=== PATIENT | male | born 1965 | race Caucasian/White ===

== ENCOUNTER 2019-10-20 05:33 | Outpatient (RCR) | payer MEDICAID ==
[~2019-10-20] VITALS: Ht 175.3 cm; Wt 100.0 kg
[2019-10-20] MEDS ORDERED: MELA1TAB27 PO (10:47)
[2019-10-20] MEDS ORDERED: DICL75TA2 PO (10:47)
[2019-10-20] MEDS ORDERED: POTA20TA8 PO (10:47)
[2019-10-20] MEDS ORDERED: ERGO50006 PO (10:47)
[2019-10-20] MEDS ORDERED: METH500T7 PO (10:47)
[2019-10-20] MEDS ORDERED: TRAZ-227 PO (10:47)
[2019-10-20] MEDS ORDERED: POLY119P5 PO (10:47)
[2019-10-20] MEDS ORDERED: VILA40TA PO (10:47)
[2019-10-20] MEDS ORDERED: SIMV10TA26 PO (10:47)
[2019-10-20] MEDS ORDERED: ALPR0.5T PO (10:47)
[2019-10-20] MEDS ORDERED: CHOL10007 PO (10:47)
[2019-10-20] MEDS ORDERED: FURO80TA3 PO (10:47)
[2019-10-20] MEDS ORDERED: LIDO700A45 TP (10:47)
[2019-10-20] MEDS ORDERED: GABA300C PO (10:47)
[2019-10-20] MEDS ORDERED: NALO12.5 PO (10:47)
[2019-10-20] MEDS ORDERED: HYDR-83 PO (10:47)
[2019-10-20] MEDS ORDERED: FURO40TA4 PO (10:47)
[2019-10-20] MEDS ORDERED: MAGN400O7 PO (10:47)
[2019-10-20] MEDS ORDERED: RISP2TAB3 PO (10:47)
[2019-10-20] MEDS ORDERED: METO5TAB6 PO (10:47)
[2019-10-20] MEDS ORDERED: DIVA500T PO (10:47)
[2019-10-20] MEDS ORDERED: FLUT9.9S NSEACH (10:47)
[2019-10-20] MEDS ORDERED: DOCU-143 PO (10:47)
== END 2019-10-20 14:03 | disposition home or self-care (01) ==
LOC: PREOP 05:33
PROVIDERS: ATTEND Surgery
DX: Z01.812 Encounter for preprocedural laboratory examination (principal); Z20.828 Contact with and (suspected) exposure to other viral communicable diseases; C85.90 Non-Hodgkin lymphoma, unspecified, unspecified site
CPT/HCPCS: 87635

== ENCOUNTER 2019-10-24 06:49 | Day surgery (SDC) | payer MEDICAID ==
[~2019-10-24] VITALS: Ht 175.3 cm; Wt 100.0 kg
[~2019-10-24 06:49] MED LIST: ALPR0.5T PO; CHOL10007 PO; DICL75TA2 PO; DIVA500T PO; DOCU-143 PO; ERGO50006 PO; FLUT9.9S NSEACH; FURO40TA4 PO; FURO80TA3 PO; GABA300C PO; HYDR-83 PO; LIDO700A45 TP; MAGN400O7 PO; MELA1TAB27 PO; METH500T7 PO; METO5TAB6 PO; NALO12.5 PO; POLY119P5 PO; POTA20TA8 PO; RISP2TAB3 PO; SIMV10TA26 PO; TRAZ-227 PO; VILA40TA PO
--- OUTSIDE RECORDS SUMMARY | 2019-10-24 06:54 | XMS REPORT ---
Author Author Jewel Cortez Organization [facility] Address [address] [place], [place] [id number] Care Team Providers Care Real Estate Marketing Coordinator Name Role Phone Ish Cortez PCP Valentín Florentino PreferredProvider Allergies and Adverse Reactions Name Reaction Notes No known drug allergy Plan of Treatment Planned Activity Comments Planned Date Planned Time Plan/Goal urinary retension 02/02/2018 10:30 AM Renal Ultrasound 04/19/2017 12:00 AM URINALYSIS ROUTINE C&S IF IND 04/19/2017 12:00 AM SPEP (serum protein electrophoresis) 04/19/2017 12:0 0 AM Urine protein electrophoresis panel 04/19/2017 12:00 AM PTH INTACT. 04/19/2017 12:00 AM PHOSPHORUS. 04/19/2017 12:00 AM VITAMIN D (25 HYDROXY) 04/19/2017 12:00 AM Hepatitis B screening test 04/19/2017 12:00 AM ABDOMEN 2 VIEW DECUB/UPRIGHT 01/04/2018 12:00 AM CBC W/ AUTO DIFF (RFLX MAN DIFF IF IND). 11/30/2018 12:00 AM BMP 11/30/2018 12:00 AM URINALYSIS W/MICRO C&S IF IND 11/30/2018 12:00 AM CBC W/ AUTO DIFF (RFLX MAN DIFF IF IND). 11/30/2018 12:00 AM BMP 11/30/2018 12:00 AM Medications Active Name Start Date Estimated Completion Date SIG Co mments Benadryl 25 mg oral capsule take 1-2 caps ules by oral route daily as needed Mapap (acetaminophen) 500 mg oral capsule take 1 - 2 capsules (500 - 1,000 mg) by oral route every 4-6 hours as needed not to exceed 8 capsules per 24hrs Vitamin D3 1,000 unit oral tablet take 2 tablets by oral route daily potassium chloride 20 mEq oral tablet extended release take 4 tablets by oral route daily Colace 100 mg oral capsule 08/31/2017 take 1 capsule (100 mg) by oral route 2 times per day for 30 days furosemide 40 mg oral tablet 12/06/2017 gregory e 1.5 tablets by oral route daily for 30 days DOK 100 mg oral capsule 03/09/2018 TAKE 1 CAPSULE BY MOUTH TWICE DAILY Miralax 17 gram/dose oral powder 04/06/2018 take 17 gram mixed with 8 oz. water, juice, soda, coffee or tea by oral route once daily metolazone 5 mg oral tablet 05/04/2018 TAKE 1 TABLET BY MOUTH ON MONDAYS, WEDNESDAYS AND FRIDAYS AT 12:30PM Viibryd 40 mg oral tablet 05/04/2018 TAKE 1 TABLET B Y MOUTH AT 8AM furosemide 80 mg oral tablet 05/04/2018 TAKE 1 TABLE T BY MOUTH AT 8AM potassium chloride 20 mEq oral tablet,ER particles/crystals 04/16 TAKE 4 TABLETS BY MOUTH AT 8AM methocarbamol 500 mg oral tablet 05/04/2018 TAKE 1 TABLET BY MOUTH THREE TIMES DAILY AT 8AM, 2PM AND 8PM duloxetine 60 mg oral capsule,delayed release(DR/EC) 05/04/2018 TAKE 1 CAPSULE BY MOUTH AT 8AM risperidone 2 mg oral tablet 05/04/2018 TAKE 1 TABLE T BY MOUTH AT 8PM diclofenac sodium 75 mg oral tablet,delayed release (DR/EC) 04/16 TAKE 1 TABLET BY MOUTH TWICE DAILY AT 8AM AND 8PM simvastatin 10 mg oral tablet 05/04/2018 TAKE 1 TABL ET BY MOUTH AT 8PM Name Start Date Expiration Date SIG Comments Vitamin D2 50,000 unit oral capsule 05/30/2017 08/22/2017 TAKE ONE CAPSULE BY MOUTH ONCE WEEKLY ON MONDAYS AT 7AM melatonin 3 mg oral tablet 10/20/2017 11/19/2017 take 2 tablets by oral route daily as needed for 30 days Lazo Diaper Rash Cream 01/04/2018 04/04/2018 Nystatin , Zinc Oxide, Aquaphor, Antacid, Cholestyramine; Apply to Area as Directed clonazepam 1 mg oral tablet 03/01/2018 03/31/2018 take 1 tablet (1 mg) by oral route 2 times per day for 30 days Drug screened morphine 15 mg oral tablet 03/17/2018 04/16/2018 take 1 tablet by oral route daily for 30 days tamsulosin 0.4 mg oral capsule 03/22/2018 07/12/2018 t ivan 1 capsule (0.4 mg) by oral route once daily 1/2 hour following the same meal each day for 28 days nystatin-triamcinolone 100,000-0.1 unit/g-% topical cream 018 04/01/2018 apply to the affected area(s) by topical route 2 times per day in the morning and evening for 10 days tramadol 50 mg oral tablet 04/26/2018 05/26/2018 take 1-2 tablets by oral route every 6 hours as needed for 30 days fentanyl 50 mcg/hr transdermal patch 72 hour 04/26/201805/17 apply 1 patch (50 mcg/hour) by transdermal route every 72 hours for 30 days Discontinued Name Start Date Discontinued Date SIG Comments Ativan 2 mg/mL injection solution 04/18/2018 inject 1 milliliter IM PRN agitation, may repeat in 1 hour if needed Did not pass drug screen Ativan 2 mg/mL injection solution 04/18/2018 inject 1 milliliter IM PRN agitation, may repeat in 1 hour if needed Did not pass drug screen Lasix 40 mg oral tablet 10/20/2017 take 1 t ablet (40 mg) by oral route once daily Lasix 80 mg oral tablet 10/20/2017 take 1 t ablet (80 mg) by oral route once daily duplicate fenofibrate 150 mg oral capsule 05/26/2017 07/19/2017 TAKE 1 CAPSULE BY MOUTH AT 8PM Xanax XR 1 mg oral tablet extended release 24 hr 12/06/2017 01/26/2018 take 1 tablet (1 mg) by oral route once daily for 30 days tamsulosin 0.4 mg oral capsule 01/31/2018 02/28/2018 t ivan 1 capsule (0.4 mg) by oral route once daily 1/2 hour following the same meal each day for 30 days clorazepate dipotassium 15 mg oral tablet 02/16/20182017 take 2 tablets by oral route 2 times a day for 30 days Xanax 0.5 mg oral tablet 02/16/2018 03/01/2018 take 1 tablet by oral route QD PRN agitation Problem List Not available. Vital Signs Date Time BP-Sys(mm[Hg] BP-Natividad(mm[Hg]) HR(bpm) RR(rpm) Temp WT HT HC BMI BSA BMI Percentile O2 Sat(%) 11/30/2018 2:07:00 PM 118 mmHg 76 mmHg 94 bpm 18 rpm 97.4 F 183 lbs 69 in 27.0241 kg/m 2.0102 m 95 % 04/18/2018 11:16:00 AM 120 mmHg 79 mmHg 76 bpm 20 rpm 98.6 F 183 lbs 69 in 27.02 kg/m2 2.01 m2 99 % 03/17/2018 11:18:00 AM 129 mmHg 80 mmHg 56 bpm 20 rpm 98.1 F 183 lbs 69 in 27.0241 kg/m 2.0102 m 100 % 02/28/2018 9:55:00 AM 128 mmHg 70 mmHg 52 bpm 14 rpm 97.9 F 183.562 lbs 96 % 02/04/2018 10:12:00 AM 102 mmHg 64 mmHg 80 bpm 20 rpm 98.1 F 183.375 lbs 69 in 27.08 kg/m2 2.01 m2 95 % 01/31/2018 10:34:00 AM 118 mmHg 78 mmHg 67 bpm 16 rpm 98.1 F 185 lbs 69 in 27.3194 kg/m 2.0212 m 95 % 01/04/2018 10:22:00 AM 122 mmHg 78 mmHg 68 bpm 19 rpm 98.2 F 184.5 lbs 69 i n 27.25 kg/m2 2.02 m2 95 % 11/23/2017 10:25:00 AM 116 mmHg 72 mmHg 77 bpm 20 rpm 98.1 F 187 lbs 69 in 27.6148 kg/m 2.0321 m 96 % 08/24/2017 10:38:00 AM 112 mmHg 64 mmHg 60 bpm 20 rpm 98.6 F 206.5 lbs 69 i n 30.49 kg/m2 2.14 m2 94 % 07/02/2017 9:59:00 AM 127 mmHg 82 mmHg 77 bpm 20 rpm 99.2 F 205 lbs 69 in 30.2729 kg/m 2.1277 m 94 % 06/02/2017 3:02:00 PM 124 mmHg 82 mmHg 95 bpm 20 rpm 98.8 F 205.375 lbs 69 in 30.33 kg/m2 2.13 m2 96 % 04/16/2017 9:09:00 AM 118 mmHg 68 mmHg 86 bpm 20 rpm 96.8 F 212.125 lbs 69 in 31.3251 kg/m 2.1643 m 98 % Social History Name Description Comments Smoker History of Procedures Date Ordered Description Order Status 04/16/2017 12:00 AM COMPREHEN METABOLIC PANEL Reviewed 11/23/2017 12:00 AM COMPREHEN METABOLIC PANEL Reviewed 11/23/2017 12:00 AM COMPLETE CBC W/AUTO DIFF WBC Reviewed 11/23/2017 12:00 AM C-REACTIVE PROTEIN Reviewed 11/23/2017 12:00 AM RBC SED RATE AUTOMATED Reviewed 11/23/2017 12:00 AM ASSAY THYROID STIM HORMONE Reviewed 11/23/2017 12:00 AM ASSAY OF PSA TOTAL Reviewed 11/23/2017 12:00 AM URNLS DIP STICK/TABLET RGNT AUTO W/O RUDDY ROSCOPY Reviewed 01/04/2018 12:00 AM US EXAM ABDO BACK WALL COMP Reviewed 01/19/2018 12:00 AM Consult/Referral Reviewed 01/31/2018 12:00 AM US EXAM PELVIC LIMITED Reviewed 02/28/2018 10:41 AM US URINE CAPACITY MEASURE Reviewed 03/08/2018 12:00 AM SIMPLE CYSTOMETROGRAM Reviewed 03/08/2018 12:00 AM CYSTOMETROGRAM W/NURSE SUBSTANCE ABUSE&UP Reviewed 03/08/2018 12:00 AM ELECTRO-UROFLOWMETRY FIRST Reviewed 03/08/2018 12:00 AM INTRAABDOMINAL PRESSURE TEST Reviewed 03/08/2018 12:00 AM URINALYSIS AUTO W/O SCOPE Reviewed 04/18/2018 12:00 AM REMOVE NAIL BED/TIP Reviewed 04/18/2018 12:00 AM REMOVAL OF NAIL PLATE Reviewed 04/18/2018 12:00 AM REMOVAL OF NAIL BED Reviewed 04/18/2018 12:00 AM REMOVE NAIL BED/TIP Reviewed 03/22/2018 12:00 AM CYSTOSCOPY Reviewed 03/22/2018 12:00 AM INSERT BLADDER CATHETER Reviewed 11/30/2018 12:00 AM URINALYSIS AUTO W/SCOPE Reviewed Results Summary Date and Description Results 04/16/2017 11:10 AM GLUCOSE 132.0 mg/dLSODIUM 13 6.0 mmol/LPOTASSIUM 4.20 mmol/LCHLORIDE 94.0 mmol/LCO2 31.0 mmol/LBUN 34.0 mg/dLCREATININE 1.90 mg/dLSGOT/AST 15.0 IU/LSGPT/ALT 13.0 IU/LALK PHOS 41.0 IU/LTOTAL PROTEIN 8.0 g/dLALBUMIN 4.50 g/dLTOTAL BILI 0.40 mg/dLCALCIUM 10.30 mg/dLAGE 51 GFR NonAA 38 GFR AA 46 eGFR 38 eGFR AA* 46 11/23/2017 12:28 PM TSH 0.80 WBC 7.6 RBC 6.17 HG B 18.5 HCT 53.0 MCV 86 MCH 30.0 MCHC 34.9 RDW SD 39 RDW CV 12.7 MPV 9.8 PLT 235 NRBC# 0.00 NRBC% 0.0 %NEUT 61.6 %LYMP 28.6 %MONO 6.6 %EOS 2.2 %BASO 0.9 #NEUT 4.67 #LYMP 2.17 #MONO 0.50 #EOS 0.17 #BASO 0.07 MANUAL DIFF SEE BELOW SEGS 58 LYMPHS 33 MONOS 7 EOS 2 GLUCOSE 96 SODIUM 138 POTASSIUM 2.9 CHLORIDE 92 CO2 33 BUN 17 CREATININE 1.6 SGOT/AST 20 SGPT/ALT 28 ALK PHOS 56 TOTAL PROTEIN 8.4 ALBUMIN 4.5 TOTAL BILI 0.6 CALCIUM 10.4 AGE 51 GFR NonAA 46 GFR AA 56 eGFR 46 eGFR AA* 56 PSA TOTAL 0.53 C REACTIVE PROTEIN 0.7 SEDRATE 9 11/23/2017 1:48 PM COLOR YELLOW APPEARANCE KETTY R SPEC GRAV <=1.005 pH 6.5 PROTEIN NEGATIVE GLUCOSE NEGATIVE KETONE NEGATIVE BILIRUBIN NEGATIVE BLOOD NEGATIVE NITRITE NEGATIVE LEUK SCREEN NEGATIVE MICRO INDICATED? NOT INDICATED 02/28/2018 10:41 AM Residual Urine 49.0 mL 11/30/2018 4:51 PM COLOR Colorless CLARITY Ketty r SPEC GRAV 1.009 pH 6.5 PROTEIN Negative GLUCOSE Normal KETONE Negative BILIRUBIN Negative BLOOD Negative NITRITE Negative LEUK SCREEN Negative RBC/HPF None Seen WBC/HPF 0-5 BACTERIA/HPF None Seen SQUAMOUS EPI/LPF None Seen MUCOUS/LPF Few HYALINE CAST/LPF 3+ CULT SET UP? NO History Of Immunizations Not available. 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 Major depressive disorder, recurrent episode, unspecified GERD (gastroesophageal reflux disease) Other seizures Constipation, unspecified Pain Edema Chronic pain disorder Stage 3 chronic kidney disease Apr 16 2017 9:13AM Anxiety Apr 16 2017 9:13AM CKD (chronic kidney disease) Apr 19 2017 1:46PM Drug induced constipation Jun 02 2017 3:07PM Adverse effect of other opioids, initial encounter Jun 02 3:07PM Anxiety Jun 02 2017 3:07PM 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 Jun 02 2017 3:07PM Chronic Low Back Pain Jul 02 2017 10:05AM Muscle weakness Jul 02 2017 10:05AM Low back pain Aug 24 2017 10:46AM Other chronic pain Aug 24 2017 10:46AM Weight loss Nov 23 2017 10:30AM Benign prostatic hyperplasia with lower urinary tract symptoms Nov 23 2017 10:30AM Other obstructive and reflux uropathy Nov 23 2017 10:30AM Drug induced constipation Nov 23 2017 10:30AM Slow transit constipation Jan 04 2018 10:29AM Urinary retention Jan 04 2018 10:29AM Diaper rash Jan 04 2018 10:29AM Urinary retention Jan 19 2018 11:23AM TBI (traumatic brain injury) Jan 31 2018 10:36AM Unspecified injury of bladder, sequela Jan 31 2018 10:36AM Unspecified injury of urethra, sequela Jan 31 2018 10:36AM Benign prostatic hyperplasia with lower urinary tract symptoms Jan 31 2018 10:36AM Other obstructive and reflux uropathy Jan 31 2018 10:36AM Urinary Incontinence Feb 28 2018 10:00AM Bladder injury Feb 28 2018 10:00AM Urinary Incontinence Mar 08 2018 2:05PM Bladder injury Mar 08 2018 2:05PM Retention, urine Mar 22 2018 9:29AM BPH (benign prostatic hyperplasia) Mar 22 2018 9:29AM Drug induced constipation Mar 22 2018 9:29AM Detrusor dysfunction Mar 08 2018 2:05PM Onychomycosis Apr 18 2018 11:18AM Low back pain Mar 17 2018 11:20AM Other chronic pain Mar 17 2018 11:20AM Overflow incontinence Feb 04 2018 10:19AM Mood disorder Feb 04 2018 10:19AM Nocturia Nov 30 2018 2:10PM Urinary hesitancy Nov 30 2018 2:10PM BPH (benign prostatic hyperplasia) Nov 30 2018 3:09PM BPH loc w/o ur obs/LUTS Nov 30 2018 2:10PM Neurogenic bladder Nov 30 2018 2:10PM Payers Insurance Name Company Name Plan Name Plan Number Policy Number John cy Group Number Start Date [facility] Plan of [id number] N/A [facility] Plan of [place] [facility]althCare [facility] Comm [id number] N/A History of Encounters Visit Date Visit Type Provider 11/30/2018 Office visit Ish Cortez MD 04/18/2018 Office visit Kayla AVILA RN 03/22/2018 Procedures Ish Cortez MD 03/17/[address] Valentín Florentino MD 03/08/2018 Procedures Ish Cortez MD 02/28/2018 Office visit Ish Cortez MD 02/04/[address] Valentín Florentino MD 01/31/2018 Office visit Ish Cortez MD 01/04/[address] Valentín Florentino MD 11/23/[address] Valentín Florentino MD 08/24/[address] Valentín Florentino MD 07/02/[address] Valentín Florentino MD 06/02/[address] Valentín Florentino MD 04/16/[address] Valentín Florentino MD
--- OUTSIDE RECORDS SUMMARY | 2019-10-24 06:54 | XMS REPORT ---
Author Author [facility] Medic al Staff, DIAZ Irizarry [facility] Address [address] [place], [place] [address] Phone [phone] Care Team Providers Care Fpga Design Engineer Name Role Phone MARIE BATISTA MD, WAI PP [phone] Summary purpose CCDA Sent to [facility] Chief Complaint and Reason for Visit No authorized Reason for Visit (Admitting Diagnosis) is available for this visit . Problem list No authorized problems tracked for continuity of care are available for this vis it. Encounters No authorized problems tracked for encounter diagnoses are available for this vi sit. Medications No medications recorded for this patient visit Allergies, adverse reactions, alerts No allergy information is available for this patient. Immunizations No immunizations recorded for this patient visit Relevant diagnostic tests and/or laboratory data No authorized results are available for this patient visit History of procedures Procedure Code Code Type Description Date Performed Performing Physician 65970 CPT-4 ROUTINE VENIPUNCTURE 06-11-2016 [place] [address] CPT-4 COMPREHEN METABOLIC PANEL 06-11-2016 [place] [address] CPT-4 COMPLETE CBC W/AUTO DIFF WBC 06-11-2016 WAI SALAZAR JR Functional status No functional or cognitive status observations are available for this visit. Vital signs No authorized vital signs are available for this visit. Social history No Social History or smoking status observations were recorded for this visit. ( Unknown if ever smoked.) Treatment Plan No treatment plan text is available for this visit. Hospital discharge instructions No discharge instruction text is available for this visit.
--- OUTSIDE RECORDS SUMMARY | 2019-10-24 06:54 | XMS REPORT ---
Author Author Jewel Cortez Organization [facility] Address [address] [place], [place] [address] Care Team Providers Care Head Charrer Name Role Phone Ish Cortez PCP Valentín [...] MAN DIFF IF IND). 11/30/2018 12:00 AM CBC W/ AUTO DIFF (RFLX MAN DIFF IF IND). 11/30/2018 12:00 AM BMP 11/30/2018 12:00 AM BMP 01/15/2019 12:00 AM CBC W/ AUTO DIFF (RFLX MAN DIFF IF IND). 01/15/2019 12:00 AM URINALYSIS W/MICRO C&S IF IND 01/15/2019 12:00 AM Medications Active Name Start Date [...] SIMPLE CYSTOMETROGRAM Reviewed 03/08/2018 12:00 AM CYSTOMETROGRAM W/POPCORN MACHINE OPERATOR&UP Reviewed 03/08/2018 12:00 AM ELECTRO-UROFLOWMETRY FIRST Reviewed [...] 11/30/2018 12:00 AM URINALYSIS AUTO W/SCOPE Reviewed 11/30/2018 12:00 AM METABOLIC PANEL TOTAL CA Reviewed 11/30/2018 12:00 AM URINALYSIS AUTO W/SCOPE [...] 0.80 WBC 7.6 RBC 6.17 HG B 18.50 g/dLHCT 53.0 %MCV 86.0 fLMCH 30.0 pgMCHC 34.90 g/dLRDW SD 39 fLRDW CV 12.70 %MPV 9.80 fLPLT 235 NRBC# 0.00 NRBC% 0.0 %NEUT 61.6 %LYMP 28.6 %MONO 6.6 %EOS 2.2 %BASO 0.9 #NEUT 4.67 #LYMP 2.17 #MONO 0.50 #EOS 0.17 #BASO 0.07 MANUAL DIFF SEE BELOW SEGS 58 LYMPHS 33 MONOS 7 EOS 2 GLUCOSE 96 SODIUM 138 POTASSIUM 2.9 CHLORIDE 92.0 mmol/LCO2 33 BUN 17.0 mg/dLCREATININE 1.60 mg/dLSGOT/AST 20 SGPT/ALT 28 ALK PHOS 56 TOTAL PROTEIN 8.4 ALBUMIN 4.5 TOTAL BILI 0.6 CALCIUM 10.40 mg/dLAGE 51 GFR NonAA 46 GFR AA 56 eGFR 46 eGFR AA* 56 PSA TOTAL 0.53 C REACTIVE PROTEIN 7.0 mg/LSEDRATE 9 11/23/2017 1:48 PM COLOR YELLOW APPEARANCE [...] 2:10PM Neurogenic bladder Nov 30 2018 2:10PM Preoperative examination Dec 15 2018 7:37AM Payers Insurance Name Company Name Plan Name Plan Number Policy Number John cy Group [facility] [id number] N/A [facility] ealthCare [facility] Comm [id number] N/A History of Encounters Visit Date Visit [...]
--- OUTSIDE RECORDS SUMMARY | 2019-10-24 06:54 | XMS REPORT ---
Discharge Summary 2.1 Created on: DIAZ BOO : 1965 Sex: Male Author Author DIAZ HA Organization Unknown Address [address] [place], [place] [address] Care Team Providers Care Hospital Mortician Name Role Phone [facility] [employer] Attending KOLE TORRES MD [facility] Functional Status No Data Found Immunization Immunization Date Status Additional Notes Code Code System influenza, split (incl. purified surface antigen) 03/24/2004 Completed 15 CVX influenza, split (incl. purified surface antigen) 02/24/2008 Completed 15 CVX influenza, split (incl. purified surface antigen) 05/04/2011 Completed 15 CVX pneumococcal polysaccharide PPV23 Completed 33 CVX Tdap 08/05/2009 Completed 115 CVX Tdap 05/04/2011 Completed 115 CVX Influenza, seasonal, injectable 08/01/2012 Completed 141 CVX influenza, injectable, quadrivalent 03/08/2015 Completed 158 CVX influenza, injectable, quadrivalent 02/20/2016 Completed 158 CVX Mental Status No Data Found Results No Data Found Social History Type Status Start Date End Date Code Code System Smoking History Unknown if ever smoked [id number] SNOMED-CT Smoking History Current every day smoker [id number] SNOMED-CT Vital Signs No Data Found Assessment No Data Found Hospital Discharge Instructions Should you have any questions prior to discharge, please contact a member of your healthcare team. If you have left the hospital and have any questions, please contact your primary care physician. Reason For Referral No Data Found Hospital Course You were admitted to [facility] on 04/20/2017 11:58 with a principal diagnosis of Pain in left leg You were discharged from [facility] on 04/20/2017 14:03 Medications No Data Found Procedures No Data Found Implants No Data Found Problems No Data Found Allergies Allergy Substance Reaction Severity Start Date Concern Status Code Code System No Known Drug Allergies Active RxNorm Plan of Treatment No Data Found Encounters No Data Found Goals No Data Found Discharge Medications No Data Found Discharge Diagnosis Discharge Diagnosis Diagnosis Code Start Date Pain in left leg [id number] 04/20/2017 Health Concerns Section No Data Found
--- OUTSIDE RECORDS SUMMARY | 2019-10-24 06:54 | XMS REPORT ---
Author Author Jewel Cortez Organization [facility] Address [address] [place], [place] [address] Care Team Providers Care Web Machine Tender Name Role Phone Ish Cortez PCP Valentín [...] SIMPLE CYSTOMETROGRAM Reviewed 03/08/2018 12:00 AM CYSTOMETROGRAM W/PRODUCT CONTROLLER&UP Reviewed 03/08/2018 12:00 AM ELECTRO-UROFLOWMETRY FIRST Reviewed [...] Number John cy Group Number [facility] Plan [facility] [id number] N/A [facility] Comm [id number] N/A History of Encounters Visit Date Visit [...]
[2019-10-24] MEDS ORDERED: proPOfol 200 MG/20 ML (DIPRIVAN) VIAL IV ONE ×2 (06:55→06:57)
[2019-10-24] MEDS ORDERED: fentaNYL INJECTION 100 MCG/2 ML AMP ONE (06:55)
--- OUTSIDE RECORDS SUMMARY | 2019-10-24 06:55 | XMS REPORT ---
Author Author Jewel Cortez Organization [facility] Address [address] [place], [place] [address] Care Team Providers Care Set Off Press Operator Name Role Phone Ish Cortez PCP Valentín [...] ABDOMEN 2 VIEW DECUB/UPRIGHT 01/04/2018 12:00 AM URINALYSIS W/MICRO C&S IF IND [...] SIMPLE CYSTOMETROGRAM Reviewed 03/08/2018 12:00 AM CYSTOMETROGRAM W/PILE DRIVER OPERATOR BARGE MOUNTED&UP Reviewed 03/08/2018 12:00 AM ELECTRO-UROFLOWMETRY FIRST Reviewed [...] 03/22/2018 12:00 AM INSERT BLADDER CATHETER Reviewed Results Summary Date and Description Results [...] 02/28/2018 10:41 AM Residual Urine 49.0 mL History Of Immunizations Not available. History of [...] Number John cy Group Number Start Date [facility] Plan of [id number] N/A [facility]altare [facility] Comm [id number] N/A History of Encounters Visit Date Visit [...]
--- OUTSIDE RECORDS SUMMARY | 2019-10-24 06:55 | XMS REPORT ---
Author Author Jewel Cortez Organization [facility] Address [address] [place], [place] [address] Care Team Providers Care Skin Former Name Role Phone Ish Cortez PCP Valentín [...] SIMPLE CYSTOMETROGRAM Reviewed 03/08/2018 12:00 AM CYSTOMETROGRAM W/CLERICAL ORDER FILLER&UP Reviewed 03/08/2018 12:00 AM ELECTRO-UROFLOWMETRY FIRST Reviewed [...] (benign prostatic hyperplasia) Nov 30 2018 3:09PM Payers Insurance Name Company Name Plan Name Plan Number Policy Number John cy Group [facility] [id number] N/A [facility] Comm [id number] N/A History of Encounters Visit Date Visit [...]
--- OUTSIDE RECORDS SUMMARY | 2019-10-24 06:55 | XMS REPORT ---
Author Author Jewel Pena Organization [facility] Address [address] [place], [place] [id number] Care Team Providers Care Utilization Review Rn Name Role Phone aKyla Pena PCP Valentín Florentino PreferredProvider Allergies and Adverse [...] ABDOMEN 2 VIEW DECUB/UPRIGHT 01/04/2018 12:00 AM Medications Active Name Start Date [...] TAKE 1 CAPSULE BY MOUTH TWICE DAILY tamsulosin 0.4 mg oral capsule 03/22/2018 07/12/2018 t ivan 1 capsule (0.4 mg) by oral route once daily 1/2 hour following the same meal each day for 28 days Miralax 17 gram/dose oral powder 04/06/2018 take 17 gram mixed with 8 oz. water, juice, soda, coffee or tea by oral route once daily tramadol 50 mg oral tablet 04/26/2018 05/26/2018 take 1-2 tablets by oral route every 6 hours as needed for 30 days fentanyl 50 mcg/hr transdermal patch 72 hour 04/26/201805/17 apply 1 patch (50 mcg/hour) by transdermal route every 72 hours for 30 days metolazone 5 mg oral tablet 05/04/2018 TAKE [...] Name Start Date Expiration Date SIG Comments simvastatin 10 mg oral tablet 05/26/2017 11/22/2017 TAKE 1 TABL ET BY MOUTH AT 8PM diclofenac sodium 75 mg oral tablet,delayed release (DR/EC) 05/2611/22/2017 TAKE 1 TABLET BY MOUTH TWICE DAILY AT 8AM AND 8PM risperidone 2 mg oral tablet 05/26/2017 11/22/2017 TAKE 1 TABLE T BY MOUTH AT 8PM metolazone 5 mg oral tablet 05/26/2017 11/10/2017 TAKE 1 TABLET BY MOUTH ON MONDAYS, WEDNESDAYS AND FRIDAYS AT 12:30PM duloxetine 60 mg oral capsule,delayed release(DR/EC) 05/26/2017 11/22/2017 TAKE 1 CAPSULE BY MOUTH AT 8AM methocarbamol 500 mg oral tablet 05/26/2017 11/22/2017 TAKE 1 TABLET BY MOUTH THREE TIMES DAILY AT 8AM, 2PM AND 8PM Viibryd 40 mg oral tablet 05/26/2017 11/22/2017 TAKE 1 TABLET B Y MOUTH AT 8AM Vitamin D2 50,000 unit oral capsule 05/30/2017 [...] by oral route daily for 30 days nystatin-triamcinolone 100,000-0.1 unit/g-% topical cream 018 04/01/2018 apply to the affected area(s) by topical route 2 times per day in the morning and evening for 10 days Discontinued Name Start Date Discontinued Date [...] HC BMI BSA BMI Percentile O2 Sat(%) 04/18/2018 11:16:00 AM 120 mmHg 79 mmHg 76 bpm 20 rpm 98.6 F 183 lbs 69 in 27.0241 kg/m 2.0102 m 99 % 03/17/2018 11:18:00 AM 129 mmHg 80 mmHg 56 bpm 20 rpm 98.1 F 183 lbs 69 in 27.02 kg/m2 2.01 m2 100 % 02/28/2018 9:55:00 AM 128 mmHg [...] SIMPLE CYSTOMETROGRAM Reviewed 03/08/2018 12:00 AM CYSTOMETROGRAM W/AIRCRAFT ENGINE SPECIALIST&UP Reviewed 03/08/2018 12:00 AM ELECTRO-UROFLOWMETRY FIRST Reviewed [...] 10:19AM Mood disorder Feb 04 2018 10:19AM Payers Insurance Name Company Name Plan Name Plan Number Policy Number John cy Group [id number] N/A [facility]Care [facility] Comm [id number] N/A History of Encounters Visit Date Visit Type Provider 04/18/2018 Office visit Kayla Pena APRN 03/22/2018 Procedures Ish Cortez MD 03/17/2018 Office [...]
--- OUTSIDE RECORDS SUMMARY | 2019-10-24 06:55 | XMS REPORT ---
Author Author Jewel Barroso Organization [facility] Address [address] [place], [place] [address] Care Team Providers Care Manufacturing Sr Engineer Name Role Phone Kayla Barroso PCP Valentín Florentino PreferredProvider Allergies and Adverse [...] SIMPLE CYSTOMETROGRAM Reviewed 03/08/2018 12:00 AM CYSTOMETROGRAM W/TORCH SHEARER&UP Reviewed 03/08/2018 12:00 AM ELECTRO-UROFLOWMETRY FIRST Reviewed [...] Number John cy Group Number [facility] Plan [facility] [id number] N/A [facility] ealthCare [facility] Comm [id number] N/A History of Encounters Visit Date Visit Type Provider 04/18/2018 Office visit Kayla AVILA RN 03/22/2018 [...]
--- OUTSIDE RECORDS SUMMARY | 2019-10-24 06:55 | XMS REPORT ---
Author Author Jewel Barroso Organization [facility] Address [address] [place], [place] [phone] Care Team Providers Care Crime Specialist Name Role Phone Kayla Barroso PCP Valentín [...] SIMPLE CYSTOMETROGRAM Reviewed 03/08/2018 12:00 AM CYSTOMETROGRAM W/RUBY ON RAILS DEVELOPER&UP Reviewed 03/08/2018 12:00 AM ELECTRO-UROFLOWMETRY FIRST Reviewed [...] Number John cy Group Number [facility] [id number] N[facility]althCare [facility] Comm [id number] N/A History of Encounters Visit Date Visit Type Provider 04/18/2018 Office visit Kayla AVILA RN 03/22/2018 Procedures Ish Cortez MD 03/17/[address] Vaelntín Florentino MD 03/08/2018 Procedures Ish Cortez MD [...]
--- OUTSIDE RECORDS SUMMARY | 2019-10-24 06:55 | XMS REPORT ---
Author Author Jewel Barroso Organization [facility] Address [address] [place], [place] [phone] Care Team Providers Care Customer Support Executive Name Role Phone Kayla Barroso PCP Valentín [...] SIMPLE CYSTOMETROGRAM Reviewed 03/08/2018 12:00 AM CYSTOMETROGRAM W/STATE INSPECTOR&UP Reviewed 03/08/2018 12:00 AM ELECTRO-UROFLOWMETRY FIRST Reviewed [...] Number John cy Group Number [facility] [id number] N/A [facility]Care [facility] Comm [id number] N/A History of Encounters Visit Date Visit [...]
[2019-10-24] MEDS ORDERED: MIDAZOLAM 2 MG/2 ML (VERSED) VIAL ONE (06:56)
--- OUTSIDE RECORDS SUMMARY | 2019-10-24 06:56 | XMS REPORT ---
Author Author Jewel Pena Organization [facility] Address [address] [place], [place] [phone] Care Team Providers Care Fuel Cell Binder Name Role Phone Kayla Pena PCP Valentín Florentino PreferredProvider Allergies and [...] 10:41 AM US URINE CAPACITY MEASURE Reviewed 03/22/2018 12:00 AM CYSTOSCOPY Reviewed 03/22/2018 12:00 AM INSERT BLADDER CATHETER Reviewed 03/08/2018 12:00 AM SIMPLE CYSTOMETROGRAM Reviewed 03/08/2018 12:00 AM CYSTOMETROGRAM W/SPRINKLING SYSTEM IRRIGATOR&UP Reviewed 03/08/2018 12:00 AM ELECTRO-UROFLOWMETRY FIRST Reviewed 03/08/2018 12:00 AM INTRAABDOMINAL PRESSURE TEST Reviewed 03/08/2018 12:00 AM URINALYSIS AUTO W/O SCOPE Reviewed 04/18/2018 12:00 AM REMOVE NAIL BED/TIP Reviewed 04/18/2018 12:00 AM REMOVAL OF NAIL PLATE Reviewed 04/18/2018 12:00 AM REMOVAL OF NAIL BED Reviewed 04/18/2018 12:00 AM REMOVE NAIL BED/TIP Reviewed Results Summary Date and Description Results [...] Number John cy Group Number [facility] [id number] N/A [facility] ealthCare [facility] Comm [id number] N/A History of Encounters Visit Date Visit [...]
--- OUTSIDE RECORDS SUMMARY | 2019-10-24 06:56 | XMS REPORT ---
Author Author Jewel Pena Organization [facility] Address [address] [place], [place] [phone] Care Team Providers Care Loan Expeditor Name Role Phone Kayla Pena PCP Valentín [...] Date Estimated Completion Date SIG Co mments Ativan 2 mg/mL injection solution inject 1 milliliter IM PRN agitation, may repeat in 1 hour if needed Ativan 2 mg/mL injection solution inject 1 milliliter IM PRN agitation, may repeat in 1 hour if needed Benadryl 25 mg oral capsule take 1-2 caps ules by oral route daily as needed fentanyl 50 mcg/hr transdermal patch 72 hour apply 1 patch (50 mcg/hour) by transdermal route every 72 hours Mapap (acetaminophen) 500 mg oral capsule take 1 - 2 capsules (500 - 1,000 mg) by oral route every 4-6 hours as needed not to exceed 8 capsules per 24hrs tramadol 50 mg oral tablet take 1-2 tablets by oral route every 6 hours as needed Vitamin D3 1,000 unit oral tablet take 2 tablets by oral route daily potassium chloride 20 mEq oral tablet extended release take 4 tablets by oral route daily Colace 100 mg oral capsule 08/31/2017 take 1 capsule (100 mg) by oral route 2 times per day for 30 days diclofenac sodium 75 mg oral tablet,delayed release (DR/EC) 11/05 TAKE 1 TABLET BY MOUTH TWICE DAILY AT 8AM AND 8PM simvastatin 10 mg oral tablet 11/05/2017 TAKE 1 TABL ET BY MOUTH AT 8PM metolazone 5 mg oral tablet 11/05/2017 TAKE 1 TABLET BY MOUTH ON MONDAYS, WEDNESDAYS AND FRIDAYS AT 12:30PM duloxetine 60 mg oral capsule,delayed release(DR/EC) 11/05/2017 TAKE 1 CAPSULE BY MOUTH AT 8AM Viibryd 40 mg oral tablet 11/05/2017 TAKE 1 TABLET B Y MOUTH AT 8AM furosemide 80 mg oral tablet 11/05/2017 TAKE 1 TABLE T BY MOUTH AT 8AM methocarbamol 500 mg oral tablet 11/05/2017 TAKE 1 TABLET BY MOUTH THREE TIMES DAILY AT 8AM, 2PM AND 8PM potassium chloride 20 mEq oral tablet,ER particles/crystals 11/05 TAKE 4 TABLETS BY MOUTH AT 8AM risperidone 2 mg oral tablet 11/05/2017 TAKE 1 TABLE T BY MOUTH AT 8PM furosemide 40 mg oral tablet 12/06/2017 gregory [...] or tea by oral route once daily Name Start Date Expiration Date SIG Comments [...] 2 times per day for 30 days morphine 15 mg oral tablet 03/17/2018 04/16/2018 take 1 tablet by oral route daily for 30 days nystatin-triamcinolone 100,000-0.1 unit/g-% topical cream 018 04/01/2018 apply to the affected area(s) by topical route 2 times per day in the morning and evening for 10 days Discontinued Name Start Date Discontinued Date SIG Comments Lasix 40 mg oral tablet 10/20/2017 take [...] SIMPLE CYSTOMETROGRAM Reviewed 03/08/2018 12:00 AM CYSTOMETROGRAM W/COOLING SYSTEM OPERATOR&UP Reviewed 03/08/2018 12:00 AM ELECTRO-UROFLOWMETRY FIRST Reviewed 03/08/2018 12:00 AM INTRAABDOMINAL PRESSURE TEST Reviewed 03/08/2018 12:00 AM URINALYSIS AUTO W/O SCOPE Reviewed 04/18/2018 12:00 AM REMOVAL OF NAIL PLATE Reviewed Results Summary Date and Description Results [...] Other chronic pain Mar 17 2018 11:20AM Payers Insurance Name Company Name Plan Name Plan Number Policy Number John cy Group Number [facility] [id number] N/A [facility] ealthCare [facility] Comm [id number] N/A History of Encounters Visit Date Visit Type Provider 04/18/2018 Office visit Kayla Pena CONSULTING NETWORKING ENGINEER 03/22/2018 Procedures Ish Cortez MD 03/17/2018 Office [...]
--- OUTSIDE RECORDS SUMMARY | 2019-10-24 06:56 | XMS REPORT ---
Author Author Jewel Pena Organization [facility] Address [address] [place], [place] [address] Care Team Providers Care Horticulture Instructor Name Role Phone Kayla Pena PCP Valentín [...] SIMPLE CYSTOMETROGRAM Reviewed 03/08/2018 12:00 AM CYSTOMETROGRAM W/CHINCHILLA FARMER&UP Reviewed 03/08/2018 12:00 AM ELECTRO-UROFLOWMETRY FIRST Reviewed [...] Number John cy Group Number Start Date [facility] e Comm Plan of [id number] N/A [facility]altare [facility] Comm [id number] N/A History of Encounters Visit Date Visit Type Provider 04/18/2018 Office visit Kayla Pena MEAT COOLER 03/22/2018 Procedures Ish Cortez MD 03/17/2018 Office [...]
--- OUTSIDE RECORDS SUMMARY | 2019-10-24 06:56 | XMS REPORT ---
Author Author Jewel Cortez Organization [facility] Address [address] [place], [place] [phone] Care Team Providers Care Senior Painter Name Role Phone Ish Cortez PCP Valentín [...] TAKE 1 CAPSULE BY MOUTH TWICE DAILY morphine 15 mg oral tablet 03/17/2018 04/16/2018 [...] route daily as needed for 30 days Lzao Diaper Rash Cream 01/04/2018 04/04/2018 Nystatin , Zinc Oxide, Aquaphor, Antacid, Cholestyramine; Apply to Area as Directed clonazepam 1 mg oral tablet 03/01/2018 03/31/2018 take 1 tablet (1 mg) by oral route 2 times per day for 30 days nystatin-triamcinolone 100,000-0.1 unit/g-% topical [...] HC BMI BSA BMI Percentile O2 Sat(%) 03/17/2018 11:18:00 AM 129 mmHg 80 mmHg [...] SIMPLE CYSTOMETROGRAM Reviewed 03/08/2018 12:00 AM CYSTOMETROGRAM W/BARKER OPERATOR&UP Reviewed 03/08/2018 12:00 AM ELECTRO-UROFLOWMETRY FIRST Reviewed 03/08/2018 12:00 AM INTRAABDOMINAL PRESSURE TEST Reviewed 03/08/2018 12:00 AM URINALYSIS AUTO W/O SCOPE Reviewed Results Summary Date and Description Results [...] 9:29AM Detrusor dysfunction Mar 08 2018 2:05PM Payers Insurance Name Company Name Plan Name Plan Number Policy Number John cy Group [facility] [id number] N/A [facility]Care [facility] Comm [id number] N/A History of Encounters Visit Date Visit Type Provider 03/22/2018 Procedures Ish Cortez MD 03/17/2018 Office [...]
--- OUTSIDE RECORDS SUMMARY | 2019-10-24 06:56 | XMS REPORT ---
Author Author Jewel Cortez Organization [facility] Address [address] [place], [place] [phone] Care Team Providers Care Deputy Sheriff Lieutenant Name Role Phone Ish Cortez PCP Valentín [...] take 4 tablets by oral route daily Miralax 17 gram/dose oral powder 04/23/2017 take 17 gram mixed with 8 oz. water, juice, soda, coffee or tea by oral route once daily Colace 100 mg oral capsule 08/31/2017 [...] by oral route daily for 30 days Lazo Diaper Rash Cream 01/04/2018 04/04/2018 Nystatin , Zinc Oxide, Aquaphor, Antacid, Cholestyramine; Apply to Area as Directed clonazepam 1 mg oral tablet 03/01/2018 03/31/2018 take 1 tablet (1 mg) by oral route 2 times per day for 30 days DOK 100 mg oral capsule 03/09/2018 TAKE 1 CAPSULE BY MOUTH TWICE DAILY morphine 15 mg oral tablet 03/17/2018 04/16/2018 take 1 tablet by oral route daily for 30 days Name Start Date Expiration Date SIG Comments [...] route daily as needed for 30 days Discontinued Name Start Date [...] SIMPLE CYSTOMETROGRAM Reviewed 03/08/2018 12:00 AM CYSTOMETROGRAM W/CUTTER BARREL DRUM&UP Reviewed 03/08/2018 12:00 AM ELECTRO-UROFLOWMETRY FIRST Reviewed 03/08/2018 12:00 AM INTRAABDOMINAL PRESSURE TEST Reviewed 03/08/2018 12:00 AM URINALYSIS AUTO W/O SCOPE Reviewed 03/22/2018 12:00 AM CYSTOSCOPY Reviewed Results Summary Date and Description Results [...] Drug induced constipation Mar 22 2018 9:29AM Payers Insurance Name Company Name Plan Name Plan Number Policy Number John cy Group [facility] [id number] N/A [facility] Comm [id number] N/A History of Encounters Visit Date Visit [...]
--- OUTSIDE RECORDS SUMMARY | 2019-10-24 06:57 | XMS REPORT ---
Author Jewel Leija [facility] Address [address] [place], [place] [phone] Care Team Providers Care Reaming Machine Operator Name Role Phone Valentín Florentino PCP Allergies and Adverse Reactions Name Reaction Notes No known drug allergy Plan of Treatment Planned Activity Comments Planned Date Planned Time Plan/Goal Renal Ultrasound 04/19/2017 12:00 AM URINALYSIS ROUTINE C&S IF IND 04/19/2017 12:00 AM SPEP (serum protein electrophoresis) 04/19/2017 12:0 0 AM Urine protein electrophoresis panel 04/19/2017 12:00 AM PTH INTACT. 04/19/2017 12:00 AM PHOSPHORUS. 04/19/2017 12:00 AM VITAMIN D (25 HYDROXY) 04/19/2017 12:00 AM Hepatitis B screening test 04/19/2017 12:00 AM Medications Active Name Start Date [...] ules by oral route daily as needed Colace 100 mg oral capsule take 1 capsule (100 mg) by oral route 2 times per day diclofenac sodium 75 mg oral tablet,delayed release (DR/EC) take 1 tablet (75 mg) by oral route 2 times per day duloxetine 60 mg oral capsule,delayed release(DR/EC) take 1 capsule (60 mg) by oral route once daily fenofibrate 150 mg oral capsule take 1 capsule (150 mg) by oral route once daily with food fentanyl 50 mcg/hr transdermal patch 72 hour apply 1 patch (50 mcg/hour) by transdermal route every 72 hours Lasix 40 mg oral tablet take 1 tablet (40 mg) by oral route once daily Lasix 80 mg oral tablet take 1 tablet (80 mg) by oral route once daily Mapap (acetaminophen) 500 mg oral capsule take 1 - 2 capsules (500 - 1,000 mg) by oral route every 4-6 hours as needed not to exceed 8 capsules per 24hrs melatonin 3 mg oral tablet take 1 tablet by oral route As needed methocarbamol 500 mg oral tablet take 1 t ablet by oral route 3 times a day metolazone 5 mg oral tablet take 1 tablet (5 mg) by oral route once daily Miralax 17 gram/dose oral powder take 17 gram mixed with 8 oz. water, juice, soda, coffee or tea by oral route once daily risperidone 2 mg oral tablet take 1 table t (2 mg) by oral route once daily simvastatin 10 mg oral tablet ta ke 1 tablet (10 mg) by oral route once daily in the evening tramadol 50 mg oral tablet take 1-2 tablets by oral route every 6 hours as needed Viibryd 40 mg oral tablet take 1 tablet (40 mg) by oral route once daily with food Vitamin D2 50,000 unit oral capsule take 1 capsule (50,000 unit) by oral route once weekly Vitamin D3 1,000 unit oral tablet take 2 tablets by oral route daily potassium chloride 20 mEq oral tablet extended release take 4 tablets by oral route daily morphine 20 mg oral capsule,extend.release pellets 04/16/2017 05/16/2017 take 1 capsule (20 mg) by oral route 2 times per day for 30 days Xanax 0.5 mg oral tablet 04/16/2017 06/15/2017 take 1 tablet by oral route 2 times a day for 30 days Xanax XR 2 mg oral tablet extended release 24 hr 04/16/2017 06/15/2017 take 1 tablet (2 mg) by oral route once daily for 30 days Problem List Not available. Vital Signs Date Time BP-Sys(mm[Hg] BP-Natividad(mm[Hg]) HR(bpm) RR(rpm) Temp WT HT HC BMI BSA BMI Percentile O2 Sat(%) 04/16/2017 9:09:00 AM 118 mmHg 68 mmHg 86 bpm 20 rpm 96.8 F 212.125 lbs 69 in 31.33 kg/m2 2.16 m2 98 % Social History Not available. History of Procedures Date Ordered Description Order Status 04/16/2017 12:00 AM COMPREHEN METABOLIC PANEL Returned Results Summary Not available. History Of Immunizations Not available. History of Past Illness Name Date of Onset Comments Traumatic Brain Injury Anxiety Stage 3 chronic kidney disease Apr 16 2017 9:13AM Anxiety Apr 16 2017 9:13AM CKD (chronic kidney disease) Apr 19 2017 1:46PM Payers Insurance Name Company Name Plan Name Plan Number Policy Number John cy Group Number Start Date [facility] [id number] N/A History of Encounters Visit Date Visit Type Provider 04/16/[address] Valentín Florentino MD
--- OUTSIDE RECORDS SUMMARY | 2019-10-24 06:57 | XMS REPORT ---
Author Jewel Leiaj [facility] Address [address] [place], [place] [address] Care Team Providers Care Manager Monitoring Name Role Phone Valentín Florentino PCP Allergies [...] by oral route 2 times per day fentanyl 50 mcg/hr transdermal patch 72 hour [...] 1 tablet by oral route As needed tramadol 50 mg oral tablet take 1-2 [...] oral route once daily for 30 days metolazone 5 mg oral tablet 04/21/2017 05/19/2017 TAKE 1 TABLET BY MOUTH ON MONDAYS, WEDNESDAYS AND FRIDAYS AT 12:30PM methocarbamol 500 mg oral tablet 04/21/2017 05/21/2017 TAKE 1 TABLET BY MOUTH THREE TIMES DAILY AT 8AM, 2PM AND 8PM furosemide 80 mg oral tablet 04/21/2017 05/21/2017 TAKE 1 TABLE T BY MOUTH AT 8AM risperidone 2 mg oral tablet 04/21/2017 05/21/2017 TAKE 1 TABLE T BY MOUTH AT 8PM simvastatin 10 mg oral tablet 04/21/2017 05/21/2017 TAKE 1 TABL ET BY MOUTH AT 8PM duloxetine 60 mg oral capsule,delayed release(DR/EC) 04/21/2017 05/21/2017 TAKE 1 CAPSULE BY MOUTH AT 8AM Viibryd 40 mg oral tablet 04/21/2017 05/21/2017 TAKE 1 TABLET B Y MOUTH AT 8AM diclofenac sodium 75 mg oral tablet,delayed release (DR/EC) 04/2105/21/2017 TAKE 1 TABLET BY MOUTH TWICE DAILY AT 8AM AND 8PM furosemide 40 mg oral tablet 04/21/2017 05/21/2017 TAKE 1 TABLE T BY MOUTH AT 8AM potassium chloride 20 mEq oral tablet,ER particles/crystals 04/2105/21/2017 TAKE 4 TABLETS BY MOUTH AT 8AM fenofibrate 150 mg oral capsule 04/21/2017 05/21/2017 TAKE 1 CAPSULE BY MOUTH AT 8PM Vitamin D2 50,000 unit oral capsule 04/21/2017 05/18/2017 TAKE ONE CAPSULE BY MOUTH ONCE WEEKLY ON MONDAYS AT 7AM Miralax 17 gram/dose oral powder 04/23/2017 take 17 gram mixed with 8 oz. water, juice, soda, coffee or tea by oral route once daily Problem List Not available. Vital Signs Date Time BP-Sys(mm[Hg] BP-Natividad(mm[Hg]) HR(bpm) RR(rpm) Temp WT HT HC BMI BSA BMI Percentile O2 Sat(%) 04/16/2017 9:09:00 AM 118 mmHg 68 mmHg 86 bpm 20 rpm 96.8 F 212.125 lbs 69 in 31.33 kg/m2 2.16 m2 98 % Social History Name Description Comments [...] disease) Other seizures Constipation, unspecified Pain Edema Stage 3 chronic kidney disease Apr 16 2017 9:13AM Anxiety Apr 16 2017 9:13AM CKD (chronic kidney disease) Apr 19 2017 1:46PM Payers Insurance Name Company Name Plan Name Plan Number Policy Number John cy Group Number Start Date [facility] Comm [id number] N/A History of Encounters Visit Date Visit Type Provider 04/16/[address] Valentín Florentino MD
--- OUTSIDE RECORDS SUMMARY | 2019-10-24 06:57 | XMS REPORT ---
Author Author Jewel Florentino Organization [facility] Address [address] [place], [place] [address] Care Team Providers Care Dancing Master Name Role Phone Valentín Florentino PCP Valentín Florentino PreferredProvider Allergies and Adverse [...] 1 TABLE T BY MOUTH AT 8PM morphine 15 mg oral tablet 11/23/2017 12/23/2017 take 1 tablet by oral route BID for 30 days. Please do not fill until 11/28/17. Xanax 0.5 mg oral tablet 12/06/2017 04/05/2018 take 1 tablet by oral route 2 times a day for 30 days Xanax XR 1 mg oral tablet extended release 24 hr 12/06/2017 04/05/2018 take 1 tablet (1 mg) by oral route once daily for 30 days furosemide 40 mg oral [...] TAKE 1 CAPSULE BY MOUTH AT 8PM Problem List Not available. Vital Signs Date Time BP-Sys(mm[Hg] BP-Natividad(mm[Hg]) HR(bpm) RR(rpm) Temp WT HT HC BMI BSA BMI Percentile O2 Sat(%) 11/23/2017 10:25:00 AM 116 mmHg 72 mmHg [...] Reviewed 11/23/2017 12:00 AM COMPREHEN METABOLIC PANEL Returned 11/23/2017 12:00 AM COMPLETE CBC W/AUTO DIFF WBC Returned 11/23/2017 12:00 AM C-REACTIVE PROTEIN Returned 11/23/2017 12:00 AM RBC SED RATE AUTOMATED Returned 11/23/2017 12:00 AM ASSAY THYROID STIM HORMONE Returned 11/23/2017 12:00 AM ASSAY OF PSA TOTAL Returned 11/23/2017 12:00 AM URNLS DIP STICK/TABLET RGNT AUTO W/O RUDDY ROSCOPY Returned Results Summary Date and Description Results 04/16/2017 11:10 AM GLUCOSE 132.0 mg/dLSODIUM 13 6.0 mmol/LPOTASSIUM 4.20 mmol/LCHLORIDE 94.0 mmol/LCO2 31.0 mmol/LBUN 34.0 mg/dLCREATININE 1.90 mg/dLSGOT/AST 15.0 IU/LSGPT/ALT 13.0 IU/LALK PHOS 41.0 IU/LTOTAL PROTEIN 8.0 g/dLALBUMIN 4.50 g/dLTOTAL BILI 0.40 mg/dLCALCIUM 10.30 mg/dLAGE 51 GFR NonAA 38 GFR AA 46 eGFR 38 eGFR AA* 46 History Of Immunizations Not available. History of [...] Drug induced constipation Nov 23 2017 10:30AM Payers Insurance Name Company Name Plan Name Plan Number Policy Number John cy Group Number Start Date [facility] [id number] N/A History of Encounters Visit Date Visit Type Provider 11/23/[address] Valentín Florentino MD 08/24/[address] Valentín Florentino MD 07/02/[address] Valentín Florentino MD 06/02/[address] Valentín Florentino MD 04/16/[address] Valentín Florentino MD
--- OUTSIDE RECORDS SUMMARY | 2019-10-24 06:57 | XMS REPORT ---
Author Author Jewel Cortez Organization [facility] Address [address] [place], [place] [address] Care Team Providers Care Mainspring Former Arbor End Name Role Phone Ish Cortez PCP Valentín [...] ABDOMEN 2 VIEW DECUB/UPRIGHT 01/04/2018 12:00 AM Limited non-obstetrical ultrasound of pelvis 01/31/2018 12:00 AM Medications Active Name Start Date [...] Antacid, Cholestyramine; Apply to Area as Directed clorazepate dipotassium 7.5 mg oral tablet 01/26/201803/27 take 1.5 tablets by oral route 2 times a day for 30 days morphine 15 mg oral tablet 01/31/2018 03/02/2018 take 1 tablet by oral route BID for 30 days. tamsulosin 0.4 mg oral capsule 01/31/2018 12/27/2018 t ivan 1 capsule (0.4 mg) by oral route once daily 1/2 hour following the same meal each day for 30 days Name Start Date Expiration [...] HC BMI BSA BMI Percentile O2 Sat(%) 01/31/2018 10:34:00 AM 118 mmHg 78 mmHg [...] AM US EXAM ABDO BACK WALL COMP Returned 01/19/2018 12:00 AM Consult/Referral Reviewed Results Summary Date and Description Results [...] LEUK SCREEN NEGATIVE MICRO INDICATED? NOT INDICATED History Of Immunizations Not available. History of [...] and reflux uropathy Jan 31 2018 10:36AM Payers Insurance Name Company Name Plan Name Plan Number Policy Number John cy Group [facility] [id number] N/A [facility] Comm [id number] N/A History of Encounters Visit Date Visit Type Provider 01/31/2018 Office visit Ish Cortez MD 01/04/[address] Valentín Florentino MD 11/23/[address] Valentín Florentino MD 08/24/[address] Valentín Florentino MD 07/02/[address] Valentín Florentino MD 06/02/[address] Valentín Florentino MD 04/16/[address] Valentín Florentino MD
--- OUTSIDE RECORDS SUMMARY | 2019-10-24 06:57 | XMS REPORT ---
Author Author Jewel Florentino Organization [facility] Address [address] [place], [place] [address] Care Team Providers Care Assisted Living Director Name Role Phone Valentín Florentino PCP Allergies [...] or tea by oral route once daily simvastatin 10 mg oral tablet 05/26/2017 11/22/2017 TAKE 1 TABL ET BY MOUTH AT 8PM diclofenac sodium 75 mg oral tablet,delayed release (DR/EC) 05/2611/22/2017 TAKE 1 TABLET BY MOUTH TWICE DAILY AT 8AM AND 8PM potassium chloride 20 mEq oral tablet,ER particles/crystals 05/2611/22/2017 TAKE 4 TABLETS BY MOUTH AT 8AM risperidone 2 mg oral tablet 05/26/2017 11/22/2017 [...] TIMES DAILY AT 8AM, 2PM AND 8PM fenofibrate 150 mg oral capsule 05/26/2017 11/22/2017 TAKE 1 CAPSULE BY MOUTH AT 8PM Viibryd 40 mg oral tablet 05/26/2017 11/22/2017 TAKE 1 TABLET B Y MOUTH AT 8AM furosemide 80 mg oral tablet 05/26/2017 11/22/2017 TAKE 1 TABLE T BY MOUTH AT 8AM Vitamin D2 50,000 unit oral capsule 05/30/2017 08/22/2017 TAKE ONE CAPSULE BY MOUTH ONCE WEEKLY ON MONDAYS AT 7AM furosemide 40 mg oral tablet 06/02/2017 gregory e 1.5 tablets by oral route daily for 30 days Xanax XR 1 mg oral tablet extended release 24 hr 06/02/2017 08/01/2017 take 1 tablet (1 mg) by oral route once daily for 30 days Colace 100 mg oral capsule 06/02/2017 take 1 capsule (100 mg) by oral route 2 times per day for 30 days Xanax 0.5 mg oral tablet 06/17/2017 10/15/2017 take 1 tablet by oral route 2 times a day for 30 days morphine 15 mg oral tablet 07/12/2017 08/11/2017 take 1 tablet by oral route QD for 30 days. Please do not fill until 07/18/17. Problem List Not available. Vital Signs Date Time BP-Sys(mm[Hg] BP-Natividad(mm[Hg]) HR(bpm) RR(rpm) Temp WT HT HC BMI BSA BMI Percentile O2 Sat(%) 07/02/2017 9:59:00 AM 127 mmHg 82 mmHg 77 bpm 20 rpm 99.2 F 205 lbs 69 in 30.27 kg/m2 2.13 m2 94 % 06/02/2017 3:02:00 PM 124 mmHg 82 mmHg 95 bpm 20 rpm 98.8 F 205.375 lbs 69 in 30.3283 kg/m 2.1296 m 96 % 04/16/2017 9:09:00 AM 118 mmHg [...] 10:05AM Muscle weakness Jul 02 2017 10:05AM Payers Insurance Name Company Name Plan Name Plan Number Policy Number John cy Group Number Start Date [facility] [id number] N/A History of Encounters Visit Date Visit Type Provider 07/02/[address] Valentín Florentino MD 06/02/[address] Valentín Florentino MD 04/16/[address] Valentín Florentino MD
--- OUTSIDE RECORDS SUMMARY | 2019-10-24 06:57 | XMS REPORT ---
Author Author Jewel Florentino Organization [facility] Address [address] [place], [place] [address] Care Team Providers Care Paratransit Driver Name Role Phone Valentín Florentino PCP Valentín [...] 1 TABLE T BY MOUTH AT 8PM Xanax 0.5 mg oral tablet 12/06/2017 04/05/2018 take 1 tablet by oral route 2 times a day for 30 days Xanax XR 1 mg oral tablet extended release 24 hr 12/06/2017 04/05/2018 take 1 tablet (1 mg) by oral route once daily for 30 days furosemide 40 mg oral tablet 12/06/2017 gregory e 1.5 tablets by oral route daily for 30 days morphine 15 mg oral tablet 12/28/2017 01/27/2018 take 1 tablet by oral route BID for 30 days. Lazo Diaper Rash Cream 01/04/2018 04/04/2018 Nystatin , Zinc Oxide, Aquaphor, Antacid, Cholestyramine; Apply to Area as Directed Name Start Date Expiration Date SIG Comments [...] HC BMI BSA BMI Percentile O2 Sat(%) 01/04/2018 10:22:00 AM 122 mmHg 78 mmHg 68 bpm 19 rpm 98.2 F 184.5 lbs 69 i n 27.2456 kg/m 2.0185 m 95 % 11/23/2017 10:25:00 AM 116 mmHg 72 mmHg 77 bpm 20 rpm 98.1 F 187 lbs 69 in 27.61 kg/m2 2.03 m2 96 % 08/24/2017 10:38:00 AM 112 mmHg [...] US EXAM ABDO BACK WALL COMP Returned Results Summary Date and Description Results [...] 10:29AM Diaper rash Jan 04 2018 10:29AM Payers Insurance Name Company Name Plan Name Plan Number Policy Number John cy Group Number Start Date [facility]althCare [facility] Comm [id number] N/A History of Encounters Visit Date Visit Type Provider 01/04/[address] Valentín Florentino MD 11/23/[address] Valentín Florentino MD 08/24/[address] Valentín Florentino MD 07/02/[address] Valentín Florentino MD 06/02/[address] Valentín Florentino MD 04/16/[address] Valentín Florentino MD
--- OUTSIDE RECORDS SUMMARY | 2019-10-24 06:57 | XMS REPORT ---
Author Author Jewel Florentino Organization [facility] Address [address] [place], [place] [address] Care Team Providers Care Geography Teacher Name Role Phone Valentín Florentino PCP Valentín [...] 10:29AM Urinary retention Jan 19 2018 11:23AM Payers Insurance Name Company Name Plan Name Plan Number Policy Number John cy Group Number Start Date [facility] [id number] N/A History of Encounters Visit Date Visit Type Provider 01/04/[address] Valentín Florentino MD 11/23/[address] Valentín Florentino MD 08/24/[address] Valentín Florentino MD 07/02/[address] Valentín Florentino MD 06/02/[address] Valentín Florentino MD 04/16/[address] Valentín Florentino MD
--- OUTSIDE RECORDS SUMMARY | 2019-10-24 06:57 | XMS REPORT ---
Author Author Jewel Florentino Organization [facility] Address [address] [place], [place] [address] Care Team Providers Care Bioinformatics Computer Scientist Name Role Phone Valentín Florentino PCP Allergies [...] take 4 tablets by oral route daily Xanax 0.5 mg oral tablet 04/16/2017 06/15/2017 take 1 tablet by oral route 2 times a day for 30 days Miralax 17 gram/dose oral powder 04/23/2017 take [...] oral route daily for 30 days morphine 20 mg oral capsule,extend.release pellets 06/02/2017 07/02/2017 take 1 capsule by oral route daily for 30 days Xanax XR 1 mg oral tablet extended release 24 hr 06/02/2017 08/01/2017 take 1 tablet (1 mg) by oral route once daily for 30 days Colace 100 mg oral capsule 06/02/2017 take 1 capsule (100 mg) by oral route 2 times per day for 30 days Problem List Not available. Vital Signs Date Time BP-Sys(mm[Hg] BP-Natividad(mm[Hg]) HR(bpm) RR(rpm) Temp WT HT HC BMI BSA BMI Percentile O2 Sat(%) 06/02/2017 3:02:00 PM 124 mmHg 82 mmHg [...] congestive) heart failure Jun 02 2017 3:07PM Payers Insurance Name Company Name Plan Name Plan Number Policy Number John cy Group Number Start Date [facility] ealthCare [facility] Comm [id number] N/A History of Encounters Visit Date Visit Type Provider 06/02/[address] Valentín Florentino MD 04/16/[address] Valentín Florentino MD
--- OUTSIDE RECORDS SUMMARY | 2019-10-24 06:58 | XMS REPORT | Continuity of Care Document ---
Author Author [facility] Organization [facility] Address [facility] [address] [place] [address] Phone Unavailable Support Name Relationship Address Phone CLAUDINE ALFRED DO Caregiver [address] [place] [address] JEWEL BOO Next Of Kin [address] [place] [address] UNK Insurance Providers Payer Name Policy Number Subscriber Name Relationship [facility] [id number] Jewel Boo 18 S elf / Same As Patient Advance Directives Directive Response Recorded Date/Time Advance Directives No 12/04/14 12:16pm Living Will No 12/04/14 12:16pm Health Care Proxy No 08/10/15 2:39pm Power of Sociology Professor for Health Care No 12:16pm Organ, Tissue, or Eye Donor No 12/04/14 12: 16pm Do you have a signed organ donor card? No 0 12/04/14 12:16pm Chief Complaint and Reason for Visit Chief Complaint FALL Reason for Visit Spasm of lumbar paraspinous muscle [id number] Problems Active Problems Medical Problem Onset Date Status Chronic pain Unknown Acute Closed head injury with brief loss of consciousness Unknown Acute Leg pain Unknown Acute Spasm of lumbar paraspinous muscle Unknown Acute Medications Current Home Medications Medication Dose Units Route Directions Days/Qty Instructions Star t Date Metolazone 5 Mg 5 Mg Oral As Directed *1 TAB ON MO N, WED, & Wed03/26/15 Simvastatin 10 Mg 10 Mg Oral Bedtime Fentanyl 1 Ea 1 Ea Transderm Every Three Days 03/26/15 Fenofibrate Nanocrystallized 145MG* 145 Mg 145 Mg Oral Daily 03/26/15 Potassium Chloride 20 Meq 20 Meq Oral Daily 03/26/15 Venlafaxine Hcl 150 Mg 150 Mg Oral Daily 1 05/26/14 Clonazepam 1 Mg 1 Mg Oral Twice A Day 03/17 [Clanzapine] 10 Mg Oral Twice A Day 5 Divalproex Sodium 500 Mg 500 Mg Oral Twice A Day 03/26/15 Diclofenac Sodium 75 Mg 75 Mg Oral Twice A Day 03/26/15 Furosemide 40 Mg 40 Mg Oral Twice A Day 02/28 Docusate Sodium 100 Mg 100 Mg Oral Twice A Day 03/26/15 Buspirone Hcl 10 Mg 15 Mg Oral Three Times A Day 03/26/15 Past Home Medications Medication Directions Ordered Status Fentanyl 1 Ea Tdsy, 1 Ea Transderm Every Three Days 12/04/14 Discontinued [Lasix] , Oral 12/04/14 Discontinued [Lyrica] , Oral 12/04/14 Discontinued [Flexeril] , 12/04/14 Discontinued Mupirocin 22 Gm Oint, 22 Gm External Three Times A Day 12/04/14 Discontinued Social History Social History Problem Response Recorded Date/Edy e Tobacco Use Denies Use 08/10/2015 5:36pm Alcohol Use none 08/10/2015 5:36pm Drug Use none 08/10/2015 5:36pm Employment Disabled 08/10/2015 5:36pm Hospital Discharge Instructions No hospital discharge instructions. Plan of Care Discharge Date 08/10/15 5:45pm Disposition 01 HOME, [facility] JOSELO Salamanca Condition at Discharge Stable Instructions/Education Provided Minor Head Injury (ED) Prescriptions See Medication Section Referrals GIULIA NEELY MD - 2-3 Day s Additional Instructions/Education Follow up with PCP i n 1-2 days. Return for any mental status changes, N/V, or new symptoms Patient may resume his normal activities. Functional Status Query Response Date Recorded Alexey Coma Scale Total 14 August 10, 2015 2:37pm Patient Behavior Anxious August 10, 2015 2:37pm Allergies, Adverse Reactions, Alerts No known allergies. Immunizations Name Given Type Hx Diphtheria, Pertussis, Tetanus Vaccination Up To Date Historical Hx Influenza Vaccination Yes Historical Hx Pneumococcal Vaccination No Historical Vital Signs Acute Vital Signs Vital Response Date/Time Temperature (Fahrenheit) 98.3 degrees F (97.6 - 99.5) 2015 2:40pm Temperature Source Temporal Artery 08/10/2015 2:40pm Pulse Rate (adult) 74 bpm (60 - 90) 08/10/2015 5:45pm Respiratory Rate 16 bpm (12 - 24) 08/10/2015 5:45pm Blood Pressure 115/70 mm Hg 08/10/2015 5:45pm O2 Sat by Pulse Oximetry 98 % (90 - 100) 08/10/2015 5:45 pm Oxygen Delivery Method 08/10/2015 5:45pm Height 5 ft 9 in Weight 220 lb Body Mass Index 32.0 kg/m^2 Results No known relevant diagnostic tests, laboratory data and/or discharge summary. Procedures Procedure Status Date Provider(s) Computed tomography of cervical spine without contrast Completed 08/10/15 CLAUDINE ALFRED DO Computed tomography of head without contrast Completed CLAUDINE ALFRED DO Portable x-ray of chest Completed 08/10/15 Terri ALFRED DO Encounters Encounter Location Arrival/Admit Date Discharge/Depart Date Attending Provider Registered Emergency Room [place] 08/10/15 2:43pm CLAUDINE ALFRED DO Recent Diagnosis
--- OUTSIDE RECORDS SUMMARY | 2019-10-24 06:58 | XMS REPORT | Continuity of Care Document ---
Author Author [facility] Organization [facility] Address [facility] [address] [address] Phone Unavailable Support Name Relationship Address Phone NII CAREY MD Caregiver [address] [place] [address] Unavailable DIAZ BOO Next Of Kin [address] [place] [address] K Insurance Providers Payer Name Policy Number Subscriber Name Relationship [facility] [id number] Diaz Boo 18 S elf / Same As Patient Advance Directives Directive Response Recorded Date/Time Advance Directives No 12/04/14 12:16pm Living Will No 12/04/14 12:16pm Health Care Proxy No 03/26/15 2:52pm Power of Glass Or Mirror Inspector for Health Care No 12:16pm Organ, Tissue, or Eye Donor No 12/04/14 12: 16pm Do you have a signed organ donor card? No 0 12/04/14 12:16pm Chief Complaint and Reason for Visit Chief Complaint BACK PAIN OR INJURY Reason for Visit Chronic pain probable opiate seeking behavior Problems Active Problems Medical Problem Onset Date Status Chronic pain Unknown Acute Leg pain Unknown Acute Medications Current Home Medications Medication Dose Units Route Directions Days/Qty Instructions Star t Date Fentanyl 1 Ea 1 Ea Transderm Every Three Days 12/04/14 [Lasix] Oral 12/04/14 [Lyrica] Oral 12/04/14 [Flexeril] 12/04/14 Mupirocin 22 Gm 22 Gm External Three Times A Day 7 Days 12/04/14 Social History No social history. Hospital Discharge Instructions No hospital discharge instructions. Plan of Care Discharge Date 03/26/15 4:25pm Condition at Discharge Stable Instructions/Education Provided Chronic Back Pain (ED) Prescriptions See Medication Section Additional Instructions/Education NOTE TO LONGTERM PERSONNEL: PLEASE CONTACT THE PATIENT'S PRIMARY CARE PROVIDER IN THE NEXT 24 HOURS TO ENSURE THAT THE PATIENT HAS THE OPTIMAL PAIN CONTROL REGIMEN. (YOU ARE PROBABLY DONE THIS BEFORE). I ADVISED THE PATIENT THAT THE EMERGENCY DEPARTMENT IS PROBABLY NOT THE OPTIMAL PLACE TO TREAT A FLAREUP OF CHRONIC PAIN, AND HIS PRIMARY CARE DOCTOR CAN PROBABLY MANAGE FLAREUPS OF HIS PAIN. Functional Status Query Response Date Recorded Alexey Coma Scale Total 15 March 26, 2015 4:22pm Patient Behavior Cooperative Appropriate March 26, 2015 4:22pm Allergies, Adverse Reactions, Alerts No known allergies. Immunizations Name Given Type Hx Diphtheria, Pertussis, Tetanus Vaccination Up To Date Historical Hx Influenza Vaccination Y 02/2015 Historical Hx Pneumococcal Vaccination No Historical Vital Signs Acute Vital Signs Vital Response Date/Time Temperature (Fahrenheit) 98.7 degrees F (97.6 - 99.5) 2014 4:22pm Temperature Source Temporal Artery 03/26/2015 4:22pm Pulse Rate (adult) 75 bpm (60 - 90) 03/26/2015 4:22pm Respiratory Rate 22 bpm (12 - 24) 03/26/2015 4:22pm Blood Pressure 113/79 mm Hg 03/26/2015 4:22pm O2 Sat by Pulse Oximetry 96 % (90 - 100) 03/26/2015 4:22 pm Oxygen Delivery Method 03/26/2015 4:22pm Pain Intensity 4 03/26/2015 4:25pm Pain Location Body Site Modifier 015 3:06pm Pain Description 03/26/2015 3:06pm Height 5 ft 9 in Weight 235 lb Body Mass Index 34.0 kg/m^2 Results No known relevant diagnostic tests, laboratory data and/or discharge summary. Procedures No known history of procedures. Encounters Encounter Location Arrival/Admit Date Discharge/Depart Date Attending Provider Departed Emergency Room [place] 03/26/15 2:53pm 03/26/15 4:25p NII Wagner MD Recent Diagnosis
--- OUTSIDE RECORDS SUMMARY | 2019-10-24 06:58 | XMS REPORT ---
Author Author Jewel Patel Organization [employer] Address Unknown Phone Unavailable Care Team Providers Care Manager Budget Name Role Phone Joshua Patel CP Unavailable Allergies No Known Allergies Problems Problem Type Condition Code Onset Dates Condition Statu s Problem Anxiety disorder, unspecified F41.9 Active Problem Major depressive disorder, single episode, unspecified F32.9 Active Problem Pure hypercholesterolemia E78.0 Ac tive Problem Generalized anxiety disorder F41.1 Active Problem Edema, unspecified R60.9 Active Problem Incontinence without sensory awareness N39.42 Active Problem Localized edema R60.0 Active Problem Cellulitis, unspecified L03.90 Acti ve Problem Esophagitis, unspecified K20.9 Act anmol Problem Generalized edema R60.1 Active Problem Unspecified intracranial inj ury with loss of consciousness of unspecified duration, sequela S06.9X9S Active Problem Chronic pain syndrome G89.4 Active Problem Slow transit constipation K59.01 Ac tive Medications Medication Code System Code Instructions Start Date End Date Status Dosage Augmentin [facility] [address]-66 875-125 MG Orally every 12 hrs September 15, 2 016 1 tablet Results No Known Results Summary Purpose [employer] Submission
--- OUTSIDE RECORDS SUMMARY | 2019-10-24 06:58 | XMS REPORT ---
Author Author Jewel Patel Organization [employer] Address Unknown Phone Unavailable Care Team Providers Care Work Ticket Distributor Name Role Phone Joshua Patel CP Unavailable Allergies, Adverse Reactions, Alerts Substance Reaction Event Type N.K.D.A. Info Not Available Non Drug Allergy Problems Problem Type Condition Code Onset Dates [...] Act anmol Problem Generalized edema R60.1 Active Assessment Incontinence without sensory awareness N39.42 Active Assessment Generalized anxiety disorder F41.1 Active Assessment Anxiety disorder, unspecified F41.9 Active Assessment Edema, unspecified R60.9 Active Problem Unspecified intracranial inj ury with loss of consciousness of unspecified duration, sequela S06.9X9S Active Assessment Chronic pain syndrome G89.4 Active Problem Chronic pain syndrome G89.4 Active Assessment Unspecified intracranial inj ury with loss of consciousness of unspecified duration, sequela S06.9X9S Active Problem Slow transit constipation K59.01 Ac tive Medications Medication Code System Code Instructions Start Date End Date Status Dosage Bisacodyl EC [facility] [address]-43 5 MG Orally Once a day 1 tablet as needed Methocarbamol [facility] [address]-02 500 MG Orally every 4 hrs 1.5 tablets Divalproex Sodium [facility] [address]-70 500 MG Orally Twice a day 1 tablet Diclofenac Sodium [facility] [address]-89 75 MG Orally Twice a day 1 tablet BusPIRone HCl [facility] [address]-59 15 MG Orally Twice a day 2 tablet Olanzapine [facility] [address]-92 20 MG Orally Twice a day 0.5 tablet Furosemide [facility] [address]-26 40 MG Orally Twice a day 1 tablet Cymbalta [facility] [address]-58 30 MG Orally Once a day 1 capsule Duloxetine HCl [facility] [address]-50 60 MG Orally Once a day 1 capsule Potassium Chloride ER [facility] [address]-94 20 MEQ Orally Once a day 1 tablet with food Viibryd [facility] [address]-01 20 MG Orally Once a day 2 tablets with food Simvastatin [facility] [address]-84 10 MG Orally Once a day 1 tablet in the evening Venlafaxine HCl ER [facility] [address]-58 150 MG Orally Once a day 1 capsule with food Tramadol HCl [facility] [address]-98 50 MG Orally every 6 hrs max of 8 per day 1-2 tablet as needed Fenofibrate [facility] [address]-96 145 MG Orally Once a day 1 tablet VESIcare [facility] [address]-10 5 MG Orally Once a day 1 tablet Clonazepam [facility] [address]-87 1 MG Orally Twice a day then 1 PRN (60) 1 tablet Robaxin [facility] [address]-48 500 MG Orally At night September 06, 2015 1 tablet as needed Metolazone [facility] [address]-40 5 MG Orally -- 1 tablet Colace [facility] [address]-33 100 MG Orally Once a day 1 capsule as needed Tylenol Extra Strength [facility] [address]-07 500 MG Orally every 4 hrs 1 tablet as needed Procedures Procedure Coding System Code Date MOST RECENT DIASTOLIC BP <90 MM HG CPT-4 G8590 September 06, 2015 BMI>=30OR<22 NICHELLE NO FOLLOWUP CPT-4 G8419 Aug DOC MEDS VERIFIED W/PT OR RE CPT-4 G8427 Aug Office Visit, Est Pt., Level 3 CPT-4 32455 A pril 2015 PAIN SEV QUANTIFIED PAIN PRES CPT-4 G8512 2015 BP SYS <130 AND ARVIZU <80 CPT-4 G8476 August 162015 MOST RECENT SYSTOLIC BP <140 MM HG CPT-4 G8588 September 06, 2015 TX PLAN DEVELOP & DOCUMENT CPT-4 G8437 September 06, 2015 CLIN DEPRESSION SCREEN NOT D CPT-4 G8432 Aug TOBACCO NON-USER CPT-4 G8457 September 06, 2015 PRESCRIPTION BY E-PRESCRIB S CPT-4 G8443 Aug Vital Signs Date/Time: September 06, 2015 BMI 35.73 Index Pain Scale 9/10 1-10 Weight 242 lbs Height 69 in Respiratory Rate 24 /min Temperature 97.3 F Cardiac Monitoring Heart Rate 87 /min Oximetry 94 % Blood Pressure Diastolic 65 mm Hg Blood Pressure Systolic 126 mm Hg Results No Known Results Summary Purpose [employer] Submission
--- OUTSIDE RECORDS SUMMARY | 2019-10-24 06:58 | XMS REPORT | Continuity of Care Document ---
Author Organization Unknown Address Unknown Phone Unavailable Allergies Active Description Code Type Severity Reaction Onset Reported/Identified Relationship to Patient Clinical Status Yes No Known Drug Allergies [id number] N/A N/A Yes No Known Drug Allergies [id number] Drug Allergy Unknown N/A 09/22/2019 Medications Medication Packaging Start Date St op Date Route Dosage Sig FENTANYL Transdermal 01/21/2015 02/15/2015 Transdermal 1010 every 3 dyas TRAMADOL HCL ORAL 02/15/2015 02/25/2015 ORAL 9090 three times daily FENTANYL Transdermal 02/15/2015 04/18/2015 Transdermal 1010 every 3 dyas CLONAZEPAM ORAL 02/1504/28/2015 ORAL 9090 three t imes daily TRAMADOL HCL ORAL 03/12/2015 05/25/2015 ORAL 247978 4 times a day FENTANYL Transdermal 04/18/2015 08/05/2015 Transdermal 1010 every 3 dyas CLONAZEPAM ORAL 04/1805/17/2015 ORAL 6060 twice d aily TRAMADOL HCL ORAL 04/25/2015 05/25/2015 ORAL 9090 three times daily CLONAZEPAM ORAL 05/07 ORAL 6060 twice da sonali FENTANYL Transdermal 08/05/2015 Transdermal 1010 every 3 dyas Problems Date Dx Coded Attending Type Code Diagnosis Diagnosed By 04/15/1402 GONSALO RANDLE DO Ot C85.9 0 NON-HODGKIN LYMPHOMA, UNSPECIFIED, UNSPE 04/15/1402 GONSALO RANDLE DO Ot Z01.8 12 ENCOUNTER FOR PREPROCEDURAL LABORATORY E 04/15/1402 GONSALO RANDLE DO Ot Z20.8 28 CONTACT W AND EXPOSURE TO OTH VIRAL COMM 06/11/2016 MARIE BATISTA MD, WAI Orourke E78.5 Hyperlipidemia, unspecified 06/11/2016 MARIE BATISTA MD, WAI [place] E87.6 Hypokalemia 06/11/2016 AMRIE BATISTA MD, WAI [place] F41.8 Other specified anxiety disorders 06/11/2016 MARIEWAI ALDANA JR, MD G89.29 Other chronic pain 06/11/2016 WAI SALZAAR JR, MD K21.9 Gastro-esophageal reflux disease without esophagitis 06/11/2016 WAI SALAZAR JR, MD R60.0 Localized edema 06/11/2016 WAI SALAZAR JR, MD S06.9X0A Unsp intracranial injury w/o loss of consciousness, in it 01/12/2017 P E876 Hypok alemia 01/19/2017 P E785 Hyper lipidemia, unspecified 01/28/2017 P E785 Hyper lipidemia, unspecified 02/02/2017 P E785 Hyper lipidemia, unspecified 03/05/2018 P R531 Weakness 03/05/2018 S Z5329 Proc edure and treatment not carried out because of patient's decision for other reasons 09/28/2019 GISSEL WHITT Ot 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, 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 10/18/2019 GISSEL WHITT Ot 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, 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 10/20/2019 GISSEL WHITT Ot 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, 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 10/20/2019 RAZIA RAMIREZ, GONSALO B Ot C85.9 0 NON-HODGKIN LYMPHOMA, UNSPECIFIED, UNSPE 10/20/2019 RAZIA RAMIREZ GONSALO B Ot Z01.8 12 ENCOUNTER FOR PREPROCEDURAL LABORATORY E 10/20/2019 CHONG RANDLE DOIC B Ot Z20.8 28 CONTACT W AND EXPOSURE TO OTH VIRAL COMM 10/24/2019 GISSEL WHITT Ot 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 Visit Date/Time Discharge Status Pt. Type Provider Facility Loc./Unit Complaint [id number] 06/11/2016 10:14:00 06/11/2016 10:14 :00 DIS Outpatient MARIE BATISTA MD, WAI [facility] [id number] 06/27/2019 10:09:56 06/27/2019 23:59: 59 CLS Outpatient HODA POLLO Payne [id number] 01/25/2019 10:29:09 01/25/2019 23:59: 59 CLS Outpatient Ish Cortez [id number] 11/30/2018 15:03:00 11/30/2018 23:59: 59 CLS Outpatient Dana Ish [id number] 04/18/2018 12:07:58 04/18/2018 23:59: 59 CLS Outpatient Liana Pena [id number] 03/22/2018 09:17:47 03/22/2018 23:59: 59 CLS Outpatient Ish Cortez [id number] 03/17/2018 11:45:48 03/17/2018 23:59: 59 CLS Outpatient Valentín Florentino [id number] 03/08/2018 11:12:05 03/08/2018 23:59: 59 CLS Outpatient Dana Ish [id number] 02/28/2018 10:18:24 02/28/2018 23:59: 59 CLS Outpatient Dana Ish [id number] 02/04/2018 11:12:01 02/04/2018 23:59: 59 CLS Outpatient Valentín Florentino [id number] 01/31/2018 11:27:59 01/31/2018 23:59: 59 CLS Outpatient Dana Ish [id number] 11/23/2017 11:14:18 11/23/2017 23:59: 59 CLS Outpatient Valentín Florentino [id number] 08/24/2017 11:16:38 08/24/2017 23:59: 59 CLS Outpatient Valentín Florentino [id number] 07/02/2017 10:30:08 07/02/2017 23:59: 59 CLS Outpatient Valentín Florentino [id number] 06/02/2017 15:32:35 06/02/2017 23:59: 59 CLS Outpatient Valentín Florentino [id number] 04/16/2017 09:36:29 04/16/2017 23:59: 59 CLS Outpatient Valentín Florentino [id number] 12/01/2018 23:54:45 Document Registration [id number] 11/30/2018 16:51:00 Document Registration [id number] 04/01/2018 10:48:56 Document Registration [id number] 03/09/2018 08:04:07 Document Registration [id number] 03/05/2018 19:22:31 Document Registration [id number] 03/01/2018 13:30:41 Document Registration [id number] 02/22/2018 23:54:37 Document Registration [id number] 02/22/2018 13:22:47 Document Registration [id number] 02/02/2017 05:25:00 Document Registration [id number] 01/26/2017 06:00:00 Document Registration [id number] 01/19/2017 05:40:00 Document Registration [id number] 01/12/2017 05:40:00 Document Registration [id number] 10/20/2019 05:33:00 020 14:03:00 DIS Outpatient GONSALO RANDLE DO [facility] PREOP LYMPHOMA [id number] 10/24/2019 06:49:[address] Outpatient GONSALO RANDLE DO [facility] SDC LYMPHOMA [id number] 10/23/2019 13:13:[address] Outpatient GISSEL WHITT [facility] wily ONC [id number] 04/28/2019 10:20:00 04/28/2019 23:59: 59 CLS Outpatient [facility] [id number] 12/26/2015 19:17:21 12/26/2015 19:1 7:21 DIS Outpatient [facility] U
--- OUTSIDE RECORDS SUMMARY | 2019-10-24 06:58 | XMS REPORT ---
Author Author Jewel Patel Organization [employer] Address Unknown Phone Unavailable Care Team Providers Care Retail Pricing Coordinator Name Role Phone Joshua Patel CP Unavailable Allergies No Known Allergies Problems No Known Problems Medications Medication Code System Code Instructions Start Date End Date Status Dosage Fentanyl [facility] [id number] 50 MCG/HR Transd ermal apply new patch q 72 hours. Discard old patch 1 patch to ski n Results No Known Results Summary Purpose [employer] Submission
[2019-10-24 07:00] VITALS: BP 107/96
[2019-10-24] MEDS ORDERED: LIDOCAINE PF 0.5% 50 ML (XYLOCAINE) VIAL ONE (07:00)
[2019-10-24] MEDS ORDERED: ONDANSETRON 4 MG/2 ML (SDV) Z0FRAN ONE ×2 (07:02→07:28)
[2019-10-24] MEDS ORDERED: LACTATED RINGERS 1,000 ML IV PRN (07:06)
[2019-10-24] MEDS ORDERED: ceFAZolin INJECTION 1,000 MG in WATER (STERILE) FOR INJECTION 10 ML IV ONE (07:15)
[2019-10-24] MEDS ORDERED: ceFAZolin 2 GM/50 ML (PRE-MIXED) IV ONE (07:30)
[2019-10-24] MEDS ORDERED: CATHETER FLUSH 10 ML SYR IV PRN (07:30)
[2019-10-24] MEDS ORDERED: HEParin (CENTRAL IV FLUSH) 500 UNIT/5 ML SYR ONE (08:07)
[2019-10-24] MEDS ORDERED: BUP/EPI 0.5% 1:200,000 (SENSORCAINE) 30 ML VIAL ONE (08:08)
[2019-10-24] MEDS ORDERED: 0.9% SODIUM CHLORIDE PF INJ 20 ML VIAL ONE (08:08)
[2019-10-24] MEDS ORDERED: KETAMINE/NaCl 50 MG/5 ML SYRINGE (ED ONLY) ONE (08:24)
--- NOTE | 2019-10-24 08:31 | Progress Note-Pre Operative ---
Pre-Operative Progress Note H&P Reviewed The H&P was reviewed, patient examined and no changes noted. Time Seen by Provider: 08:26 Date H&P Reviewed: Oct 24, 2019 Time H&P Reviewed: 08:27 Pre-Operative Diagnosis: Lymphoma, Venous insufficiency GONSALO RANDLE DO Oct 24, 2019 08:31
[2019-10-24] MEDS ORDERED: LIDOCAINE PF 2% 5 ML (XYLOCAINE) VIAL ONE (09:03)
[2019-10-24 09:07] VITALS: BP 106/67
--- NOTE | 2019-10-24 09:08 | Progress Note-Post Operative ---
Post-Operative Progess Note Surgeon (s)/Nurse Orthopedic (s) Surgeon GONSALO RANDLE DO Nurse Orthopedic: none Pre-Operative Diagnosis Lymphoma, Venous insufficiency Post-Operative Diagnosis same Procedure & Operative Findings Date of Procedure 10/24/19 Procedure Performed/Findings PROCEDURE: [Right] subclavian port placement. COMPLICATIONS: None. INDICATIONS: The patient is a 53 year old male [with lymphoma and Venous insufficiency]. Patient understands the risks and benefits of port placement and wished to proceed with the procedure. Consent was signed on the chart. PROCEDURE: The patient was taken to the operating suite, was prepped and draped in the sterile fashion. A surgical pause was performed. Lidocaine anesthetic was infiltrated at the clavicle and over the chest wall where port was to be placed. Using 18 gauge finder needle with negative inspiration the subclavian vein was accessed. Dark nonpulsatile blood was withdrawn. The wire was inserted. Fluoroscopy assured proper placement. The needle was removed and the wire was inserted and fluoroscopy assured proper placement. A [#11] blade scalpel was used to make an incision over the [right anterior] chest. Cautery was used to dissect down to the pectoral fascia. A pocket was created with blunt dissection. The dilator sheath was then advanced over the wire under fluoroscopy and the dilator and wire were removed. The Groshong catheter was inserted through the sheath and the sheath was then removed. The Groshong wire was removed. The catheter was then tunneled to the right chest pocket. Fluoroscopy was used to cut to length and this was then attached to the port which was then placed within the pocket. The port was then accessed without difficulty. It was then flushed with saline and then heparin. The port was sutured to chest wall with 3-0 Prolene. The subcutaneous tissues were then reapproximated using 3-0 Vicryl. Finally the skin was closed with 4-0 undyed Monocryl 3 subcuticalar stitches. The areas were then washed and dried. Skin Affix was placed over the incisions. The patient tolerated the procedure well without complication and was taken to recovery room in stable condition. Anesthesia Type IV sedation by Anesthesia Estimated Blood Loss Estimated blood loss (mL): scant Specimens/Packing Specimens Removed none GONSALO RANDLE DO Oct 24, 2019 09:08
[2019-10-24 09:10] VITALS: BP 109/63
--- NOTE | 2019-10-24 09:10 | Discharge Inst-Surgical ---
Discharge Inst-Surgical Depart Medication/Instructions New, Converted or Re-Newed RX: Other (Use home meds or Ibuprofen) Patient Instructions Follow up Appt: Make appointment for 1 week. [phone] Instructions: No lifting greater than 20 pounds. No strenuous activity. May shower in 24 hours, no tub bath or soaking. Use incentive spirometer at home as directed. No Smoking Skin/Wound Care: May remove bandages in am. You need to leave the Dermabond on incision it will fall off on it's own. Symptoms to Report: Appetite Changes, Extremity Discoloration, Numbness/Tingling, Swelling Increased, Bleeding Excessive, Eyesight Changes, Pain Increased, Urine Color Change, Constipation(Persistent), Fever over 101 degree F, Pain/Pressure in chest, Urinating Difficulty, Cough Up/Vomit Blood, Heart Beat Irreg/Pounding, Pain/Pressure in jaw, Cramps in feet or legs, Lightheadedness, Pain/Pressure in shoulder, Diarrhea(Persistent), Memory Changes Suddenly, Questions/Concerns, Weight gain consecutive days, Dizziness/Fainting, Nausea/Vomiting, Shortness of Breath, Weight gain over 2 pounds If questions or concerns contact your physician Or seek help at emergency department. Activity Activity as Tolerated: Yes Activity Instructions: Avoid Stress to Incision Diet Discharge Diet: No Restrictions Diet After 24 Hours: Clear Liquid if Nauseous If Any Problems/Questions/Issu: Contact Your Physician, Go to Emergency Room Skin/Wound Care Infection Signs and Symptoms: Increased Redness, Foul Odor of Wound, Increased Drainage, Skin Itchy or Has a Rash, Increased Swelling, Temperature Above 101 F Bathing Instructions: Shower Stitches/[place]/Dermabond Dis: Dermabond Ice Pack: Ice On and Off Site (as needed for pain) GONSALO RANDLE DO Oct 24, 2019 09:10
[2019-10-24 09:25] VITALS: BP_SYST 117; BP_SYST 124; BP_DIAS 68; BP_DIAS 70
--- NOTE | 2019-10-24 09:25 | NUR ---
TO AMB SURG FROM PAR PER CART. ALERT, DENIES PAIN. WATER WITH THICKENER PROVIDED PER PT'S REQUEST/NEED. ICE PACK IN PLACE RIGHT UPPER CHEST POWER PORT INSERTION SITE. SKIN AFFIX INTACT TO X2 SURGICAL INCISION SITES.
[2019-10-24] MEDS ORDERED: ONDANSETRON 4 MG/2 ML (SDV) Z0FRAN IVP PRN (09:30)
[2019-10-24] MEDS ORDERED: morphine INJ 10 MG/ML 1ML (SYR OR VIAL) IVP ONE (09:30)
[2019-10-24 10:05] VITALS: BP 116/76
--- NOTE | 2019-10-24 10:20 | NUR ---
REPORT CALL[facility] TO BIANCA CORCORAN, AT [facility]
--- NOTE | 2019-10-24 10:26 | Diagnostic Imaging Report ---
HISTORY: Internal Groshong placement TECHNIQUE: Intraoperative fluoroscopy was used for the patient's procedure COMPARISON: None Fluoroscopy time: 6 seconds FINDINGS/ IMPRESSION: Intraoperative fluoroscopy was used for the patient's catheter placement. Dictated by: Dictated on workstation # [id number]
[2019-10-24 10:33] VITALS: BP 116/76
--- NOTE | 2019-10-24 10:33 | NUR ---
HAS HAD THICKENED PO FLUIDS WITHOUT PROBLEM. NO CHANGE IN SITE OR PAIN ASSESSMENTS.
--- NOTE | 2019-10-24 14:49 | Anesthesia-General Post-Op ---
MAC Patient Condition Mental Status/LOC: Same as Preop Cardiovascular: Satisfactory Nausea/Vomiting: Absent Respiratory: Satisfactory Pain: Controlled Complications: Absent Post Op Complications Complications None Follow Up Care/Instructions Patient Instructions None needed. Anesthesiology Discharge Order Discharge Order Patient was seen this morning after the procedure and he was doing well, no complaints, stable vital signs, no apparent adverse anesthesia problems. ORIN HERNANDEZ DO Oct 24, 2019 14:49
== END 2019-10-24 10:33 | disposition home or self-care (01) ==
LOC: SDC 06:49
PROVIDERS: ATTEND Surgery
DX: I87.2 Venous insufficiency (chronic) (peripheral) (principal); C84.45 Peripheral T-cell lymphoma, not elsewhere classified, lymph nodes of inguinal region and lower limb; Z79.899 Other long term (current) drug therapy; Z85.6 Personal history of leukemia
CPT/HCPCS: 76000; 87081

== ENCOUNTER 2019-12-06 09:47 | Outpatient (RCR) | payer MEDICAID ==
[2019-09-22 08:39] LABS: ABSOLUTE RETIC # 99 10e9/L (24-90); BASOPHILS % (AUTO) 1 % (0-10); EOSINOPHILS # (AUTO) 0.2 10^3/uL (0.0-0.3); EOSINOPHILS % (AUTO) 2 % (0-10); HEMATOCRIT 47 % (40-54); HEMOGLOBIN 16.1 G/DL (13.3-17.7); LYMPHOCYTES # (AUTO) 2.4 X 10^3 (1.0-4.0); LYMPHOCYTES % (AUTO) 32 % (12-44); MEAN CORPUSCULAR HEMOGLOBIN 29 PG (25-34); MEAN CORPUSCULAR HGB CONC 34 G/DL (32-36); MEAN CORPUSCULAR VOLUME 86 FL (80-99); MEAN PLATELET VOLUME 10.6 FL (7.4-10.4); MONOCYTES # (AUTO) 0.7 X 10^3 (0.0-1.0); MONOCYTES % (AUTO) 10 % (0-12); NEUTROPHILS % (AUTO) 55 % (42-75); PLATELET COUNT 219 10^3/uL (130-400); RETICULOCYTE % 1.81 % (0.50-2.40); WHITE BLOOD COUNT 7.3 10^3/uL (4.3-11.0)
[2019-09-22 09:18] LABS: BAND NEUTROPHILS 3 %; BASOPHILS % (MANUAL) 0 %; EOSINOPHILS % (MANUAL) 4 %; LYMPHOCYTES % (MANUAL) 27 %; MONOCYTES % (MANUAL) 9 %; NEUTROPHILS % (MANUAL) 57 %; RBC MORPH NORMAL
[2019-10-18 09:30] LABS: BASOPHILS % (AUTO) 1 % (0-10); EOSINOPHILS # (AUTO) 0.1 10^3/uL (0.0-0.3); EOSINOPHILS % (AUTO) 2 % (0-10); HEMATOCRIT 43 % (40-54); HEMOGLOBIN 14.9 G/DL (13.3-17.7); LYMPHOCYTES # (AUTO) 2.2 X 10^3 (1.0-4.0); LYMPHOCYTES % (AUTO) 34 % (12-44); MEAN CORPUSCULAR HEMOGLOBIN 30 PG (25-34); MEAN CORPUSCULAR HGB CONC 34 G/DL (32-36); MEAN CORPUSCULAR VOLUME 88 FL (80-99); MEAN PLATELET VOLUME 10.5 FL (7.4-10.4); MONOCYTES # (AUTO) 0.7 X 10^3 (0.0-1.0); MONOCYTES % (AUTO) 10 % (0-12); NEUTROPHILS # (AUTO) 3.5 X 10^3 (1.8-7.8); NEUTROPHILS % (AUTO) 53 % (42-75); PLATELET COUNT 150 10^3/uL (130-400); RED CELL DISTRIBUTION WIDTH 13.6 % (10.0-14.5); WHITE BLOOD COUNT 6.5 10^3/uL (4.3-11.0)
[2019-10-18 09:52] LABS: CREATININE SERUM 1.57 MG/DL (0.60-1.30); POTASSIUM 3.5 MMOL/L (3.6-5.0)
[2019-10-18 09:53] LABS: ALBUMIN 3.9 GM/DL (3.2-4.5); BILIRUBIN,TOTAL 0.3 MG/DL (0.1-1.0); CALCIUM 9.3 MG/DL (8.5-10.1); TOTAL PROTEIN 7.6 GM/DL (6.4-8.2)
[2019-11-15 11:05] LABS: BASOPHILS # (AUTO) 0.1 10^3/uL (0.0-0.1); BASOPHILS % (AUTO) 1 % (0-10); EOSINOPHILS # (AUTO) 0.2 10^3/uL (0.0-0.3); EOSINOPHILS % (AUTO) 3 % (0-10); HEMATOCRIT 42 % (40-54); HEMOGLOBIN 14.2 G/DL (13.3-17.7); LYMPHOCYTES # (AUTO) 2.2 X 10^3 (1.0-4.0); LYMPHOCYTES % (AUTO) 38 % (12-44); MEAN CORPUSCULAR HEMOGLOBIN 30 PG (25-34); MEAN CORPUSCULAR HGB CONC 34 G/DL (32-36); MEAN CORPUSCULAR VOLUME 87 FL (80-99); MEAN PLATELET VOLUME 10.2 FL (7.4-10.4); MONOCYTES # (AUTO) 0.8 X 10^3 (0.0-1.0); MONOCYTES % (AUTO) 14 % (0-12); NEUTROPHILS # (AUTO) 2.6 X 10^3 (1.8-7.8); NEUTROPHILS % (AUTO) 44 % (42-75); PLATELET COUNT 179 10^3/uL (130-400); RED CELL DISTRIBUTION WIDTH 13.9 % (10.0-14.5); WHITE BLOOD COUNT 5.9 10^3/uL (4.3-11.0)
[2019-11-15 11:24] LABS: ALANINE AMINOTRANSFERASE 21 U/L (0-55); ALBUMIN 3.6 GM/DL (3.2-4.5); ALKALINE PHOSPHATASE 43 U/L (40-136); BILIRUBIN,TOTAL 0.3 MG/DL (0.1-1.0); BUN/CREATININE RATIO 19; CALCIUM 8.6 MG/DL (8.5-10.1); CARBON DIOXIDE 28 MMOL/L (21-32); CHLORIDE 101 MMOL/L (98-107); CREATININE SERUM 1.01 MG/DL (0.60-1.30); GFR ESTIMATED > 60; GLUCOSE 90 MG/DL (70-105); POTASSIUM 3.1 MMOL/L (3.6-5.0); SODIUM 141 MMOL/L (135-145)
[~2019-12-06] VITALS: Ht 175.3 cm; Wt 98.9 kg
[~2019-12-06 09:47] MED LIST changes: +HYDR-3812 PO; -HYDR-83 PO; +HYDROcodone/APAP 5 MG/325 MG (LORTAB) CANCER CTR PO ONE; +LIDOCAINE 1% 20 ML (XYLOCAINE) VIAL CANCER CTR ONE; +NS IV 500 ML (CANCER CENTER) 500 ML ONE; +NS IV SCH; +[UNRECOGNIZED DRUG - OTHER] IV SCH; +diphenhydrAMINE 25 MG TAB (BENADRYL) CANCER CENTER PO SCH; +diphenhydrAMINE 50 MG/ML INJ (CANCER CENTER) IV PRN; +morphine INJ 4 MG/ML 1 ML (CANCER CTR) IV ONE
[2019-12-06 10:11] LABS: BASOPHILS % (AUTO) 0 % (0-10); EOSINOPHILS # (AUTO) 0.2 10^3/uL (0.0-0.3); EOSINOPHILS % (AUTO) 3 % (0-10); HEMATOCRIT 40 % (40-54); HEMOGLOBIN 13.8 G/DL (13.3-17.7); LYMPHOCYTES # (AUTO) 2.2 X 10^3 (1.0-4.0); LYMPHOCYTES % (AUTO) 37 % (12-44); MEAN CORPUSCULAR HEMOGLOBIN 31 PG (25-34); MEAN CORPUSCULAR HGB CONC 35 G/DL (32-36); MEAN CORPUSCULAR VOLUME 88 FL (80-99); MEAN PLATELET VOLUME 10.3 FL (7.4-10.4); MONOCYTES # (AUTO) 0.8 X 10^3 (0.0-1.0); MONOCYTES % (AUTO) 13 % (0-12); NEUTROPHILS # (AUTO) 2.9 X 10^3 (1.8-7.8); NEUTROPHILS % (AUTO) 48 % (42-75); PLATELET COUNT 197 10^3/uL (130-400); RED CELL DISTRIBUTION WIDTH 14.5 % (10.0-14.5)
[2019-12-06] MEDS ORDERED: NS IV 500 ML (CANCER CENTER) 500 ML ONE (10:17)
[2019-12-06 10:31] LABS: ALANINE AMINOTRANSFERASE 41 U/L (0-55); ALBUMIN 3.8 GM/DL (3.2-4.5); ALKALINE PHOSPHATASE 56 U/L (40-136); BILIRUBIN,TOTAL 0.3 MG/DL (0.1-1.0); BUN/CREATININE RATIO 23; CALCIUM 9.2 MG/DL (8.5-10.1); CARBON DIOXIDE 27 MMOL/L (21-32); CHLORIDE 98 MMOL/L (98-107); GFR ESTIMATED > 60; GLUCOSE 96 MG/DL (70-105); POTASSIUM 3.4 MMOL/L (3.6-5.0); SODIUM 139 MMOL/L (135-145); TOTAL PROTEIN 7.6 GM/DL (6.4-8.2)
== END 2019-12-21 | disposition home or self-care (01) ==
LOC: ONC 09:47
PROVIDERS: ATTEND Internal Medicine Hematology & Oncology
DX: C92.30 Myeloid sarcoma, not having achieved remission (principal)
CPT/HCPCS: 36591; 38222; 80053; 83615; 85007; 85025; 85027; 85045; 88184; 88185; 88305; 88311; 88313; 96374; 96375; 96413; 99213

== ENCOUNTER → 2020-01-16 | Outpatient (CLI) | payer MEDICAID ==
[~2020-01-16] MED LIST changes: -HYDROcodone/APAP 5 MG/325 MG (LORTAB) CANCER CTR PO ONE; -LIDOCAINE 1% 20 ML (XYLOCAINE) VIAL CANCER CTR ONE; -NS IV 500 ML (CANCER CENTER) 500 ML ONE; -NS IV SCH; -[UNRECOGNIZED DRUG - OTHER] IV SCH; -diphenhydrAMINE 25 MG TAB (BENADRYL) CANCER CENTER PO SCH; -diphenhydrAMINE 50 MG/ML INJ (CANCER CENTER) IV PRN; -morphine INJ 4 MG/ML 1 ML (CANCER CTR) IV ONE
== END ==
LOC: RAD 08:06
PROVIDERS: ATTEND Nurse Practitioner Adult Health
DX: Z01.89 Encounter for other specified special examinations (principal); C84.45 Peripheral T-cell lymphoma, not elsewhere classified, lymph nodes of inguinal region and lower limb
CPT/HCPCS: 78816; A9552

== ENCOUNTER 2020-02-28 00:51 | Inpatient (IN) | payer MEDICAID ==
[~2020-02-28] VITALS: Ht 175 cm; Wt 95.8 kg
[~2020-02-28 00:51] MED LIST changes: +ACHD5005 PO; -HYDR-3812 PO
[2020-02-28] MEDS ORDERED: LACTATED RINGERS 1,000 ML IV ONE ×5 (01:28→04:04)
[2020-02-28] MEDS ORDERED: NS IV 1000 ML 0 ML ONE (01:29)
[2020-02-28 01:35] LABS: BILIRUBIN,URINE NEGATIVE (NEGATIVE); CLARITY,URINE CLEAR; COLOR,URINE YELLOW; GLUCOSE, URINE (UA) NEGATIVE (NEGATIVE); KETONES,URINE NEGATIVE (NEGATIVE); LEUKOCYTE ESTERASE ,URINE NEGATIVE (NEGATIVE); NITRITE,URINE NEGATIVE (NEGATIVE); PROTEIN,URINE NEGATIVE (NEGATIVE)
[2020-02-28 01:42] LABS: ALANINE AMINOTRANSFERASE 17 U/L (0-55); ALBUMIN 2.8 GM/DL (3.2-4.5); ALKALINE PHOSPHATASE 52 U/L (40-136); BILIRUBIN,TOTAL 0.3 MG/DL (0.1-1.0); BUN/CREATININE RATIO 23; CALCIUM 8.4 MG/DL (8.5-10.1); CARBON DIOXIDE 32 MMOL/L (21-32); CHLORIDE 92 MMOL/L (98-107); CREATININE SERUM 1.27 MG/DL (0.60-1.30); GFR ESTIMATED 59; GLUCOSE 122 MG/DL (70-105); SODIUM 138 MMOL/L (135-145); TOTAL PROTEIN 6.7 GM/DL (6.4-8.2)
--- NOTE | 2020-02-28 01:51 | ED General ---
General Chief Complaint: Cardiac/General Problems Stated Complaint: SOB Source of Information: Patient Exam Limitations: No Limitations History of Present Illness Date Seen by Provider: Feb 28, 2020 Time Seen by Provider: 00:56 Initial Comments Here by EMS from the shelter with report of low oxygen saturation and lower blood pressure. Patient states that he hasn't been feeling well for a couple of days but certainly worse since yesterday. He does smoke but actually asked for the nicotine patch because he did not fill well enough to smoke. He has had COVID 19 screening at the shelter multiple times and has been negative including a few days ago. Denies nausea or vomiting but does admit to shortness of breath or cough. No report of fever. Currently being treated for skin cancer to the right leg. Timing/Duration: 1-2 Days, Getting Worse Severity: Moderate Associated Systoms: Cough; No Fever/Chills; Malaise; No Nausea/Vomiting; Shortness of Air, Weakness Allergies and Home Medications Allergies Coded Allergies: No Known Drug Allergies (Unverified , 09/22/19) Home Medications Alprazolam 0.5 Mg Tablet, 0.5 MG PO BID, (Reported) Cholecalciferol (Vitamin D3) 25 Mcg Capsule, 25 MCG PO DAILY, (Reported) Diclofenac Sodium 75 Mg Tablet.dr, 75 MG PO BID, (Reported) Divalproex Sodium 500 Mg Tablet.dr, 500 MG PO BID, (Reported) Docusate Sodium 100 Mg Capsule, 100 MG PO BID, (Reported) Ergocalciferol (Vitamin D2) 1,250 Mcg Capsule, 1,250 MCG PO WEEK, (Reported) Fluticasone Propionate 9.9 Ml [place].susp, 2 SPRAY NSEACH DAILY, (Reported) Furosemide 40 Mg Tablet, 40 MG PO 1200,1700, (Reported) Furosemide 80 Mg Tablet, 80 MG PO DAILY, (Reported) Gabapentin 300 Mg Capsule, 300 MG PO TID, (Reported) Hydrocodone/Acetaminophen 1 Each Tablet, 1 EACH PO Q6H PRN for PAIN-MODERATE (5- 7), (Reported) Lidocaine 1 Each Adh..patch, 1 EACH TP Q12H PRN for Neuropathic pain, (Reported) 2 patches max for 12 hours, then 12 hours patch-free period. Magnesium Hydroxide 400 Mg/5 Ml Oral.susp, 30 MG PO DAILY PRN for CONSTIPATION- 2ND LINE, (Reported) Melatonin/Pyridoxine HCl (B6) 1 Each Tablet, 6 MG PO HS, (Reported) take 2 (3mg) tab Methocarbamol 500 Mg Tablet, 500 MG PO TID, (Reported) Metolazone 5 Mg Tablet, 5 MG PO MoWeFr, (Reported) Naloxegol Oxalate 12.5 Mg Tablet, 12.5 MG PO DAILY PRN for CONSTIPATION-1ST LINE, (Reported) Polyethylene Glycol 3350 119 Gm Powder, 17 GM PO DAILY, (Reported) Potassium Chloride 20 Meq Tab.er.prt, 40 MEQ PO DAILY, (Reported) take 2 (20MEQ) tabs Risperidone 2 Mg Tablet, 2 MG PO HS, (Reported) Simvastatin 10 Mg Tablet, 10 MG PO HS, (Reported) Trazodone HCl 100 Mg Tablet, 100 MG PO HS, (Reported) Vilazodone Hydrochloride 40 Mg Tablet, 40 MG PO daily with food, (Reported) Patient Home Medication List Home Medication List Reviewed: Yes Review of Systems Review of Systems Constitutional: see HPI; No chills, No fever; weakness Respiratory: cough, short of breath Cardiovascular: No chest pain; edema Gastrointestinal: No nausea, No vomiting Genitourinary: No dysuria, No frequency Musculoskeletal: No muscle pain; muscle weakness Skin: change in color, lesions (right leg) Psychiatric/Neurological: Pre-Existing Deficit, Weakness All Other Systems Reviewed Negative Unless Noted: Yes Past Rwckhwv-Gyzoep-Tqrtmj Hx Past Med/Social Hx: Reviewed Nursing Past Med/Soc Hx Patient Social History Alcohol Use: Denies Use Recreational Drug Use: No Smoking Status: Current Everyday Smoker Type Used: Cigarettes Recent Hopitalizations: No Seasonal Allergies Seasonal Allergies: No Past Medical History Surgeries: Yes (unsure) Thyroidectomy Respiratory: No Currently Using CPAP: No Currently Using BIPAP: No Cardiac: No Neurological: Yes Seizure Disorder, Traumatic Brain Injury Genitourinary: No Gastrointestinal: Yes Gastroesophageal Reflux, Chronic Constipation, Hepatitis Musculoskeletal: Yes Arthritis, Chronic Back Pain Endocrine: No HEENT: No Cancer: Yes Skin, Lymphoma Did You Recieve Any Treatments: Yes Psychosocial: Yes Sleep Difficulties, Bipolar, Depression Integumentary: Yes Blood Disorders: No Family Medical History Reviewed Nursing Family Hx No Pertinent Family Hx Physical Exam-Suspected Sepsis Physical Exam Vital Signs Vital Signs - First Documented Capillary Refill : Height, Weight, BMI Height: '" Weight: lbs. oz. kg; 32.54 BMI Method: General Appearance: Chronically ill, Mild Distress HEENT: PERRL/EOMI, Other (mucous membranes dry) Neck: Non Tender, Supple Respiratory: Crackles (bilateral bases left greater than right), Wheezing (few scattered) Cardiovascular: Regular Rate, Rhythm, No Murmur Gastrointestinal: Non Tender, Soft Back: Normal Inspection, No Vertebral Tenderness Extremity: Normal Range of Motion, Non Tender Neurologic/Psychiatric: Alert, Oriented x3 Skin: warm/dry, other (skin cancer lesion to right lower leg with discoloration noted as well as blistering.) Focused Exam Lactate Level 02/28/20 01:15: Lactic Acid Level 1.49 Lactic Acid Level Laboratory Tests Test 02/28/20 01:15 Lactic Acid Level 1.49 MMOL/L (0.50-2.00) Progress/Results/Core Measures Suspected Sepsis SIRS Temperature: Pulse: Respiratory Rate: Laboratory Tests 02/28/20 01:15: White Blood Count 12.9H Blood Pressure / Mean: 02/28/20 01:15: Lactic Acid Level 1.49 Laboratory Tests 02/28/20 01:15: Creatinine 1.27, INR Comment 1.1, Platelet Count 274, Total Bilirubin 0.3 Results/Orders Lab Results Laboratory Tests Test 02/28/20 01:08 02/28/20 01:15 02/28/20 01:20 Range/Units Coronavirus 2019 (ALEJANDRA) Negative Negative White Blood Count 12.9 H 4.3-11.0 10^3/uL Red Blood Count 3.73 L 4.30-5.52 10^6/uL Hemoglobin 11.1 L 13.3-17.7 g/dL Hematocrit 33 L 40-54 % Mean Corpuscular Volume 89 80-99 fL Mean Corpuscular Hemoglobin 30 25-34 pg Mean Corpuscular Hemoglobin Concent 33 32-36 g/dL Red Cell Distribution Width 15.4 H 10.0-14.5 % Platelet Count 274 130-400 10^3/uL Mean Platelet Volume 9.6 9.0-12.2 fL Immature Granulocyte % (Auto) 3 % Neutrophils (%) (Auto) 75 42-75 % Lymphocytes (%) (Auto) 11 L 12-44 % Monocytes (%) (Auto) 11 0-12 % Eosinophils (%) (Auto) 0 0-10 % Basophils (%) (Auto) 0 0-10 % Neutrophils # (Auto) 9.7 H 1.8-7.8 10^3/uL Lymphocytes # (Auto) 1.4 1.0-4.0 10^3/uL Monocytes # (Auto) 1.4 H 0.0-1.0 10^3/uL Eosinophils # (Auto) 0.0 0.0-0.3 10^3/uL Basophils # (Auto) 0.0 0.0-0.1 10^3/uL Immature Granulocyte # (Auto) 0.3 H 0.0-0.1 10^3/uL Prothrombin Time 14.4 12.2-14.7 SEC INR Comment 1.1 0.8-1.4 Activated Partial Thromboplast Time 37 H 24-35 SEC D-Dimer 3.58 H 0.00-0.49 UG/ML Sodium Level 138 135-145 MMOL/L Potassium Level 2.4 *L 3.6-5.0 MMOL/L Chloride Level 92 L 98-107 MMOL/L Carbon Dioxide Level 32 21-32 MMOL/L Anion Gap 14 5-14 MMOL/L Blood Urea Nitrogen 29 H 7-18 MG/DL Creatinine 1.27 0.60-1.30 MG/DL Estimat Glomerular Filtration Rate 59 BUN/Creatinine Ratio 23 Glucose Level 122 H 70-105 MG/DL Lactic Acid Level 1.49 0.50-2.00 MMOL/L Calcium Level 8.4 L 8.5-10.1 MG/DL Corrected Calcium 9.4 8.5-10.1 MG/DL Total Bilirubin 0.3 0.1-1.0 MG/DL Aspartate Amino Transf (AST/SGOT) 23 5-34 U/L Alanine Aminotransferase (ALT/SGPT) 17 0-55 U/L Alkaline Phosphatase 52 40-136 U/L Lactate Dehydrogenase 358 H 125-220 U/L C-Reactive Protein High Sensitivity > 16.00 H 0.00-0.50 MG/DL Total Protein 6.7 6.4-8.2 GM/DL Albumin 2.8 L 3.2-4.5 GM/DL Procalcitonin 0.75 H <0.10 NG/ML Urine Color YELLOW Urine Clarity CLEAR Urine pH 6.0 5-9 Urine Specific [place] <=1.005 1.016-1.022 Urine Protein NEGATIVE NEGATIVE Urine Glucose (UA) NEGATIVE NEGATIVE Urine Ketones NEGATIVE NEGATIVE Urine Nitrite NEGATIVE NEGATIVE Urine Bilirubin NEGATIVE NEGATIVE Urine Urobilinogen 0.2 < = 1.0 MG/DL Urine Leukocyte Esterase NEGATIVE NEGATIVE Urine RBC (Auto) NEGATIVE NEGATIVE Urine RBC NONE /HPF Urine WBC NONE /HPF Urine Crystals PRESENT H /LPF Urine Amorphous Sediment FEW GAEL URATES H /LPF Urine Bacteria NEGATIVE /HPF Urine Casts NONE /LPF Urine Mucus NEGATIVE /LPF Urine Culture Indicated CULTURE PENDING Micro Results Microbiology 02/28/20 Influenza Types A,B Antigen (RUDDY) - Final, Complete My Orders Orders - RYAN JOHNSON MD Cbc With Automated Diff (02/28/20 01:04) Comprehensive Metabolic Panel (02/28/20 01:04) Blood Culture (02/28/20 01:04) Sputum Culture (02/28/20 01:04) Urinalysis (02/28/20 01:04) Urine Culture (02/28/20 01:04) Protime With Inr (02/28/20 01:04) Partial Thromboplastin Time (02/28/20 01:04) Chest 1 View, Ap/Pa Only (02/28/20 01:04) Ed Iv/Invasive Line Start (02/28/20 01:04) Vital Signs Adult Sepsis Patie Q15M (02/28/20 01:04) O2 (02/28/20 01:04) Remove Rings In Anticipation O (02/28/20 01:04) Lactic Acid Analyzer (02/28/20 01:04) Influenza A And B Antigens (02/28/20 01:04) Fibrin Degradation Products (02/28/20 01:04) Procalcitonin (Pct) (02/28/20 01:04) Hs C Reactive Protein (02/28/20 01:04) LDH (02/28/20 01:04) Covid 19 Inhouse Test (02/28/20 01:04) Lactated Ringers (Lr 1000 Ml Iv Solution (02/28/20 01:28) Ns Iv 1000 Ml (Sodium Chloride 0.9%) (02/28/20 01:29) Lactated Ringers (Lr 1000 Ml Iv Solution (02/28/20 01:30) Lactated Ringers (Lr 1000 Ml Iv Solution (02/28/20 01:44) Potassium Cl 10meq/50ml Ivpb (Kcl 10 Meq (02/28/20 02:00) Lactated Ringers (Lr 1000 Ml Iv Solution (02/28/20 01:55) Coronavirus Sars-Cov-2 So 2018 (02/28/20 01:57) Piperacillin Sodium/Tazobactam (Zosyn Vi (02/28/20 03:00) Vancomycin Injection (Vancomycin Injecti (02/28/20 03:00) Medications Given in ED Current Medications Medications Dose Ordered Sig/Sandra Route Start Time Stop Time Status Last Admin Dose Admin Lactated Ringer's 1,000 ml @ 0 mls/hr Q0M ONCE IV 02/28/20 01:28 02/28/20 01:31 DC 02/28/20 01:35 999 MLS/HR Lactated Ringer's 1,000 ml @ 0 mls/hr Q0M ONCE IV 02/28/20 01:44 02/28/20 01:45 DC 02/28/20 02:11 999 MLS/HR Lactated Ringer's 1,000 ml @ 0 mls/hr Q0M ONCE IV 02/28/20 01:55 02/28/20 01:56 DC 02/28/20 02:11 999 MLS/HR Vital Signs/I&O 02/28/20 02/28/20 00:51 00:51 Temp 37.1 Pulse 90 Resp 20 B/P (MAP) 94/58 (70) Pulse Ox 95 O2 Delivery Nasal Cannula Nasal Cannula O2 Flow Rate 2.00 2.00 Capillary Refill : Progress Note : Progress Note Seen and evaluated. IV, labs, UA, chest x-ray, influenza and COVID-19 screening ordered. LR 1 L bolus for low normal blood pressure. Repeat LR ordered for BP 80s and we will continue fluids to the 30 mL/kg bolus given his low blood pressures and concern for infection. Monitor patient. 0156: Patient noted to have low potassium. KCl 20 mEq IV ordered. This will run with the LR. Blood pressure has improved with first liter fluid initiated. Monitor patient. 0300: Blood pressure remains greater than 90 systolic with fluids. I did discuss the case with Dr. Dyer and she accepts patient for admission, inpatient status covering for hospitalist noncoated patients. Patient is COVID person under investigation and has pending confirmatory negative test in progress. We will initiate sepsis protocol due to concerns for right lower lobe infiltrate and possible cellulitis of the right lower extremity below this may be more related to skin cancer. Given the skin breakdown, we will initiate Zosyn and vancomycin to cover lungs and scan. Admit, inpatient status. Patient agrees with plan. 0305: I attest to focused exam at this time. Diagnostic Imaging Diagonstic Imaging: Xray Comments Poor inspiratory volume but concerns for right lower lobe infiltrate. Reviewed: Reviewed by Me Departure Communication (Admissions) Time/Spoke to Admitting Phy: 02:55 Impression Primary Impression: Right lower lobe pneumonia Qualified Codes: J18.9 - Pneumonia, unspecified organism Additional Impressions: Hypokalemia Cellulitis of right lower extremity Cancer of skin of right lower extremity Severe sepsis Disposition: 09 ADMITTED INPATIENT Condition: Stable Admissions Decision to Admit Reason: Admit from ER (General) Decision to Admit/Date: Feb 28, 2020 Time/Decision to Admit Time: 02:55 Departure-Patient Inst. Referrals: AC KC DO (PCP/Family) Primary Care Physician RYAN JOHNSON MD Feb 28, 2020 01:51
[2020-02-28 01:54] LABS: POTASSIUM 2.4 MMOL/L (3.6-5.0)
--- NOTE | 2020-02-28 01:55 | NUR ---
Lab called with critical potassium of 2.4. Dr. Gamboa notified.
[2020-02-28 02:03] LABS: BASOPHILS % (AUTO) 0 % (0-10); EOSINOPHILS % (AUTO) 0 % (0-10); HEMATOCRIT 33 % (40-54); HEMOGLOBIN 11.1 g/dL (13.3-17.7); LYMPHOCYTES # (AUTO) 1.4 10^3/uL (1.0-4.0); LYMPHOCYTES % (AUTO) 11 % (12-44); MEAN CORPUSCULAR HEMOGLOBIN 30 pg (25-34); MEAN CORPUSCULAR HGB CONC 33 g/dL (32-36); MEAN CORPUSCULAR VOLUME 89 fL (80-99); MEAN PLATELET VOLUME 9.6 fL (9.0-12.2); MONOCYTES # (AUTO) 1.4 10^3/uL (0.0-1.0); MONOCYTES % (AUTO) 11 % (0-12); NEUTROPHILS # (AUTO) 9.7 10^3/uL (1.8-7.8); NEUTROPHILS % (AUTO) 75 % (42-75); PLATELET COUNT 274 10^3/uL (130-400); WHITE BLOOD COUNT 12.9 10^3/uL (4.3-11.0)
[2020-02-28] MEDS: POTASSIUM CL 10MEQ/50ML IVPB 50 ML IV SCH ×9 (02:11→23:35)
--- NOTE | 2020-02-28 02:30 | NUR ---
STAFF FROM [facility] CALLED AND UPDATED ON PT CONDITION AND PENDING ADMIT TO ICU.
[2020-02-28 02:37] LABS: AMORPHOUS SEDIMENT,UR FEW AMOR URATES /LPF; BACTERIA,URINE NEGATIVE /HPF
[2020-02-28 02:45] LABS: FIBRIN DEGRADATION PRODUCTS 3.58 UG/ML (0.00-0.49); INR 1.1 (0.8-1.4); PROTHROMBIN TIME PATIENT 14.4 SEC (12.2-14.7)
[2020-02-28] MEDS ORDERED: PIPERACILLIN SODIUM/TAZOBACTAM 4.5 GM in NS (IVPB) 100 ML IV ONE (03:00)
[2020-02-28] MEDS: VANCOMYCIN INJECTION 1,000 MG in NS (IVPB) 250 ML IV SCH ×2 (03:36→04:15)
[2020-02-28] MEDS ORDERED: ONDANSETRON 4 MG/2 ML (SDV) Z0FRAN IVP PRN (04:15)
[2020-02-28] MEDS: LACTATED RINGERS 1,000 ML IV SCH ×2 (04:15→18:24)
[2020-02-28] MEDS ORDERED: VANCOMYCIN 1000 MG/VIAL ONE (04:31)
[2020-02-28] MEDS ORDERED: NS (IVPB) 250 ML ONE (04:31)
[2020-02-28 04:54] LABS: BASOPHILS % (AUTO) 0 % (0-10); EOSINOPHILS % (AUTO) 0 % (0-10); HEMATOCRIT 32 % (40-54); HEMOGLOBIN 10.5 g/dL (13.3-17.7); LYMPHOCYTES # (AUTO) 1.2 10^3/uL (1.0-4.0); LYMPHOCYTES % (AUTO) 10 % (12-44); MEAN CORPUSCULAR HEMOGLOBIN 30 pg (25-34); MEAN CORPUSCULAR HGB CONC 33 g/dL (32-36); MEAN CORPUSCULAR VOLUME 90 fL (80-99); MEAN PLATELET VOLUME 9.4 fL (9.0-12.2); MONOCYTES # (AUTO) 1.2 10^3/uL (0.0-1.0); MONOCYTES % (AUTO) 10 % (0-12); NEUTROPHILS # (AUTO) 9.2 10^3/uL (1.8-7.8); NEUTROPHILS % (AUTO) 77 % (42-75); PLATELET COUNT 223 10^3/uL (130-400); WHITE BLOOD COUNT 11.9 10^3/uL (4.3-11.0)
[2020-02-28 05:17] LABS: BUN/CREATININE RATIO 26; CALCIUM 7.9 MG/DL (8.5-10.1); CARBON DIOXIDE 31 MMOL/L (21-32); CHLORIDE 96 MMOL/L (98-107); GFR ESTIMATED > 60; GLUCOSE 105 MG/DL (70-105); MAGNESIUM 1.4 MG/DL (1.6-2.4); PHOSPHORUS 3.5 MG/DL (2.3-4.7); SODIUM 140 MMOL/L (135-145)
--- NOTE | 2020-02-28 05:56 | Pulmonary Consultation ---
History of Present Illness History of Present Illness Date Seen by Provider: Feb 28, 2020 Time Seen by Provider: 05:51 Date of Admission Allergies and Home Medications Allergies Coded Allergies: No Known Drug Allergies (Unverified , 09/22/19) Home Medications Alprazolam 0.5 Mg Tablet, 0.5 MG PO BID, (Reported) Cholecalciferol (Vitamin D3) 25 Mcg Capsule, 25 MCG PO DAILY, (Reported) Diclofenac Sodium 75 Mg Tablet.dr, 75 MG PO BID, (Reported) Divalproex Sodium 500 Mg Tablet.dr, 500 MG PO BID, (Reported) Docusate Sodium 100 Mg Capsule, 100 MG PO BID, (Reported) Ergocalciferol (Vitamin D2) 1,250 Mcg Capsule, 1,250 MCG PO WEEK, (Reported) Fluticasone Propionate 9.9 Ml [place].susp, 2 SPRAY NSEACH DAILY, (Reported) Furosemide 40 Mg Tablet, 40 MG PO 1200,1700, (Reported) Furosemide 80 Mg Tablet, 80 MG PO DAILY, (Reported) Gabapentin 300 Mg Capsule, 300 MG PO TID, (Reported) Hydrocodone/Acetaminophen 1 Each Tablet, 1 EACH PO Q6H PRN for PAIN-MODERATE (5- 7), (Reported) Lidocaine 1 Each Adh..patch, 1 EACH TP Q12H PRN for Neuropathic pain, (Reported) 2 patches max for 12 hours, then 12 hours patch-free period. Magnesium Hydroxide 400 Mg/5 Ml Oral.susp, 30 MG PO DAILY PRN for CONSTIPATION- 2ND LINE, (Reported) Melatonin/Pyridoxine HCl (B6) 1 Each Tablet, 6 MG PO HS, (Reported) take 2 (3mg) tab Methocarbamol 500 Mg Tablet, 500 MG PO TID, (Reported) Metolazone 5 Mg Tablet, 5 MG PO MoWeFr, (Reported) Naloxegol Oxalate 12.5 Mg Tablet, 12.5 MG PO DAILY PRN for CONSTIPATION-1ST LINE, (Reported) Polyethylene Glycol 3350 119 Gm Powder, 17 GM PO DAILY, (Reported) Potassium Chloride 20 Meq Tab.er.prt, 40 MEQ PO DAILY, (Reported) take 2 (20MEQ) tabs Risperidone 2 Mg Tablet, 2 MG PO HS, (Reported) Simvastatin 10 Mg Tablet, 10 MG PO HS, (Reported) Trazodone HCl 100 Mg Tablet, 100 MG PO HS, (Reported) Vilazodone Hydrochloride 40 Mg Tablet, 40 MG PO daily with food, (Reported) Past Fsvmkeb-Fvdhji-Rmujxq Hx Past Med/Social Hx: Reviewed Nursing Past Med/Soc Hx Patient Social History Alcohol Use: Denies Use Recreational Drug Use: No Smoking Status: Current Everyday Smoker Type Used: Cigarettes Recent Foreign Travel: No Contact w/Someone Who Travel: No Recent Infectious Disease Expo: No Recent Hopitalizations: No Physical Abuse: No Sexual Abuse: No Mistreated: No Fear: No Seasonal Allergies Seasonal Allergies: No Past Medical History Surgeries: Yes Thyroidectomy Respiratory: No Currently Using CPAP: No Currently Using BIPAP: No Cardiac: No Neurological: Yes Seizure Disorder, Traumatic Brain Injury Genitourinary: No Gastrointestinal: Yes Gastroesophageal Reflux, Chronic Constipation, Hepatitis Musculoskeletal: Yes Arthritis, Chronic Back Pain Endocrine: No HEENT: No Cancer: Yes Skin, Lymphoma Did You Recieve Any Treatments: Yes Psychosocial: Yes Sleep Difficulties, Bipolar, Depression Integumentary: Yes Blood Disorders: No Family Medical History Reviewed Nursing Family Hx No Pertinent Family Hx Sepsis Event Evaluation Height, Weight, BMI Height: '" Weight: lbs. oz. kg; 31.96 BMI Method: Exam Exam Vital Signs Date Time Temp Pulse Resp B/P (MAP) Pulse Ox O2 Delivery O2 Flow Rate FiO2 02/28/20 04:30 72 02/28/20 03:59 37.1 79 18 120/54 (70) 95 Nasal Cannula 2.00 02/28/20 00:51 Nasal Cannula 2.00 02/28/20 00:51 37.1 90 20 94/58 (70) 95 Nasal Cannula 2.00 I & O 02/28/20 07:00 Intake Total 3200 ml Balance 3200 ml Height & Weight Height: '" Weight: lbs. oz. kg; 31.96 BMI Method: General Appearance: Chronically ill, Mild Distress HEENT: PERRL/EOMI, Other (mucous membranes dry) Neck: Non Tender, Supple Respiratory: Crackles (bilateral bases left greater than right), Wheezing (few scattered) Cardiovascular: Regular Rate, Rhythm, No Murmur Capillary Refill: Less Than 3 Seconds Extremity: Normal Range of Motion, Non Tender Neurologic/Psychiatric: Alert, Oriented x3 Results Lab Laboratory Tests 02/28/20 01:15 02/28/20 04:45 Assessment/Plan Assessment/Plan RLL pneumonia with sepsis -COVID is pending -IVF -Currently on Vanco and Zosyn Hypotension - resolved -Responded to IVF Hypokalemia, hypomagnesium -Replace Cellulitis RLE COLEMAN MARTINEZ DO Feb 28, 2020 05:56
[2020-02-28] MEDS ORDERED: KCL 20 MEQ TAB (K-DUR) PO ONE (06:15)
[2020-02-28] MEDS: MAGNESIUM 1 GM/100 ML IVPB 100 ML IV SCH ×5 (06:38→11:06)
[2020-02-28 06:50] LABS: POTASSIUM 2.6 MMOL/L (3.6-5.0)
[2020-02-28 06:54] VITALS: BP 94/58
[2020-02-28] MEDS ORDERED: RT-ALBUTEROL INHALER HFA (VENTOLIN HFA) 18 GM IH PRN (07:00)
--- NOTE | 2020-02-28 07:22 | Diagnostic Imaging Report ---
INDICATION: sepsis. Fever, cough, congestion TECHNIQUE: Single view chest 2:20 AM. CORRELATION STUDY: None FINDINGS: Right subclavian Renghm-x-Eizg catheter is present tip is malpositioned and directed superiorly into the neck, likely into the internal jugular vein. Opacification right lung base consistent with right basilar pneumonia. Left lung generally clear. Heart size and mediastinum are unremarkable. Likely prior impaction injury left humeral head. IMPRESSION: 1. Right basilar infiltrate compatible with pneumonia. 2. Malpositioned right subclavian Jmfrjn-o-Qbch catheter. Tip is directed superiorly into the neck likely into the internal jugular vein. This is changed from prior PET/CT of 01/16/2020. Telephone call has been made to the emergency room nursing at 6:01 AM. Report was faxed to [facility] ER by hilda at 7:21am. Dictated by: Dictated on workstation # [id number]
[2020-02-28] MEDS: ENOXAPARIN 40 MG/0.4 ML (LOVENOX) SYR SQ SCH (08:35)
[2020-02-28] MEDS ORDERED: PHEN-640 PO (08:53)
[2020-02-28] MEDS ORDERED: LACT10SO PO (08:53)
[2020-02-28] MEDS ORDERED: MELA3TAB39 PO (08:53)
[2020-02-28] MEDS ORDERED: NICO-588 TD (08:53)
[2020-02-28] MEDS ORDERED: CHOL10007 PO (08:53)
[2020-02-28] MEDS ORDERED: SORB1SOL2 PO ×2 (08:53)
[2020-02-28] MEDS ORDERED: POTA20TA15 PO (08:53)
[2020-02-28] MEDS ORDERED: ALPR1TAB7 PO (08:53)
[2020-02-28] MEDS ORDERED: ONDA8TAB15 PO (08:53)
[2020-02-28] MEDS ORDERED: ACET325C7 PO (08:53)
[2020-02-28] MEDS ORDERED: RISP1TAB3 PO (08:53)
[2020-02-28] MEDS: PIPERACILLIN/TAZO 4.5 GM/NS 100 ML IV SCH ×4 (09:52→18:24)
--- NOTE | 2020-02-28 09:54 | NUR ---
PATIENT TRANSFERRED TO 4TH FLOOR AT THIS TIME VIA BED WITHOUT INCIDENT. PERSONAL BELONGINGS SENT WITH PATIENT. REPORT GIVEN TO BIANCA MCDONOUGH, TO ASSUME CARE OF PATIENT.
--- NOTE | 2020-02-28 09:54 | NUR ---
THE MED REC WAS ENTERED USING THE ORDER SUMMARY REPORT [facility]
[2020-02-28 10:11] LABS: BUN/CREATININE RATIO 26; CALCIUM 8.4 MG/DL (8.5-10.1); CARBON DIOXIDE 33 MMOL/L (21-32); CHLORIDE 96 MMOL/L (98-107); CREATININE SERUM 0.88 MG/DL (0.60-1.30); GFR ESTIMATED > 60; GLUCOSE 128 MG/DL (70-105); POTASSIUM 2.7 MMOL/L (3.6-5.0); SODIUM 140 MMOL/L (135-145)
[2020-02-28 12:00] VITALS: BP 118/75
[2020-02-28] MEDS ORDERED: DIVALPROEX 500 MG DELAYED RELEASE (DEPAKOTE) TAB PO SCH (13:00)
[2020-02-28] MEDS: METOLAZONE 5 MG (ZAROXOLYN) TAB PO SCH (13:21)
[2020-02-28] MEDS: METHOCARBAMOL 500 MG (ROBAXIN) TABLET PO SCH ×2 (13:21→19:59)
[2020-02-28] MEDS: GABAPENTIN 300 MG (NEURONTIN) CAP PO SCH ×2 (13:21→19:59)
[2020-02-28] MEDS: HYDROcodone/APAP 5 MG/325 MG (LORTAB) TAB PO PRN (13:22)
[2020-02-28 14:40] LABS: MAGNESIUM 2.6 MG/DL (1.6-2.4); POTASSIUM 2.6 MMOL/L (3.6-5.0)
[2020-02-28] MEDS: ALBUTEROL/IPRATROP (COMBIVENT RESPIMAT) 4 GM INHALER IH SCH ×3 (14:41→20:00)
[2020-02-28] MEDS: VANCOMYCIN 1250 MG/NS 250 ML IVPB IV SCH ×2 (16:25)
[2020-02-28 16:41] VITALS: BP 103/56
[2020-02-28] MEDS ORDERED: FUROSEMIDE 40 MG (LASIX) TAB PO SCH (17:00)
[2020-02-28] MEDS: ACETAMINOPHEN 325 MG TABLET PO PRN (18:24)
[2020-02-28 19:17] VITALS: BP 119/63
--- NOTE | 2020-02-28 19:52 | History & Physical ---
HPI History of Present Illness: 54 yo male came to ER due to cough. He states he has had a cough for a week or so and has felt weak and short of breath. He lives in [facility] and they have been doing COVID surveillance testing and he was negative a few days ago. He feels slightly better this morning. He has a history of brain injury and states he is non-ambulatory. He denies fever. He is unable to provide a lot of meaningful history, including past medical history. Source: patient Date seen by provider: Feb 28, 2020 Time Seen by Provider: 09:15 Attending Physician Lanny Dyer MD PCP Bran Muniz DO Consult Date of Admission Feb 28, 2020 at 03:00 Home Medications Home Medications Reviewed patient Home Medication Reconciliation performed by pharmacy medication reconciliations emission technician and/or nursing. Patients Allergies have been reviewed. Allergies Coded Allergies: No Known Drug Allergies (Unverified , 09/22/19) INI-Tnfont-Mjjzha Hx Patient Social History Alcohol Use: Denies Use Recreational Drug Use: No Smoking Status: Current Everyday Smoker Type Used: Cigarettes Recent Foreign Travel: No Contact w/other who traveled: No Recent Hopitalizations: No Recent Infectious Disease Expo: No Past Medical History PMHx: Brain injury Constipation Seizure disorder Mood disorder Family Medical History Significant Family History: No Pertinent Family Hx Review of Systems ([facility]) Constitutional: No fever EENTM: No nose congestion Respiratory: cough, short of breath Cardiovascular: No chest pain Gastrointestinal: No abdominal pain, No constipation, No diarrhea, No nausea, No vomiting Genitourinary: No dysuria Musculoskeletal: no symptoms reported Reviewed Test Results Reviewed Test Results Lab Laboratory Tests Test 02/28/20 01:08 02/28/20 01:15 02/28/20 01:20 02/28/20 04:45 Range/Units Coronavirus 2019 (ALEJANDRA) Negative Negative White Blood Count 12.9 H 11.9 H 4.3-11.0 10^3/uL Red Blood Count 3.73 L 3.53 L 4.30-5.52 10^6/uL Hemoglobin 11.1 L 10.5 L 13.3-17.7 g/dL Hematocrit 33 L 32 L 40-54 % Mean Corpuscular Volume 89 90 80-99 fL Mean Corpuscular Hemoglobin 30 30 25-34 pg Mean Corpuscular Hemoglobin Concent 33 33 32-36 g/dL Red Cell Distribution Width 15.4 H 15.6 H 10.0-14.5 % Platelet Count 274 223 130-400 10^3/uL Mean Platelet Volume 9.6 9.4 9.0-12.2 fL Immature Granulocyte % (Auto) 3 2 % Neutrophils (%) (Auto) 75 77 H 42-75 % Lymphocytes (%) (Auto) 11 L 10 L 12-44 % Monocytes (%) (Auto) 11 10 0-12 % Eosinophils (%) (Auto) 0 0 0-10 % Basophils (%) (Auto) 0 0 0-10 % Neutrophils # (Auto) 9.7 H 9.2 H 1.8-7.8 10^3/uL Lymphocytes # (Auto) 1.4 1.2 1.0-4.0 10^3/uL Monocytes # (Auto) 1.4 H 1.2 H 0.0-1.0 10^3/uL Eosinophils # (Auto) 0.0 0.0 0.0-0.3 10^3/uL Basophils # (Auto) 0.0 0.0 0.0-0.1 10^3/uL Immature Granulocyte # (Auto) 0.3 H 0.3 H 0.0-0.1 10^3/uL Prothrombin Time 14.4 12.2-14.7 SEC INR Comment 1.1 0.8-1.4 Activated Partial Thromboplast Time 37 H 24-35 SEC D-Dimer 3.58 H 0.00-0.49 UG/ML Sodium Level 138 140 135-145 MMOL/L Potassium Level 2.4 *L 2.6 L 3.6-5.0 MMOL/L Chloride Level 92 L 96 L 98-107 MMOL/L Carbon Dioxide Level 32 31 21-32 MMOL/L Anion Gap 14 13 5-14 MMOL/L Blood Urea Nitrogen 29 H 26 H 7-18 MG/DL Creatinine 1.27 1.00 0.60-1.30 MG/DL Estimat Glomerular Filtration Rate 59 > 60 BUN/Creatinine Ratio 23 26 Glucose Level 122 H 105 70-105 MG/DL Lactic Acid Level 1.49 0.50-2.00 MMOL/L Calcium Level 8.4 L 7.9 L 8.5-10.1 MG/DL Corrected Calcium 9.4 8.5-10.1 MG/DL Total Bilirubin 0.3 0.1-1.0 MG/DL Aspartate Amino Transf (AST/SGOT) 23 5-34 U/L Alanine Aminotransferase (ALT/SGPT) 17 0-55 U/L Alkaline Phosphatase 52 40-136 U/L Lactate Dehydrogenase 358 H 125-220 U/L C-Reactive Protein High Sensitivity > 16.00 H 0.00-0.50 MG/DL Total Protein 6.7 6.4-8.2 GM/DL Albumin 2.8 L 3.2-4.5 GM/DL Procalcitonin 0.75 H <0.10 NG/ML Urine Color YELLOW Urine Clarity CLEAR Urine pH 6.0 5-9 Urine Specific [place] <=1.005 1.016-1.022 Urine Protein NEGATIVE NEGATIVE Urine Glucose (UA) NEGATIVE NEGATIVE Urine Ketones NEGATIVE NEGATIVE Urine Nitrite NEGATIVE NEGATIVE Urine Bilirubin NEGATIVE NEGATIVE Urine Urobilinogen 0.2 < = 1.0 MG/DL Urine Leukocyte Esterase NEGATIVE NEGATIVE Urine RBC (Auto) NEGATIVE NEGATIVE Urine RBC NONE /HPF Urine WBC NONE /HPF Urine Crystals PRESENT H /LPF Urine Amorphous Sediment FEW GAEL URATES H /LPF Urine Bacteria NEGATIVE /HPF Urine Casts NONE /LPF Urine Mucus NEGATIVE /LPF Urine Culture Indicated CULTURE PENDING Phosphorus Level 3.5 2.3-4.7 MG/DL Magnesium Level 1.4 L 1.6-2.4 MG/DL Test 02/28/20 09:45 02/28/20 13:40 Range/Units Sodium Level 140 135-145 MMOL/L Potassium Level 2.7 L 2.6 L 3.6-5.0 MMOL/L Chloride Level 96 L 98-107 MMOL/L Carbon Dioxide Level 33 H 21-32 MMOL/L Anion Gap 11 5-14 MMOL/L Blood Urea Nitrogen 23 H 7-18 MG/DL Creatinine 0.88 0.60-1.30 MG/DL Estimat Glomerular Filtration Rate > 60 BUN/Creatinine Ratio 26 Glucose Level 128 H 70-105 MG/DL Calcium Level 8.4 L 8.5-10.1 MG/DL Magnesium Level 2.6 H 1.6-2.4 MG/DL Radiology CXR 02/26- right lower lobe infiltrate, subclavian port a cath malpositioned Physical Exam-([facility]) Physical Exam Vital Signs VS - Last 72 Hours, by Label 02/28/20 02/28/20 02/28/20 02/28/20 00:51 00:51 03:59 04:30 Temp 37.1 37.1 Pulse 90 79 72 Resp 20 18 B/P (MAP) 94/58 (70) 120/54 (70) Pulse Ox 95 95 O2 Delivery Nasal Cannula Nasal Cannula Nasal Cannula O2 Flow Rate 2.00 2.00 2.00 02/28/20 02/28/20 02/28/20 02/28/20 04:30 04:45 05:00 05:00 Temp 36.7 Pulse 71 71 74 B/P (MAP) 109/69 97/62 94/84 Pulse Ox 95 96 95 97 O2 Delivery Room Air Room Air Nasal Cannula Room Air O2 Flow Rate 2.00 02/28/20 02/28/20 02/28/20 02/28/20 05:15 05:30 05:45 06:00 Pulse 74 73 76 75 B/P (MAP) 108/58 94/64 107/61 106/68 Pulse Ox 94 95 91 90 O2 Delivery Room Air Room Air Room Air Room Air 02/28/20 02/28/20 02/28/20 02/28/20 06:15 06:30 06:49 06:54 Temp 37.1 Pulse 80 77 70 90 B/P (MAP) 107/79 106/62 Pulse Ox 91 91 95 O2 Delivery Room Air Room Air 02/28/20 02/28/20 02/28/20 02/28/20 07:00 08:00 08:24 08:44 Temp 37.3 Pulse 73 74 B/P (MAP) 107/73 129/72 Pulse Ox 95 94 94 O2 Delivery Room Air Room Air Room Air O2 Flow Rate 2.00 02/28/20 02/28/20 02/28/20 02/28/20 11:00 11:13 12:00 14:46 Temp 37.3 Pulse 102 84 Resp 26 24 B/P (MAP) 118/75 (89) Pulse Ox 92 94 91 O2 Delivery Nasal Cannula Nasal Cannula Nasal Cannula Nasal Cannula O2 Flow Rate 4.00 3.50 4.00 4.00 02/28/20 02/28/20 16:41 19:17 Temp 37.0 37.1 Pulse 84 84 Resp 26 18 B/P (MAP) 103/56 (72) 119/63 (81) Pulse Ox 92 92 O2 Delivery Nasal Cannula Nasal Cannula O2 Flow Rate 4.00 4.00 Capillary Refill : Less Than 3 Seconds General Appearance: WD/WN, no apparent distress Respiratory: accessory muscle use, rhonchi Cardiovascular: regular rate, rhythm Gastrointestinal: normal bowel sounds, non tender, soft Extremities: no pedal edema Neurologic/Psychiatric: alert Skin: warm/dry Assessment/Plan Assessment/Plan Admission Status: Inpatient Order (span 2 midnights) Reason for Inpatient Admission: severe sepsis (1) Hypokalemia Status: Chronic Assessment & Plan: On KCl at home, will resume and replace additional as needed. (2) Severe sepsis Status: Acute Assessment & Plan: Secondary to pneumonia. Zosyn and vancomycin started in ER, blood culture pending. Had leukocytosis and infection, along with low blood pressure which did respond to fluid resuscitation. Has been afebrile and BP stable, will transfer to floor. (3) Right lower lobe pneumonia Status: Acute Assessment & Plan: Duonebs, vanc/zosyn Qualifiers: Qualified Codes: J18.9 - Pneumonia, unspecified organism (4) History of traumatic brain injury Status: Chronic Assessment & Plan: Answers questions appropriately but is somewhat difficult to understand and is not able to provide detailed history. Exam difficulty further compounded by use of full PPE due to being COVID PUI. (5) Seizure disorder Status: Chronic (6) Peripheral T-cell lymphoma Status: Chronic Assessment & Plan: Seeing the cancer center. (7) Chronic hepatitis Status: Chronic Assessment & Plan: Patient does not clarify, but outpatient chart states Hep C. Suspect with cirrhosis given massive doses of diuretic that he is on outpatient. (8) DVT prophylaxis Status: Acute Assessment & Plan: Enoxaparin Clinical Quality Measures DVT/VTE Risk/Contraindication: Risk Factor Score Per Nursin RFS Level Per Nursing on Admit: 4+=Very High LANNY DYER MD Feb 28, 2020 19:52
[2020-02-28] MEDS: risperiDONE 1 MG (RisperDAL) TAB PO SCH (19:57)
[2020-02-28] MEDS: ETODOLAC 300 MG (LODINE) CAP PO SCH (19:59)
[2020-02-28] MEDS: SIMvastatin 10 MG (ZOCOR) TAB PO SCH (19:59)
[2020-02-28] MEDS: MELATONIN 3 MG TABLET PO SCH (19:59)
[2020-02-28] MEDS: ALPRAZolam 1 MG (XANAX) TAB PO SCH (20:00)
[2020-02-28] MEDS: traZODone 100 MG (DESYREL) TAB PO SCH (20:05)
[2020-02-28] MEDS: DIVALPROEX 500 MG DELAYED RELEASE (DEPAKOTE) TAB PO SCH (20:08)
[2020-02-28] MEDS: DOCUSATE SODIUM 100 MG (COLACE) CAP PO SCH (21:30)
[2020-02-29] VITALS: BP 100/54
[2020-02-29] MEDS: POTASSIUM CL 10MEQ/50ML IVPB 50 ML IV SCH ×3 (00:36→11:19)
[2020-02-29] MEDS: HYDROcodone/APAP 5 MG/325 MG (LORTAB) TAB PO PRN ×2 (01:29→11:18)
[2020-02-29] MEDS: PIPERACILLIN/TAZO 4.5 GM/NS 100 ML IV SCH ×6 (01:34→18:19)
[2020-02-29] MEDS: ALBUTEROL/IPRATROP (COMBIVENT RESPIMAT) 4 GM INHALER IH SCH ×4 (02:32→19:46)
[2020-02-29] MEDS: VANCOMYCIN 1250 MG/NS 250 ML IVPB IV SCH ×2 (02:39)
[2020-02-29 03:16] VITALS: BP 113/56
--- NOTE | 2020-02-29 06:05 | NUR ---
DR. CURRY NOTIFIED OF NEGATIVE COVID TEST RESULTS. ISOLATION DISCONTINUED AT THIS TIME.
[2020-02-29 06:21] LABS: BASOPHILS % (AUTO) 0 % (0-10); EOSINOPHILS # (AUTO) 0.1 10^3/uL (0.0-0.3); EOSINOPHILS % (AUTO) 1 % (0-10); HEMATOCRIT 32 % (40-54); HEMOGLOBIN 10.7 g/dL (13.3-17.7); LYMPHOCYTES # (AUTO) 1.5 10^3/uL (1.0-4.0); LYMPHOCYTES % (AUTO) 12 % (12-44); MEAN CORPUSCULAR HEMOGLOBIN 31 pg (25-34); MEAN CORPUSCULAR HGB CONC 34 g/dL (32-36); MEAN CORPUSCULAR VOLUME 90 fL (80-99); MEAN PLATELET VOLUME 10.1 fL (9.0-12.2); MONOCYTES % (AUTO) 9 % (0-12); NEUTROPHILS # (AUTO) 9.3 10^3/uL (1.8-7.8); NEUTROPHILS % (AUTO) 76 % (42-75); PLATELET COUNT 350 10^3/uL (130-400); WHITE BLOOD COUNT 12.3 10^3/uL (4.3-11.0)
[2020-02-29 06:40] LABS: BUN/CREATININE RATIO 21; CALCIUM 8.3 MG/DL (8.5-10.1); CARBON DIOXIDE 29 MMOL/L (21-32); CHLORIDE 96 MMOL/L (98-107); CREATININE SERUM 0.72 MG/DL (0.60-1.30); GFR ESTIMATED > 60; GLUCOSE 97 MG/DL (70-105); MAGNESIUM 2.2 MG/DL (1.6-2.4); POTASSIUM 3.2 MMOL/L (3.6-5.0); SODIUM 138 MMOL/L (135-145)
[2020-02-29] MEDS ORDERED: FUROSEMIDE 40 MG (LASIX) TAB PO SCH (07:00)
[2020-02-29 08:00] VITALS: BP 132/62
[2020-02-29] MEDS: DOCUSATE SODIUM 100 MG (COLACE) CAP PO SCH ×2 (08:38→20:09)
[2020-02-29] MEDS: ENOXAPARIN 40 MG/0.4 ML (LOVENOX) SYR SQ SCH (08:38)
[2020-02-29] MEDS: DIVALPROEX 500 MG DELAYED RELEASE (DEPAKOTE) TAB PO SCH ×2 (08:39→20:08)
[2020-02-29] MEDS: KCL 20 MEQ TAB (K-DUR) PO SCH (08:39)
[2020-02-29] MEDS: GABAPENTIN 300 MG (NEURONTIN) CAP PO SCH ×3 (08:41→20:08)
[2020-02-29] MEDS: ETODOLAC 300 MG (LODINE) CAP PO SCH ×2 (08:41→20:09)
[2020-02-29] MEDS: VITAMIN D3 25 MCG (1,000 UNITS) TABLET PO SCH (08:41)
[2020-02-29] MEDS: NICOTINE 21 MG (NICODERM) PATCH TD SCH (08:41)
[2020-02-29] MEDS: METHOCARBAMOL 500 MG (ROBAXIN) TABLET PO SCH ×3 (08:41→20:09)
[2020-02-29] MEDS: LIDOCAINE 4% (SALONPAS) PATCH TP SCH (08:42)
[2020-02-29] MEDS: ALPRAZolam 1 MG (XANAX) TAB PO SCH ×2 (08:42→20:12)
--- NOTE | 2020-02-29 08:46 | Progress Note ---
NIRRICHA, 02/29/20 0846: Subjective Subjective/Events-last exam Patient seen on med/surg floor this am. Is off of COVID precautions. Patient states he is having increasing difficulty swallowing. He also states he is having diffuse pain, 9/10 on the pain scale. He is still having a cough but denies shortness of breath. Currently is on 4L NC and satting low 90s. Denies abdominal pain, nausea, vomiting. No other concerns discussed at this time. Focused Exam Lactate Level 02/28/20 01:15: Lactic Acid Level 1.49 Objective Exam Last Set of Vital Signs Vital Signs Date Time Temp Pulse Resp B/P (MAP) Pulse Ox O2 Delivery O2 Flow Rate FiO2 02/29/20 08:00 36.6 82 20 132/62 (85) 90 Nasal Cannula 4.00 Capillary Refill : Less Than 3 Seconds I&O Intake and Output 02/29/20 00:00 Intake Total 6252.5 ml Output Total 2050 ml Balance 4202.5 ml Intake Oral 920 ml IV Total 5332.5 ml Output Urine Total 2050 ml # Bowel Movements 3 Daily Weight Change Unsure/Unresponsive General: Alert, Cooperative HEENT: PERRLA, EOMI Neck: Supple, No JVD Lungs: Other (diffuse expiratory wheezes) Heart: Regular Rate, No Murmurs Abdomen: Normal Bowel Sounds, Soft, No Tenderness Extremities: No Cyanosis, No Edema Skin: No Rashes Neuro: Normal Speech, Normal Tone Results/Procedures Lab Laboratory Tests 02/28/20 09:45: Sodium Level 140, Potassium Level 2.7L, Chloride Level 96L, Carbon Dioxide Level 33H, Anion Gap 11, Blood Urea Nitrogen 23H, Creatinine 0.88, Estimat Glomerular Filtration Rate > 60, BUN/Creatinine Ratio 26, Glucose Level 128H, Calcium Level 8.4L 02/28/20 13:40: Potassium Level 2.6L, Magnesium Level 2.6H 02/29/20 05:44: Sodium Level 138, Potassium Level 3.2L, Chloride Level 96L, Carbon Dioxide Level 29, Anion Gap 13, Blood Urea Nitrogen 15, Creatinine 0.72, Estimat Glomerular Filtration Rate > 60, BUN/Creatinine Ratio 21, Glucose Level 97, Calcium Level 8.3L, Magnesium Level 2.2, White Blood Count 12.3H, Red Blood Count 3.49L, Hemoglobin 10.7L, Hematocrit 32L, Mean Corpuscular Volume 90, Mean Corpuscular Hemoglobin 31, Mean Corpuscular Hemoglobin Concent 34, Red Cell Distribution Width 15.7H, Platelet Count 350, Mean Platelet Volume 10.1, Immature Granulocyte % (Auto) 3, Neutrophils (%) (Auto) 76H, Lymphocytes (%) (Auto) 12, Monocytes (%) (Auto) 9, Eosinophils (%) (Auto) 1, Basophils (%) (Auto) 0, Neutrophils # (Auto) 9.3H, Lymphocytes # (Auto) 1.5, Monocytes # (Auto) 1.0, Eosinophils # (Auto) 0.1, Basophils # (Auto) 0.0, Immature Granulocyte # (Auto) 0.4H, Phosphorus Level 3.0 Microbiology 02/28/20 Blood Culture - Preliminary, Resulted No growth 02/28/20 Influenza Types A,B Antigen (RUDDY) - Final, Complete Radiology CXR 02/26- right lower lobe infiltrate, subclavian port a cath malpositioned Assessment/Plan Assessment/Plan Assessment & Plan 1. Severe sepsis * SIRS: leukocytosis and temperature * Pneumonia * Required fluid resuscitation for hypotension 2. Acute respiratory distress with hypoxia * Patient currently having increased oxygen requirements * Does not use oxygen at baseline * Pt is now on vapotherm * Elevated D-dimer noted on labs * CTA ordered, results reveal no PE and only the RLL pneumonia * Discussed possibility of needing BiPAP or even intubation if it continues * Pt states he has not thought about his wishes regarding intubation 3. Right lower lobe pneumonia * CXR revealed RLL pneumonia * Likely due to aspiration * Empirically started vanc and zosyn * Duonebs 4. Dysphagia * Patient is experiencing increasing dysphagia * Has had prior dysphagia but believes this is getting worse * Currently on dysphagia 3 diet, nectar liquids, and ground meat * Swallow study pending 5. Hypokalemia * K+ up to 3.2 on 02/28 * Continue to replace 6. Hx of TBI 7. Seizure disorder 8. Peripheral T-cell lymphoma 9. Chronic hepatitis Diet: dysphagia 3, nectar liquids, ground meat FULL CODE Prophylaxis: enoxaparin Dispo: likely >2 midnights, will monitor closely due to increased oxygen demands Clinical Quality Measures DVT/VTE Risk/Contraindication: Risk Factor Score Per Nursin RFS Level Per Nursing on Admit: 4+=Very High LANNY CURRY MD 02/29/20 1237: Supervisory-Addendum Brief Verification & Attestation Participated in pt care: history, MDM, physical Personally performed: exam, history, MDM Care discussed with: Medical Student Procedures: n/a I personally saw and evaluated this patient today and repeated history and exam and agree with medical student documentation. He has worsening hypoxia, will start vapotherm and also eval swallow, continue broad spectrum antibiotics. RICHA LOYOLA, Feb 29, 2020 08:46 LANNY CURRY MD Feb 29, 2020 12:37
[2020-02-29] MEDS ORDERED: VILAZODONE 40 MG (VIIBRYD) TABLET (NON-FORMULARY) PO SCH (09:00)
--- NOTE | 2020-02-29 09:20 | NUR ---
PT 90% ON 7L HF, DR. CURRY NOTIFIED AND GAVE THE RESPIRATORY THERAPIST ORDERS TO PLACE PT ON VAPOTHERM AT THIS TIME. NEW ORDER PLACED FOR CHEST X-RAY. ORDERS ALSO CLARIFIED TO GIVE BOTH 80MEQ PO POTASSIUM AND THE 20MEQ OF IV POTASSIUM.
--- NOTE | 2020-02-29 10:29 | Diagnostic Imaging Report ---
Portable erect AP chest at 947 INDICATION: Pneumonia The heart size is within normal limits and stable when compared to 02/28/2020. The atelectasis/infiltrate involving the right lung base noted on the prior exam is somewhat greater on this study. The right upper lung and left lung remain generally clear. The mediastinum is not widened. The osseous structures are intact. The malpositioned central venous catheter on the right seen previously is again evident and no different. IMPRESSION: 1. The appearance of the chest has worsened as there does appear to be slightly greater involvement of the right lung base by pneumonia/atelectasis. The overall appearance of the chest is otherwise stable. 2. The malpositioned central venous catheter on right seen previously continues to be directed cephalad and still overlie the internal jugular vein on the right. Dictated by: Dictated on workstation # [id number]
[2020-02-29] MEDS ORDERED: NS 100 ML (IVPB) BAG IV ONE (10:30)
[2020-02-29] MEDS ORDERED: HOLD METFORMIN - RECEIVED CONTRAST 20 ML VIAL IV SCH (10:30)
[2020-02-29] MEDS ORDERED: IOHEXOL 350 MG/ML 100 ML (OMNIPAQUE 350) VIAL IV ONE (10:30)
--- NOTE | 2020-02-29 11:44 | Diagnostic Imaging Report ---
PROCEDURE: CT angiography of the chest with contrast. TECHNIQUE: Multiple contiguous axial images were obtained through the chest after uneventful bolus administration of intravenous contrast. 3D reconstructed CTA MIP acquisitions were also performed. Auto Exposure Controls were utilized during the CT exam to meet ALARA standards for radiation dose reduction. INDICATION: Shortness of breath. Patient has elevated D-dimer. No prior studies are available for comparison. Evaluation of pulmonary arterial system is somewhat limited due to suboptimal opacification of the pulmonary arterial system. The central pulmonary arteries are well opacified and appear unremarkable. No definite lobar thrombus is seen. Segmental and subsegmental pulmonary arterial branches are limited. The aorta is normal caliber. No dissection. No pericardial fluid is identified. There is trace right-sided pleural fluid. There is a right chest wall port. No axillary lymphadenopathy is identified. No definite mediastinal or hilar lymphadenopathy is detected. Parenchymal evaluation does show extensive airspace infiltrate throughout the right upper lobe with marked consolidation of the right lower lobe. Left lung is fairly clear. Upper abdomen is unremarkable. IMPRESSION: 1. Limited study but no central pulmonary embolism is detected. 2. Trace right pleural effusion. 3. Significant airspace infiltrate throughout the right upper and right lower lobe. There is marked consolidation involving the right lower lobe suggestive of pneumonia. Dictated by: Dictated on workstation # [id number]
[2020-02-29 12:00] VITALS: BP 102/65
[2020-02-29] MEDS: LACTATED RINGERS 1,000 ML IV SCH ×3 (12:41→22:37)
[2020-02-29] MEDS: ALPRAZolam 0.5 MG (XANAX) TAB PO SCH (12:41)
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
[2020-02-29 16:00] VITALS: BP 108/62
[2020-02-29] MEDS: ACETAMINOPHEN 325 MG TABLET PO PRN (16:17)
[2020-02-29 19:55] VITALS: BP 110/72
[2020-02-29] MEDS: SIMvastatin 10 MG (ZOCOR) TAB PO SCH (20:08)
[2020-02-29] MEDS: traZODone 100 MG (DESYREL) TAB PO SCH (20:09)
[2020-02-29] MEDS: MELATONIN 3 MG TABLET PO SCH (20:09)
[2020-02-29] MEDS: risperiDONE 1 MG (RisperDAL) TAB PO SCH (20:10)
[2020-03-01] VITALS (7 sets, daily range): BP systolic 101–114; BP diastolic 61–75
[2020-03-01] MEDS: PIPERACILLIN/TAZO 4.5 GM/NS 100 ML IV SCH ×6 (01:33→17:51)
[2020-03-01] MEDS: ALBUTEROL/IPRATROP (COMBIVENT RESPIMAT) 4 GM INHALER IH SCH ×4 (02:42→19:23)
[2020-03-01] MEDS: HYDROcodone/APAP 5 MG/325 MG (LORTAB) TAB PO PRN ×3 (03:04→21:53)
[2020-03-01 05:42] LABS: BASOPHILS % (AUTO) 0 % (0-10); EOSINOPHILS # (AUTO) 0.1 10^3/uL (0.0-0.3); EOSINOPHILS % (AUTO) 1 % (0-10); HEMATOCRIT 32 % (40-54); HEMOGLOBIN 10.4 g/dL (13.3-17.7); LYMPHOCYTES # (AUTO) 1.2 10^3/uL (1.0-4.0); LYMPHOCYTES % (AUTO) 11 % (12-44); MEAN CORPUSCULAR HEMOGLOBIN 29 pg (25-34); MEAN CORPUSCULAR HGB CONC 32 g/dL (32-36); MEAN CORPUSCULAR VOLUME 91 fL (80-99); MEAN PLATELET VOLUME 9.7 fL (9.0-12.2); MONOCYTES # (AUTO) 0.9 10^3/uL (0.0-1.0); MONOCYTES % (AUTO) 8 % (0-12); NEUTROPHILS % (AUTO) 75 % (42-75); PLATELET COUNT 263 10^3/uL (130-400); WHITE BLOOD COUNT 10.7 10^3/uL (4.3-11.0)
[2020-03-01 06:00] LABS: CHLORIDE 99 MMOL/L (98-107); POTASSIUM 3.4 MMOL/L (3.6-5.0); SODIUM 141 MMOL/L (135-145)
[2020-03-01 06:01] LABS: CALCIUM 8.5 MG/DL (8.5-10.1)
[2020-03-01 06:02] LABS: GLUCOSE 95 MG/DL (70-105)
[2020-03-01 06:03] LABS: CARBON DIOXIDE 30 MMOL/L (21-32)
[2020-03-01 06:05] LABS: CREATININE SERUM 0.71 MG/DL (0.60-1.30); GFR ESTIMATED > 60; PHOSPHORUS 3.4 MG/DL (2.3-4.7)
[2020-03-01 06:06] LABS: BUN/CREATININE RATIO 21
[2020-03-01 06:08] LABS: MAGNESIUM 1.7 MG/DL (1.6-2.4)
[2020-03-01] MEDS: ENOXAPARIN 40 MG/0.4 ML (LOVENOX) SYR SQ SCH (08:21)
[2020-03-01] MEDS: LIDOCAINE 4% (SALONPAS) PATCH TP SCH (08:21)
[2020-03-01] MEDS: DIVALPROEX 500 MG DELAYED RELEASE (DEPAKOTE) TAB PO SCH ×2 (08:21→20:19)
[2020-03-01] MEDS: NICOTINE 21 MG (NICODERM) PATCH TD SCH (08:21)
[2020-03-01] MEDS: DOCUSATE SODIUM 100 MG (COLACE) CAP PO SCH ×2 (08:21→20:24)
[2020-03-01] MEDS: METHOCARBAMOL 500 MG (ROBAXIN) TABLET PO SCH ×3 (08:22→20:20)
[2020-03-01] MEDS: GABAPENTIN 300 MG (NEURONTIN) CAP PO SCH ×3 (08:22→20:19)
[2020-03-01] MEDS: ETODOLAC 300 MG (LODINE) CAP PO SCH ×2 (08:22→20:20)
[2020-03-01] MEDS: VITAMIN D3 25 MCG (1,000 UNITS) TABLET PO SCH (08:22)
[2020-03-01] MEDS: KCL 20 MEQ TAB (K-DUR) PO SCH (08:22)
[2020-03-01] MEDS: ALPRAZolam 1 MG (XANAX) TAB PO SCH ×2 (08:23→20:34)
[2020-03-01] MEDS: LACTATED RINGERS 1,000 ML IV SCH ×2 (08:25→16:15)
--- NOTE | 2020-03-01 08:34 | Consultation - Surgery ---
HOMERO TINEO,MED STUDENT 03/01/20 0834: History of Present Illness History of Present Illness Patient Consulted On(marlena/time) 03/01/20 08:26 Date Seen by Provider: Mar 01, 2020 Time Seen by Provider: 08:15 History of Present Illness Patient is a 54 year old male admitted 02/27 for pneumonia with severe sepsis. 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 Upon admission on 02/27, chest Xray showed that the catheter tip of the port has become dislodged and is now directed cephalad, possibly in the internal jugular vein. Past medical history is difficult to obtain from the patient due to his history of TBI. Allergies and Home Medications Allergies Coded Allergies: No Known Drug Allergies (Unverified , 09/22/19) Home Medications Acetaminophen 325 Mg Capsule, 650 MG PO Q6H PRN for PAIN-MILD (1-4), (Reported) Alprazolam 0.5 Mg Tablet, 0.5 MG PO 1200, (Reported) Alprazolam 1 Mg Tablet, 1 MG PO BID, (Reported) Cholecalciferol (Vitamin D3) 25 Mcg Capsule, 25 MCG PO DAILY, (Reported) Diclofenac Sodium 75 Mg Tablet.dr, 75 MG PO BID, (Reported) Divalproex Sodium 500 Mg Tablet.dr, 500 MG PO BID, (Reported) Docusate Sodium 100 Mg Capsule, 100 MG PO BID, (Reported) Ergocalciferol (Vitamin D2) 1,250 Mcg Capsule, 1,250 MCG PO MON, (Reported) Fluticasone Propionate 9.9 Ml [place].susp, 2 SPRAY NSEACH DAILY, (Reported) Furosemide 40 Mg Tablet, 40 MG PO 1200,1700, (Reported) Furosemide 80 Mg Tablet, 80 MG PO DAILY, (Reported) Gabapentin 300 Mg Capsule, 300 MG PO TID, (Reported) Hydrocodone/Acetaminophen 1 Each Tablet, 1 EACH PO Q12H PRN for PAIN-MODERATE (5-7), (Reported) Lactulose 10 Gm/15 Ml Solution, 15 ML PO Q12H PRN for CONSTIPATION-3RD LINE, (Reported) Lidocaine 1 Each Adh..patch, 1 EACH TP DAILY, (Reported) APPLY TO RIGHT LOWER EXTREMITY ABOVE WOUND Magnesium Hydroxide 400 Mg/5 Ml Oral.susp, 30 MG PO DAILY PRN for CONSTIPATION- 2ND LINE, (Reported) Melatonin 3 Mg Tablet, 6 MG PO HS, (Reported) Methocarbamol 500 Mg Tablet, 500 MG PO TID, (Reported) Metolazone 5 Mg Tablet, 5 MG PO MoWeFr, (Reported) Nicotine 1 Each Patch.td24, 21 MG TD DAILY, (Reported) Ondansetron HCl 8 Mg Tablet, 8 MG PO Q8H PRN for NAUSEA/VOMITING-1ST LINE, (Repo rted) Phenazopyridine HCl 200 Mg Tablet, 1 TAB PO Q8H PRN for BLADDER PAIN/DYSURIA, (Reported) Potassium Chloride 20 Meq Tab.er.prt, 80 MEQ PO DAILY, (Reported) TAKES 4 (20MEQ) TABS Risperidone 1 Mg Tablet, 1.5 MG PO HS, (Reported) TAKES 1 & (1MG) TABS Simvastatin 10 Mg Tablet, 10 MG PO HS, (Reported) Sorbitol Solution 1 Ml Solution, 15 ML PO DAILY, (Reported) Sorbitol Solution 1 Ml Solution, 15 ML PO HS PRN for CONSTIPATION, (Reported) CALL IF INEFFECTIVE Trazodone HCl 100 Mg Tablet, 100 MG PO HS, (Reported) Vilazodone Hydrochloride 40 Mg Tablet, 40 MG PO DAILY, (Reported) Past Pbvpebs-Izdfbn-Cyvzjk Hx Patient Social History Alcohol Use: Denies Use Recreational Drug Use: No Smoking Status: Current Everyday Smoker Type Used: Cigarettes Recent Foreign Travel: No Contact w/Someone Who Travel: No Recent Infectious Disease Expo: No Recent Hopitalizations: No Seasonal Allergies Seasonal Allergies: No Surgeries History of Surgeries: Yes Surgeries: Thyroidectomy Respiratory History of Respiratory Disorde: No Cardiovascular History of Cardiac Disorders: No Neurological History of Neurological Disord: Yes Neurological Disorders: Seizure Disorder, Traumatic Brain Injury Genitourinary History of Genitourinary Disor: No Gastrointestinal History of Gastrointestinal Di: Yes Gastrointestinal Disorders: Gastroesophageal Reflux, Chronic Constipation, Hepatitis Musculoskeletal History of Musculoskeletal Dis: Yes Musculoskeletal Disorders: Arthritis, Chronic Back Pain Endocrine History of Endocrine Disorders: No HEENT History of HEENT Disorders: No Cancer History of Cancer: Yes Cancer: Skin, Lymphoma Psychosocial History of Psychiatric Problem: Yes Behavioral Health Disorders: Sleep Difficulties, Bipolar, Depression Integumentary History of Skin or Integumenta: Yes (skin cancer- lymphoma) Blood Transfusions History of Blood Disorders: No Family Medical History Significant Family History: Cancer, Other Conditions/Hx Review of Systems-General Constitutional: No chills, No dizziness, No fever, No weakness EENTM: No blurred vision, No double vision, No vision loss, No throat pain Respiratory: cough, short of breath Cardiovascular: No chest pain, No palpitations Gastrointestinal: No abdominal pain; diarrhea, dysphagia; No nausea, No vomiting Genitourinary: No dysuria; other (petty) Musculoskeletal: muscle pain; No muscle weakness, No neck pain Skin: hx of skin cancer, lesions, rash Psychiatric/Neurological: Denies Headache, Denies Numbness, Denies Tingling, Denies Weakness Other Denies easy bleeding or easy bruising Physical Exam-General Problems Physical Exam Vital Signs Vital Signs - First Documented 02/29/20 09:00 FiO2 80 Capillary Refill : Less Than 3 Seconds General Appearance: no apparent distress, other (chronically ill) Eyes: Bilateral Eye EOMI HEENT: No pharyngeal erythema Neck: non-tender, supple; No lymphadenopathy (R), No lymphadenopathy (L) Respiratory: no respiratory distress, no accessory muscle use, decreased breath sounds (throughout) Cardiovascular: regular rate, rhythm, no edema, no murmur Peripheral Pulses: 2+ Dorsalis Pedis (R), 2+ Left Dors-Pedis (L), 2+ Radial Pulses (R), 2+ Radial Pulses (L) Gastrointestinal: normal bowel sounds, soft, tenderness (diffuse) Genital/Rectal: other (petty catheter in place) Extremities: pedal edema Neurologic/Psychiatric: alert Skin: warm/dry, rash (chronic venous stasis changes to bilateral LEs, RLE with areas of scabbing) Data Review Labs Laboratory Tests 03/01/20 05:10: White Blood Count 10.7, Red Blood Count 3.58L, Hemoglobin 10.4L, Hematocrit 32L, Mean Corpuscular Volume 91, Mean Corpuscular Hemoglobin 29, Mean Corpuscular Hemoglobin Concent 32, Red Cell Distribution Width 15.9H, Platelet Count 263, Mean Platelet Volume 9.7, Immature Granulocyte % (Auto) 5, Neutrophils (%) (Auto) 75, Lymphocytes (%) (Auto) 11L, Monocytes (%) (Auto) 8, Eosinophils (%) (Auto) 1, Basophils (%) (Auto) 0, Neutrophils # (Auto) 8.0H, Lymphocytes # (Auto) 1.2, Monocytes # (Auto) 0.9, Eosinophils # (Auto) 0.1, Basophils # (Auto) 0.0, Immature Granulocyte # (Auto) 0.6H, Sodium Level 141, Potassium Level 3.4L, Chloride Level 99, Carbon Dioxide Level 30, Anion Gap 12, Blood Urea Nitrogen 15, Creatinine 0.71, Estimat Glomerular Filtration Rate > 60, BUN/Creatinine Ratio 21, Glucose Level 95, Calcium Level 8.5, Phosphorus Level 3.4, Magnesium Level 1.7 Microbiology 02/28/20 Blood Culture - Preliminary, Resulted No growth 02/28/20 Urine Culture - Final, Complete NO GROWTH 02/28/20 Influenza Types A,B Antigen (RUDDY) - Final, Complete Radiology Date of Exam:02/28/20 CHEST 1 VIEW, AP/PA ONLY INDICATION: sepsis. Fever, cough, congestion TECHNIQUE: Single view chest 2:20 AM. CORRELATION STUDY: None FINDINGS: Right subclavian [id number] catheter is present tip is malpositioned and directed superiorly into the neck, likely into the internal jugular vein. Opacification right lung base consistent with right basilar pneumonia. Left lung generally clear. Heart size and mediastinum are unremarkable. Likely prior impaction injury left humeral head. IMPRESSION: 1. Right basilar infiltrate compatible with pneumonia. 2. Malpositioned right subclavian [id number] catheter. Tip is directed superiorly into the neck likely into the internal jugular vein. This is changed from prior PET/CT of 01/16/2020. Assessment/Plan Assessment/Plan Assessment/Plan Malpositioned subclavian [id number]- most likely dislodged secondary to increased intrathoracic pressure from coughing, will need to be repositioned or replaced PNA with severe sepsis- managed by medical team, still requiring supplemental oxygen Peripheral T cell lymphoma- currently undergoing chemotherapy Chronic Hepatitis Hx of TBI Clinical Quality Measures DVT/VTE Risk/Contraindication: Risk Factor Score Per Nursin RFS Level Per Nursing on Admit: 4+=Very High GONSALO CHILD DO 03/01/20 1116: History of Present Illness History of Present Illness Time Seen by Provider: 10:33 History of Present Illness Pt seen and examined, admitted for Pneumonia. He is not having any complaints about his port. He has TBI so not able to answer all questions. Allergies and Home Medications Allergies Coded Allergies: No Known Drug Allergies (Unverified , 09/22/19) Home Medications Acetaminophen 325 Mg Capsule, 650 MG PO Q6H PRN for PAIN-MILD (1-4), (Reported) Alprazolam 0.5 Mg Tablet, 0.5 MG PO 1200, (Reported) Alprazolam 1 Mg Tablet, 1 MG PO BID, (Reported) Cholecalciferol (Vitamin D3) 25 Mcg Capsule, 25 MCG PO DAILY, (Reported) Diclofenac Sodium 75 Mg Tablet.dr, 75 MG PO BID, (Reported) Divalproex Sodium 500 Mg Tablet.dr, 500 MG PO BID, (Reported) Docusate Sodium 100 Mg Capsule, 100 MG PO BID, (Reported) Ergocalciferol (Vitamin D2) 1,250 Mcg Capsule, 1,250 MCG PO MON, (Reported) Fluticasone Propionate 9.9 Ml [place].susp, 2 SPRAY NSEACH DAILY, (Reported) Furosemide 40 Mg Tablet, 40 MG PO 1200,1700, (Reported) Furosemide 80 Mg Tablet, 80 MG PO DAILY, (Reported) Gabapentin 300 Mg Capsule, 300 MG PO TID, (Reported) Hydrocodone/Acetaminophen 1 Each Tablet, 1 EACH PO Q12H PRN for PAIN-MODERATE (5-7), (Reported) Lactulose 10 Gm/15 Ml Solution, 15 ML PO Q12H PRN for CONSTIPATION-3RD LINE, (Reported) Lidocaine 1 Each Adh..patch, 1 EACH TP DAILY, (Reported) APPLY TO RIGHT LOWER EXTREMITY ABOVE WOUND Magnesium Hydroxide 400 Mg/5 Ml [place].susp, 30 MG PO DAILY PRN for CONSTIPATION- 2ND LINE, (Reported) Melatonin 3 Mg Tablet, 6 MG PO HS, (Reported) Methocarbamol 500 Mg Tablet, 500 MG PO TID, (Reported) Metolazone 5 Mg Tablet, 5 MG PO MoWeFr, (Reported) Nicotine 1 Each Patch.td24, 21 MG TD DAILY, (Reported) Ondansetron HCl 8 Mg Tablet, 8 MG PO Q8H PRN for NAUSEA/VOMITING-1ST LINE, (Reported) Phenazopyridine HCl 200 Mg Tablet, 1 TAB PO Q8H PRN for BLADDER PAIN/DYSURIA, (Reported) Potassium Chloride 20 Meq Tab.er.prt, 80 MEQ PO DAILY, (Reported) TAKES 4 (20MEQ) TABS Risperidone 1 Mg Tablet, 1.5 MG PO HS, (Reported) TAKES 1 & (1MG) TABS Simvastatin 10 Mg Tablet, 10 MG PO HS, (Reported) Sorbitol Solution 1 Ml Solution, 15 ML PO DAILY, (Reported) Sorbitol Solution 1 Ml Solution, 15 ML PO HS PRN for CONSTIPATION, (Reported) CALL IF INEFFECTIVE Trazodone HCl 100 Mg Tablet, 100 MG PO HS, (Reported) Vilazodone Hydrochloride 40 Mg Tablet, 40 MG PO DAILY, (Reported) Patient Home Medication List Home Medication List Reviewed: Yes Past Uancicd-Ublphe-Kcdavr Hx Family Medical History Significant Family History: Cancer Review of Systems-General Constitutional: No chills; fever EENTM: No blurred vision, No double vision Respiratory: cough, short of breath Cardiovascular: No chest pain, No palpitations Gastrointestinal: No abdominal pain; diarrhea, dysphagia Genitourinary: No dysuria, No hematuria Musculoskeletal: muscle pain; No muscle weakness Skin: hx of skin cancer, lesions Psychiatric/Neurological: Denies Headache, Denies Numbness Physical Exam-General Problems Physical Exam General Appearance: no apparent distress, other (chronically ill) Eyes: Bilateral Eye PERRL, Bilateral Eye EOMI HEENT: pharynx normal; No scleral icterus (R), No scleral icterus (L) Respiratory: no respiratory distress, decreased breath sounds (throughout), accessory muscle use Cardiovascular: regular rate, rhythm, no murmur Gastrointestinal: normal bowel sounds, non tender, soft Skin: normal color, warm/dry, other (port appears to be in good position, no signs of infection), rash (chronic venous stasis changes to bilateral LEs, RLE with areas of scabbing) Assessment/Plan Assessment/Plan Assessment/Plan Pneumonia Malpositioned robinson-cath Pt will need to get port catheter repositioned, it is in the IJ. Somehow it flipped from SVC (confirmed flouro October) to the IJ. It can still be used for fluids, but should not be used for chemo. Pt has multiple options; incluiding going to [facility] for IR to pull it down into SVC, possibly have Spray Painting Machine Operator here reposition it, I could try and get wire in and reposition or a new one can be placed on the opposite side. All of this is not emergent and can be done as an outpt. Supervisory-Addendum Brief Verification & Attestation Participated in pt care: history, MDM, physical Personally performed: exam, history, MDM Care discussed with: Medical Student Procedures: n/a Verification and Attestation of Medical Student E/M Service A medical student performed and documented this service. I then reviewed and verified all information documented by the medical student and made m odifications to such information, when appropriate. I personally performed a physical exam, medical decision making and then discussed any differences between the notes and made revisions as necessary to create one note. Gonsalo Child , 03/01/20 , 11:17 HOMERO TINEO,MED STUDENT Mar 01, 2020 08:34 GONSALO CHILD DO Mar 01, 2020 11:16
--- NOTE | 2020-03-01 11:09 | Progress Note ---
JOHNADALRICHA, 03/01/20 1109: Subjective Subjective/Events-last exam Pt seen and examined on med/surg floor. He is having diffuse pain this morning. Admits to some worsening dysphagia. States he has shortness of breath that is worsening as well. Patient states "I think I'm dying and I hate it here". Focused Exam Lactate Level 02/28/20 01:15: Lactic Acid Level 1.49 Objective Exam Last Set of Vital Signs Vital Signs Date Time Temp Pulse Resp B/P (MAP) Pulse Ox O2 Delivery O2 Flow Rate FiO2 03/01/20 08:00 Vapotherm 40.00 50 03/01/20 08:00 36.2 70 18 108/61 (77) 94 Capillary Refill : Less Than 3 Seconds I&O Intake and Output 03/01/20 00:00 Intake Total 2862.5 ml Output Total 5425 ml Balance -2562.5 ml Intake Oral 1160 ml IV Total 1702.5 ml Output Urine Total 5425 ml # Bowel Movements 2 General: Alert, Cooperative HEENT: PERRLA, EOMI Neck: Supple, No JVD Lungs: Normal Air Movement, Other (diminished breath sounds) Heart: Regular Rate, No Murmurs Abdomen: Normal Bowel Sounds, Soft, No Tenderness Extremities: No Cyanosis, No Edema Skin: No Rashes Neuro: Normal Speech, Normal Tone Results/Procedures Lab Laboratory Tests 03/01/20 05:10: White Blood Count 10.7, Red Blood Count 3.58L, Hemoglobin 10.4L, Hematocrit 32L, Mean Corpuscular Volume 91, Mean Corpuscular Hemoglobin 29, Mean Corpuscular Hemoglobin Concent 32, Red Cell Distribution Width 15.9H, Platelet Count 263, Mean Platelet Volume 9.7, Immature Granulocyte % (Auto) 5, Neutrophils (%) (Auto) 75, Lymphocytes (%) (Auto) 11L, Monocytes (%) (Auto) 8, Eosinophils (%) (Auto) 1, Basophils (%) (Auto) 0, Neutrophils # (Auto) 8.0H, Lymphocytes # (Auto) 1.2, Monocytes # (Auto) 0.9, Eosinophils # (Auto) 0.1, Basophils # (Auto) 0.0, Immature Granulocyte # (Auto) 0.6H, Sodium Level 141, Potassium Level 3.4L, Chloride Level 99, Carbon Dioxide Level 30, Anion Gap 12, Blood Urea Nitrogen 15, Creatinine 0.71, Estimat Glomerular Filtration Rate > 60, BUN/Creatinine Ratio 21, Glucose Level 95, Calcium Level 8.5, Phosphorus Level 3.4, Magnesium Level 1.7 Microbiology 02/28/20 Blood Culture - Preliminary, Resulted Probable Coag Negative Staph 02/28/20 Urine Culture - Final, Complete NO GROWTH 02/28/20 Influenza Types A,B Antigen (RUDDY) - Final, Complete Assessment/Plan Assessment/Plan Assessment & Plan 1. Severe sepsis * SIRS: leukocytosis and temperature * Pneumonia * Required fluid resuscitation for hypotension 2. Acute respiratory distress with hypoxia * Patient currently having increased oxygen requirements * Does not use oxygen at baseline * Pt is now on vapotherm and stable * Elevated D-dimer noted on labs but CTA unremarkable for PE 3. Right lower lobe pneumonia * CXR revealed RLL pneumonia * Likely due to aspiration * Currently on zosyn only * Duonebs 4. Dysphagia * Patient is experiencing increasing dysphagia * Has had prior dysphagia but believes this is getting worse * Swallow study upgraded diet to dysphagia 2 with nectars 5. Hypokalemia * K+ up to 3.4 on 03/01 * Continue to replace 6. Hx of TBI 7. Seizure disorder 8. Peripheral T-cell lymphoma 9. Chronic hepatitis Diet: dysphagia 2 with nectars FULL CODE Prophylaxis: enoxaparin Dispo: likely >2 midnights, will monitor closely due to increased oxygen demands Clinical Quality Measures DVT/VTE Risk/Contraindication: Risk Factor Score Per Nursin RFS Level Per Nursing on Admit: 4+=Very High LANNY CURRY MD 03/01/20 1310: Supervisory-Addendum Brief Verification & Attestation Participated in pt care: history, MDM, physical Personally performed: exam, history Care discussed with: Medical Student Procedures: n/a I personally saw and examined this patient today and did my own history and physical exam and agree with documentation by the medical student. I directed the plan of care as documented. RICHA LOYOLA, Mar 01, 2020 11:09 LANNY CURRY MD Mar 01, 2020 13:10
--- NOTE | 2020-03-01 12:54 | NUR ---
RD ASSESSMENT PMHx: brain injury; chronic constipation; seizure disorder PT INTERACTION: Pt was awake and pleasant during nutrition assessment. Pt states current appetite is not good because "the long-term kept my dentures." Note pt currently on DYS2 Mechanically Altered diet. Note avg PO intake 58% x1d, per chart review. Pt states following a regular diet at home, and has no issues with chewing/swallowing food as long as he has his dentures. Pt states no recent issues with nausea, vomiting, constipation, or diarrhea. Pt states recent wt loss, but unsure of amount/timeframe. Pt states it was "bunches of weight." Note recent 6# wt loss x4mon, per chart review. ABNORMAL NUTRITION-RELATED LAB VALUES LOW: K 3.4 HIGH: Est. kcal needs: 1450 kcal | 15 kcal/kg Est. Pro needs: 77 g Pro | 0.8 g Pro/kg PES STATEMENT: Inadequate oral intake (NI-2.1) related to loss of appetite as evidenced by pt interview | avg PO intake 58% x1d INTERVENTION: Continue with current diet order of DYS2 Mechanically Altered diet, with modifier of [place] Thick Liquids. Pt may benefit from nutrition supplementation if PO intake declines. Encouraged pt to eat when able. Will continue to follow and reassess as pt needs, intake, and status change. Harjinder Artis, MS RD LD
--- NOTE | 2020-03-01 13:06 | NUR ---
CM/SS: Telephone call from Maggie at [facility] - [phone] - checking on the status of the pt. She is given an update related to the speech evaluation, and change in diet. She wanted to see when pt would discharge. She is aware it will not be today and will likely be early next week. She verbalizes understanding. This worker will follow up.
[2020-03-01] MEDS: LACTOBACILLUS ACIDOPHILUS (PROBIOTIC) CAPSULE PO SCH ×2 (13:56→17:51)
[2020-03-01] MEDS: ALPRAZolam 0.5 MG (XANAX) TAB PO SCH (13:56)
[2020-03-01] MEDS: METOLAZONE 5 MG (ZAROXOLYN) TAB PO SCH (14:01)
[2020-03-01] MEDS: ACETAMINOPHEN 325 MG TABLET PO PRN (17:51)
[2020-03-01] MEDS: traZODone 100 MG (DESYREL) TAB PO SCH (20:18)
[2020-03-01] MEDS: SIMvastatin 10 MG (ZOCOR) TAB PO SCH (20:21)
[2020-03-01] MEDS: risperiDONE 1 MG (RisperDAL) TAB PO SCH (20:31)
[2020-03-01] MEDS: MELATONIN 3 MG TABLET PO SCH (20:32)
--- NOTE | 2020-03-01 22:01 | NUR ---
At 2031, this nurse pulled an additional 1 tab of risperidone 1 mg and an additional melatonin 3 mg. Pt was to receive 1.5 mg of risperidone and 6 mg of melatonin at 2099, but one of the 1 mg risperidone tablets along with a 3 mg melatonin tablet was dropped on the floor by a director nursing service. At 2031, risperidone 1.5 mg was given, and melatonin 6 mg was given. Will continue to monitor pt and proceed with pt care as ordered.
[2020-03-02] MEDS: PIPERACILLIN/TAZO 4.5 GM/NS 100 ML IV SCH ×6 (01:30→17:33)
[2020-03-02] MEDS: ALBUTEROL/IPRATROP (COMBIVENT RESPIMAT) 4 GM INHALER IH SCH ×4 (02:13→22:56)
[2020-03-02] MEDS: LACTATED RINGERS 1,000 ML IV SCH ×3 (02:22→23:51)
[2020-03-02 03:51] VITALS: BP 113/72
[2020-03-02 06:08] LABS: BASOPHILS # (AUTO) 0.1 10^3/uL (0.0-0.1); BASOPHILS % (AUTO) 1 % (0-10); EOSINOPHILS # (AUTO) 0.1 10^3/uL (0.0-0.3); EOSINOPHILS % (AUTO) 1 % (0-10); HEMATOCRIT 33 % (40-54); HEMOGLOBIN 10.8 g/dL (13.3-17.7); LYMPHOCYTES # (AUTO) 1.4 10^3/uL (1.0-4.0); LYMPHOCYTES % (AUTO) 12 % (12-44); MEAN CORPUSCULAR HEMOGLOBIN 29 pg (25-34); MEAN CORPUSCULAR HGB CONC 32 g/dL (32-36); MEAN CORPUSCULAR VOLUME 91 fL (80-99); MEAN PLATELET VOLUME 9.5 fL (9.0-12.2); MONOCYTES # (AUTO) 0.9 10^3/uL (0.0-1.0); MONOCYTES % (AUTO) 8 % (0-12); NEUTROPHILS # (AUTO) 8.8 10^3/uL (1.8-7.8); NEUTROPHILS % (AUTO) 73 % (42-75); PLATELET COUNT 285 10^3/uL (130-400); WHITE BLOOD COUNT 12.1 10^3/uL (4.3-11.0)
[2020-03-02 06:23] LABS: CHLORIDE 100 MMOL/L (98-107); POTASSIUM 3.9 MMOL/L (3.6-5.0); SODIUM 138 MMOL/L (135-145)
[2020-03-02 06:25] LABS: GLUCOSE 92 MG/DL (70-105)
[2020-03-02 06:26] LABS: CARBON DIOXIDE 26 MMOL/L (21-32)
[2020-03-02 06:28] LABS: CREATININE SERUM 0.72 MG/DL (0.60-1.30); GFR ESTIMATED > 60; PHOSPHORUS 3.3 MG/DL (2.3-4.7)
[2020-03-02 06:29] LABS: BUN/CREATININE RATIO 24
[2020-03-02 06:31] LABS: MAGNESIUM 1.7 MG/DL (1.6-2.4)
[2020-03-02] MEDS: DOCUSATE SODIUM 100 MG (COLACE) CAP PO SCH ×2 (07:44→20:48)
[2020-03-02] MEDS: DIVALPROEX 500 MG DELAYED RELEASE (DEPAKOTE) TAB PO SCH ×2 (08:01→20:47)
[2020-03-02] MEDS: NICOTINE 21 MG (NICODERM) PATCH TD SCH (08:02)
[2020-03-02] MEDS: ALPRAZolam 1 MG (XANAX) TAB PO SCH ×2 (08:02→20:46)
[2020-03-02] MEDS: KCL 20 MEQ TAB (K-DUR) PO SCH (08:02)
[2020-03-02] MEDS: LACTOBACILLUS ACIDOPHILUS (PROBIOTIC) CAPSULE PO SCH ×3 (08:02→17:33)
[2020-03-02] MEDS: METHOCARBAMOL 500 MG (ROBAXIN) TABLET PO SCH ×3 (08:02→20:47)
[2020-03-02] MEDS: GABAPENTIN 300 MG (NEURONTIN) CAP PO SCH ×3 (08:02→20:48)
[2020-03-02] MEDS: VITAMIN D3 25 MCG (1,000 UNITS) TABLET PO SCH (08:02)
[2020-03-02] MEDS: ETODOLAC 300 MG (LODINE) CAP PO SCH ×2 (08:02→20:48)
[2020-03-02] MEDS: ENOXAPARIN 40 MG/0.4 ML (LOVENOX) SYR SQ SCH (08:03)
[2020-03-02 08:16] VITALS: BP 121/78
[2020-03-02] MEDS: LIDOCAINE 4% (SALONPAS) PATCH TP SCH (09:52)
--- NOTE | 2020-03-02 10:41 | Progress Note - Hospitalist ---
Subjective HPI/CC On Admission Date Seen by Provider: Mar 02, 2020 Time Seen by Provider: 10:00 Subjective/Events-last exam patient sleeping on arrival appeared to be in no acute distress. Anxious on awakening concerned that he is not getting better. No shortness of breath or chest pain at rest but short of breath with minimal exertion. At baseline the patient is nonambulatory secondary to past traumatic brain injury. Reports nonproductive cough unable to get sputum up. Denies chest pain. Objective Exam Vital Signs Vital Signs Date Time Temp Pulse Resp B/P (MAP) Pulse Ox O2 Delivery O2 Flow Rate FiO2 03/02/20 09:23 90 Vapotherm 35.00 400 03/02/20 08:16 35.6 68 22 121/78 (92) Capillary Refill : Less Than 3 Seconds General Appearance: No Apparent Distress, Anxious Respiratory: No Accessory Muscle Use, No Respiratory Distress, Other (scattered rhonchi breath sounds equal bilaterally increased respiratory rate) Cardiovascular: Regular Rate, Rhythm, No Edema, No Gallop, No JVD, No Murmur, Normal Peripheral Pulses Gastrointestinal: Normal Bowel Sounds, No Organomegaly, No Pulsatile Mass, Non Tender, Soft Results/Procedures Lab Laboratory Tests 03/02/20 05:28 Patient resulted labs reviewed. Assessment/Plan Assessment and Plan Assess & Plan/Chief Complaint (1) Hypokalemia Status: Chronic Assessment & Plan: On KCl at home, will resume and replace additional as needed. (2) Severe sepsis Status: resolving (3) Right lower lobe pneumonia Status: Acutelikely aspiration in etiology with stable high flow oxygen requirements on Vapotherm with O2 sat levels 90-92 percent predominantly Assessment & Plan: maia Jimenez/binu Qualifiers: Qualified Codes: J18.9 - Pneumonia, unspecified organism (4) History of traumatic brain injury Status: Chronic Assessment & Plan: Answers questions appropriately but is somewhat difficult to understand and is not able to provide detailed history. COVID negative (5) Seizure disorder Status: Chronic (6) Peripheral T-cell lymphoma Status: Chronic Assessment & Plan: Seeing the cancer center. (7) Chronic hepatitis Status: Chronic Assessment & Plan: Patient does not clarify, but outpatient chart states Hep C. Suspect with cirrhosis given massive doses of diuretic that he is on outpatient. (8) DVT prophylaxis Status: Acute Assessment & Plan: Enoxaparin Critical Care Critically Ill Patient Clinical Quality Measures DVT/VTE Risk/Contraindication: Risk Factor Score Per Nursin RFS Level Per Nursing on Admit: 4+=Very High DALE ALANIZ MD Mar 02, 2020 10:41
[2020-03-02 12:00] VITALS: BP 115/73
[2020-03-02] MEDS: ALPRAZolam 0.5 MG (XANAX) TAB PO SCH (12:05)
[2020-03-02 16:00] VITALS: BP 112/64
[2020-03-02 20:00] VITALS: BP 121/59
[2020-03-02] MEDS: SIMvastatin 10 MG (ZOCOR) TAB PO SCH (20:47)
[2020-03-02] MEDS: MELATONIN 3 MG TABLET PO SCH (20:47)
[2020-03-02] MEDS: traZODone 100 MG (DESYREL) TAB PO SCH (20:47)
[2020-03-02] MEDS: risperiDONE 1 MG (RisperDAL) TAB PO SCH (20:47)
[2020-03-02] MEDS: HYDROcodone/APAP 5 MG/325 MG (LORTAB) TAB PO PRN (20:48)
--- NOTE | 2020-03-02 23:40 | NUR ---
At 2200, Luz Elena (tech), notified me that this pt had a red/stringy mucous like substance in pt's catheter bag, just to make sure it was not any sort of clot. I had Quentin (Newspaper Copy Editor) and Jamila (RN) check to see if it was anything to be concerned about. Quentin said continue to monitor and assess, and that it should be alright. PT is on lovenox. Will continue to monitor pt and provide care as ordered.
[2020-03-03] VITALS: BP 106/59
[2020-03-03] MEDS: PIPERACILLIN/TAZO 4.5 GM/NS 100 ML IV SCH ×6 (00:31→16:11)
[2020-03-03] MEDS: ALBUTEROL/IPRATROP (COMBIVENT RESPIMAT) 4 GM INHALER IH SCH ×4 (03:25→21:15)
[2020-03-03 04:53] VITALS: BP 124/60
[2020-03-03 06:20] LABS: BASOPHILS # (AUTO) 0.1 10^3/uL (0.0-0.1); BASOPHILS % (AUTO) 0 % (0-10); EOSINOPHILS # (AUTO) 0.1 10^3/uL (0.0-0.3); EOSINOPHILS % (AUTO) 1 % (0-10); HEMATOCRIT 34 % (40-54); HEMOGLOBIN 11.2 g/dL (13.3-17.7); LYMPHOCYTES # (AUTO) 1.5 10^3/uL (1.0-4.0); LYMPHOCYTES % (AUTO) 12 % (12-44); MEAN CORPUSCULAR HEMOGLOBIN 30 pg (25-34); MEAN CORPUSCULAR HGB CONC 33 g/dL (32-36); MEAN CORPUSCULAR VOLUME 91 fL (80-99); MEAN PLATELET VOLUME 9.6 fL (9.0-12.2); MONOCYTES % (AUTO) 8 % (0-12); NEUTROPHILS # (AUTO) 8.9 10^3/uL (1.8-7.8); NEUTROPHILS % (AUTO) 72 % (42-75); PLATELET COUNT 262 10^3/uL (130-400); WHITE BLOOD COUNT 12.4 10^3/uL (4.3-11.0)
[2020-03-03 06:40] LABS: BUN/CREATININE RATIO 22; CALCIUM 9.1 MG/DL (8.5-10.1); CARBON DIOXIDE 24 MMOL/L (21-32); CHLORIDE 100 MMOL/L (98-107); CREATININE SERUM 0.77 MG/DL (0.60-1.30); GFR ESTIMATED > 60; GLUCOSE 92 MG/DL (70-105); MAGNESIUM 1.5 MG/DL (1.6-2.4); PHOSPHORUS 3.4 MG/DL (2.3-4.7); POTASSIUM 4.5 MMOL/L (3.6-5.0); SODIUM 134 MMOL/L (135-145)
[2020-03-03 08:00] VITALS: BP 107/74
[2020-03-03] MEDS: LIDOCAINE 4% (SALONPAS) PATCH TP SCH (08:11)
[2020-03-03] MEDS: LACTOBACILLUS ACIDOPHILUS (PROBIOTIC) CAPSULE PO SCH ×3 (08:14→16:11)
[2020-03-03] MEDS: ETODOLAC 300 MG (LODINE) CAP PO SCH ×2 (08:15→20:20)
[2020-03-03] MEDS: ALPRAZolam 0.5 MG (XANAX) TAB PO SCH ×2 (08:17→12:23)
[2020-03-03] MEDS: HYDROcodone/APAP 5 MG/325 MG (LORTAB) TAB PO PRN ×2 (08:18→20:20)
[2020-03-03] MEDS: DOCUSATE SODIUM 100 MG (COLACE) CAP PO SCH ×2 (08:18→20:21)
[2020-03-03] MEDS: KCL 20 MEQ TAB (K-DUR) PO SCH (08:18)
[2020-03-03] MEDS: DIVALPROEX 500 MG DELAYED RELEASE (DEPAKOTE) TAB PO SCH ×2 (08:18→20:21)
[2020-03-03] MEDS: GABAPENTIN 300 MG (NEURONTIN) CAP PO SCH ×3 (08:18→20:20)
[2020-03-03] MEDS: METHOCARBAMOL 500 MG (ROBAXIN) TABLET PO SCH ×3 (08:18→20:21)
[2020-03-03] MEDS: ENOXAPARIN 40 MG/0.4 ML (LOVENOX) SYR SQ SCH (08:19)
[2020-03-03] MEDS: NICOTINE 21 MG (NICODERM) PATCH TD SCH (08:19)
[2020-03-03] MEDS: VITAMIN D3 25 MCG (1,000 UNITS) TABLET PO SCH (08:19)
[2020-03-03] MEDS: LACTATED RINGERS 1,000 ML IV SCH ×2 (08:58→16:12)
[2020-03-03] MEDS: ALPRAZolam 1 MG (XANAX) TAB PO SCH ×2 (08:59→20:20)
[2020-03-03 12:00] VITALS: BP 101/65
--- NOTE | 2020-03-03 12:34 | Progress Note - Hospitalist ---
Subjective HPI/CC On Admission Date Seen by Provider: Mar 03, 2020 Time Seen by Provider: 11:50 Subjective/Events-last exam patient complains about nonproductive cough and denies chills or fever not short of breath at rest but does feel winded with minimal exertion still feeling quite weak. Chest pain denied. Objective Exam Vital Signs Vital Signs Date Time Temp Pulse Resp B/P (MAP) Pulse Ox O2 Delivery O2 Flow Rate FiO2 03/03/20 12:00 36.4 64 20 101/65 (77) 92 Vapotherm 25.00 40.00 03/02/20 22:56 400 Capillary Refill : Less Than 3 Seconds General Appearance: No Apparent Distress, Chronically ill Respiratory: No Accessory Muscle Use, No Respiratory Distress, Other (scattered rhonchi right greater than left no wheezing noted) Cardiovascular: Regular Rate, Rhythm, No Edema, No Gallop, No JVD, No Murmur Results/Procedures Lab Laboratory Tests 03/03/20 05:40 03/03/20 06:00 Patient resulted labs reviewed. Assessment/Plan Assessment and Plan Assess & Plan/Chief Complaint (1) Hypokalemia Status: Chronic Assessment & Plan: On KCl at home, will resume and replace additional as needed. (2) Severe sepsis Status: resolving (3) Right lower lobe pneumonia Status: Acutelikely aspiration in etiology withimproving oxygen requirements off of Vapotherm on 6 L of O2 with O2 saturations greater than 90 percent. Discussed the fact that it may take over month for him to get back to work he felt prior to this episode of pneumonia but that his progress over the past 48 hours has been encouraging. Assessment & Plan: maia Jimenez/binu Qualifiers: Qualified Codes: J18.9 - Pneumonia, unspecified organism (4) History of traumatic brain injury Status: Chronic Assessment & Plan: Answers questions appropriately but is somewhat difficult to understand and is not able to provide detailed history. COVID negative (5) Seizure disorder Status: Chronic (6) Peripheral T-cell lymphoma Status: Chronic Assessment & Plan: Seeing the cancer center. (7) Chronic hepatitis Status: Chronic Assessment & Plan: Patient does not clarify, but outpatient chart states Hep C. Suspect with cirrhosis given massive doses of diuretic that he is on outpatient. (8) DVT prophylaxis Status: Acute Assessment & Plan: Enoxaparin Critical Care Critically Ill Patient Clinical Quality Measures DVT/VTE Risk/Contraindication: Risk Factor Score Per Nursin RFS Level Per Nursing on Admit: 4+=Very High DALE ALANIZ MD Mar 03, 2020 12:33
[2020-03-03 16:00] VITALS: BP 117/73
[2020-03-03 20:00] VITALS: BP 122/59
[2020-03-03] MEDS: SIMvastatin 10 MG (ZOCOR) TAB PO SCH (20:19)
[2020-03-03] MEDS: traZODone 100 MG (DESYREL) TAB PO SCH (20:19)
[2020-03-03] MEDS: risperiDONE 1 MG (RisperDAL) TAB PO SCH (20:20)
[2020-03-03] MEDS: MELATONIN 3 MG TABLET PO SCH (20:21)
[2020-03-04 00:50] VITALS: BP 98/63
[2020-03-04] MEDS: PIPERACILLIN/TAZO 4.5 GM/NS 100 ML IV SCH ×6 (01:38→18:22)
[2020-03-04] MEDS: ALBUTEROL/IPRATROP (COMBIVENT RESPIMAT) 4 GM INHALER IH SCH ×4 (02:46→21:12)
[2020-03-04] MEDS: LACTATED RINGERS 1,000 ML IV SCH ×2 (02:54→14:13)
[2020-03-04 04:00] VITALS: BP 112/73
[2020-03-04 05:12] LABS: BASOPHILS # (AUTO) 0.1 10^3/uL (0.0-0.1); BASOPHILS % (AUTO) 0 % (0-10); EOSINOPHILS # (AUTO) 0.1 10^3/uL (0.0-0.3); EOSINOPHILS % (AUTO) 1 % (0-10); HEMATOCRIT 33 % (40-54); HEMOGLOBIN 10.6 g/dL (13.3-17.7); LYMPHOCYTES # (AUTO) 1.8 10^3/uL (1.0-4.0); LYMPHOCYTES % (AUTO) 13 % (12-44); MEAN CORPUSCULAR HEMOGLOBIN 29 pg (25-34); MEAN CORPUSCULAR HGB CONC 32 g/dL (32-36); MEAN CORPUSCULAR VOLUME 91 fL (80-99); MEAN PLATELET VOLUME 9.7 fL (9.0-12.2); MONOCYTES # (AUTO) 1.2 10^3/uL (0.0-1.0); MONOCYTES % (AUTO) 9 % (0-12); NEUTROPHILS % (AUTO) 71 % (42-75); PLATELET COUNT 272 10^3/uL (130-400)
[2020-03-04 05:21] LABS: CHLORIDE 104 MMOL/L (98-107); POTASSIUM 4.5 MMOL/L (3.6-5.0); SODIUM 136 MMOL/L (135-145)
[2020-03-04 05:23] LABS: GLUCOSE 95 MG/DL (70-105)
[2020-03-04 05:24] LABS: CARBON DIOXIDE 22 MMOL/L (21-32)
[2020-03-04 05:26] LABS: PHOSPHORUS 3.3 MG/DL (2.3-4.7)
[2020-03-04 05:27] LABS: CREATININE SERUM 0.75 MG/DL (0.60-1.30); GFR ESTIMATED > 60
[2020-03-04 05:28] LABS: BUN/CREATININE RATIO 21
[2020-03-04 05:29] LABS: MAGNESIUM 1.6 MG/DL (1.6-2.4)
[2020-03-04 08:00] VITALS: BP 109/72
[2020-03-04] MEDS: KCL 20 MEQ TAB (K-DUR) PO SCH (08:11)
[2020-03-04] MEDS: VITAMIN D3 25 MCG (1,000 UNITS) TABLET PO SCH (08:11)
[2020-03-04] MEDS: ETODOLAC 300 MG (LODINE) CAP PO SCH ×2 (08:11→20:05)
[2020-03-04] MEDS: DIVALPROEX 500 MG DELAYED RELEASE (DEPAKOTE) TAB PO SCH ×2 (08:11→20:05)
[2020-03-04] MEDS: GABAPENTIN 300 MG (NEURONTIN) CAP PO SCH ×3 (08:11→20:06)
[2020-03-04] MEDS: ENOXAPARIN 40 MG/0.4 ML (LOVENOX) SYR SQ SCH (08:11)
[2020-03-04] MEDS: LIDOCAINE 4% (SALONPAS) PATCH TP SCH (08:11)
[2020-03-04] MEDS: NICOTINE 21 MG (NICODERM) PATCH TD SCH (08:11)
[2020-03-04] MEDS: METHOCARBAMOL 500 MG (ROBAXIN) TABLET PO SCH ×3 (08:11→20:09)
[2020-03-04] MEDS: ALPRAZolam 1 MG (XANAX) TAB PO SCH ×2 (08:12→20:10)
[2020-03-04] MEDS: DOCUSATE SODIUM 100 MG (COLACE) CAP PO SCH ×2 (08:12→20:11)
[2020-03-04] MEDS: LACTOBACILLUS ACIDOPHILUS (PROBIOTIC) CAPSULE PO SCH ×3 (08:12→18:23)
--- NOTE | 2020-03-04 11:15 | NUR ---
ASSUMED CARE OF PT AT THIS TIME R/T STAFFING CHANGE.
--- NOTE | 2020-03-04 11:16 | Diagnostic Imaging Report ---
INDICATION: Shortness of breath COMPARISON: 02/29/2020 FINDINGS: There is progressive and extensive airspace disease and consolidation in the right lung. The left lung is clear although suboptimally expanded. Venous catheter is less well seen but is again believed to be malpositioned directed cephalad at the neck. IMPRESSION: Worsened dense consolidation of the right lung. Malpositioned vascular catheter directed up the neck along the course of the jugular. Dictated by: Dictated on workstation # [id number]
--- NOTE | 2020-03-04 11:20 | Progress Note - Hospitalist ---
THONY HAIR MED STUDENT 03/04/20 1120: Subjective HPI/CC On Admission Date Seen by Provider: Mar 04, 2020 Time Seen by Provider: 08:25 Subjective/Events-last exam Patient laying comfortably in room, denies any pain at this time but states his breathing is getting worse. Focused Exam Lactate Level 03/04/20 10:54: Lactic Acid Level Laboratory Tests Test 03/04/20 10:54 Objective Exam Vital Signs Vital Signs Date Time Temp Pulse Resp B/P (MAP) Pulse Ox O2 Delivery O2 Flow Rate FiO2 03/04/20 10:09 90 Nasal Cannula 5.00 03/04/20 08:00 36.1 89 18 109/72 (84) 03/02/20 22:56 400 Capillary Refill : Less Than 3 Seconds General Appearance: No Apparent Distress, Chronically ill HEENT: No Scleral Icterus (L), No Scleral Icterus (R) Neck: Normal Inspection, Non Tender, Supple Respiratory: Chest Non Tender, Crackles, Wheezing Cardiovascular: Regular Rate, Rhythm, Normal Peripheral Pulses Gastrointestinal: No Pulsatile Mass, Non Tender Extremity: Normal Range of Motion, No Calf Tenderness, Other (cellulitis over RLE) Neurologic/Psychiatric: Alert, Normal Mood/Affect Skin: Warm/Dry; No Jaundice Results/Procedures Lab Laboratory Tests 03/04/20 04:58 Patient resulted labs reviewed. Assessment/Plan Assessment and Plan Assess & Plan/Chief Complaint Sepsis -SIRS: Elevated White count and Temperature -penumonia -required fluids for hypotension Respiratory distress -continue O2/vapotherm -elevated D-dimer: negative CTA Right lower lobe pneumonia -duonebs -Vancomycin/Zosyn -order repeat Cxr Dysphagia -per swallow study recommendation: mechanical soft diet Hypokalemia/hypomagnesia -on home KCl, replace as needed Peripheral T-cell lymphoma -seeing cancer center DVT prophylaxis -maintain Enoxaparin Elevated Procalcitonin: 0.24 Chronic -Right lower leg celulitis -R lower leg unspecified skin cancer -anemia -TBI -seizure disorder -constipation -GERD -Hepatitis C Clinical Quality Measures DVT/VTE Risk/Contraindication: Risk Factor Score Per Nursin RFS Level Per Nursing on Admit: 4+=Very High JOSELYN SHEPARD DO 03/04/20 1236: Subjective HPI/CC On Admission Date Seen by Provider: Mar 04, 2020 Time Seen by Provider: 09:00 Subjective/Events-last exam Pt on 5 liters of oxygen a day Reports he does not use oxygen at home BNP is normal [facility] at 54 years old requiring group home is indicative of severe debility Continues to smoke and he wants a cigarette WC 14,000, Hgb 10.6 CXR will be ordered, ABG will be ordered, Dr. Johnson consult and Procalcitonin along with lactic acid Pt not yet able to go back to the group home but overall prognosis extremely poor, will need DNR Review of Systems General: Fatigue, Malaise Pulmonary: Dyspnea, Cough Neurological: Weakness Objective Exam General Appearance: WD/WN, Anxious, Chronically ill, Mild Distress Respiratory: Accessory Muscle Use, Crackles, Decreased Breath Sounds, Wheezing Cardiovascular: Regular Rate, Rhythm, No Edema, No Gallop, No JVD, No Murmur, Normal Peripheral Pulses Neurologic/Psychiatric: Alert, Oriented x3, No Motor/Sensory Deficits, Normal Mood/Affect Assessment/Plan Assessment and Plan Assess & Plan/Chief Complaint 03/04/20: Respiratory insufficiency Septic workup Dr. Johnson consult Check ABG Extend Zosyn antibiotic Supervisory-Addendum Brief Verification & Attestation Participated in pt care: history, MDM, physical Personally performed: exam, history, MDM, supervision of care Care discussed with: Medical Student Procedures: n/a Results interpretation: Verified all documentation Verification and Attestation of Medical Student E/M Service A medical student performed and documented this service in my presence. I reviewed and verified all information documented by the medical student and made modifications to such information, when appropriate. I personally performed the physical exam and medical decision making. Joselyn Shepard, Mar 05, 2020,05:07 THONY HARI MED STUDENT Mar 04, 2020 11:20 JOSELYN SHEPARD DO Mar 04, 2020 12:36
[2020-03-04] MEDS ORDERED: PHARMACY TO DOSE IV SCH (11:30)
[2020-03-04] MEDS: ALPRAZolam 0.5 MG (XANAX) TAB PO SCH (11:33)
[2020-03-04 11:44] LABS: ABG OXYGEN SATURATION 94 % (94-100); ABG PCO2 36 MMHG (35-45); ABG PH 7.46 (7.37-7.43); ABG PO2 68 MMHG (79-93); ABG TCO2 26.9 MMOL/L (21.0-31.0)
[2020-03-04 11:48] LABS: ALLENS TEST YES-POS; INSPIRED O2 5 L; VENTILATOR NO
--- NOTE | 2020-03-04 11:52 | Pulmonary Progress Note ---
Subjective Time Seen by a Provider: 11:26 Subjective/Events-last exam Pt is requiring 5 liter NC. Sepsis Event Evaluation Height, Weight, BMI Height: '" Weight: lbs. oz. kg; 31.96 BMI Method: Focused Exam Lactate Level 03/04/20 10:54: Lactic Acid Level 1.26 Lactic Acid Level Laboratory Tests Test 03/04/20 10:54 Lactic Acid Level 1.26 MMOL/L (0.50-2.00) Exam Exam Vital Signs Date Time Temp Pulse Resp B/P (MAP) Pulse Ox O2 Delivery O2 Flow Rate FiO2 03/04/20 10:09 90 Nasal Cannula 5.00 03/04/20 08:00 36.1 89 18 109/72 (84) 93 Nasal Cannula 5.00 03/04/20 08:00 Nasal Cannula 5.00 03/04/20 04:00 35.6 75 28 112/73 (86) 97 High Flow N/C 5.00 03/04/20 02:46 92 Nasal Cannula 5.00 03/04/20 00:50 35.6 58 22 98/63 (75) 96 Nasal Cannula 5.00 03/03/20 21:15 91 Nasal Cannula 5.00 03/03/20 20:00 High Flow N/C 5.00 03/03/20 20:00 36.8 74 38 122/59 (80) 94 Nasal Cannula 5.00 03/03/20 16:00 36.5 69 22 117/73 (88) 93 Nasal Cannula 5.00 03/03/20 14:28 90 Nasal Cannula 5.00 03/03/20 12:00 36.4 64 20 101/65 (77) 92 Vapotherm 25.00 40.00 I & O 03/04/20 07:00 Intake Total 890 ml Output Total 2250 ml Balance -1360 ml Height & Weight Height: '" Weight: lbs. oz. kg; 31.96 BMI Method: General Appearance: No Apparent Distress, Chronically ill HEENT: PERRL/EOMI, Other (mucous membranes dry) Neck: Non Tender, Supple Respiratory: No Accessory Muscle Use, No Respiratory Distress, Other (scattered rhonchi right greater than left no wheezing noted) Cardiovascular: Regular Rate, Rhythm, No Edema, No Gallop, No JVD, No Murmur Capillary Refill: Less Than 3 Seconds Peripheral Pulses: 2+ Dorsalis Pedis (R), 2+ Left Dors-Pedis (L), 2+ Radial Pulses (R), 2+ Radial Pulses (L) Gastrointestinal: normal bowel sounds, non tender, soft Extremity: Normal Range of Motion, Non Tender Neurologic/Psychiatric: Alert, Oriented x3 Results Lab Laboratory Tests 03/03/20 05:40 03/03/20 06:00 03/04/20 04:58 Assessment/Plan Assessment/Plan RLL pneumonia with sepsis -COVID is negative -Currently requiring 5 liters NC -Currently on Zosyn -Secondary to worsening leukocytosis and persistent infiltrate/hypoxia add Vancomycin. Check MRSA nasal swab. Hypotension - resolved -Responded to IVF Hypokalemia, hypomagnesium -Replace Cellulitis RLCOLEMAN RAYO DO Mar 04, 2020 11:52
[2020-03-04 12:00] VITALS: BP 109/65
[2020-03-04] MEDS: VANCOMYCIN 1500 MG/NS 500 ML IVPB IV SCH ×4 (14:02→22:21)
[2020-03-04] MEDS: METOLAZONE 5 MG (ZAROXOLYN) TAB PO SCH (14:08)
[2020-03-04 15:44] VITALS: BP 119/67
[2020-03-04 20:00] VITALS: BP 125/57
[2020-03-04] MEDS: SIMvastatin 10 MG (ZOCOR) TAB PO SCH (20:06)
[2020-03-04] MEDS: risperiDONE 1 MG (RisperDAL) TAB PO SCH (20:07)
[2020-03-04] MEDS: MELATONIN 3 MG TABLET PO SCH (20:09)
[2020-03-04] MEDS: traZODone 100 MG (DESYREL) TAB PO SCH (20:09)
[2020-03-05] VITALS: BP 110/68
[2020-03-05] MEDS: LACTATED RINGERS 1,000 ML IV SCH ×3 (00:15→21:41)
[2020-03-05] MEDS: ALBUTEROL/IPRATROP (COMBIVENT RESPIMAT) 4 GM INHALER IH SCH ×4 (02:04→18:14)
[2020-03-05] MEDS: PIPERACILLIN/TAZO 4.5 GM/NS 100 ML IV SCH ×6 (03:05→18:32)
[2020-03-05 03:45] VITALS: BP 110/69
[2020-03-05 05:08] LABS: BASOPHILS % (AUTO) 0 % (0-10); EOSINOPHILS # (AUTO) 0.2 10^3/uL (0.0-0.3); EOSINOPHILS % (AUTO) 2 % (0-10); HEMATOCRIT 33 % (40-54); HEMOGLOBIN 10.6 g/dL (13.3-17.7); LYMPHOCYTES # (AUTO) 1.5 10^3/uL (1.0-4.0); LYMPHOCYTES % (AUTO) 13 % (12-44); MEAN CORPUSCULAR HEMOGLOBIN 29 pg (25-34); MEAN CORPUSCULAR HGB CONC 32 g/dL (32-36); MEAN CORPUSCULAR VOLUME 91 fL (80-99); MEAN PLATELET VOLUME 9.9 fL (9.0-12.2); MONOCYTES % (AUTO) 8 % (0-12); NEUTROPHILS # (AUTO) 8.4 10^3/uL (1.8-7.8); NEUTROPHILS % (AUTO) 72 % (42-75); PLATELET COUNT 250 10^3/uL (130-400); WHITE BLOOD COUNT 11.6 10^3/uL (4.3-11.0)
[2020-03-05 05:32] LABS: CHLORIDE 101 MMOL/L (98-107); POTASSIUM 4.5 MMOL/L (3.6-5.0); SODIUM 134 MMOL/L (135-145)
[2020-03-05 05:34] LABS: CALCIUM 9.3 MG/DL (8.5-10.1); GLUCOSE 94 MG/DL (70-105)
[2020-03-05 05:36] LABS: CARBON DIOXIDE 25 MMOL/L (21-32)
[2020-03-05 05:38] LABS: CREATININE SERUM 0.71 MG/DL (0.60-1.30); GFR ESTIMATED > 60; PHOSPHORUS 3.8 MG/DL (2.3-4.7)
[2020-03-05 05:39] LABS: BUN/CREATININE RATIO 21
[2020-03-05 05:40] LABS: MAGNESIUM 1.6 MG/DL (1.6-2.4)
--- NOTE | 2020-03-05 07:55 | Pulmonary Progress Note ---
Subjective Time Seen by a Provider: 07:53 Subjective/Events-last exam No complications noted. Sepsis Event Evaluation Height, Weight, BMI Height: '" Weight: lbs. oz. kg; 31.96 BMI Method: Focused Exam Lactate Level 03/04/20 10:54: Lactic Acid Level 1.26 Exam Exam Vital Signs Date Time Temp Pulse Resp B/P (MAP) Pulse Ox O2 Delivery O2 Flow Rate FiO2 03/05/20 03:45 35.7 62 18 110/69 (83) 94 Nasal Cannula 5.00 03/05/20 02:04 90 Nasal Cannula 6.00 03/05/20 00:00 35.5 57 20 110/68 (82) 93 Nasal Cannula 5.00 03/04/20 21:12 90 Nasal Cannula 6.00 03/04/20 20:00 36.6 78 18 125/57 (79) 94 Nasal Cannula 5.00 03/04/20 20:00 Nasal Cannula 5.00 03/04/20 17:58 92 Nasal Cannula 5.00 03/04/20 15:44 36.1 70 18 119/67 (84) 94 Nasal Cannula 5.00 03/04/20 12:00 36.2 71 18 109/65 (80) 92 Nasal Cannula 5.00 03/04/20 11:15 Nasal Cannula 5.00 03/04/20 10:09 90 Nasal Cannula 5.00 03/04/20 08:00 36.1 89 18 109/72 (84) 93 Nasal Cannula 5.00 03/04/20 08:00 Nasal Cannula 5.00 I & O 03/05/20 07:00 Intake Total 3120 ml Output Total 3950 ml Balance -830 ml Height & Weight Height: '" Weight: lbs. oz. kg; 31.96 BMI Method: General Appearance: WD/WN, Anxious, Chronically ill, Mild Distress HEENT: PERRL/EOMI, Other (mucous membranes dry) Neck: Non Tender, Supple Respiratory: Accessory Muscle Use, Crackles, Decreased Breath Sounds, Wheezing Cardiovascular: Regular Rate, Rhythm, No Edema, No Gallop, No JVD, No Murmur, Normal Peripheral Pulses Capillary Refill: Less Than 3 Seconds Peripheral Pulses: 2+ Dorsalis Pedis (R), 2+ Left Dors-Pedis (L), 2+ Radial Pulses (R), 2+ Radial Pulses (L) Gastrointestinal: normal bowel sounds, non tender, soft Extremity: Normal Range of Motion, Non Tender Neurologic/Psychiatric: Alert, Oriented x3, No Motor/Sensory Deficits, Normal Mood/Affect Skin: Warm/Dry; No Jaundice Results Lab Laboratory Tests 03/04/20 04:58 03/05/20 04:45 Assessment/Plan Assessment/Plan RLL pneumonia with sepsis -COVID is negative -Currently requiring 5 liters NC -Currently on Zosyn and Vancomycin. -MRSA nasal swab pending Hypokalemia, hypomagnesium -Replace Cellulitis RLE COLEMAN MARTINEZ DO Mar 05, 2020 07:55
[2020-03-05] MEDS: LACTOBACILLUS ACIDOPHILUS (PROBIOTIC) CAPSULE PO SCH ×3 (07:58→17:28)
[2020-03-05] MEDS: DOCUSATE SODIUM 100 MG (COLACE) CAP PO SCH ×2 (07:59→20:44)
[2020-03-05] MEDS: ENOXAPARIN 40 MG/0.4 ML (LOVENOX) SYR SQ SCH (07:59)
[2020-03-05 08:00] VITALS: BP 131/72
[2020-03-05] MEDS: ETODOLAC 300 MG (LODINE) CAP PO SCH ×2 (08:00→20:44)
[2020-03-05] MEDS: DIVALPROEX 500 MG DELAYED RELEASE (DEPAKOTE) TAB PO SCH ×2 (08:01→20:44)
[2020-03-05] MEDS: VITAMIN D3 25 MCG (1,000 UNITS) TABLET PO SCH (08:01)
[2020-03-05] MEDS: KCL 20 MEQ TAB (K-DUR) PO SCH (08:01)
[2020-03-05] MEDS: GABAPENTIN 300 MG (NEURONTIN) CAP PO SCH ×3 (08:01→20:44)
[2020-03-05] MEDS: NICOTINE 21 MG (NICODERM) PATCH TD SCH (08:02)
[2020-03-05] MEDS: LIDOCAINE 4% (SALONPAS) PATCH TP SCH (08:04)
[2020-03-05] MEDS: ALPRAZolam 1 MG (XANAX) TAB PO SCH ×2 (08:06→20:45)
[2020-03-05] MEDS: METHOCARBAMOL 500 MG (ROBAXIN) TABLET PO SCH ×3 (08:11→20:43)
[2020-03-05] MEDS ORDERED: TROUGH ORDER-PHARMACY XX ONE (09:00)
[2020-03-05] MEDS: HYDROcodone/APAP 5 MG/325 MG (LORTAB) TAB PO PRN ×2 (09:03→20:44)
[2020-03-05] MEDS: VANCOMYCIN 1500 MG/NS 500 ML IVPB IV SCH ×4 (10:44→21:41)
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
--- NOTE | 2020-03-05 11:48 | NUR ---
ptd vancomycin labs: scr 0.71 vancomycin lvl" 03/05 @ 0905 13 (prior to 3rd dose) plan: Vancomycin 1,500mg IV q12h started on 03/04, we will continue with the same dose. Repeat a trough level after steady state obtained in the next day or two.
[2020-03-05] MEDS: ALPRAZolam 0.5 MG (XANAX) TAB PO SCH (12:01)
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
[2020-03-05 12:17] VITALS: BP 127/65
[2020-03-05] MEDS: ACETAMINOPHEN 325 MG TABLET PO PRN (12:30)
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
[2020-03-05 16:39] VITALS: BP 106/60
[2020-03-05 19:18] VITALS: BP 112/59
[2020-03-05] MEDS: SIMvastatin 10 MG (ZOCOR) TAB PO SCH (20:43)
[2020-03-05] MEDS: traZODone 100 MG (DESYREL) TAB PO SCH (20:44)
[2020-03-05] MEDS: MELATONIN 3 MG TABLET PO SCH (20:44)
[2020-03-05] MEDS: risperiDONE 1 MG (RisperDAL) TAB PO SCH (20:44)
[2020-03-06 00:40] VITALS: BP 106/58
[2020-03-06] MEDS: ALBUTEROL/IPRATROP (COMBIVENT RESPIMAT) 4 GM INHALER IH SCH ×4 (01:57→20:50)
[2020-03-06] MEDS: PIPERACILLIN/TAZO 4.5 GM/NS 100 ML IV SCH ×8 (03:15→18:29)
[2020-03-06 04:00] VITALS: BP 122/74
[2020-03-06 06:27] LABS: BASOPHILS % (AUTO) 0 % (0-10); EOSINOPHILS # (AUTO) 0.2 10^3/uL (0.0-0.3); EOSINOPHILS % (AUTO) 2 % (0-10); HEMATOCRIT 35 % (40-54); HEMOGLOBIN 11.2 g/dL (13.3-17.7); LYMPHOCYTES # (AUTO) 1.6 10^3/uL (1.0-4.0); LYMPHOCYTES % (AUTO) 17 % (12-44); MEAN CORPUSCULAR HEMOGLOBIN 29 pg (25-34); MEAN CORPUSCULAR HGB CONC 32 g/dL (32-36); MEAN CORPUSCULAR VOLUME 91 fL (80-99); MEAN PLATELET VOLUME 9.6 fL (9.0-12.2); MONOCYTES # (AUTO) 0.8 10^3/uL (0.0-1.0); MONOCYTES % (AUTO) 8 % (0-12); NEUTROPHILS # (AUTO) 6.6 10^3/uL (1.8-7.8); NEUTROPHILS % (AUTO) 69 % (42-75); PLATELET COUNT 243 10^3/uL (130-400); WHITE BLOOD COUNT 9.6 10^3/uL (4.3-11.0)
[2020-03-06 06:31] LABS: ALBUMIN 2.3 GM/DL (3.2-4.5); CHLORIDE 102 MMOL/L (98-107); POTASSIUM 4.6 MMOL/L (3.6-5.0); SODIUM 134 MMOL/L (135-145)
[2020-03-06 06:33] LABS: GLUCOSE 90 MG/DL (70-105); TOTAL PROTEIN 6.2 GM/DL (6.4-8.2)
[2020-03-06 06:35] LABS: BILIRUBIN,TOTAL 0.3 MG/DL (0.1-1.0); CARBON DIOXIDE 22 MMOL/L (21-32)
[2020-03-06 06:37] LABS: ALKALINE PHOSPHATASE 75 U/L (40-136); CREATININE SERUM 0.75 MG/DL (0.60-1.30); GFR ESTIMATED > 60; PHOSPHORUS 3.6 MG/DL (2.3-4.7)
[2020-03-06 06:38] LABS: BUN/CREATININE RATIO 17
[2020-03-06 06:40] LABS: ALANINE AMINOTRANSFERASE 79 U/L (0-55); MAGNESIUM 1.6 MG/DL (1.6-2.4)
[2020-03-06 08:00] VITALS: BP 111/71
[2020-03-06] MEDS: LACTATED RINGERS 1,000 ML IV SCH (08:19)
[2020-03-06] MEDS: ENOXAPARIN 40 MG/0.4 ML (LOVENOX) SYR SQ SCH (08:22)
[2020-03-06] MEDS: ALPRAZolam 1 MG (XANAX) TAB PO SCH ×2 (08:23→20:43)
[2020-03-06] MEDS: KCL 20 MEQ TAB (K-DUR) PO SCH (08:23)
[2020-03-06] MEDS: VITAMIN D3 25 MCG (1,000 UNITS) TABLET PO SCH (08:24)
[2020-03-06] MEDS: DIVALPROEX 500 MG DELAYED RELEASE (DEPAKOTE) TAB PO SCH ×2 (08:24→20:37)
[2020-03-06] MEDS: LACTOBACILLUS ACIDOPHILUS (PROBIOTIC) CAPSULE PO SCH ×3 (08:24→17:20)
[2020-03-06] MEDS: DOCUSATE SODIUM 100 MG (COLACE) CAP PO SCH ×2 (08:24→20:38)
[2020-03-06] MEDS: GABAPENTIN 300 MG (NEURONTIN) CAP PO SCH ×3 (08:24→20:37)
[2020-03-06] MEDS: METHOCARBAMOL 500 MG (ROBAXIN) TABLET PO SCH ×3 (08:31→20:37)
[2020-03-06] MEDS: HYDROcodone/APAP 5 MG/325 MG (LORTAB) TAB PO PRN ×2 (08:31→10:49)
[2020-03-06] MEDS: ETODOLAC 300 MG (LODINE) CAP PO SCH ×2 (08:31→20:38)
[2020-03-06] MEDS: NICOTINE 21 MG (NICODERM) PATCH TD SCH (08:51)
[2020-03-06] MEDS: LIDOCAINE 4% (SALONPAS) PATCH TP SCH (08:51)
--- NOTE | 2020-03-06 08:51 | NUR ---
LAB CALLED FOR MALE PHELBOTOMIST PER PT REQUEST.
[2020-03-06] MEDS ORDERED: TROUGH ORDER-PHARMACY XX ONE (09:00)
[2020-03-06] MEDS: VANCOMYCIN 1500 MG/NS 500 ML IVPB IV SCH ×2 (10:50)
--- NOTE | 2020-03-06 11:00 | Pulmonary Progress Note ---
Subjective Time Seen by a Provider: 10:58 Subjective/Events-last exam Pt is doing better. Sepsis Event Evaluation Height, Weight, BMI Height: '" Weight: lbs. oz. kg; 31.96 BMI Method: Focused Exam Lactate Level 03/04/20 10:54: Lactic Acid Level 1.26 Exam Exam Vital Signs Date Time Temp Pulse Resp B/P (MAP) Pulse Ox O2 Delivery O2 Flow Rate FiO2 03/06/20 10:07 93 Nasal Cannula 5.00 03/06/20 08:00 35.9 69 28 111/71 (84) 93 Nasal Cannula 5.00 03/06/20 04:00 36.0 63 25 122/74 (90) 96 Nasal Cannula 5.00 03/06/20 01:57 95 Nasal Cannula 5.00 03/06/20 00:40 35.5 63 24 106/58 (74) 94 Nasal Cannula 5.00 03/05/20 20:00 Nasal Cannula 5.00 03/05/20 19:18 36.6 75 23 112/59 (76) 94 Nasal Cannula 5.00 03/05/20 18:14 93 Nasal Cannula 5.00 03/05/20 16:39 36.6 59 18 106/60 (75) 95 Nasal Cannula 5.00 03/05/20 14:52 92 Nasal Cannula 5.00 03/05/20 12:17 36.9 77 14 127/65 (85) 92 Nasal Cannula 5.00 I & O 03/06/20 07:00 Intake Total 4410 ml Output Total 2950 ml Balance 1460 ml Height & Weight Height: '" Weight: lbs. oz. kg; 31.96 BMI Method: General Appearance: WD/WN, Anxious, Chronically ill, Mild Distress HEENT: PERRL/EOMI, Other (mucous membranes dry) Neck: Non Tender, Supple Respiratory: Accessory Muscle Use, Crackles, Decreased Breath Sounds, Wheezing Cardiovascular: Regular Rate, Rhythm, No Edema, No Gallop, No JVD, No Murmur, Normal Peripheral Pulses Capillary Refill: Less Than 3 Seconds Peripheral Pulses: 2+ Dorsalis Pedis (R), 2+ Left Dors-Pedis (L), 2+ Radial Pulses (R), 2+ Radial Pulses (L) Gastrointestinal: normal bowel sounds, non tender, soft Extremity: Normal Range of Motion, Non Tender Neurologic/Psychiatric: Alert, Oriented x3, No Motor/Sensory Deficits, Normal Mood/Affect Skin: Warm/Dry; No Jaundice Lymphatic: No Adenopathy Results Lab Laboratory Tests 03/05/20 04:45 03/06/20 05:46 Assessment/Plan Assessment/Plan RLL pneumonia with sepsis -COVID is negative -Currently requiring 5 liters NC - Zosyn and D/C Vancomycin. -MRSA nasal swab is negative Hypokalemia, hypomagnesium -Replace COLEMAN MARTINEZ DO Mar 06, 2020 10:59
[2020-03-06 12:00] VITALS: BP 110/74
[2020-03-06] MEDS: METOLAZONE 5 MG (ZAROXOLYN) TAB PO SCH (12:22)
[2020-03-06] MEDS: ALPRAZolam 0.5 MG (XANAX) TAB PO SCH (12:22)
--- NOTE | 2020-03-06 12:59 | Progress Note - Hospitalist ---
THONY HAIR MED STUDENT 03/06/20 1259: Subjective HPI/CC On Admission Date Seen by Provider: Mar 06, 2020 Time Seen by Provider: 07:40 Subjective/Events-last exam Patient feeling better, states he can breathe a little easier and is in slightly less pain. No current complaints, much better mood now that he has his correct dentures, but became agitated when asked to have blood drawn for labs. feels ready to be discharged. Focused Exam Lactate Level 03/04/20 10:54: Lactic Acid Level 1.26 Objective Exam Vital Signs Vital Signs Date Time Temp Pulse Resp B/P (MAP) Pulse Ox O2 Delivery O2 Flow Rate FiO2 03/06/20 10:07 93 Nasal Cannula 5.00 03/06/20 08:00 35.9 69 28 111/71 (84) 03/02/20 22:56 400 Capillary Refill : Less Than 3 Seconds General Appearance: No Apparent Distress, WD/WN, Chronically ill, Obese HEENT: No Scleral Icterus (L), No Scleral Icterus (R) Neck: Normal Inspection, Non Tender Respiratory: Chest Non Tender, No Accessory Muscle Use, No Respiratory Distress, Rhonci (rare, mild) Cardiovascular: Regular Rate, Rhythm, No Murmur, Normal Peripheral Pulses Gastrointestinal: No Pulsatile Mass, Non Tender, Soft Extremity: Non Tender, No Calf Tenderness Neurologic/Psychiatric: Alert, Normal Mood/Affect; No Aphasia, No Depressed Affect Skin: No Jaundice; Other (cellulitis of RLE) Results/Procedures Lab Laboratory Tests 03/06/20 05:46 Patient resulted labs reviewed. Assessment/Plan Assessment and Plan Assess & Plan/Chief Complaint Respiratory distress -continue 5 liters NC Right lower lobe pneumonia/Sepsis -duonebs -continue Zosyn, d/c Vancomycin per Dr. Johnson Dysphagia -correct dentures obtained from assisted -maintain per dietitian Hypokalemia/hypomagnesia -replace as needed DVT prophylaxis -maintain Enoxaparin Elevated Procalcitonin: 0.24 Consult Inspector Fibrous Wallboard -DNR obtained Peripheral T-cell lymphoma -seeing cancer center Chronic -Right lower leg celulitis -R lower leg unspecified skin cancer -anemia -TBI -seizure disorder -constipation -GERD -Hepatitis C -tobacco use Discontinue labs secondary to patient refusal will d/c to assisted Clinical Quality Measures DVT/VTE Risk/Contraindication: Risk Factor Score Per Nursin RFS Level Per Nursing on Admit: 4+=Very High JOSELYN SONG DO 03/06/20 2100: Supervisory-Addendum Brief Verification & Attestation Participated in pt care: history, MDM, physical Personally performed: exam, history, MDM, supervision of care Care discussed with: Medical Student Procedures: n/a Results interpretation: Verified all documentation Verification and Attestation of Medical Student E/M Service A medical student performed and documented this service in my presence. I reviewed and verified all information documented by the medical student and made modifications to such information, when appropriate. I personally performed the physical exam and medical decision making. Joselyn Song, Mar 06, 2020,21:00 THONY HAIR MED STUDENT Mar 06, 2020 12:59 JOSELYN SONG DO Mar 06, 2020 21:00
--- NOTE | 2020-03-06 13:14 | NUR ---
DISCHARGE PLANNING: Patient will likely discharge tomorrow to his previous placement with [facility] where he has resided for some time. I have sent updated clinical information and orders will be sent once they are available tomorrow. Noted in chart that he will require outpatient surgical follow up for a SC-Pot a cath that is malpositioned. 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 Unsure where he is with this treament as no Oncology consult has been made for this visit.
[2020-03-06 16:00] VITALS: BP 110/59
--- NOTE | 2020-03-06 17:21 | NUR ---
NICOTINE PATCH REMOVED FROM R DELT PER PT REQUEST
[2020-03-06 20:00] VITALS: BP 131/74
[2020-03-06] MEDS: risperiDONE 1 MG (RisperDAL) TAB PO SCH (20:38)
[2020-03-06] MEDS: SIMvastatin 10 MG (ZOCOR) TAB PO SCH (20:38)
[2020-03-06] MEDS: traZODone 100 MG (DESYREL) TAB PO SCH (20:38)
[2020-03-06] MEDS: MELATONIN 3 MG TABLET PO SCH (20:38)
[2020-03-07] VITALS: BP 96/64
[2020-03-07] MEDS: PIPERACILLIN/TAZO 4.5 GM/NS 100 ML IV SCH ×4 (03:42→10:43)
[2020-03-07] MEDS: ALBUTEROL/IPRATROP (COMBIVENT RESPIMAT) 4 GM INHALER IH SCH ×3 (04:16→14:36)
[2020-03-07 04:21] VITALS: BP 112/53
[2020-03-07 07:23] LABS: BASOPHILS % (AUTO) 1 % (0-10); EOSINOPHILS # (AUTO) 0.1 10^3/uL (0.0-0.3); EOSINOPHILS % (AUTO) 2 % (0-10); HEMATOCRIT 35 % (40-54); HEMOGLOBIN 11.3 g/dL (13.3-17.7); LYMPHOCYTES # (AUTO) 1.2 10^3/uL (1.0-4.0); LYMPHOCYTES % (AUTO) 18 % (12-44); MEAN CORPUSCULAR HEMOGLOBIN 29 pg (25-34); MEAN CORPUSCULAR HGB CONC 32 g/dL (32-36); MEAN CORPUSCULAR VOLUME 90 fL (80-99); MEAN PLATELET VOLUME 9.6 fL (9.0-12.2); MONOCYTES # (AUTO) 0.5 10^3/uL (0.0-1.0); MONOCYTES % (AUTO) 8 % (0-12); NEUTROPHILS # (AUTO) 4.4 10^3/uL (1.8-7.8); NEUTROPHILS % (AUTO) 69 % (42-75); PLATELET COUNT 252 10^3/uL (130-400); WHITE BLOOD COUNT 6.4 10^3/uL (4.3-11.0)
[2020-03-07 07:47] LABS: BUN/CREATININE RATIO 22; CALCIUM 9.3 MG/DL (8.5-10.1); CARBON DIOXIDE 22 MMOL/L (21-32); CHLORIDE 100 MMOL/L (98-107); CREATININE SERUM 0.73 MG/DL (0.60-1.30); GFR ESTIMATED > 60; GLUCOSE 95 MG/DL (70-105); MAGNESIUM 1.6 MG/DL (1.6-2.4); PHOSPHORUS 3.5 MG/DL (2.3-4.7); POTASSIUM 4.1 MMOL/L (3.6-5.0); SODIUM 132 MMOL/L (135-145)
[2020-03-07 08:00] VITALS: BP 115/70
[2020-03-07] MEDS: ETODOLAC 300 MG (LODINE) CAP PO SCH (08:18)
[2020-03-07] MEDS: LACTOBACILLUS ACIDOPHILUS (PROBIOTIC) CAPSULE PO SCH ×2 (08:18→12:06)
[2020-03-07] MEDS: DIVALPROEX 500 MG DELAYED RELEASE (DEPAKOTE) TAB PO SCH (08:18)
[2020-03-07] MEDS: ENOXAPARIN 40 MG/0.4 ML (LOVENOX) SYR SQ SCH (08:18)
[2020-03-07] MEDS: LIDOCAINE 4% (SALONPAS) PATCH TP SCH (08:19)
[2020-03-07] MEDS: ALPRAZolam 1 MG (XANAX) TAB PO SCH (08:19)
[2020-03-07] MEDS: DOCUSATE SODIUM 100 MG (COLACE) CAP PO SCH (08:19)
[2020-03-07] MEDS: GABAPENTIN 300 MG (NEURONTIN) CAP PO SCH ×2 (08:19→12:06)
[2020-03-07] MEDS: KCL 20 MEQ TAB (K-DUR) PO SCH (08:19)
[2020-03-07] MEDS: HYDROcodone/APAP 5 MG/325 MG (LORTAB) TAB PO PRN (08:20)
[2020-03-07] MEDS: METHOCARBAMOL 500 MG (ROBAXIN) TABLET PO SCH ×2 (08:20→12:06)
[2020-03-07] MEDS: VITAMIN D3 25 MCG (1,000 UNITS) TABLET PO SCH (08:20)
[2020-03-07] MEDS: NICOTINE 21 MG (NICODERM) PATCH TD SCH (08:27)
--- NOTE | 2020-03-07 08:37 | Pulmonary Progress Note ---
Subjective Time Seen by a Provider: 08:35 Subjective/Events-last exam NO complications noted. Sepsis Event Evaluation Height, Weight, BMI Height: '" Weight: lbs. oz. kg; 31.96 BMI Method: Focused Exam Lactate Level 03/04/20 10:54: Lactic Acid Level 1.26 Exam Exam Vital Signs Date Time Temp Pulse Resp B/P (MAP) Pulse Ox O2 Delivery O2 Flow Rate FiO2 03/07/20 08:00 36.0 64 20 115/70 (85) 92 Nasal Cannula 5.00 03/07/20 07:41 91 Nasal Cannula 4.00 03/07/20 04:21 35.5 55 27 112/53 (72) 95 Nasal Cannula 5.00 03/07/20 00:00 36.4 58 36 96/64 (75) 94 Nasal Cannula 5.00 03/06/20 20:30 Nasal Cannula 5.00 03/06/20 20:00 36.4 73 18 131/74 (93) 93 Nasal Cannula 5.00 03/06/20 16:21 90 Nasal Cannula 4.00 03/06/20 16:00 35.7 62 20 110/59 (76) 93 Nasal Cannula 5.00 03/06/20 12:00 36.1 56 22 110/74 (86) 92 Nasal Cannula 5.00 03/06/20 10:07 93 Nasal Cannula 5.00 I & O 03/07/20 07:00 Intake Total 1735 ml Output Total 3180 ml Balance -1445 ml Height & Weight Height: '" Weight: lbs. oz. kg; 31.96 BMI Method: General Appearance: No Apparent Distress, WD/WN, Anxious, Chronically ill HEENT: PERRL/EOMI, Other (mucous membranes dry) Neck: Non Tender, Supple Respiratory: Accessory Muscle Use, Crackles, Decreased Breath Sounds, Wheezing Cardiovascular: Regular Rate, Rhythm, No Edema, No Gallop, No JVD, No Murmur, Normal Peripheral Pulses Capillary Refill: Less Than 3 Seconds Peripheral Pulses: 2+ Dorsalis Pedis (R), 2+ Left Dors-Pedis (L), 2+ Radial Pulses (R), 2+ Radial Pulses (L) Gastrointestinal: normal bowel sounds, non tender, soft Extremity: Normal Range of Motion, Non Tender Neurologic/Psychiatric: Alert, Oriented x3, No Motor/Sensory Deficits, Normal Mood/Affect Skin: Warm/Dry; No Jaundice Lymphatic: No Adenopathy Results Lab Laboratory Tests 03/06/20 05:46 03/07/20 07:15 Assessment/Plan Assessment/Plan RLL pneumonia with sepsis -COVID is negative -Currently requiring 5 liters NC - Zosyn -MRSA nasal swab is negative Dysphagia COLEMAN MARTINEZ DO Mar 07, 2020 08:37
--- NOTE | 2020-03-07 10:13 | NUR ---
FINAL DISCHARGE PLAN: Patient to return to his previous placement with [facility] today, in long-term care. Transport will be here at 4 pm to pick him up. Once orders are in I will send them to [facility].
[2020-03-07] MEDS ORDERED: LACT1CAP7 PO (10:25)
[2020-03-07] MEDS ORDERED: ACHD5005 PO (10:25)
[2020-03-07] MEDS ORDERED: ALPR1TAB7 PO (10:25)
[2020-03-07] MEDS ORDERED: ALPR0.5T PO (10:25)
[2020-03-07] MEDS ORDERED: AMOX-358 PO (10:25)
--- NOTE | 2020-03-07 10:25 | Discharge Summary ---
Discharge Summary Hospital Course Hospital Course Date of Admission: Feb 28, 2020 at 03:00 Admission Diagnosis : Family Physician/Provider: Bran Muniz DO Date of Discharge: 03/07/20 Discharge Diagnosis: Severe sepsis, cellulitis, PNA, hypoxia, severe debility Hospital Course: Hospital Course: Pt had a lengthy hospital course. He was admitted for severe sepsis and cellulitis and hypoxia episode requiring first mate consult after he moved from the ICU down to 4th floor. He was made a DNR at his wishes. He was maintained on appropriate antibiotics and IV fluids. Oxygen supplementation maintained. Overall he slowly recovered. He was not skill able and did not want to participate in any therapy and refused quite a few medications so he was discharged back to [facility]. His prognosis appears to be very poor. Labs and Pending Lab Test: Laboratory Tests 03/07/20 07:15: White Blood Count 6.4, Red Blood Count 3.89L, Hemoglobin 11.3L, Hematocrit 35L, Mean Corpuscular Volume 90, Mean Corpuscular Hemoglobin 29, Mean Corpuscular Hemoglobin Concent 32, Red Cell Distribution Width 14.9H, Platelet Count 252, Mean Platelet Volume 9.6, Immature Granulocyte % (Auto) 2, Neutrophils (%) (Auto) 69, Lymphocytes (%) (Auto) 18, Monocytes (%) (Auto) 8, Eosinophils (%) (Auto) 2, Basophils (%) (Auto) 1, Neutrophils # (Auto) 4.4, Lymphocytes # (Auto) 1.2, Monocytes # (Auto) 0.5, Eosinophils # (Auto) 0.1, Basophils # (Auto) 0.0, Immature Granulocyte # (Auto) 0.1, Sodium Level 132L, Potassium Level 4.1, Chloride Level 100, Carbon Dioxide Level 22, Anion Gap 10, Blood Urea Nitrogen 16, Creatinine 0.73, Estimat Glomerular Filtration Rate > 60, BUN/Creatinine Ratio 22, Glucose Level 95, Calcium Level 9.3, Phosphorus Level 3.5, Magnesium Level 1.6 Microbiology 03/04/20 MRSA Screen - Final, Complete MRSA not isolated 02/28/20 Blood Culture - Final, Complete Staph, Coag Neg (EDUCATION OFFICER) 02/28/20 Urine Culture - Final, Complete NO GROWTH Home Meds Active Acidophilus-Pectin Capsule (Lactobacillus Acidophilus/Pect) 1 Each Capsule 2 Each PO TIDWM Augmentin 875-125 Tablet (Amoxicillin/Potassium Clav) 1 Each Tablet 1 Each PO BID Alprazolam 1 Mg Tablet 1 Mg PO BID Xanax (Alprazolam) 0.5 Mg Tablet 0.5 Mg PO 1200 Hydrocodone-Acetamin 5-325 mg (Hydrocodone/Acetaminophen) 1 Each Tablet 1 Each PO Q12H PRN Reported Vitamin D3 (Cholecalciferol (Vitamin D3)) 25 Mcg Capsule 25 Mcg PO DAILY Sorbitol (Sorbitol Solution) 1 Ml Solution 15 Ml PO HS PRN CALL IF INEFFECTIVE Sorbitol (Sorbitol Solution) 1 Ml Solution 15 Ml PO DAILY Risperidone 1 Mg Tablet 1.5 Mg PO HS TAKES 1 & (1MG) TABS Pyridium (Phenazopyridine HCl) 200 Mg Tablet 1 Tab PO Q8H PRN Potassium Chloride 20 Meq Tab.er.prt 80 Meq PO DAILY TAKES 4 (20MEQ) TABS Ondansetron HCl 8 Mg Tablet 8 Mg PO Q8H PRN Nicotine Patch (Nicotine) 1 Each Patch.td24 21 Mg TD DAILY 14 Days Melatonin 3 Mg Tablet 6 Mg PO HS Lactulose 10 Gm/15 Ml Solution 15 Ml PO Q12H PRN Tylenol (Acetaminophen) 325 Mg Capsule 650 Mg PO Q6H PRN Viibryd (Vilazodone Hydrochloride) 40 Mg Tablet 40 Mg PO DAILY Milk of Magnesia (Magnesium Hydroxide) 400 Mg/5 Ml Oral.susp 30 Mg PO DAILY PRN Trazodone HCl 100 Mg Tablet 100 Mg PO HS Simvastatin 10 Mg Tablet 10 Mg PO HS Metolazone 5 Mg Tablet 5 Mg PO MOWEFR Methocarbamol 500 Mg Tablet 500 Mg PO TID Lidocaine 5% Patch (Lidocaine) 1 Each Adh..patch 1 Each TP DAILY MDD 2 APPLY TO RIGHT LOWER EXTREMITY ABOVE WOUND Neurontin (Gabapentin) 300 Mg Capsule 300 Mg PO TID Furosemide 80 Mg Tablet 80 Mg PO DAILY Furosemide 40 Mg Tablet 40 Mg PO 1200,1700 Flonase Allergy Relief (Fluticasone Propionate) 9.9 Ml Schoolcraft.susp 2 Schoolcraft NSEACH DAILY Vitamin D2 (Ergocalciferol (Vitamin D2)) 1,250 Mcg Capsule 1,250 Mcg PO MON Diclofenac Sodium 75 Mg Tablet.dr 75 Mg PO BID Depakote (Divalproex Sodium) 500 Mg Tablet.dr 500 Mg PO BID Colace (Docusate Sodium) 100 Mg Capsule 100 Mg PO BID Assessment/Pt Instructions [facility] 1 week Discharge Planning: <30 minutes discharge planning Discharge Physical Examination Vital Signs Vital Signs Date Time Temp Pulse Resp B/P (MAP) Pulse Ox O2 Delivery O2 Flow Rate FiO2 03/07/20 08:00 36.0 64 20 115/70 (85) 92 Nasal Cannula 5.00 03/02/20 22:56 400 General Appearance: No Apparent Distress, WD/WN, Chronically ill Respiratory: Chest Non Tender, Lungs Clear, Normal Breath Sounds, No Accessory Muscle Use, No Respiratory Distress Cardiovascular: Regular Rate, Rhythm, No Edema, No Gallop, No JVD, No Murmur, Normal Peripheral Pulses Neurologic/Psychiatric: Alert, Oriented x3, No Motor/Sensory Deficits, Depressed Affect Allergies: Coded Allergies: No Known Drug Allergies (Unverified , 09/22/19) Discharge Summary Date of Admission Feb 28, 2020 at 03:00 Date of Discharge Discharge Date: Mar 07, 2020 Discharge Diagnosis 03/05/20: Appreciate Dr. Johnson Supportive care Palliative care consult Needs DNR Refusing a lot of therapy Clinical Quality Measures DVT/VTE Risk/Contraindication: Risk Factor Score Per Nursin RFS Level Per Nursing on Admit: 4+=Very High HALIMA SHEPARD DO Mar 07, 2020 10:25
--- NOTE | 2020-03-07 11:42 | NUR ---
RT notified of home o2 eval
[2020-03-07 12:00] VITALS: BP 107/59
[2020-03-07] MEDS: ALPRAZolam 0.5 MG (XANAX) TAB PO SCH (12:06)
--- NOTE | 2020-03-07 12:14 | NUR ---
pt is unable to walk. RT took pt off O2 and had RN give meds since that is what consumes of pt everyday activities and during this time pt dropped below 88% and was placed on 2LNC. pt SpO2 has stayed above 94% ever since placing him on 2 LNC. Addendum: 03/07/20 at 1214 by DENNIS MARTINEZ RT Amended: Links added.
--- NOTE | 2020-03-07 12:53 | Progress Note ---
THONY HAIR MED STUDENT 03/07/20 1253: Progress Note HPI: Jewel Colon is a 54 y/o male with hx of TBI, RLE cellulitis, seizure disorder, GERD and hepatitis C who [facility] from [facility] for low O2 saturation and low BP on 02/27. Patient was treated with IVF for low pressure and KCl for noted hypokalemia. Patient underwent a cxr which revealed RLL infiltrate and patient was admitted for possible related sepsis. He was started on Zosyn and Vancomycin and admitted to the floor. Patient was maintained on antibiotics and vapotherm secondary to persistently low O2 sat. Over the next few days patient began showing improvement, vapotherm was d/c'd and patient has been able to breathe with NC. He reports that he feels his breathing has improved significantly, only complaint is currently is chronic pain and he is ready to be sent back to the [facility]. He will be evaluated for home O2 and discharged back to the [facility] on a course of Augmentin. JOSELYN SHEPARD DO 03/07/20 2133: Supervisory-Addendum Brief Verification & Attestation Participated in pt care: history, MDM, physical Personally performed: exam, history, MDM, supervision of care Care discussed with: Medical Student Procedures: n/a Results interpretation: Verified all documentation Verification and Attestation of Medical Student E/M Service A medical student performed and documented this service in my presence. I reviewed and verified all information documented by the medical student and made modifications to such information, when appropriate. I personally performed the physical exam and medical decision making. Joselyn Shepard Mar 07, 2020,21:32 THONY HAIR MED STUDENT Mar 07, 2020 12:53 JOSELYN SHEPARD DO Mar 07, 2020 21:33
--- NOTE | 2020-03-07 14:38 | NUR ---
F/U APPOINTMENT MADE WITH DR RANDLE ON 03/14.
[2020-03-07 15:24] VITALS: BP 107/59
--- NOTE | 2020-03-07 15:24 | NUR ---
DIAZ BOO discharged to [facility]. ATTEMPTED TO CALL REPORT TO RN, ALL NURSES BUSY AT THE TIME. CALL BACK NUMBER LEFT. DIAZ BOO belongings sent with PT. Skin dry and intact; no breakdown noted. Vital signs stable at time of discharge. Condition is not stable at time of discharge. Discharge instructions and copies of H&P, discharge summary, physician's order, lab reports, consultation reports, other dictated reports, diagnostic imaging reports, Advance Directive, eMAR, vital signs, intake and output sent with PT. Patient discharged from [facility] on 03/07/20 at 1524. DIAZ BOO left floor via WC, accompanied by STAFF. DIAZ BOO and family/DPOA notified and verbalize understanding of discharge to [facility].
--- NOTE | 2020-03-07 15:25 | NUR ---
CALLED [facility] FOR REPORT, NURSES WERE BUSY AT THE TIME, CALL BACK NUMBER LEFT WITH SAND BLASTER
== END 2020-03-07 15:36 | DRG 871 ==
LOC: EDUNIT# 00:51 → ER 00:53 → ICU 03:00 → 4TH 09:57
PROVIDERS: ADMIT Family Medicine; ATTEND Internal Medicine
DX: A41.9 Sepsis, unspecified organism (principal); J69.0 Pneumonitis due to inhalation of food and vomit; L03.115 Cellulitis of right lower limb; C84.40 Peripheral T-cell lymphoma, not elsewhere classified, unspecified site; T82.524A Displacement of infusion catheter, initial encounter; R65.20 Severe sepsis without septic shock; Z66 Do not resuscitate; E87.6 Hypokalemia; B18.2 Chronic viral hepatitis C; K74.60 Unspecified cirrhosis of liver; I95.9 Hypotension, unspecified; C44.702 Unspecified malignant neoplasm of skin of right lower limb, including hip; Z20.828 Contact with and (suspected) exposure to other viral communicable diseases; G40.909 Epilepsy, unspecified, not intractable, without status epilepticus; F17.210 Nicotine dependence, cigarettes, uncomplicated; E89.0 Postprocedural hypothyroidism; K21.9 Gastro-esophageal reflux disease without esophagitis; M19.91 Primary osteoarthritis, unspecified site; M54.9 Dorsalgia, unspecified; G47.9 Sleep disorder, unspecified; F31.9 Bipolar disorder, unspecified; Z87.820 Personal history of traumatic brain injury; E83.42 Hypomagnesemia; R06.03 Acute respiratory distress; R09.02 Hypoxemia; R13.10 Dysphagia, unspecified; D64.9 Anemia, unspecified; K59.00 Constipation, unspecified
CPT/HCPCS: 36415; 36600; 51702; 71045; 71275; 80048; 80053; 80202; 81000; 82805; 83605; 83615; 83735; 83880; 84100; 84132; 84145; 85025; 85027; 85379; 85610; 85730; 86141; 87040; 87081; 87088; 87635; 87804; 94640; 94760; 94761; 96361; 96365; 96375

== ENCOUNTER 2020-03-19 11:32 | Outpatient (RCR) | payer MEDICAID ==
[~2020-03-19] VITALS: Ht 174 cm; Wt 92.7 kg
[~2020-03-19 11:32] MED LIST changes: -FAMO20TA3 PO; -ZINC50TA58 PO
[2020-03-19] MEDS ORDERED: ZINC50TA58 PO (14:25)
[2020-03-19] MEDS ORDERED: FAMO20TA3 PO (14:25)
== END 2020-03-19 14:26 | disposition home or self-care (01) ==
LOC: PREOP 11:32
PROVIDERS: ATTEND Surgery
DX: Z01.818 Encounter for other preprocedural examination (principal)

== ENCOUNTER 2020-03-19 12:54 | Outpatient (RCR) | payer MEDICAID ==
[2019-12-27 13:43] LABS: BASOPHILS % (AUTO) 1 % (0-10); EOSINOPHILS # (AUTO) 0.2 10^3/uL (0.0-0.3); EOSINOPHILS % (AUTO) 4 % (0-10); HEMATOCRIT 39 % (40-54); LYMPHOCYTES # (AUTO) 1.9 X 10^3 (1.0-4.0); LYMPHOCYTES % (AUTO) 34 % (12-44); MEAN CORPUSCULAR HEMOGLOBIN 30 PG (25-34); MEAN CORPUSCULAR HGB CONC 34 G/DL (32-36); MEAN CORPUSCULAR VOLUME 90 FL (80-99); MEAN PLATELET VOLUME 10.3 FL (7.4-10.4); MONOCYTES # (AUTO) 0.6 X 10^3 (0.0-1.0); MONOCYTES % (AUTO) 10 % (0-12); NEUTROPHILS # (AUTO) 2.8 X 10^3 (1.8-7.8); NEUTROPHILS % (AUTO) 51 % (42-75); PLATELET COUNT 167 10^3/uL (130-400); WHITE BLOOD COUNT 5.6 10^3/uL (4.3-11.0)
[2019-12-27 14:01] LABS: ALANINE AMINOTRANSFERASE 31 U/L (0-55); ALBUMIN 3.5 GM/DL (3.2-4.5); ALKALINE PHOSPHATASE 42 U/L (40-136); BILIRUBIN,TOTAL 0.2 MG/DL (0.1-1.0); BUN/CREATININE RATIO 17; CALCIUM 8.4 MG/DL (8.5-10.1); CARBON DIOXIDE 26 MMOL/L (21-32); CHLORIDE 104 MMOL/L (98-107); CREATININE SERUM 0.89 MG/DL (0.60-1.30); GFR ESTIMATED > 60; GLUCOSE 101 MG/DL (70-105); POTASSIUM 4.1 MMOL/L (3.6-5.0); SODIUM 140 MMOL/L (135-145); TOTAL PROTEIN 6.9 GM/DL (6.4-8.2)
[2020-01-17 10:24] LABS: BASOPHILS % (AUTO) 0 % (0-10); EOSINOPHILS # (AUTO) 0.3 10^3/uL (0.0-0.3); EOSINOPHILS % (AUTO) 4 % (0-10); HEMATOCRIT 42 % (40-54); HEMOGLOBIN 14.1 G/DL (13.3-17.7); LYMPHOCYTES # (AUTO) 2.2 X 10^3 (1.0-4.0); LYMPHOCYTES % (AUTO) 32 % (12-44); MEAN CORPUSCULAR HEMOGLOBIN 30 PG (25-34); MEAN CORPUSCULAR HGB CONC 34 G/DL (32-36); MEAN CORPUSCULAR VOLUME 89 FL (80-99); MEAN PLATELET VOLUME 10.6 FL (7.4-10.4); MONOCYTES # (AUTO) 0.8 X 10^3 (0.0-1.0); MONOCYTES % (AUTO) 12 % (0-12); NEUTROPHILS # (AUTO) 3.7 X 10^3 (1.8-7.8); NEUTROPHILS % (AUTO) 53 % (42-75); PLATELET COUNT 170 10^3/uL (130-400); WHITE BLOOD COUNT 7.1 10^3/uL (4.3-11.0)
[2020-01-17 10:43] LABS: ALANINE AMINOTRANSFERASE 33 U/L (0-55); ALBUMIN 3.8 GM/DL (3.2-4.5); ALKALINE PHOSPHATASE 43 U/L (40-136); BILIRUBIN,TOTAL 0.3 MG/DL (0.1-1.0); BUN/CREATININE RATIO 20; CALCIUM 9.2 MG/DL (8.5-10.1); CARBON DIOXIDE 28 MMOL/L (21-32); CHLORIDE 95 MMOL/L (98-107); CREATININE SERUM 1.15 MG/DL (0.60-1.30); GFR ESTIMATED > 60; GLUCOSE 92 MG/DL (70-105); POTASSIUM 3.8 MMOL/L (3.6-5.0); SODIUM 137 MMOL/L (135-145); TOTAL PROTEIN 7.4 GM/DL (6.4-8.2)
[2020-02-07 14:39] LABS: BASOPHILS % (AUTO) 1 % (0-10); EOSINOPHILS # (AUTO) 0.3 10^3/uL (0.0-0.3); EOSINOPHILS % (AUTO) 6 % (0-10); HEMATOCRIT 40 % (40-54); HEMOGLOBIN 13.3 g/dL (13.3-17.7); LYMPHOCYTES # (AUTO) 1.9 10^3/uL (1.0-4.0); LYMPHOCYTES % (AUTO) 34 % (12-44); MEAN CORPUSCULAR HEMOGLOBIN 30 pg (25-34); MEAN CORPUSCULAR HGB CONC 33 g/dL (32-36); MEAN CORPUSCULAR VOLUME 90 fL (80-99); MEAN PLATELET VOLUME 10.6 fL (9.0-12.2); MONOCYTES # (AUTO) 0.5 10^3/uL (0.0-1.0); MONOCYTES % (AUTO) 8 % (0-12); NEUTROPHILS # (AUTO) 2.9 10^3/uL (1.8-7.8); NEUTROPHILS % (AUTO) 51 % (42-75); PLATELET COUNT 167 10^3/uL (130-400); WHITE BLOOD COUNT 5.7 10^3/uL (4.3-11.0)
[2020-02-07 14:57] LABS: ALANINE AMINOTRANSFERASE 38 U/L (0-55); ALBUMIN 3.4 GM/DL (3.2-4.5); ALKALINE PHOSPHATASE 42 U/L (40-136); BILIRUBIN,TOTAL 0.2 MG/DL (0.1-1.0); BUN/CREATININE RATIO 14; CALCIUM 8.2 MG/DL (8.5-10.1); CARBON DIOXIDE 25 MMOL/L (21-32); CHLORIDE 106 MMOL/L (98-107); CREATININE SERUM 0.85 MG/DL (0.60-1.30); GFR ESTIMATED > 60; GLUCOSE 124 MG/DL (70-105); POTASSIUM 4.3 MMOL/L (3.6-5.0); SODIUM 140 MMOL/L (135-145); TOTAL PROTEIN 6.4 GM/DL (6.4-8.2)
[~2020-03-19 12:54] MED LIST changes: +HYDROcodone/APAP 5 MG/325 MG (LORTAB) CANCER CTR PO ONE; +NS IV 500 ML (CANCER CENTER) 500 ML ONE; +NS IV SCH; +[UNRECOGNIZED DRUG - OTHER] IV SCH; +diphenhydrAMINE 25 MG TAB (BENADRYL) CANCER CENTER PO SCH; +diphenhydrAMINE 50 MG/ML INJ (CANCER CENTER) IV PRN
[2020-03-19] MEDS ORDERED: ZINC50TA58 PO ×2 (14:25)
[2020-03-19] MEDS ORDERED: FAMO20TA3 PO ×2 (14:25)
[2020-03-27 10:23] LABS: BASOPHILS % (AUTO) 1 % (0-10); EOSINOPHILS # (AUTO) 0.3 10^3/uL (0.0-0.3); EOSINOPHILS % (AUTO) 5 % (0-10); HEMATOCRIT 39 % (40-54); HEMOGLOBIN 12.7 g/dL (13.3-17.7); LYMPHOCYTES % (AUTO) 33 % (12-44); MEAN CORPUSCULAR HEMOGLOBIN 29 pg (25-34); MEAN CORPUSCULAR HGB CONC 32 g/dL (32-36); MEAN CORPUSCULAR VOLUME 90 fL (80-99); MEAN PLATELET VOLUME 9.3 fL (9.0-12.2); MONOCYTES # (AUTO) 0.5 10^3/uL (0.0-1.0); MONOCYTES % (AUTO) 8 % (0-12); NEUTROPHILS # (AUTO) 3.2 10^3/uL (1.8-7.8); NEUTROPHILS % (AUTO) 53 % (42-75); PLATELET COUNT 159 10^3/uL (130-400); WHITE BLOOD COUNT 6.1 10^3/uL (4.3-11.0)
[2020-03-27 10:55] LABS: ALBUMIN 3.2 GM/DL (3.2-4.5); BILIRUBIN,TOTAL 0.3 MG/DL (0.1-1.0); CALCIUM 8.5 MG/DL (8.5-10.1); CREATININE SERUM 2.13 MG/DL (0.60-1.30); POTASSIUM 2.9 MMOL/L (3.6-5.0); TOTAL PROTEIN 7.5 GM/DL (6.4-8.2)
== END 2020-03-26 | disposition home or self-care (01) ==
LOC: ONC 12:54
PROVIDERS: ATTEND Internal Medicine Hematology & Oncology
DX: Z51.11 Encounter for antineoplastic chemotherapy (principal); C84.45 Peripheral T-cell lymphoma, not elsewhere classified, lymph nodes of inguinal region and lower limb; C92.30 Myeloid sarcoma, not having achieved remission; Z98.890 Other specified postprocedural states
CPT/HCPCS: 80053; 83615; 85025; 96375; 96413; G0463; 36591

== ENCOUNTER → 2020-03-19 | Outpatient (CLI) | payer MEDICAID ==
[~2020-03-19] MED LIST changes: +ACET325C7 PO; +ALPR1TAB7 PO; +AMOX-358 PO; +FAMO20TA3 PO; +LACT10SO PO; +LACT1CAP7 PO; +MELA3TAB39 PO; -NALO12.5 PO; +NALO12.52 PO; +NICO-588 TD; +ONDA8TAB15 PO; +PHEN-640 PO; +POTA20TA15 PO; +RISP1TAB3 PO; +SORB1SOL2 PO; +ZINC50TA58 PO
--- NOTE | 2020-03-19 14:04 | Diagnostic Imaging Report ---
Indication: Right lower lobe pneumonia and T-cell lymphoma. Time of exam: 1:53 PM Correlation is made with prior chest from 03/04/2020. Heart size stable. Malpositioned right chest wall catheter is again noted with tip directed retrograde in the region of the right internal jugular vein. Airspace infiltrate in the right mid and lower lung field is noted but does appear to be improved when compared with the prior examination. Left lung remains clear. No significant effusion or pneumothorax is seen. Impression: Right-sided pneumonia has improved when compared with prior examination from 03/04/2020. Dictated by: Dictated on workstation # [id number]
== END ==
LOC: RAD 13:39
PROVIDERS: ATTEND Nurse Practitioner Adult Health
DX: J18.9 Pneumonia, unspecified organism (principal); C84.45 Peripheral T-cell lymphoma, not elsewhere classified, lymph nodes of inguinal region and lower limb
CPT/HCPCS: 71046

== ENCOUNTER 2020-03-20 08:41 | Day surgery (SDC) | payer MEDICAID ==
[2020-03-20] VITALS (8 sets, daily range): BP systolic 92–108; BP diastolic 64–81
[~2020-03-20] VITALS: Ht 174 cm; Wt 92.7 kg
[~2020-03-20 08:41] MED LIST changes: +FAMO20TA3 PO; -HYDROcodone/APAP 5 MG/325 MG (LORTAB) CANCER CTR PO ONE; -NS IV 500 ML (CANCER CENTER) 500 ML ONE; -NS IV SCH; +ZINC50TA58 PO; -[UNRECOGNIZED DRUG - OTHER] IV SCH; -diphenhydrAMINE 25 MG TAB (BENADRYL) CANCER CENTER PO SCH; -diphenhydrAMINE 50 MG/ML INJ (CANCER CENTER) IV PRN
[2020-03-20] MEDS ORDERED: ceFAZolin 2 GM IV Premixed 50 ML IV ONE (08:45)
[2020-03-20] MEDS ORDERED: CATHETER FLUSH 10 ML SYR IV PRN (09:00)
[2020-03-20] MEDS ORDERED: LIDOCAINE/EPI 1%-1:200,000 (XYLOCAINE) 30 ML VIAL ONE (09:01)
[2020-03-20] MEDS ORDERED: HEParin (CENTRAL IV FLUSH) 500 UNIT/5 ML SYR ONE (09:01)
[2020-03-20] MEDS ORDERED: 0.9% SODIUM CHLORIDE PF INJ 20 ML VIAL ONE (09:01)
[2020-03-20] MEDS ORDERED: LACTATED RINGERS 1,000 ML IV PRN (09:06)
--- NOTE | 2020-03-20 09:35 | Progress Note-Pre Operative ---
Pre-Operative Progress Note H&P Reviewed The H&P was reviewed, patient examined and no changes noted. Time Seen by Provider: 09:32 Date H&P Reviewed: Mar 20, 2020 Time H&P Reviewed: 08:12 Pre-Operative Diagnosis: Malfuncitioning port, Venous Insufficiency, T-Cell lymphoma GONSALO RANDLE DO Mar 20, 2020 09:35
[2020-03-20] MEDS ORDERED: MIDAZOLAM 2 MG/2 ML (VERSED) VIAL IV ONE (09:45)
[2020-03-20] MEDS ORDERED: PROPOFOL INJECTION 50 ML IV ONE (10:05)
[2020-03-20] MEDS ORDERED: KETAMINE/NaCl 50 MG/5 ML SYRINGE (ED ONLY) ONE (10:08)
[2020-03-20] MEDS ORDERED: MIDAZOLAM 2 MG/2 ML (VERSED) VIAL ONE (10:09)
--- NOTE | 2020-03-20 10:44 | Progress Note-Post Operative ---
Post-Operative Progess Note Surgeon (s)/Catalytic Converter Operator (s) Surgeon GONSALO RANDLE DO Catalytic Converter Operator: SHERITA Ramirez Pre-Operative Diagnosis Malfuncitioning port, Venous Insufficiency, T-Cell lymphoma Post-Operative Diagnosis Same Procedure & Operative Findings Date of Procedure 03/20/20 Procedure Performed/Findings PROCEDURE: [Left] subclavian port placement. COMPLICATIONS: None. INDICATIONS: The patient is a 53 year old male [with lymphoma and Venous insufficiency]. Patient understands the risks and benefits of port placement and wished to proceed with the procedure. Consent was signed on the chart. PROCEDURE: The patient was taken to the operating suite, was prepped and draped in the sterile fashion. A surgical pause was performed. Lidocaine anesthetic was infiltrated at the clavicle and over the chest wall where port was to be placed. Using 18 gauge finder needle with negative inspiration the subclavian vein was accessed. Dark nonpulsatile blood was withdrawn. The wire was inserted. Fluoroscopy assured proper placement. The needle was removed and the wire was inserted and fluoroscopy assured proper placement. A [#11] blade scalpel was used to make an incision over the [right anterior] chest. Cautery was used to dissect down to the pectoral fascia. A pocket was created with blunt dissection. The dilator sheath was then advanced over the wire under fluoroscopy and the dilator and wire were removed. The Groshong catheter was inserted through the sheath and the sheath was then removed. The Groshong wire was removed. The catheter was then tunneled to the right chest pocket. Fluoroscopy was used to cut to length and this was then attached to the port which was then placed within the pocket. The port was then accessed without difficulty. It was then flushed with saline and then heparin. The port was sutured to chest wall with 3-0 Prolene. The subcutaneous tissues were then reapproximated using 3-0 Vicryl. Finally the skin was closed with 4-0 undyed Monocryl 3 subcuticalar stitches. The areas were then washed and dried. Skin Affix was placed over the incisions. PROCEDURE #2: Removal of port, right anterior chest wall. COMPLICATIONS: None. INDICATIONS: The patient is a 54 year-old male who had a port previously placed. Unfortunately the catheter flipped and cannot be used for chemotherapy; therefore port must be removed. The patient was explained risk and benefits of the procedure and wished to proceed with procedure. Consent was signed on the chart. PROCEDURE: Local anesthetic was infiltrated to the area around the port. A number 15 blade scalpel was used tomake an incision. Cautery was used to dissect down to the port which was then grasped and then dissected around. The catheter was removed in its entirety. The port was then able to be dissected out of the pocket and elevated. The wound was then irrigated with copious amounts of irrigation. Hemostasis had been achieved. Used a 3-0 Vicryl figure of eight stitch to close the tunnel from previous catheter; there was scant back bleeding which needed to be controlled. The subcutaneous tissues were then reapproximated using 3-0 Vicryl. Skin was then closed using 4-0 Vicryl in a running fashion. The area was then washed and dried and Skin Affix placed over the incision. The patient tolerated the procedure well without complication and was taken to recovery room in stable condition. Anesthesia Type MAC Estimated Blood Loss Estimated blood loss (mL): scant Specimens/Packing Specimens Removed none GONSALO RANDLE DO Mar 20, 2020 10:44
--- NOTE | 2020-03-20 10:46 | Discharge Inst-Surgical ---
Discharge Inst-Surgical Depart Medication/Instructions New, Converted or Re-Newed RX: Other (Pt has home pain meds) Patient Instructions Follow up Appt: Make appointment for 1 week. [phone] Instructions: No strenuous activity. May shower in 24 hours, no tub bath or soaking. Use incentive spirometer at home as directed. No Smoking Skin/Wound Care: May remove bandages in am. You need to leave the Dermabond on incision it will fall off on it's own. Symptoms to Report: Appetite Changes, Extremity Discoloration, Numbness/Tingling, Swelling Increased, Bleeding Excessive, Eyesight Changes, Pain Increased, Urine Color Change, Constipation(Persistent), Fever over 101 degree F, Pain/Pressure in chest, Urinating Difficulty, Cough Up/Vomit Blood, Heart Beat Irreg/Pounding, Pain/Pressure in jaw, Cramps in feet or legs, Lightheadedness, Pain/Pressure in shoulder, Diarrhea(Persistent), Memory Changes Suddenly, Questions/Concerns, Weight gain consecutive days, Dizziness/Fainting, Nausea/Vomiting, Shortness of Breath, Weight gain over 2 pounds If questions or concerns contact your physician Or seek help at emergency department. Activity Activity Instructions: Avoid Stress to Incision Driving Instructions: No Driving/Refer to Diet Discharge Diet: No Restrictions Diet After 24 Hours: Clear Liquid if Nauseous If Any Problems/Questions/Issu: Contact Your Physician, Go to Emergency Room Skin/Wound Care Infection Signs and Symptoms: Increased Redness, Foul Odor of Wound, Increased Drainage, Skin Itchy or Has a Rash, Increased Swelling, Temperature Above 101 F Bathing Instructions: Shower Stitches/[place]/Dermabond Dis: Dermabond Ice Pack: Ice On and Off Site GONSALO RANDLE DO Mar 20, 2020 10:46
--- NOTE | 2020-03-20 10:53 | Anesthesia-General Post-Op ---
MAC Patient Condition Mental Status/LOC: Same as Preop Cardiovascular: Satisfactory Nausea/Vomiting: Absent Respiratory: Satisfactory Pain: Controlled Complications: Absent Post Op Complications Complications None Follow Up Care/Instructions Patient Instructions None needed. Anesthesiology Discharge Order Discharge Order Patient is doing well, no complaints, stable vital signs, no apparent adverse anesthesia problems. ORIN HERNANDEZ DO Mar 20, 2020 10:53
--- NOTE | 2020-03-20 10:53 | Diagnostic Imaging Report ---
INDICATION: Fluoroscopy during port placement. Fluoroscopy was provided in the OR during port placement. 4.8 seconds of fluoroscopic time was utilized. Single image was obtained. Tip of the port is not well visualized on the spot radiograph and chest radiograph would be recommended. IMPRESSION: Fluoroscopy for port placement. Dictated by: Dictated on workstation # [id number]
[2020-03-20] MEDS ORDERED: ONDANSETRON 4 MG/2 ML (SDV) Z0FRAN IVP PRN (11:00)
[2020-03-20] MEDS ORDERED: morphine INJ 10 MG/ML 1ML (SYR OR VIAL) IVP ONE (11:00)
--- NOTE | 2020-03-20 11:29 | NUR ---
This RN called report to BIANCA Anaya at [facility].
== END 2020-03-20 12:20 | disposition home or self-care (01) ==
LOC: SDC 08:41
PROVIDERS: ATTEND Surgery
DX: T82.598A Other mechanical complication of other cardiac and vascular devices and implants, initial encounter (principal); I87.2 Venous insufficiency (chronic) (peripheral); C84.48 Peripheral T-cell lymphoma, not elsewhere classified, lymph nodes of multiple sites; F32.9 Major depressive disorder, single episode, unspecified; K21.9 Gastro-esophageal reflux disease without esophagitis; F17.210 Nicotine dependence, cigarettes, uncomplicated; Z79.899 Other long term (current) drug therapy
CPT/HCPCS: 36561; 76000; 87081; C1788

== ENCOUNTER 2020-03-27 10:05 | Outpatient (RCR) | payer MEDICAID ==
[~2020-03-27 10:05] MED LIST changes: -NICO-588 TD; +NICO-685 TD; +NS IV SCH; -RISP1TAB3 PO; +RISP1TAB93 PO; -RISP2TAB3 PO; +RISP2TAB84 PO; +[UNRECOGNIZED DRUG - OTHER] IV SCH; +diphenhydrAMINE 25 MG TAB (BENADRYL) CANCER CENTER PO SCH
[2020-03-27] MEDS ORDERED: NS IV 500 ML (CANCER CENTER) 500 ML ONE (10:15)
[2020-03-27 10:23] LABS: BASOPHILS % (AUTO) 1 % (0-10); EOSINOPHILS # (AUTO) 0.3 10^3/uL (0.0-0.3); EOSINOPHILS % (AUTO) 5 % (0-10); HEMATOCRIT 39 % (40-54); HEMOGLOBIN 12.7 g/dL (13.3-17.7); LYMPHOCYTES % (AUTO) 33 % (12-44); MEAN CORPUSCULAR HEMOGLOBIN 29 pg (25-34); MEAN CORPUSCULAR HGB CONC 32 g/dL (32-36); MEAN CORPUSCULAR VOLUME 90 fL (80-99); MEAN PLATELET VOLUME 9.3 fL (9.0-12.2); MONOCYTES # (AUTO) 0.5 10^3/uL (0.0-1.0); MONOCYTES % (AUTO) 8 % (0-12); NEUTROPHILS # (AUTO) 3.2 10^3/uL (1.8-7.8); NEUTROPHILS % (AUTO) 53 % (42-75); PLATELET COUNT 159 10^3/uL (130-400); WHITE BLOOD COUNT 6.1 10^3/uL (4.3-11.0)
[2020-03-27 10:55] LABS: ALBUMIN 3.2 GM/DL (3.2-4.5); BILIRUBIN,TOTAL 0.3 MG/DL (0.1-1.0); CALCIUM 8.5 MG/DL (8.5-10.1); CREATININE SERUM 2.13 MG/DL (0.60-1.30); POTASSIUM 2.9 MMOL/L (3.6-5.0); TOTAL PROTEIN 7.5 GM/DL (6.4-8.2)
[2020-04-18] MEDS ORDERED: ALPR1TAB7 PO (15:54)
[2020-04-18] MEDS ORDERED: CHOL100045 PO (15:54)
[2020-04-18] MEDS ORDERED: DEXA6TAB PO (15:54)
[2020-04-18] MEDS ORDERED: ASCO500T17 PO (15:54)
[2020-04-18] MEDS ORDERED: LACT1CAP76 PO (15:54)
[2020-04-18] MEDS ORDERED: ACHD5005 PO (15:54)
[2020-04-18] MEDS ORDERED: ALPR0.5T7 PO (15:54)
[2020-04-18] MEDS ORDERED: TEMA7.5C PO (15:54)
== END 2020-05-04 | disposition home or self-care (01) ==
LOC: ONC 10:05
PROVIDERS: ATTEND Internal Medicine Hematology & Oncology
DX: Z51.11 Encounter for antineoplastic chemotherapy (principal); C84.45 Peripheral T-cell lymphoma, not elsewhere classified, lymph nodes of inguinal region and lower limb; C92.30 Myeloid sarcoma, not having achieved remission; Z98.890 Other specified postprocedural states
CPT/HCPCS: 36591; 80053; 83615; 85025; 96375; 96413

== ENCOUNTER 2020-04-18 09:51 | Inpatient (IN) | payer MEDICAID ==
[~2020-04-18] VITALS: Ht 177 cm; Wt 108.3 kg
[~2020-04-18 09:51] MED LIST changes: -NS IV SCH; -[UNRECOGNIZED DRUG - OTHER] IV SCH; -diphenhydrAMINE 25 MG TAB (BENADRYL) CANCER CENTER PO SCH
[2020-04-18] MEDS ORDERED: NS IV 1000 ML 1,000 ML IV SCH (10:00)
[2020-04-18 10:07] LABS: BASOPHILS % (AUTO) 0 % (0-10); EOSINOPHILS % (AUTO) 0 % (0-10); HEMATOCRIT 40 % (40-54); HEMOGLOBIN 12.7 g/dL (13.3-17.7); LYMPHOCYTES # (AUTO) 1.1 10^3/uL (1.0-4.0); LYMPHOCYTES % (AUTO) 9 % (12-44); MEAN CORPUSCULAR HEMOGLOBIN 28 pg (25-34); MEAN CORPUSCULAR HGB CONC 32 g/dL (32-36); MEAN CORPUSCULAR VOLUME 90 fL (80-99); MEAN PLATELET VOLUME 9.5 fL (9.0-12.2); MONOCYTES # (AUTO) 0.7 10^3/uL (0.0-1.0); MONOCYTES % (AUTO) 5 % (0-12); NEUTROPHILS # (AUTO) 10.9 10^3/uL (1.8-7.8); NEUTROPHILS % (AUTO) 85 % (42-75); PLATELET COUNT 421 10^3/uL (130-400); WHITE BLOOD COUNT 12.9 10^3/uL (4.3-11.0)
[2020-04-18 10:22] LABS: ALBUMIN 3.2 GM/DL (3.2-4.5); POTASSIUM 3.2 MMOL/L (3.6-5.0)
[2020-04-18 10:23] LABS: CALCIUM 9.6 MG/DL (8.5-10.1)
[2020-04-18 10:24] LABS: TOTAL PROTEIN 8.9 GM/DL (6.4-8.2)
[2020-04-18 10:26] LABS: BILIRUBIN,TOTAL 0.3 MG/DL (0.1-1.0)
[2020-04-18 10:28] LABS: CREATININE SERUM 1.3 MG/DL (0.60-1.30)
--- NOTE | 2020-04-18 10:46 | Diagnostic Imaging Report ---
INDICATION: Shortness of breath, COVID positive. COMPARISON: March 19, 2020. TECHNIQUE: Two frontal radiographs of chest dated April 18, 2020. FINDINGS: The cardiac silhouette is within normal limits in size. No significant pulmonary vascular congestion. Previously noted right-sided Port-A-Cath is no longer visualized. Interval placement of a left-sided Port-A-Cath, with the distal tip overlying the expected location of the cavoatrial junction based upon image 1/2. New patchy opacities are seen within the left mid and lower lung. Additionally, more dense and groundglass opacities are noted within the right ura-mm-datbm lung, appearing slightly improved since the prior exam. Lucencies are noted overlying the right mid and lower lung, appearing new from the prior exam. No left-sided pneumothorax. No acute osseous abnormality. IMPRESSION: New lucencies overlying the right mid and lower lung are concerning for a pneumothorax. No evidence of tension phenomenon. Significant bilateral pulmonary infiltrates, worsened on the left while improved on the right. Findings are concerning for infectious infiltrate, COVID-19 could be considered. Interval removal of previously noted right-sided Port-A-Cath with placement of a left-sided Port-A-Cath with the distal tip overlying the expected location of the cavoatrial junction. Dictated by: Dictated on workstation # [id number]
--- NOTE | 2020-04-18 10:50 | ED General ---
General Chief Complaint: Respiratory Problems Stated Complaint: COVID +, LOW 02 Nursing Triage Note: PT PRESENTS TO ED VIA EMS FROM [facility] FOR INCREASED SOA AND COUGH, HYPOXIA Nursing Sepsis Screen: Possible Sepsis Risk Source of Information: Patient, EMS Exam Limitations: Physical Impairments History of Present Illness Date Seen by Provider: Apr 18, 2020 Time Seen by Provider: 09:55 Initial Comments Mr. Boo is a 54-year-old male who presents to the emergency room by EMS from a local nursing facility with a history of COVID-19 exposure and positivity. Patient was tested on 09 April and had a positive test. He has been experiencing increased cough and shortness of breath with reportedly low oxygen saturations at the care home this morning. Patient is not complaining of any pain. He does have a history of a traumatic brain injury as a child. He is repeatedly yelling out and is difficult to assess with regard to review of systems. He does deny headache. He denies sore throat. He states he has had significant cough and shortness of breath only. He is coughing up sputum. He denies abdominal pain or diarrhea. He states repeatedly that he has to urinate but then states that he cannot. All other review of systems reviewed and negative except as stated. Review of systems is limited secondary to the patient's mental capacity. Timing/Duration: Constant Severity: Moderate Associated Systoms: No Chest Pain; Cough, Fever/Chills; No Headaches; Malaise; No Nausea/Vomiting; Shortness of Air Allergies and Home Medications Allergies Coded Allergies: No Known Drug Allergies (Unverified , 09/22/19) Home Medications Acetaminophen 325 Mg Capsule, 650 MG PO Q6H PRN for PAIN-MILD (1-4), (Reported) Alprazolam 0.5 Mg Tablet, 0.5 MG PO 1200, (Reported) Alprazolam 1 Mg Tablet, 1 MG PO BID, (Reported) Ascorbic Acid 500 Mg Tablet, 500 MG PO DAILY, (Reported) Cholecalciferol (Vitamin D3) 25 Mcg Tablet, 25 MCG PO DAILY, (Reported) Dexamethasone 6 Mg Tablet, 6 MG PO DAILY, (Reported) START DATE 04-10-2020 #10 DAY SUPPLY Diclofenac Sodium 75 Mg Tablet.dr, 75 MG PO BID, (Reported) Divalproex Sodium 500 Mg Tablet.dr, 500 MG PO 0800,1700, (Reported) Docusate Sodium 100 Mg Capsule, 100 MG PO BID, (Reported) Ergocalciferol (Vitamin D2) 1,250 Mcg Capsule, 1,250 MCG PO MON, (Reported) Famotidine 20 Mg Tablet, 20 MG PO BID, (Reported) Fluticasone Propionate 9.9 Ml Crary.susp, 2 SPRAY NSEACH DAILY, (Reported) Furosemide 40 Mg Tablet, 40 MG PO 1200,1700, (Reported) Furosemide 80 Mg Tablet, 80 MG PO DAILY, (Reported) Gabapentin 300 Mg Capsule, 300 MG PO TID, (Reported) Hydrocodone/Acetaminophen 1 Each Tablet, 1 EACH PO Q12H PRN for PAIN-MODERATE (5-7), (Reported) Lactobacillus Acidophilus/Pect 1 Each Capsule, 2 EACH PO TIDPC, (Reported) Lactulose 10 Gm/15 Ml Solution, 15 ML PO Q12H PRN for CONSTIPATION-3RD LINE, (Reported) Magnesium Hydroxide 400 Mg/5 Ml Oral.susp, 30 MG PO DAILY PRN for CONSTIPATION- 2ND LINE, (Reported) Methocarbamol 500 Mg Tablet, 500 MG PO TID, (Reported) Metolazone 5 Mg Tablet, 5 MG PO MoWeFr, (Reported) Ondansetron HCl 8 Mg Tablet, 8 MG PO Q8H PRN for NAUSEA/VOMITING-1ST LINE, (Reported) Phenazopyridine HCl 200 Mg Tablet, 1 TAB PO Q8H PRN for BLADDER PAIN/DYSURIA, (Reported) Potassium Chloride 20 Meq Tab.er.prt, 80 MEQ PO DAILY, (Reported) TAKES 4 (20MEQ) TABS Simvastatin 10 Mg Tablet, 10 MG PO HS, (Reported) Sorbitol Solution 1 Ml Solution, 15 ML PO DAILY, (Reported) Sorbitol Solution 1 Ml Solution, 15 ML PO HS PRN for CONSTIPATION, (Reported) Temazepam 7.5 Mg Capsule, 7.5 MG PO HS, (Reported) Trazodone HCl 100 Mg Tablet, 100 MG PO HS, (Reported) Vilazodone Hydrochloride 40 Mg Tablet, 40 MG PO DAILY, (Reported) Zinc 50 Mg Tablet, 50 MG PO DAILY, (Reported) Patient Home Medication List Home Medication List Reviewed: Yes Review of Systems Review of Systems Constitutional: see HPI, fever, malaise EENTM: no symptoms reported Respiratory: cough Cardiovascular: no symptoms reported Gastrointestinal: no symptoms reported Genitourinary: other (Urinary urgency) Musculoskeletal: no symptoms reported Skin: no symptoms reported All Other Systems Reviewed Negative Unless Noted: Yes Past Hwcbvqg-Xxuuem-Creoig Hx Patient Social History Alcohol Use: Denies Use Recreational Drug Use: No Smoking Status: Former Smoker Type Used: Cigarettes Former Smoker, Quit: Feb 15, 2020 2nd Hand Smoke Exposure: No Recent Foreign Travel: No Contact w/Someone Who Travel: No Recent Infectious Disease Expo: Yes Recent Hopitalizations: No Physical Abuse: No Sexual Abuse: No Mistreated: No Fear: No Immunizations Up To Date Date of Influenza Vaccine: Feb 15, 2020 Seasonal Allergies Seasonal Allergies: No Past Medical History Surgeries: Yes (port) Thyroidectomy Respiratory: No Currently Using CPAP: No Currently Using BIPAP: No Cardiac: Yes High Cholesterol Neurological: Yes Seizure Disorder, Traumatic Brain Injury Genitourinary: Yes Prostate Problems Gastrointestinal: Yes Gastroesophageal Reflux, Chronic Constipation, Hepatitis Musculoskeletal: Yes Arthritis, Chronic Back Pain Endocrine: No HEENT: No Cancer: Yes Skin, Lymphoma Did You Recieve Any Treatments: Yes Psychosocial: Yes Sleep Difficulties, Bipolar, Depression Integumentary: Yes (skin cancer- lymphoma) Blood Disorders: Yes (hep c) Family Medical History Cancer Physical Exam-Suspected Sepsis Physical Exam Vital Signs Vital Signs - First Documented 04/18/20 04/18/20 09:52 14:55 Temp 38.0 Pulse 126 Resp 26 B/P (MAP) 129/93 (105) Pulse Ox 98 O2 Delivery Non Rebreather O2 Flow Rate 15.00 FiO2 100 Capillary Refill : Greater Than 3 Seconds Blood Pressure Mean: 105 Height, Weight, BMI Height: '" Weight: lbs. oz. kg; 31.00 BMI Method: General Appearance: No Apparent Distress, WD/WN, Anxious Eyes: Bilateral Eye Normal Inspection, Bilateral Eye PERRL, Bilateral Eye EOMI HEENT: PERRL/EOMI, Other (Dry oral mucosa) Neck: Supple Respiratory: Other (Patient has some tachypnea, diminished breath sounds at the bases secondary to poor inspiratory effort, no respiratory distress is noted) Cardiovascular: Regular Rate, Rhythm, Tachycardia Gastrointestinal: Normal Bowel Sounds, Non Tender, Soft Extremity: Normal Capillary Refill, Normal Range of Motion, Non Tender, No Calf Tenderness Neurologic/Psychiatric: Alert, Oriented x3, No Motor/Sensory Deficits, 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 Norm as Tested, Other (Anxious, repeatedly yelling) Skin: normal color, warm/dry, other (Skin changes consistent with peripheral vascular disease to the bilateral lower extremities) Focused Exam Sepsis Stage: Sepsis Possible Source: Pulmonary Lactate Level 04/22/20 05:10: Lactic Acid Level 1.12 Time of Focused Exam: 11:35 Respiratory: Lungs Clear, No Accessory Muscle Use Cardiovascular: Regular Rate, Rhythm Capillary Refill: Less Than 3 Seconds Peripheral Pulses: 1+ Radial Pulses (R), 1+ Radial Pulses (L) Skin: warm/dry, cyanosis Lactic Acid Level Within 3hrs of presentation: Admin fluids, Admin 30ml/kg IBW due to BMI>30, Admin ABX, Blood cultures prior to ABX's, Focus exam, Lactate level Progress/Results/Core Measures Suspected Sepsis Recent Fever Within 48 Hours: Yes Infection Criteria Present: Documented Infection New/Unexplained Altered Menta: No Sepsis Screen: Possible Sepsis Risk SIRS Temperature: Pulse: 126 Respiratory Rate: 26 Laboratory Tests 04/22/20 02:10: White Blood Count 10.8 04/23/20 04:45: White Blood Count 11.3H 04/24/20 04:15: White Blood Count 9.4 Blood Pressure 129 /93 Mean: 105 04/22/20 05:10: Lactic Acid Level 1.12 Laboratory Tests 04/22/20 02:10: Creatinine 0.64, Platelet Count 303, Total Bilirubin 0.6 04/23/20 04:45: Creatinine 0.55L, Platelet Count 261, Total Bilirubin 0.4 04/24/20 04:15: Creatinine 0.53L, Platelet Count 276, Total Bilirubin 0.3 Results/Orders Lab Results Laboratory Tests Test 04/22/20 07:50 04/22/20 08:30 04/22/20 10:53 04/22/20 17:45 Range/Units Urine Color YELLOW Urine Clarity CLEAR Urine pH 6.0 5-9 Urine Specific [place] 1.015 L 1.016-1.022 Urine Protein NEGATIVE NEGATIVE Urine Glucose (UA) NEGATIVE NEGATIVE Urine Ketones NEGATIVE NEGATIVE Urine Nitrite NEGATIVE NEGATIVE Urine Bilirubin NEGATIVE NEGATIVE Urine Urobilinogen 2.0 < = 1.0 MG/DL Urine Leukocyte Esterase NEGATIVE NEGATIVE Urine RBC (Auto) 1+ H NEGATIVE Urine RBC 25-50 H /HPF Urine WBC 0-2 /HPF Urine Squamous Epithelial Cells 0-2 /HPF Urine Crystals NONE /LPF Urine Bacteria TRACE /HPF Urine Casts NONE /LPF Urine Mucus NEGATIVE /LPF Urine Culture Indicated NO Body Fluid Source THORACENTESIS Body Fluid Color CONSTANTINO Body Fluid Appearance SLT CLDY Body Fluid pH 7.3 Body Fluid WBC 98 /uL Body Fluid RBC 55121 /uL Body Fluid Polynuclear WBCs 59 % Body Fluid Mononuclear WBCs 4 % Body Fluid Lymphocytes 37 % Body Fluid Other Cells % Body Fluid Glucose 50 MG/DL Body Fluid Total Protein 4.0 G/DL Body Fluid Lactate Dehydrogenase 1906 U/L Glucometer 156 H 172 H 70-110 MG/DL Test 04/22/20 23:37 04/23/20 03:15 04/23/20 04:45 04/23/20 11:03 Range/Units Glucometer 123 H 127 H 70-110 MG/DL Blood Gas Puncture Site NO SITE Blood Gas Patient Temperature 37.7 Arterial Blood pH 7.39 7.37-7.43 Arterial Blood Partial Pressure CO2 48 H 35-45 MMHG Arterial Blood Partial Pressure O2 77 L 79-93 MMHG Arterial Blood HCO3 28 H 23-27 MMOL/L Arterial Blood Total CO2 29.6 21.0-31.0 MMOL/L Arterial Blood Oxygen Saturation 92 L 94-100 % Arterial Blood Base Excess 3.7 H -2.5-2.5 MMOL/L Mt Test NA Blood Gas Ventilator Setting YES Blood Gas Inspired Oxygen 85% White Blood Count 11.3 H 4.3-11.0 10^3/uL Red Blood Count 2.87 L 4.30-5.52 10^6/uL Hemoglobin 8.1 L 13.3-17.7 g/dL Hematocrit 26 L 40-54 % Mean Corpuscular Volume 92 80-99 fL Mean Corpuscular Hemoglobin 28 25-34 pg Mean Corpuscular Hemoglobin Concent 31 L 32-36 g/dL Red Cell Distribution Width 16.0 H 10.0-14.5 % Platelet Count 261 130-400 10^3/uL Mean Platelet Volume 9.7 9.0-12.2 fL Immature Granulocyte % (Auto) 3 % Neutrophils (%) (Auto) 79 H 42-75 % Lymphocytes (%) (Auto) 14 12-44 % Monocytes (%) (Auto) 4 0-12 % Eosinophils (%) (Auto) 0 0-10 % Basophils (%) (Auto) 0 0-10 % Neutrophils # (Auto) 8.9 H 1.8-7.8 10^3/uL Lymphocytes # (Auto) 1.6 1.0-4.0 10^3/uL Monocytes # (Auto) 0.5 0.0-1.0 10^3/uL Eosinophils # (Auto) 0.0 0.0-0.3 10^3/uL Basophils # (Auto) 0.0 0.0-0.1 10^3/uL Immature Granulocyte # (Auto) 0.3 H 0.0-0.1 10^3/uL Sodium Level 141 135-145 MMOL/L Potassium Level 3.1 L 3.6-5.0 MMOL/L Chloride Level 107 98-107 MMOL/L Carbon Dioxide Level 26 21-32 MMOL/L Anion Gap 8 5-14 MMOL/L Blood Urea Nitrogen 9 7-18 MG/DL Creatinine 0.55 L 0.60-1.30 MG/DL Estimat Glomerular Filtration Rate > 60 BUN/Creatinine Ratio 16 Glucose Level 97 70-105 MG/DL Calcium Level 6.9 L 8.5-10.1 MG/DL Corrected Calcium 8.6 8.5-10.1 MG/DL Phosphorus Level 2.1 L 2.3-4.7 MG/DL Magnesium Level 2.0 1.6-2.4 MG/DL Total Bilirubin 0.4 0.1-1.0 MG/DL Aspartate Amino Transf (AST/SGOT) 9 5-34 U/L Alanine Aminotransferase (ALT/SGPT) 12 0-55 U/L Alkaline Phosphatase 44 40-136 U/L Total Protein 4.9 L 6.4-8.2 GM/DL Albumin 1.9 L 3.2-4.5 GM/DL Triglycerides Level 157 H <150 MG/DL Test 04/23/20 17:08 04/23/20 18:55 04/23/20 22:42 04/24/20 02:45 Range/Units Glucometer 150 H 148 H 70-110 MG/DL Vancomycin Level Trough 14.5 10.0-20.0 UG/ML Blood Gas Puncture Site RIGHT RADIAL Blood Gas Patient Temperature 35.8 Arterial Blood pH 7.42 7.37-7.43 Arterial Blood Partial Pressure CO2 45 35-45 MMHG Arterial Blood Partial Pressure O2 72 L 79-93 MMHG Arterial Blood HCO3 29 H 23-27 MMOL/L Arterial Blood Total CO2 30.3 21.0-31.0 MMOL/L Arterial Blood Oxygen Saturation 96 94-100 % Arterial Blood Base Excess 4.3 H -2.5-2.5 MMOL/L Mt Test YES-POS Blood Gas Ventilator Setting YES Blood Gas Inspired Oxygen 45% Test 04/24/20 04:15 Range/Units White Blood Count 9.4 4.3-11.0 10^3/uL Red Blood Count 3.03 L 4.30-5.52 10^6/uL Hemoglobin 8.6 L 13.3-17.7 g/dL Hematocrit 28 L 40-54 % Mean Corpuscular Volume 93 80-99 fL Mean Corpuscular Hemoglobin 28 25-34 pg Mean Corpuscular Hemoglobin Concent 31 L 32-36 g/dL Red Cell Distribution Width 16.3 H 10.0-14.5 % Platelet Count 276 130-400 10^3/uL Mean Platelet Volume 10.2 9.0-12.2 fL Immature Granulocyte % (Auto) 4 % Neutrophils (%) (Auto) 76 H 42-75 % Lymphocytes (%) (Auto) 17 12-44 % Monocytes (%) (Auto) 4 0-12 % Eosinophils (%) (Auto) 0 0-10 % Basophils (%) (Auto) 0 0-10 % Neutrophils # (Auto) 7.1 1.8-7.8 10^3/uL Lymphocytes # (Auto) 1.6 1.0-4.0 10^3/uL Monocytes # (Auto) 0.4 0.0-1.0 10^3/uL Eosinophils # (Auto) 0.0 0.0-0.3 10^3/uL Basophils # (Auto) 0.0 0.0-0.1 10^3/uL Immature Granulocyte # (Auto) 0.4 H 0.0-0.1 10^3/uL Sodium Level 138 135-145 MMOL/L Potassium Level 3.7 3.6-5.0 MMOL/L Chloride Level 104 98-107 MMOL/L Carbon Dioxide Level 25 21-32 MMOL/L Anion Gap 9 5-14 MMOL/L Blood Urea Nitrogen 9 7-18 MG/DL Creatinine 0.53 L 0.60-1.30 MG/DL Estimat Glomerular Filtration Rate > 60 BUN/Creatinine Ratio 17 Glucose Level 129 H 70-105 MG/DL Calcium Level 7.5 L 8.5-10.1 MG/DL Corrected Calcium 9.1 8.5-10.1 MG/DL Phosphorus Level 2.0 L 2.3-4.7 MG/DL Magnesium Level 2.2 1.6-2.4 MG/DL Total Bilirubin 0.3 0.1-1.0 MG/DL Aspartate Amino Transf (AST/SGOT) 13 5-34 U/L Alanine Aminotransferase (ALT/SGPT) 11 0-55 U/L Alkaline Phosphatase 55 40-136 U/L Total Protein 5.8 L 6.4-8.2 GM/DL Albumin 2.0 L 3.2-4.5 GM/DL Procalcitonin 0.06 <0.10 NG/ML Micro Results Microbiology 04/22/20 Gram Stain - Final, Resulted 04/22/20 Body Fluid Culture - Preliminary, Resulted No growth 04/22/20 Gram Stain - Final, Resulted 04/22/20 Sputum Culture - Preliminary, Resulted Klebsiella pneumoniae See Comments My Orders Medications Given in ED Vital Signs/I&O 04/23/20 04/23/20 04/23/20 04/23/20 18:46 19:00 19:00 20:00 Temp 36.9 36.9 Pulse 54 50 50 45 Resp 27 25 25 B/P (MAP) 114/64 (81) 122/66 (84) Pulse Ox 98 98 99 O2 Delivery Mechanical Ventilator Mechanical Ventilator O2 Flow Rate 65.00 65.00 FiO2 65 04/23/20 04/23/20 04/23/20 04/23/20 21:00 21:00 21:00 21:24 Temp 36.9 Pulse 44 45 Resp 25 26 B/P (MAP) 117/64 (81) Pulse Ox 99 95 O2 Delivery Mechanical Ventilator Mechanical Ventilator Mechanical Ventilator O2 Flow Rate 50.00 50.00 FiO2 45 50 04/23/20 04/23/20 04/23/20 04/24/20 22:00 23:00 23:00 00:00 Temp 36.8 36.8 36.8 Pulse 43 44 43 Resp 25 25 25 B/P (MAP) 118/64 (82) 110/62 (78) 125/66 (85) Pulse Ox 95 94 94 O2 Delivery Mechanical Ventilator Mechanical Ventilator Mechanical Ventilator Mechanical Ventilator O2 Flow Rate 50.00 45.00 45.00 45.00 04/24/20 04/24/20 04/24/20 04/24/20 00:29 01:00 01:00 02:00 Temp 36.9 37.0 Pulse 43 45 45 43 Resp 25 25 B/P (MAP) 124/67 133/68 (89) 127/65 (85) Pulse Ox 92 91 O2 Delivery Mechanical Ventilator Mechanical Ventilator O2 Flow Rate 45.00 45.00 04/24/20 04/24/20 04/24/20 04/24/20 02:14 03:00 03:15 04:00 Temp 37.0 36.9 Pulse 50 49 48 42 Resp 26 25 26 26 B/P (MAP) 129/67 (87) 120/64 121/65 (83) Pulse Ox 98 91 91 O2 Delivery Mechanical Ventilator Mechanical Ventilator O2 Flow Rate 45.00 45.00 FiO2 50 Capillary Refill : Greater Than 3 Seconds Blood Pressure Mean: 105 Progress Note : Time: 10:49 Progress Note 54-year-old male presents to the emergency room with a complaint of hypoxia secondary to COVID-19. Evaluation today includes a physical exam, sepsis laboratory panel including lactic acid. The patient's lactic acid is noted to be greater than 3. Patient has right lower and middle lobe infiltrates on chest x-ray. Patient has been persistently hypoxic. Patient will be admitted secondary to his hypoxia and pneumonia and sepsis. Case was also discussed with Dr. Graves on for general surgery regarding the abnormalities to the chest x-ray. Suspicion for right-sided small pneumothorax. This might be a chronic pneumothorax and Dr. Graves states that at this time we will monitor with serial x-rays and should the patient's respiratory status declined then he will intervene. No interventions in the ER at this time. Patient's respiratory status is 85 to 87% sats on 15 L per nonrebreather. I am going to transfer him over to [facility] and see if that improves his oxygenation. The patient remains at this time a DNR, DNI. He is getting further IV fluids he is already completed 1 L of normal saline IV and I have added an additional 2 more. He does not at this time meet severe sepsis protocol however he will have received a total of 30 mils per kilogram IV fluids after his second and third liter. Diagnostic Imaging Diagonstic Imaging: Xray Plain Films/CT/US/NM/MRI: chest Comments [facility] [place], [place] NAME: DIAZ BOO [facility] REC#: [id number] PT STATUS: REG ER : 1965 PHYSICIAN: QIAN IRBY MD ADMIT DATE: 04/18/20/ER Draft Date of Exam:04/18/20 CHEST 1 VIEW, AP/PA ONLY INDICATION: Shortness of breath, COVID positive. COMPARISON: March 19, 2020. TECHNIQUE: Two frontal radiographs of chest dated April 18, 2020. FINDINGS: The cardiac silhouette is within normal limits in size. No significant pulmonary vascular congestion. Previously noted right-sided Port-A-Cath is no longer visualized. Interval placement of a left-sided Port-A-Cath, with the distal tip overlying the expected location of the cavoatrial junction based upon image 1/2. New patchy opacities are seen within the left mid and lower lung. Additionally, more dense and groundglass opacities are noted within the right [id number] lung, appearing slightly improved since the prior exam. Lucencies are noted overlying the right mid and lower lung, appearing new from the prior exam. No left-sided pneumothorax. No acute osseous abnormality. IMPRESSION: New lucencies overlying the right mid and lower lung are concerning for a pneumothorax. No evidence of tension phenomenon. Significant bilateral pulmonary infiltrates, worsened on the left while improved on the right. Findings are concerning for infectious infiltrate, COVID-19 could be considered. Interval removal of previously noted right-sided Port-A-Cath with placement of a left-sided Port-A-Cath with the distal tip overlying the expected location of the cavoatrial junction. Dictated on workstation # [id number] Dict: 04/18/20 1033 Trans: 04/18/20 1046 [id number] [id number] Interpreted by: SAI JAMA MD Electronically signed by: Critical Care Note Critical Care Start Time: 10:00 Stop Time: 11:35 Total Time (minutes) 45 minutes of critical care time in the evaluation and management of this patient with pneumonia, sepsis and hypoxemia. Management includes fluid resuscitation, oxygen supplementation review and interpretation of laboratory studies and chest x-ray. Discussion with Dr. Graves regarding pneumothorax in the right chest, discussion with hospitalist service regarding further management. Departure Communication (Admissions) Time/Spoke to Admitting Phy: 11:[address] Salinas will admit to the ICU Time/Spoke to Consulting Phy: 11:[address] Graves, recommends monitoring the patient with serial x-rays. No interventions for the right sided pneumothorax at this time. Impression Primary Impression: Pneumothorax on right Additional Impressions: Sepsis Qualified Codes: A41.9 - Sepsis, unspecified organism; R65.20 - Severe sep sis without septic shock; J96.01 - Acute respiratory failure with hypoxia Pneumonia Qualified Codes: J18.9 - Pneumonia, unspecified organism Disposition: ADMITTED INPATIENT Condition: Critical Admissions Decision to Admit Reason: Admit from ER (General) Decision to Admit/Date: Apr 18, 2020 Time/Decision to Admit Time: 11:53 Departure-Patient Inst. Referrals: AC KC DO (PCP/Family) Primary Care Physician QIAN IRBY MD Apr 18, 2020 10:50
[2020-04-18] MEDS ORDERED: VANCOMYCIN INJECTION 1,000 MG in NS (IVPB) 250 ML IV ONE (11:00)
[2020-04-18] MEDS ORDERED: PIPERACILLIN/TAZOBACTAM (BULK) 4.5 GM in NS (IVPB) 100 ML IV ONE (11:00)
[2020-04-18 11:06] LABS: BILIRUBIN,URINE NEGATIVE (NEGATIVE); CLARITY,URINE CLEAR; COLOR,URINE YELLOW; GLUCOSE, URINE (UA) NEGATIVE (NEGATIVE); KETONES,URINE NEGATIVE (NEGATIVE); LEUKOCYTE ESTERASE ,URINE NEGATIVE (NEGATIVE); NITRITE,URINE NEGATIVE (NEGATIVE); PH,URINE 6.5 (5-9); PROTEIN,URINE NEGATIVE (NEGATIVE)
[2020-04-18 11:13] LABS: BACTERIA,URINE NEGATIVE /HPF; SQUAMOUS EPITHELIAL CELL,UR RARE /HPF
[2020-04-18] MEDS: NS IV 1000 ML 1,000 ML IV SCH ×4 (11:54→23:04)
[2020-04-18] MEDS ORDERED: fentaNYL INJECTION 100 MCG/2 ML AMP IVP ONE (12:15)
--- NOTE | 2020-04-18 15:04 | History & Physical-Hospitalist ---
History of Present Illness HPI/Chief Complaint Pt is a 54yoCM with a PMH of TBI, t-cell lymphoma, seizure disorder, hepatitis C with cirrhosis who presented to the ER due to hypoxia. He was admitted here for cellulitis and sepsis in February. He also had a port removal and replacement on 03/20. He was tested for COVID on 04/09 and was positive. He tells me a somewhat contradicting history by answer yes to most questions (even contradicting questions). He states he is both constipated and having diarrhea. He both denies and endorses complaints of a headache. He was able to answer non yes and no questions better and stated that he has been unwell for a few days with fever and cough. He was found to bilateral pneumonia left worse than right on CXR with possible small pneumothorax. He is being admitted to the ICU for further care. Source: patient Exam Limitations: no limitations Date Seen 04/18/20 Time Seen by a Provider: 14:53 Attending Physician Lolis Moore MD PCP Bran Muniz DO Referring Physician Date of Admission Apr 18, 2020 at 12:03 Home Medications & Allergies Home Medications Reviewed patient Home Medication Reconciliation performed by pharmacy medication reconciliations medical records field technician and/or nursing. Patients Allergies have been reviewed. Allergies Allergies Coded Allergies No Known Drug Allergies (Unverified09/22/19) Past Tddsdok-Vrnuqv-Vrgrnk Hx Past Med/Social Hx: Reviewed Nursing Past Med/Soc Hx Patient Social History Employed/Student: unemployed Alcohol Use: Denies Use Recreational Drug Use: No Smoking Status: Former Smoker Former Smoker, Quit: Feb 15, 2020 Type Used: Cigarettes 2nd Hand Smoke Exposure: No Recent Foreign Travel: No Contact w/other who traveled: No Recent Hopitalizations: No Recent Infectious Disease Expo: Yes Immunizations Up To Date Date of Influenza Vaccine: Feb 15, 2020 Seasonal Allergies Seasonal Allergies: No Past Medical History Surgeries: Thyroidectomy Currently Using CPAP: No Currently Using BIPAP: No Cardiac: High Cholesterol Neurological: Seizure Disorder, Traumatic Brain Injury Genitourinary: Prostate Problems Gastrointestinal: Gastroesophageal Reflux, Chronic Constipation, Hepatitis Musculoskeletal: Arthritis, Chronic Back Pain Cancer: Skin, Lymphoma Did You Recieve Any Treatments: Yes Psychosocial: Sleep Difficulties, Bipolar, Depression History of Blood Disorders: Yes (hep c) Family History Reviewed Nursing Family Hx Cancer Review of Systems ROS-Unable to Obtain: limited by varying history from patient, see hpi Constitutional: fever, malaise, weakness EENTM: no symptoms reported Respiratory: cough, dyspnea on exertion, short of breath Cardiovascular: no symptoms reported Gastrointestinal: abdominal pain, constipation, diarrhea; No nausea, No vomiting Physical Exam Physical Exam Vital Signs Vital Signs - First Documented 04/18/20 09:52 Temp 38.0 Pulse 126 Resp 26 B/P (MAP) 129/93 (105) Pulse Ox 98 O2 Delivery Non Rebreather O2 Flow Rate 15.00 Capillary Refill : Less Than 3 Seconds Height, Weight, BMI Height: '" Weight: lbs. oz. kg; 31.00 BMI Method: General Appearance: Chronically ill, Mild Distress, Other (laying in bed with gown on and genitals exposed, I covered him with a gown but he continually uncovers himself) HEENT: PERRL/EOMI; No Scleral Icterus (L), No Scleral Icterus (R); Other (dry mucus membranes) Respiratory: No Accessory Muscle Use, Rhonci, Other (on Vapotherm) Cardiovascular: No JVD, No Murmur, Tachycardia Gastrointestinal: Normal Bowel Sounds, Non Tender, Soft Genital/Rectal: Other (petty in place) Extremity: No Calf Tenderness, No Pedal Edema Neurologic/Psychiatric: Alert; No Facial Droop; Other (oriented to major details, hollers out regularly) Skin: Normal Color, Warm/Dry Results Results/Procedures Labs Laboratory Tests 04/18/20 09:58 Patient resulted labs reviewed. Imaging: Reviewed Imaging Report Imaging [facility], [place] NAME: DIAZ BOO [facility] REC#: [id number] PT STATUS: REG ER : 1965 PHYSICIAN: QIAN IRBY MD ADMIT DATE: 04/18/20/ER Draft Date of Exam:04/18/20 CHEST 1 VIEW, AP/PA ONLY INDICATION: Shortness of breath, COVID positive. COMPARISON: March 19, 2020. TECHNIQUE: Two frontal radiographs of chest dated April 18, 2020. FINDINGS: The cardiac silhouette is within normal limits in size. No significant pulmonary vascular congestion. Previously noted right-sided Port-A-Cath is no longer visualized. Interval placement of a left-sided Port-A-Cath, with the distal tip overlying the expected location of the cavoatrial junction based upon image 1/2. New patchy opacities are seen within the left mid and lower lung. Additionally, more dense and groundglass opacities are noted within the right czy-jb-kvphd lung, appearing slightly improved since the prior exam. Lucencies are noted overlying the right mid and lower lung, appearing new from the prior exam. No left-sided pneumothorax. No acute osseous abnormality. IMPRESSION: New lucencies overlying the right mid and lower lung are concerning for a pneumothorax. No evidence of tension phenomenon. Significant bilateral pulmonary infiltrates, worsened on the left while improved on the right. Findings are concerning for infectious infiltrate, COVID-19 could be considered. Interval removal of previously noted right-sided Port-A-Cath with placement of a left-sided Port-A-Cath with the distal tip overlying the expected location of the cavoatrial junction. Dictated on workstation # [id number] Dict: 04/18/20 1033 Trans: 04/18/20 1046 [id number] Interpreted by: SAI JAMA MD Electronically signed by: Assessment/Plan Admission Diagnosis Acute hypoxic respiratory failure Admission Status: Inpatient Order (span 2 midnights) Reason for Inpatient Admission: see below Assessment and Plan Acute hypoxic respiratory failure, multifactorial COVID19 Severe Sepsis from bilateral pna Continue on IV abx vapotherm currently Pulm consulted, appreciate recs Discussed with Dr Johnson who will see pt tomorrow Decadron Will start remdesivir Lovenox MAT protocol Vanc and Zosyn Very poor prognosis TBI Seizure disorder Continue home meds when able Hepatitis C Transaminitis noted, trend with remdesivir PATRICIA baseline creatinine around 0.75m up to 1.30 Continue IVF DVT ppx: Lovenox ADP: Pt maxed on vapotherm so attempted to confirmed code status with him. Had previously wanted to be DNR but when I asked him about this he stated he "had been thinking about it and I'm not ready to ." I confirmed this by asking him if he wanted a tube down his throat to breath for him and he again said "yes. I'm not ready to ." Will make him a Full Code. Diagnosis/Problems Diagnosis/Problems (1) COVID-19 (2) Metabolic alkalosis (3) Peripheral T-cell lymphoma Status: Chronic Qualifiers: Lymphoma site: unspecified region Qualified Codes: C84.40 - Peripheral T- cell lymphoma, not classified, unspecified site (4) Seizure disorder Status: Chronic (5) History of traumatic brain injury Status: Chronic (6) Severe sepsis Status: Acute (7) Chronic hepatitis Status: Chronic (8) Hypokalemia Status: Chronic (9) Pneumonia Status: Acute Qualifiers: Pneumonia type: due to unspecified organism Laterality: bilateral Lung location: lower lobe of lung Qualified Codes: J18.9 - Pneumonia, unspecified organism LOLIS MOORE MD Apr 18, 2020 15:04
--- NOTE | 2020-04-18 15:14 | NUR ---
CR 1.3; CR CL > 60 (USED ADJ WT 83.2 KG); ACTUAL WT 99.7 KG; VANCO 1750 MG IV BOLUS THEN 1500 MG IV Q12H; TROUGH AFTER 3RD DOSE Addendum: 04/18/20 at 1537 by ALFRED BACH [facility] VANCO THERAPY X 3 DAYS PER SEPSIS PROTOCOL; WILL CHECK TROUGH NEEDED
[2020-04-18] MEDS ORDERED: VANCOMYCIN 750 MG/NS 250 ML IVPB IV NR ×2 (15:30)
[2020-04-18] MEDS ORDERED: DexMEDEtomidine PRE MIX 100 ML IV ONE (15:41)
[2020-04-18] MEDS: fentaNYL INJECTION 100 MCG/2 ML AMP IVP PRN ×2 (15:44→20:18)
[2020-04-18] MEDS ORDERED: LACT1CAP76 PO (15:54)
[2020-04-18] MEDS ORDERED: ALPR0.5T7 PO (15:54)
[2020-04-18] MEDS ORDERED: CHOL100045 PO (15:54)
[2020-04-18] MEDS ORDERED: ACHD5005 PO (15:54)
[2020-04-18] MEDS ORDERED: ASCO500T17 PO (15:54)
[2020-04-18] MEDS ORDERED: DEXA6TAB PO (15:54)
[2020-04-18] MEDS ORDERED: TEMA7.5C PO (15:54)
[2020-04-18] MEDS ORDERED: ALPR1TAB7 PO (15:54)
--- NOTE | 2020-04-18 15:55 | NUR ---
MED REC WAS COMPLETED USING THE MAR FROM [facility]
[2020-04-18] MEDS: DexMEDEtomidine PRE MIX 100 ML IV SCH (16:00)
[2020-04-18] MEDS ORDERED: CATHETER FLUSH 10 ML SYR IV PRN (16:15)
[2020-04-18] MEDS ORDERED: RT-ALBUTEROL INHALER HFA (VENTOLIN HFA) 18 GM IH PRN (16:30)
--- NOTE | 2020-04-18 16:33 | CONSULTATION REPORT ---
DATE OF SERVICE: 04/18/2020 ATTENDING PRIMARY CARE PHYSICIAN: Bran Muniz DO ADMITTING PHYSICIAN: Dr. Moore. HISTORY OF PRESENT ILLNESS: The patient is a 54-year-old male with past medical history of traumatic brain injury resulting in some cognitive dysfunction and requiring a care home setting. He also does have a history of T-cell lymphoma, seizure disorder as well as hepatitis C with cirrhosis, who presented to the Emergency Department with hypoxia. He was found to be coronavirus positive on 04/09. A chest x-ray was performed, which did show significant pulmonary infiltrates as well as a possibility of a very small pneumothorax; however, this appears to be insignificant at this time. At this time, the patient came in with advance directives for a do not resuscitate; however, after admission and after talking to the admitting physician, the patient is a full code at this time. The patient is on high-flow humidified oxygen and is currently stable and we will continue to monitor his chest x-rays. In the event that he needs to be intubated and be on positive pressure, there may be increased risk for barotrauma and development and worsening of the pneumothorax requiring a chest tube. PAST MEDICAL HISTORY: Traumatic brain injury, T-cell lymphoma, seizure disorder, hepatitis C with cirrhosis, gastroesophageal reflux disease, chronic constipation, degenerative joint disease, hypercholesterolemia, bipolar disorder. PAST SURGICAL HISTORY: Thyroidectomy. ALLERGIES: No known drug allergies. MEDICATIONS: Alprazolam 1.5 mg b.i.d., diclofenac 75 mg b.i.d., divalproex 500 mg b.i.d., famotidine 20 mg b.i.d., furosemide 80 mg daily, gabapentin 300 mg t.i.d., hydrocodone p.r.n., melatonin 3 mg daily, methocarbamol 500 mg t.i.d., metolazone 5 mg 3 days a week, Zofran 8 mg p.r.n., phenazopyridine 200 mg q.8 hours p.r.n., potassium 20 mEq daily, simvastatin 20 mg daily, trazodone 100 mg each day at bedtime, vilazodone 40 mg daily, zinc 50 mg daily. SOCIAL HISTORY: Previous smoker, quit 02/2020. Negative alcohol. FAMILY HISTORY: Noncontributory. VITAL SIGNS: Temperature 38.0, blood pressure 103/75, pulse 105, respirations 18, pulse ox 98% on humidified high flow oxygen. REVIEW OF SYSTEMS: A well-nourished male currently in no acute distress. He is experiencing some shortness of breath. He does have a mild cough, which is nonproductive. No chest pain, palpitations, diaphoresis. No nausea, vomiting, history of constipation. No red blood per rectum, no dark tarry stools. He has had fevers recently. No recent inadvertent weight loss. PHYSICAL EXAMINATION: CHEST: Scattered rales and rhonchi bilaterally. HEART: Regular, no murmurs. EXTREMITIES: No lower extremity edema, negative Homans sign. HEENT: No scleral icterus. NECK: No cervical lymphadenopathy. ABDOMEN: Soft, nontender, nondistended. SKIN: Warm, dry. LABORATORY DATA: WBC 12.9, hemoglobin 12.7, hematocrit 40, platelets 421. Liver function enzymes are normal. ASSESSMENT AND PLAN: A 54-year-old male with coronavirus-19, acute respiratory distress syndrome. He will undergo medical management for the coronavirus with oxygen supplementation as well as anti-inflammatories as well as possible monoclonal antibodies as well as convalescent plasma. We will also monitor his serial chest x-rays and he does have development and worsening of the pneumothorax. He will need a chest tube placed. Job ID: [id number] DocumentID: [id number] Dictated Date: 04/18/2020 16:02:14 Business Unit Leader Date: 04/18/2020 16:32:30 Dictated By: LETY MEI MD [facility]
--- NOTE | 2020-04-18 17:00 | NUR ---
pts o2 sats in mid 80s, tele icu informed and assessing pt. new orders received for bipap. rt and this rn attempted to get pt to wear bipap, pt refused and continued to pull of bipap mask. all attempts at education w/ pt failed. pt placed back on vapotherm 40L 100%, sats in upper 80s-lower 90s. sitter placed at bedside.
[2020-04-18] MEDS: PIPERACILLIN/TAZO 4.5 GM/NS 100 ML IV SCH ×2 (17:03)
[2020-04-18 18:07] LABS: CHLORIDE 91 MMOL/L (98-107); POTASSIUM 2.8 MMOL/L (3.6-5.0); SODIUM 136 MMOL/L (135-145)
[2020-04-18 18:08] LABS: GLUCOSE 109 MG/DL (70-105)
[2020-04-18 18:10] LABS: CARBON DIOXIDE 31 MMOL/L (21-32)
[2020-04-18 18:12] LABS: CREATININE SERUM 0.87 MG/DL (0.60-1.30); GFR ESTIMATED > 60
[2020-04-18 18:13] LABS: BUN/CREATININE RATIO 29
[2020-04-18] MEDS: RT-ALBUTEROL INHALER HFA (VENTOLIN HFA) 18 GM IH SCH ×2 (18:55→21:54)
--- NOTE | 2020-04-18 19:01 | Diagnostic Imaging Report ---
EXAMINATION: Chest 1 view HISTORY: Pneumothorax. COMPARISON: Chest radiograph 04/18/2020. FINDINGS: Heart size and pulmonary vasculature are stable. Irregular lucencies along the inferior and lateral right pleural margin, not significantly changed from prior chest radiograph on 04/18/2020 suggestive of a pneumothorax. Stable patchy interstitial and airspace opacities throughout both lungs. A left-sided subclavian central line is unchanged. The osseous structures are intact. IMPRESSION: 1. Stable appearance of a likely right pneumothorax. This could be further evaluated with a CT of the chest if there is a need to confirm a pneumothorax prior to a chest tube placement. 2. Stable patchy interstitial airspace opacities throughout both lungs compatible with a multifocal pneumonia. Dictated by: Dictated on workstation # [id number]
[2020-04-18] MEDS: POTASSIUM CL 10MEQ/50ML IVPB 50 ML IV SCH ×3 (20:00→23:04)
[2020-04-18] MEDS ORDERED: ENOXAPARIN 100 MG/1 ML (LOVENOX) SYR SC SCH (22:00)
[2020-04-18] MEDS ORDERED: ENOXAPARIN 100 MG/1 ML (LOVENOX) SYR ONE (22:02)
[2020-04-19] MEDS: inSUlin ASPART (NovoLOG) 1 UNIT/0.01 ML (CHARGE PER UNIT) SQ SCH ×5 (00:17→22:36)
[2020-04-19] MEDS: POTASSIUM CL 10MEQ/50ML IVPB 50 ML IV SCH ×11 (00:24→18:09)
[2020-04-19] MEDS: DexMEDEtomidine PRE MIX 100 ML IV SCH (00:25)
[2020-04-19] MEDS: PIPERACILLIN/TAZO 4.5 GM/NS 100 ML IV SCH ×6 (00:54→17:00)
[2020-04-19] MEDS: fentaNYL INJECTION 100 MCG/2 ML AMP IVP PRN ×2 (00:54→04:43)
[2020-04-19] MEDS: VANCOMYCIN 1500 MG/NS 500 ML IVPB IV SCH ×4 (02:27→16:45)
--- NOTE | 2020-04-19 03:40 | Pulmonary Consultation ---
ALLEN AMBROSIO,MED STUDENT 04/19/20 0339: History of Present Illness History of Present Illness Date Seen by Provider: Apr 19, 2020 Time Seen by Provider: 03:10 Date of Admission 04/18/20 History of Present Illness Patient is a 54yo male long-term patient with PMH of TBI, seizures and T-cell lymphoma who presented to [facility] ED via EMS c/o SOB with hypoxia, cough and fever on 04/18. He tested positive for COVID on 04/09 but did not require hospitalization at that time. On CXR in ED he was found to have bilateral PNA, left worse than right, with elevated lactate and WBC. A possible small pneumothorax was also identified. Surgery was consulted, who did not recommend surgical intervention at that time, and was started on Vanc and Zosyn. SpO2 currently maintained at 98% on vapotherm at 90% FiO2 at 40L/min. Allergies and Home Medications Allergies Coded Allergies: No Known Drug Allergies (Unverified , 09/22/19) Home Medications Acetaminophen 325 Mg Capsule, 650 MG PO Q6H PRN for PAIN-MILD (1-4), (Reported) Alprazolam 0.5 Mg Tablet, 0.5 MG PO 1200, (Reported) Alprazolam 1 Mg Tablet, 1 MG PO BID, (Reported) Ascorbic Acid 500 Mg Tablet, 500 MG PO DAILY, (Reported) Cholecalciferol (Vitamin D3) 25 Mcg Tablet, 25 MCG PO DAILY, (Reported) Dexamethasone 6 Mg Tablet, 6 MG PO DAILY, (Reported) START DATE 04-10-2020 #10/10 DAY SUPPLY Diclofenac Sodium 75 Mg Tablet.dr, 75 MG PO BID, (Reported) Divalproex Sodium 500 Mg Tablet.dr, 500 MG PO 0800,1700, (Reported) Docusate Sodium 100 Mg Capsule, 100 MG PO BID, (Reported) Ergocalciferol (Vitamin D2) 1,250 Mcg Capsule, 1,250 MCG PO MON, (Reported) Famotidine 20 Mg Tablet, 20 MG PO BID, (Reported) Fluticasone Propionate 9.9 Ml Porum.susp, 2 SPRAY NSEACH DAILY, (Reported) Furosemide 40 Mg Tablet, 40 MG PO 1200,1700, (Reported) Furosemide 80 Mg Tablet, 80 MG PO DAILY, (Reported) Gabapentin 300 Mg Capsule, 300 MG PO TID, (Reported) Hydrocodone/Acetaminophen 1 Each Tablet, 1 EACH PO Q12H PRN for PAIN-MODERATE (5-7), (Reported) Lactobacillus Acidophilus/Pect 1 Each Capsule, 2 EACH PO TIDPC, (Reported) Lactulose 10 Gm/15 Ml Solution, 15 ML PO Q12H PRN for CONSTIPATION-3RD LINE, (Reported) Magnesium Hydroxide 400 Mg/5 Ml Oral.susp, 30 MG PO DAILY PRN for CONSTIPATION- 2ND LINE, (Reported) Methocarbamol 500 Mg Tablet, 500 MG PO TID, (Reported) Metolazone 5 Mg Tablet, 5 MG PO MoWeFr, (Reported) Ondansetron HCl 8 Mg Tablet, 8 MG PO Q8H PRN for NAUSEA/VOMITING-1ST LINE, (Reported) Phenazopyridine HCl 200 Mg Tablet, 1 TAB PO Q8H PRN for BLADDER PAIN/DYSURIA, (Reported) Potassium Chloride 20 Meq Tab.er.prt, 80 MEQ PO DAILY, (Reported) TAKES 4 (20MEQ) TABS Simvastatin 10 Mg Tablet, 10 MG PO HS, (Reported) Sorbitol Solution 1 Ml Solution, 15 ML PO DAILY, (Reported) Sorbitol Solution 1 Ml Solution, 15 ML PO HS PRN for CONSTIPATION, (Reported) Temazepam 7.5 Mg Capsule, 7.5 MG PO HS, (Reported) Trazodone HCl 100 Mg Tablet, 100 MG PO HS, (Reported) Vilazodone Hydrochloride 40 Mg Tablet, 40 MG PO DAILY, (Reported) Zinc 50 Mg Tablet, 50 MG PO DAILY, (Reported) Past Dsxkwev-Jsoyja-Nevsup Hx Past Med/Social Hx: Reviewed Nursing Past Med/Soc Hx Patient Social History Alcohol Use: Denies Use Recreational Drug Use: No Smoking Status: Former Smoker Type Used: Cigarettes Former Smoker, Quit: Feb 15, 2020 2nd Hand Smoke Exposure: No Recent Foreign Travel: No Contact w/Someone Who Travel: No Recent Infectious Disease Expo: Yes Recent Hopitalizations: No Physical Abuse: No Sexual Abuse: No Mistreated: No Fear: No Immunizations Up To Date Date of Influenza Vaccine: Feb 15, 2020 Seasonal Allergies Seasonal Allergies: No Past Medical History Surgeries: Yes (port) Thyroidectomy Respiratory: No Currently Using CPAP: No Currently Using BIPAP: No Cardiac: Yes High Cholesterol Neurological: Yes Seizure Disorder, Traumatic Brain Injury Genitourinary: Yes Prostate Problems Gastrointestinal: Yes Gastroesophageal Reflux, Chronic Constipation, Hepatitis Musculoskeletal: Yes Arthritis, Chronic Back Pain Endocrine: No HEENT: No Cancer: Yes Skin, Lymphoma Did You Recieve Any Treatments: Yes Psychosocial: Yes Sleep Difficulties, Bipolar, Depression Integumentary: Yes (skin cancer- lymphoma) Blood Disorders: Yes (hep c) Family Medical History Reviewed Nursing Family Hx Patient reports no known family medical history. Cancer Sepsis Event Evaluation Height, Weight, BMI Height: '" Weight: lbs. oz. kg; 31.00 BMI Method: Exam Exam Vital Signs Date Time Temp Pulse Resp B/P (MAP) Pulse Ox O2 Delivery O2 Flow Rate FiO2 04/19/20 01:00 45 04/19/20 00:26 40.00 90.00 04/19/20 00:25 50 04/19/20 00:00 45 23 115/71 98 Vapotherm 40.00 100.00 04/18/20 23:05 36.2 04/18/20 23:00 46 26 109/70 99 Vapotherm 40.00 100.00 04/18/20 22:00 47 24 105/66 97 Vapotherm 40.00 100.00 04/18/20 21:54 Vapotherm 40.00 100 04/18/20 21:00 50 24 104/64 95 Vapotherm 40.00 100.00 04/18/20 20:34 93 Vapotherm 40.00 100 04/18/20 20:00 56 20 101/72 97 Vapotherm 40.00 100.00 04/18/20 19:31 36.8 04/18/20 19:00 65 04/18/20 19:00 20 104/67 95 Vapotherm 40.00 100.00 04/18/20 18:55 Vapotherm 40.00 100 04/18/20 18:00 23 95/61 94 Vapotherm 40.00 100.00 04/18/20 17:00 93 41 101/80 84 Vapotherm 40.00 100.00 04/18/20 16:19 Vapotherm 40.00 100 04/18/20 16:00 105 18 103/75 98 40.00 04/18/20 15:45 98 12 112/83 91 Vapotherm 40.00 100.00 04/18/20 15:06 105 04/18/20 15:03 37.8 04/18/20 15:00 105 18 103/75 98 12/3/20 14:55 96 Vapotherm 40.00 100 04/18/20 09:52 38.0 126 26 129/93 (105) 98 Non Rebreather 15.00 I & O 04/19/20 07:00 Intake Total 3627.5 ml Output Total 2500 ml Balance 1127.5 ml Height & Weight Height: '" Weight: lbs. oz. kg; 31.00 BMI Method: General Appearance: Chronically ill, Mild Distress, Other (laying in bed with gown on and genitals exposed, I covered him with a gown but he continually uncovers himself) HEENT: PERRL/EOMI; No Scleral Icterus (L), No Scleral Icterus (R); Other (dry mucus membranes) Neck: Supple Respiratory: No Accessory Muscle Use, Rhonci, Other (on Vapotherm) Cardiovascular: No JVD, No Murmur, Tachycardia Capillary Refill: Less Than 3 Seconds Extremity: No Calf Tenderness, No Pedal Edema Neurologic/Psychiatric: Alert; No Facial Droop; Other (oriented to major details, hollers out regularly) Skin: Normal Color, Warm/Dry Results Lab Laboratory Tests 04/18/20 09:58 04/18/20 17:45 SANJAY JOHNSON DO 04/19/20 0524: History of Present Illness History of Present Illness Time Seen by Provider: 05:21 Allergies and Home Medications Allergies Coded Allergies: No Known Drug Allergies (Unverified , 09/22/19) Home Medications Acetaminophen 325 Mg Capsule, 650 MG PO Q6H PRN for PAIN-MILD (1-4), (Reported) Alprazolam 0.5 Mg Tablet, 0.5 MG PO 1200, (Reported) Alprazolam 1 Mg Tablet, 1 MG PO BID, (Reported) Ascorbic Acid 500 Mg Tablet, 500 MG PO DAILY, (Reported) Cholecalciferol (Vitamin D3) 25 Mcg Tablet, 25 MCG PO DAILY, (Reported) Dexamethasone 6 Mg Tablet, 6 MG PO DAILY, (Reported) START DATE 04-10-2020 #02/23 DAY SUPPLY Diclofenac Sodium 75 Mg Tablet.dr, 75 MG PO BID, (Reported) Divalproex Sodium 500 Mg Tablet.dr, 500 MG PO 0800,1700, (Reported) Docusate Sodium 100 Mg Capsule, 100 MG PO BID, (Reported) Ergocalciferol (Vitamin D2) 1,250 Mcg Capsule, 1,250 MCG PO MON, (Reported) Famotidine 20 Mg Tablet, 20 MG PO BID, (Reported) Fluticasone Propionate 9.9 Ml Porum.susp, 2 SPRAY NSEACH DAILY, (Reported) Furosemide 40 Mg Tablet, 40 MG PO 1200,1700, (Reported) Furosemide 80 Mg Tablet, 80 MG PO DAILY, (Reported) Gabapentin 300 Mg Capsule, 300 MG PO TID, (Reported) Hydrocodone/Acetaminophen 1 Each Tablet, 1 EACH PO Q12H PRN for PAIN-MODERATE (5-7), (Reported) Lactobacillus Acidophilus/Pect 1 Each Capsule, 2 EACH PO TIDPC, (Reported) Lactulose 10 Gm/15 Ml Solution, 15 ML PO Q12H PRN for CONSTIPATION-3RD LINE, (Reported) Magnesium Hydroxide 400 Mg/5 Ml Oral.susp, 30 MG PO DAILY PRN for CONSTIPATION- 2ND LINE, (Reported) Methocarbamol 500 Mg Tablet, 500 MG PO TID, (Reported) Metolazone 5 Mg Tablet, 5 MG PO MoWeFr, (Reported) Ondansetron HCl 8 Mg Tablet, 8 MG PO Q8H PRN for NAUSEA/VOMITING-1ST LINE, (Reported) Phenazopyridine HCl 200 Mg Tablet, 1 TAB PO Q8H PRN for BLADDER PAIN/DYSURIA, (Reported) Potassium Chloride 20 Meq Tab.er.prt, 80 MEQ PO DAILY, (Reported) TAKES 4 (20MEQ) TABS Simvastatin 10 Mg Tablet, 10 MG PO HS, (Reported) Sorbitol Solution 1 Ml Solution, 15 ML PO DAILY, (Reported) Sorbitol Solution 1 Ml Solution, 15 ML PO HS PRN for CONSTIPATION, (Reported) Temazepam 7.5 Mg Capsule, 7.5 MG PO HS, (Reported) Trazodone HCl 100 Mg Tablet, 100 MG PO HS, (Reported) Vilazodone Hydrochloride 40 Mg Tablet, 40 MG PO DAILY, (Reported) Zinc 50 Mg Tablet, 50 MG PO DAILY, (Reported) Past Sdwiqzt-Jfownr-Eglcym Hx Family Medical History Patient reports no known family medical history. Review of Systems Time Seen by Provider: 05:21 Assessment/Plan Assessment/Plan Acute respiratory failure with ARDS -Currently on Vapotherm at 100% COVID 19 PNA -Dx 11/24 -Remdesivir -Decadron -CVP Small right PTX -Check CT of chest with contrast PNA -Vanco, and Zosyn -[place] cultures pending -MRSA pending TBI Hepatitis C Transaminitis noted, trend with remdesivir PATRICIA baseline creatinine around 0.75m up to 1.30 Continue IVF DVT ppx: Lovenox Supervisory-Addendum Brief Verification & Attestation Participated in pt care: history, MDM, physical Personally performed: exam, history, MDM Care discussed with: Medical Student Procedures: n/a Verification and Attestation of Medical Student E/M Service A medical student performed and documented this service in my presence. I reviewed and verified all information documented by the medical student and made modifications to such information, when appropriate. I personally performed the physical exam and medical decision making. Sanjay Johnson, Apr 19, 2020,07:39 ALLNE AMBROSIO,MED STUDENT Apr 19, 2020 03:39 SANJAY JOHNSON DO Apr 19, 2020 05:24
[2020-04-19] MEDS: RT-ALBUTEROL INHALER HFA (VENTOLIN HFA) 18 GM IH SCH ×6 (03:41→23:12)
[2020-04-19 04:57] LABS: BASOPHILS % (AUTO) 0 % (0-10); EOSINOPHILS % (AUTO) 0 % (0-10); HEMATOCRIT 33 % (40-54); HEMOGLOBIN 10.2 g/dL (13.3-17.7); LYMPHOCYTES # (AUTO) 1.1 10^3/uL (1.0-4.0); LYMPHOCYTES % (AUTO) 13 % (12-44); MEAN CORPUSCULAR HEMOGLOBIN 28 pg (25-34); MEAN CORPUSCULAR HGB CONC 31 g/dL (32-36); MEAN CORPUSCULAR VOLUME 90 fL (80-99); MEAN PLATELET VOLUME 9.7 fL (9.0-12.2); MONOCYTES # (AUTO) 0.5 10^3/uL (0.0-1.0); MONOCYTES % (AUTO) 6 % (0-12); NEUTROPHILS # (AUTO) 6.5 10^3/uL (1.8-7.8); NEUTROPHILS % (AUTO) 78 % (42-75); PLATELET COUNT 257 10^3/uL (130-400); WHITE BLOOD COUNT 8.3 10^3/uL (4.3-11.0)
[2020-04-19 05:07] LABS: CHLORIDE 95 MMOL/L (98-107); POTASSIUM 2.8 MMOL/L (3.6-5.0); SODIUM 137 MMOL/L (135-145)
[2020-04-19 05:08] LABS: CALCIUM 7.9 MG/DL (8.5-10.1)
[2020-04-19 05:09] LABS: GLUCOSE 108 MG/DL (70-105)
[2020-04-19 05:11] LABS: CARBON DIOXIDE 31 MMOL/L (21-32)
[2020-04-19 05:13] LABS: CREATININE SERUM 0.75 MG/DL (0.60-1.30); GFR ESTIMATED > 60; PHOSPHORUS 3.2 MG/DL (2.3-4.7)
[2020-04-19 05:14] LABS: BUN/CREATININE RATIO 32
[2020-04-19 05:15] LABS: MAGNESIUM 1.5 MG/DL (1.6-2.4)
[2020-04-19] MEDS: MAGNESIUM 1 GM/100 ML IVPB 100 ML IV SCH ×4 (05:45→08:05)
[2020-04-19] MEDS: KCL 20 MEQ TAB (K-DUR) PO SCH (05:45)
[2020-04-19] MEDS: HALOPERIDOL 5 MG/ML (HALDOL) VIAL IM PRN (05:57)
[2020-04-19] MEDS ORDERED: PROPOFOL DRIP (ICU) 100 ML IV ONE (07:10)
[2020-04-19] MEDS ORDERED: LACTATED RINGERS 1,000 ML IV ONE (07:10)
[2020-04-19] MEDS ORDERED: MIDAZOLAM 5 MG/5 ML (VERSED) VIAL IVP ONE (07:23)
[2020-04-19] MEDS ORDERED: ROCURONIUM 10 MG/ML 5 ML SYRINGE IV ONE (07:27)
[2020-04-19] MEDS ORDERED: fentaNYL INJECTION 100 MCG/2 ML AMP IVP ONE (07:28)
[2020-04-19] MEDS: PROPOFOL DRIP (ICU) 100 ML IV SCH ×5 (07:31→22:02)
[2020-04-19 07:38] VITALS: BP 134/86
--- NOTE | 2020-04-19 07:38 | Pulmonary Procedures ---
Pulmonary Procedures Date of Procedure Date of Service: Apr 19, 2020 Reason for Intubation: Acute respiratory failure Time of Intubation: 07:37 Intubation Method: orotracheal Tube Size: 8 Medications: Fentanyl, Propofol, Rocuronium, Versed Positive End Tide CO2: Yes Breath Sounds after Intubation: bilateral-equal Intubation Complications: no complications Post Intubation Xray: Yes COLEMAN MARTINEZ DO Apr 19, 2020 07:38
--- NOTE | 2020-04-19 07:43 | Pulmonary Progress Note ---
Standard Progress Note Progress Notes Date Seen by Provider: Apr 19, 2020 Time Seen by Provider: 07:40 Called to patient room secondary to acute worsening respiratory failure Sp02 is around 85% with Vapotherm. Pt is very agitated attempting to climb out of bed. Pt is a full code. -Will proceed with intubation Assessment & Plan Acute respiratory failure with ARDS -Currently on Vapotherm at 100% COVID 19 PNA -Dx 04/09 -Remdesivir -Decadron -CVP Small stable right PTX - prior to intubation -Check CT of chest with contrast -Reviewed with Dr. Francis (radiology) who agrees pt needs a chest tube especially since he is now on ventilator. PT is known to Dr. Child. I discussed with Dr. Child and he will place chest tube. -After chest tube is placed will increase peep. Currently peep is at 5 and pt is requiring 70% oxygen. PNA -Vanco, and Zosyn -Sheridan cultures pending -MRSA pending TBI Hepatitis C Transaminitis noted, trend with remdesivir PATRICIA baseline creatinine around 0.75m up to 1.30 Continue IVF DVT ppx: Lovenox Critical Care: Critically Ill Patient Time spent with patient (mins): 60 Focused Exam Lactate Level 04/18/20 09:58: Lactic Acid Level 3.62*H 04/18/20 12:35: Lactic Acid Level 1.85 Respiratory: Accessory Muscle Use, Decreased Breath Sounds, Respiratory Distress Cardiovascular: Regular Rate, Rhythm Capillary Refill: Less Than 3 Seconds COLEMAN MARTINEZ DO Apr 19, 2020 07:43
--- NOTE | 2020-04-19 07:45 | NUR ---
TIMELINE NOTE: 07- DR MARTINEZ GAVE VERBAL ORDERS TO INTUBATE PT. RT CALLED TO BEDSIDE. 07-RT BEGAN BAGGING PT. 4MG VERSED GIVEN PER DR MARTINEZ. 07-5 ML PROPOFOL GIVEN PER DR MARTINEZ. 0728- 50 MCG FENTANYL GIVEN PER DR MARTINEZ. 0729-8.0 ETT PLACED. 24 AT THE LIP. POSITIVE COLOR CHANGE AND BILATERAL BREATH SOUNDS NOTED. 0730- RESTRAINTS APPLIED. 0731- PROPOFOL GTT STARTED AT 40MCG/KG/MIN PER DR MARTINEZ. VENT SETTINGS PER DR MARTINEZ: PEEP 5, TV 400,RATE 26, FIO2 60%.
--- NOTE | 2020-04-19 07:53 | Diagnostic Imaging Report ---
EXAMINATION: Chest radiograph, portable AP view. DATE: 04/19/2020 2:22 AM INDICATION: 54-year-old male, dyspnea. COVID positive. Pneumonia. COMPARISON: Number August 04, 2019. FINDINGS: Stable overall appearance of the cardia mediastinal silhouette. There is multifocal bilateral lung consolidation which is unchanged. There is a left-sided port catheter with tip not particularly well seen. There are rounded areas of lucency overlying the lateral aspect of the right lung which are similar to the comparison study. There is a deformity of the right proximal humerus. IMPRESSION: 1. Redemonstrated multifocal bilateral lung consolidation with rounded areas of cystic lucency overlying the lateral aspect of the right lung. The areas of abnormal lucency are an interval change since chest radiograph of February 29, 2020. Differential considerations would include abscess formation, necrotizing pneumonia, or potentially areas of loculated pleural gas. CT chest with intravenous contrast is recommended for further evaluation. Report was faxed to [facility] by hilda at 7:52AM. Dictated by: Dictated on workstation # [id number]
[2020-04-19] MEDS ORDERED: DOPamine DRIP 250 ML IV ONE (07:56)
[2020-04-19] MEDS ORDERED: ATROPINE INJECTION 1 MG/10 ML SYR (ABBOTT) ONE ×2 (07:56→13:21)
[2020-04-19] MEDS ORDERED: ATROPINE INJECTION 1 MG/1 ML SDV IJ ONE (08:00)
--- NOTE | 2020-04-19 08:12 | Diagnostic Imaging Report ---
Indication: Post intubation Frontal chest obtained at 0751 a.m. is compared to same day at 0157 a.m. New ET tube tip overlies mid to lower trachea. NG tube tip is below the film. Left-sided Port-A-Cath is unchanged. Extensive infiltrate throughout the right lung appears similar to the prior study with some areas of bullous disease. There is milder interstitial infiltrate in the left lung which is also stable. There is no pneumothorax or pleural fluid IMPRESSION: New ET tube and NG tube as above. Extensive bilateral infiltrates right greater than left are stable. No new abnormality otherwise. Dictated by: Dictated on workstation # [id number]
[2020-04-19] MEDS ORDERED: fentaNYL DRIP PRE-MIX 250 ML IV ONE (08:47)
[2020-04-19 08:48] LABS: ABG BASE EXCESS 9.3 MMOL/L (-2.5-2.5); ABG OXYGEN SATURATION 76 % (94-100); ABG PCO2 51 MMHG (35-45); ABG PH 7.44 (7.37-7.43); ABG PO2 42 MMHG (79-93); ABG TCO2 35.7 MMOL/L (21.0-31.0)
[2020-04-19 08:49] LABS: ALLENS TEST YES-POS; INSPIRED O2 60%; VENTILATOR YES
[2020-04-19] MEDS: fentaNYL DRIP PRE-MIX 250 ML IV SCH ×2 (08:52→17:16)
[2020-04-19 08:58] LABS: ALANINE AMINOTRANSFERASE 49 U/L (0-55); ALBUMIN 2.1 GM/DL (3.2-4.5); ALKALINE PHOSPHATASE 60 U/L (40-136); BILIRUBIN,TOTAL 0.3 MG/DL (0.1-1.0); BUN/CREATININE RATIO 33; CALCIUM 8.1 MG/DL (8.5-10.1); CARBON DIOXIDE 32 MMOL/L (21-32); CHLORIDE 96 MMOL/L (98-107); CREATININE SERUM 0.73 MG/DL (0.60-1.30); GFR ESTIMATED > 60; GLUCOSE 136 MG/DL (70-105); SODIUM 139 MMOL/L (135-145); TOTAL PROTEIN 6.2 GM/DL (6.4-8.2); TRIGLYCERIDES 227 MG/DL (<150)
[2020-04-19] MEDS ORDERED: REMDESIVIR INJ 200 MG in NS (IVPB) 210 ML IV NR (09:00)
[2020-04-19 09:02] LABS: POTASSIUM 2.5 MMOL/L (3.6-5.0)
[2020-04-19] MEDS: DOPamine DRIP 250 ML IV SCH (09:05)
[2020-04-19] MEDS ORDERED: CISATRACURIUM 2MG/ML (NIMBEX) 10ML VIAL IV PRN (09:15)
[2020-04-19] MEDS ORDERED: IOHEXOL 350 MG/ML 100 ML (OMNIPAQUE 350) VIAL IV ONE (09:30)
[2020-04-19] MEDS ORDERED: ROCURONIUM 10 MG/ML 5 ML SYRINGE IV NR (09:30)
[2020-04-19] MEDS ORDERED: HOLD METFORMIN - RECEIVED CONTRAST 20 ML VIAL IV SCH (09:30)
[2020-04-19] MEDS ORDERED: NS 100 ML (IVPB) BAG IV ONE (09:30)
[2020-04-19] MEDS ORDERED: CATHETER FLUSH 10 ML SYR IV PRN (09:30)
[2020-04-19] MEDS: ENOXAPARIN 100 MG/1 ML (LOVENOX) SYR SC SCH ×2 (11:01→23:34)
[2020-04-19 11:46] VITALS: BP 106/71
--- NOTE | 2020-04-19 11:51 | Diagnostic Imaging Report ---
PROCEDURE: CT chest with contrast only. TECHNIQUE: Multiple contiguous axial images were obtained through the chest after administration of intravenous contrast. Auto Exposure Controls were utilized during the CT exam to meet ALARA standards for radiation dose reduction. INDICATION: Covid positive pneumothorax. FINDINGS: The previous CTA chest exam of 02/29/2020 failed to show any sign of an pulmonary embolus. However, there were significant airspace infiltrates involving the right upper lobe and the right lung base. There is also marked consolidation of the right lower lobe. In the interval since the prior exam, a small pneumothorax has developed on the right. The distance from the bony thorax to the lung edge is approximately 1.1 cm. There is still consolidation of much of the right lung base by pneumonia/atelectasis and there are diffuse alveolar/interstitial infiltrates still present in the right upper lobe. Furthermore diffuse groundglass infiltrates have developed throughout the left upper lobe and to a lesser extent the left lung base. Also, in the interval since the prior exam, a pleural effusion has developed on the right. This measures approximately 4.4 cm in maximum depth. This effusion has more the appearance of a simple effusion or slightly complicated effusion than an empyema. The heart is stable in size. Coronary artery calcifications are again noted. The aorta is not abnormally dilated. There is no defect within the pulmonary arteries to indicate a pulmonary embolus. However, the branches of the pulmonary artery to the lower lobes are difficult to assess due to the surrounding atelectasis/infiltrate. There is no significant mediastinal or hilar adenopathy. The thyroid gland seems similar to the prior study. The patient has been intubated and the ET tube appears to be in good position in the mid trachea roughly 2 cm from the stacey. The ET tube could be retracted 1 cm. There is also an NG line in place with the tip in the body of the stomach. The sections through the upper abdomen failed to show any sign of an acute abnormality. The liver is of lower density than usually seen and this does suggest fatty metamorphosis. The bone windows are unremarkable for a fracture or for destructive lesion. Incidental note is made of bilateral gynecomastia. IMPRESSION: 1. The appearance of the chest has worsened since the prior exam as a small pneumothorax has developed on the right as well as a moderate to large right pleural effusion. There is also greater involvement of the left lung by pneumonia/atelectasis. 2. There is no definite evidence for pulmonary embolus. 3. The ET tube tip appears to be in good position, but could be retracted approximately 1 cm. 4. These results were discussed with Dr. Sanjay Johnson. Dictated by: Dictated on workstation # [id number]
[2020-04-19] MEDS: PANTOPRAZOLE 40 MG (PROTONIX) VIAL IV SCH (11:52)
[2020-04-19] MEDS: CISATRACURIUM INJECTION 100 MG in NS (IVPB) 200 ML IV SCH ×2 (11:55→23:35)
[2020-04-19] MEDS: ARTIFICIAL TEARS OINT (LACRI-LUBE) 3.5 GM TUBE OU SCH ×4 (12:39→23:34)
[2020-04-19] MEDS ORDERED: fentaNYL INJECTION 100 MCG/2 ML AMP IV ONE (13:25)
[2020-04-19] MEDS ORDERED: ROCURONIUM 50 MG/5 ML (ZEMURON) VIAL IV ONE (13:25)
[2020-04-19] MEDS ORDERED: MIDAZOLAM 2 MG/2 ML (VERSED) VIAL INJ ONE (13:25)
--- NOTE | 2020-04-19 13:26 | NUR ---
Note pt is currently intubated/sedated. DC'ed current diet order of Clear Liquid diet. If plan of care is to keep pt intubated for more than 3days, would recommend Pulmocare 1.5 kcal at 15ml/hr with 25ml water flushes q4h for hydration and to prevent tube from clogging. Will continue to follow and reassess as pt needs, intake, and status change. Harjinder Artis, RD LD [phone] cell
--- NOTE | 2020-04-19 13:43 | NUR ---
peep increased to [address] zambrano
[2020-04-19] MEDS: NS IV 1000 ML 1,000 ML IV SCH ×2 (13:48→16:45)
--- NOTE | 2020-04-19 13:49 | Progress Note - Surgery ---
Subjective Time Seen by a Provider: 12:44 Subjective/Events-last exam Pt seen and examined, he is intubated and sedated. Review of Systems Unable to obtain, pt intubated and sedated. Focused Exam Lactate Level 04/18/20 09:58: Lactic Acid Level 3.62*H 04/18/20 12:35: Lactic Acid Level 1.85 Objective Exam Vital Signs Date Time Temp Pulse Resp B/P (MAP) Pulse Ox O2 Delivery O2 Flow Rate FiO2 04/19/20 13:44 Mechanical Ventilator 80.00 04/19/20 13:00 46 04/19/20 12:36 Mechanical Ventilator 100.00 04/19/20 12:00 37.5 44 26 94/59 96 Mechanical Ventilator 70.00 04/19/20 11:46 48 26 94 100 04/19/20 11:01 43 98/57 04/19/20 11:00 37.2 48 26 106/60 94 Mechanical Ventilator 70.00 04/19/20 10:00 36.8 73 25 98/57 90 Mechanical Ventilator 70.00 04/19/20 09:46 Mechanical Ventilator 70.00 04/19/20 09:15 Mechanical Ventilator 100.00 04/19/20 09:05 43 57/48 04/19/20 09:01 Mechanical Ventilator 70.00 04/19/20 09:00 36.1 45 21 141/80 92 Mechanical Ventilator 60.00 04/19/20 08:36 36.0 Mechanical Ventilator 60.00 04/19/20 08:00 45 25 91/62 92 Mechanical Ventilator 100.00 04/19/20 07:53 35.1 04/19/20 07:38 47 26 91 60 04/19/20 07:31 89/59 04/19/20 07:00 52 15 89/59 91 Vapotherm 40.00 90.00 04/19/20 07:00 51 04/19/20 06:00 42 23 95/67 97 Vapotherm 40.00 90.00 04/19/20 05:00 43 21 117/77 95 Vapotherm 40.00 90.00 04/19/20 04:00 41 23 131/80 98 Vapotherm 40.00 90.00 04/19/20 03:00 47 23 121/69 96 Vapotherm 40.00 90.00 12/4/20 02:00 50 24 124/76 94 Vapotherm 40.00 90.00 04/19/20 01:00 45 23 114/66 89 Vapotherm 40.00 90.00 04/19/20 01:00 45 04/19/20 00:26 40.00 90.00 04/19/20 00:25 50 04/19/20 00:00 45 23 115/71 98 Vapotherm 40.00 100.00 04/18/20 23:05 36.2 04/18/20 23:00 46 26 109/70 99 Vapotherm 40.00 100.00 04/18/20 22:00 47 24 105/66 97 Vapotherm 40.00 100.00 04/18/20 21:54 Vapotherm 40.00 100 04/18/20 21:00 50 24 104/64 95 Vapotherm 40.00 100.00 04/18/20 20:34 93 Vapotherm 40.00 100 04/18/20 20:00 56 20 101/72 97 Vapotherm 40.00 100.00 04/18/20 19:31 36.8 04/18/20 19:00 65 04/18/20 19:00 20 104/67 95 Vapotherm 40.00 100.00 04/18/20 18:55 Vapotherm 40.00 100 04/18/20 18:00 23 95/61 94 Vapotherm 40.00 100.00 04/18/20 17:00 93 41 101/80 84 Vapotherm 40.00 100.00 04/18/20 16:19 Vapotherm 40.00 100 04/18/20 16:00 105 18 103/75 98 40.00 04/18/20 15:45 98 12 112/83 91 Vapotherm 40.00 100.00 04/18/20 15:06 105 04/18/20 15:03 37.8 04/18/20 15:00 105 18 103/75 98 04/18/20 14:55 96 Vapotherm 40.00 100 I & O 04/19/20 07:00 Intake Total 3627.5 ml Output Total 3200 ml Balance 427.5 ml Capillary Refill : Less Than 3 Seconds General Appearance: No Apparent Distress, WD/WN HEENT: PERRL/EOMI, Other (ET tube in place, Dry oral mucosa) Respiratory: Accessory Muscle Use, Crackles, Decreased Breath Sounds (Right greater than left), Wheezing Cardiovascular: No Murmur, Bradycardia Gastrointestinal: soft, no organomegaly Extremity: No Pedal Edema Neurologic/Psychiatric: Other (Anxious, repeatedly yelling) Skin: Normal Color, Warm/Dry Results Lab Laboratory Tests 04/18/20 17:03: Glucometer 109 04/18/20 17:45: D-Dimer 5.01H, Sodium Level 136, Potassium Level 2.8L, Chloride Level 91L, Carbon Dioxide Level 31, Anion Gap 14, Blood Urea Nitrogen 25H, Creatinine 0.87, Estimat Glomerular Filtration Rate > 60, BUN/Creatinine Ratio 29, Glucose Level 109H, Calcium Level 8.0L 04/18/20 23:07: Glucometer 108 04/19/20 04:42: Sodium Level 137, Potassium Level 2.8L, Chloride Level 95L, Carbon Dioxide Level 31, Anion Gap 11, Blood Urea Nitrogen 24H, Creatinine 0.75, Estimat Glomerular Filtration Rate > 60, BUN/Creatinine Ratio 32, Glucose Level 108H, Calcium Level 7.9L, White Blood Count 8.3, Red Blood Count 3.63L, Hemoglobin 10.2L, Hematocrit 33L, Mean Corpuscular Volume 90, Mean Corpuscular Hemoglobin 28, Mean Corpuscular Hemoglobin Concent 31L, Red Cell Distribution Width 15.6H, Platelet Count 257, Mean Platelet Volume 9.7, Immature Granulocyte % (Auto) 2, Neutrophils (%) (Auto) 78H, Lymphocytes (%) (Auto) 13, Monocytes (%) (Auto) 6, Eosinophils (%) (Auto) 0, Basophils (%) (Auto) 0, Neutrophils # (Auto) 6.5, Lymphocytes # (Auto) 1.1, Monocytes # (Auto) 0.5, Eosinophils # (Auto) 0.0, Basophils # (Auto) 0.0, Immature Granulocyte # (Auto) 0.2H, Phosphorus Level 3.2, Magnesium Level 1.5L 04/19/20 06:35: B-Type Natriuretic Peptide 57.0 04/19/20 08:19: Sodium Level 139, Potassium Level 2.5*L, Chloride Level 96L, Carbon Dioxide Level 32, Anion Gap 11, Blood Urea Nitrogen 24H, Creatinine 0.73, Estimat Glom erular Filtration Rate > 60, BUN/Creatinine Ratio 33, Glucose Level 136H, Calcium Level 8.1L, Corrected Calcium 9.6, Total Bilirubin 0.3, Aspartate Amino Transf (AST/SGOT) 46H, Alanine Aminotransferase (ALT/SGPT) 49, Alkaline Phosphatase 60, Total Protein 6.2L, Albumin 2.1L, Triglycerides Level 227H 04/19/20 08:40: Blood Gas Puncture Site LT RAD, Blood Gas Patient Temperature 36.0, Arterial Blood pH 7.44H, Arterial Blood Partial Pressure CO2 51H, Arterial Blood Partial Pressure O2 42L, Arterial Blood HCO3 34H, Arterial Blood Total CO2 35.7H, Arterial Blood Oxygen Saturation 76L, Arterial Blood Base Excess 9.3H, Mt Test YES-POS, Blood Gas Ventilator Setting YES, Blood Gas Inspired Oxygen 60% 04/19/20 12:52: Glucometer 139H Microbiology 04/18/20 MRSA Screen - Final, Complete MRSA not isolated Assessment/Plan Assessment/Plan Assessment/Plan Covid-19 Respiratory Failure Pneumothorax After discussion with Client Director it was felt that because pt is now intubated and going to require PEEP; most likely the Pneumothorax will get worse. Therefore, the best treatment for pt would be to place a chest tube. The chest tube will also help drain the fluid in the lung. Clinical Quality Measures DVT/VTE Risk/Contraindication: Risk Factor Score Per Nursin RFS Level Per Nursing on Admit: 4+=Very High GONSALO RANDLE DO Apr 19, 2020 13:49
--- NOTE | 2020-04-19 13:50 | Progress Note-Post Operative ---
Post-Operative Progess Note Surgeon (s)/Emergency Detail Driver (s) Surgeon GONSALO RANDLE DO Emergency Detail Driver: none Pre-Operative Diagnosis Covid-19 Resp failure, pneumothorax Post-Operative Diagnosis same plus pleural effusion Procedure & Operative Findings Date of Procedure 04/19/20 Procedure Performed/Findings Chest tube placement Anesthesia Type Sedation for vent, propofol Estimated Blood Loss Estimated blood loss (mL): scant Specimens/Packing Specimens Removed none GONSALO RANDLE DO Apr 19, 2020 13:50
--- NOTE | 2020-04-19 13:56 | NUR ---
CM/SS following with patient for discharge planning. The patient is a resident of [facility]. CM/SS contacted the facility and spoke with Maggie to give them an update. She verbalized understanding. CM/SS will continue to follow.
--- NOTE | 2020-04-19 13:59 | Diagnostic Imaging Report ---
INDICATION: Chest tube placement, right pneumothorax. Frontal chest obtained at 01:34 p.m. and compared to 12:59 p.m. the same day. FINDINGS: ET tube and NG tube are unchanged. Extensive bilateral infiltrates are present, similar to the previous study. There is a Port-A-Cath in place. There is a small right lateral pneumothorax which has not changed despite the addition of a right-sided chest tube. There is some loculated pleural fluid in the right side. IMPRESSION: Unchanged bilateral infiltrates and loculated right pleural effusion. There is a small right pneumothorax despite the presence of a right chest tube. New right chest tube overlies the right mid chest. ET tube and NG tubes stable. Dictated by: Dictated on workstation # [id number]
--- NOTE | 2020-04-19 14:11 | Diagnostic Imaging Report ---
HISTORY: PICC line placement COMPARISON: Radiographs from the same day. TECHNIQUE: Frontal view of the chest FINDINGS: The PICC line demonstrates a hairpin turn in the region of the upper SVC with the tip of the PICC line near the subclavian or axillary vein. The endotracheal tube is 1.3 cm above the stacey. An enteric tube tip projects over the stomach with the sidehole at the GE junction. There are extensive airspace opacities in the lungs bilaterally with similar aeration to the prior exam. There is a right pneumothorax redemonstrated. The left Port-A-Cath appears stable. IMPRESSION: 1. Hairpin turn of the PICC line with the tip located retrograde in the subclavian/axillary region. 2. Redemonstrated right pneumothorax. 3. Extensive airspace opacities bilaterally, right greater than left, stable since the prior exam. Findings reported to the patient's nurse in the ICU at 2:03 PM on 04/19/2020 Dictated by: Dictated on workstation # [id number]
[2020-04-19 14:51] VITALS: BP 108/71
--- NOTE | 2020-04-19 15:29 | NUR ---
THIS RN ATTEMPTED TO CALL PT'S EMERGENCY CONTACT, [facility] TODAY, NO ANSWER AND VOICEMAIL LEFT FOR CALL BACK. PT UNABLE TO SIGN CONSENT FOR CONVALESCENT PLASMA AND UNABLE TO REACH CONTACT. DR MARTINEZ INFORMED, NEW ORDERS RECEIVED TO HOLD GIVING BLOOD PRODUCTS UNTIL ABLE TO ABLE CONSENT.
--- NOTE | 2020-04-19 18:35 | Diagnostic Imaging Report ---
INDICATION: PIC line placement and reevaluation. FINDINGS: Compared to the prior examination the patient's right PICC line has been repositioned and now demonstrates a cranially directed course into the right internal jugular vein. Diffuse infiltrates and consolidation within the lungs are not significantly changed. There are background interstitial changes in the left sided port. A small right sided pneumothorax is not significantly changed. Enteric tube extends to the stomach. Endotracheal tube positioning appears stable. Right chest tube is stable. IMPRESSION: 1. Repositioning of the right PICC line which now has intracranially directed orientation extending into the neck and right internal jugular vein. 2. Remaining life support apparatus unchanged. 3. No appreciable change in pulmonary infiltrates or right-sided pneumothorax. Dictated by: Dictated on workstation # [id number]
[2020-04-19 18:44] VITALS: BP 128/66
--- NOTE | 2020-04-19 20:20 | OPERATIVE REPORT ---
DATE OF SERVICE: 04/19/2020 PREOPERATIVE DIAGNOSES: 1. COVID-19, respiratory failure. 2. Pneumothorax. POSTOPERATIVE DIAGNOSES: 1. COVID-19, respiratory failure. 2. Pneumothorax. 3. Pleural effusion. PROCEDURE: Insertion of chest tube 28-Irish. SURGEON: Juan Manuel Child DO MORTGAGE ACCOUNTING CLERK: None. ANESTHESIA: Sedation; pt on propofol for vent. BLOOD LOSS: Scant. SPECIMENS: None. FLUIDS: None. INDICATION FOR PROCEDURE: The patient is a 54-year-old male who unfortunately came in with worsening respiratory failure secondary to COVID-19. Chest x-ray initially showed a small pneumothorax. Repeat CT showed pneumothorax, pleural effusion and because the patient was intubated felt that he would need PEEP for the respiratory failure would make this pneumothorax worse. Therefore, preemptive chest tube would be a good idea. FINDINGS: The patient had a chest tube placed. X-rays have already been done and is in good position. PROCEDURE NOTE: The patient was in his bed in the ICU. He was sterilely prepped and draped in normal fashion. We made an incision in the mid axillary line just above the level of the nipple and then carried this down through the skin to subcutaneous tissue and then using blunt dissection with my finger as well as with hemostat, went up two ribs and then over the top this rib and then bluntly entered the pleural cavity, then able to get a 28-Irish chest tube placed, pushed into the pleural cavity and immediately got some clear serous fluid. At this point, then sutured the chest tube in place with 2-0 silk closing the incision and then encircling the chest tube and tying to hold this in place, then placed a Vaseline gauze and then taped all of this down hooked this up to suction got out about 40 mL of serous fluid. There did not appear to be any air leak at this time. It was hooked up to suction. Area was cleaned and dried and then sponge, instrument and needle count correct at the end of the case. Job ID: [id number] DocumentID: [id number] Dictated Date: 04/19/2020 13:53:43 [place]ap Roll Coverer Date: 04/19/2020 20:19:56 Dictated By: JUAN MANUEL CHILD DO [facility]
[2020-04-19 23:12] VITALS: BP 158/83
--- NOTE | 2020-04-19 23:49 | NUR ---
chest tube drsg changed at this time
[2020-04-20] MEDS: PIPERACILLIN/TAZO 4.5 GM/NS 100 ML IV SCH ×6 (02:08→18:23)
[2020-04-20] MEDS: PROPOFOL DRIP (ICU) 100 ML IV SCH ×4 (02:27→19:35)
[2020-04-20] MEDS: DOPamine DRIP 250 ML IV SCH ×2 (02:28→21:29)
[2020-04-20 02:31] VITALS: BP 96/60
[2020-04-20] MEDS: RT-ALBUTEROL INHALER HFA (VENTOLIN HFA) 18 GM IH SCH ×6 (02:31→23:35)
[2020-04-20 02:51] LABS: POTASSIUM 3.3 MMOL/L (3.6-5.0); SODIUM 138 MMOL/L (135-145)
[2020-04-20 02:53] LABS: BASOPHILS % (AUTO) 0 % (0-10); EOSINOPHILS % (AUTO) 0 % (0-10); HEMATOCRIT 34 % (40-54); HEMOGLOBIN 10.3 g/dL (13.3-17.7); LYMPHOCYTES % (AUTO) 10 % (12-44); MEAN CORPUSCULAR HEMOGLOBIN 28 pg (25-34); MEAN CORPUSCULAR HGB CONC 31 g/dL (32-36); MEAN CORPUSCULAR VOLUME 92 fL (80-99); MEAN PLATELET VOLUME 9.5 fL (9.0-12.2); MONOCYTES # (AUTO) 0.4 10^3/uL (0.0-1.0); MONOCYTES % (AUTO) 5 % (0-12); NEUTROPHILS # (AUTO) 7.6 10^3/uL (1.8-7.8); NEUTROPHILS % (AUTO) 82 % (42-75); PLATELET COUNT 337 10^3/uL (130-400); WHITE BLOOD COUNT 9.2 10^3/uL (4.3-11.0)
[2020-04-20 02:56] LABS: PHOSPHORUS 3.3 MG/DL (2.3-4.7)
[2020-04-20] MEDS ORDERED: TROUGH ORDER-PHARMACY XX NR (03:00)
[2020-04-20 03:02] LABS: ABG BASE EXCESS 5.4 MMOL/L (-2.5-2.5); ABG OXYGEN SATURATION 67 % (94-100); ABG PCO2 62 MMHG (35-45); ABG PH 7.32 (7.37-7.43); ABG PO2 46 MMHG (79-93); ABG TCO2 33.4 MMOL/L (21.0-31.0); ALLENS TEST POSITIVE; INSPIRED O2 35; PATIENT TEMP 37.1; VENTILATOR YES
[2020-04-20 03:04] LABS: BUN/CREATININE RATIO 28; CARBON DIOXIDE 28 MMOL/L (21-32); CREATININE SERUM 0.67 MG/DL (0.60-1.30); GFR ESTIMATED > 60; GLUCOSE 139 MG/DL (70-105)
[2020-04-20 03:05] LABS: CALCIUM 7.4 MG/DL (8.5-10.1); CHLORIDE 98 MMOL/L (98-107)
[2020-04-20] MEDS: fentaNYL DRIP PRE-MIX 250 ML IV SCH ×2 (03:58→19:35)
[2020-04-20] MEDS: ARTIFICIAL TEARS OINT (LACRI-LUBE) 3.5 GM TUBE OU SCH ×6 (03:58→23:28)
[2020-04-20] MEDS: VANCOMYCIN 1500 MG/NS 500 ML IVPB IV SCH ×4 (03:59→18:00)
[2020-04-20] MEDS: POTASSIUM CL 10MEQ/50ML IVPB 50 ML IV SCH ×4 (06:24→09:12)
[2020-04-20] MEDS: MAGNESIUM 1 GM/100 ML IVPB 100 ML IV SCH (06:25)
[2020-04-20] MEDS: inSUlin ASPART (NovoLOG) 1 UNIT/0.01 ML (CHARGE PER UNIT) SQ SCH ×4 (06:25→23:32)
[2020-04-20] MEDS: KCL 20 MEQ TAB (K-DUR) PO SCH (06:25)
[2020-04-20 07:22] VITALS: BP 103/64
[2020-04-20] MEDS: PANTOPRAZOLE 40 MG (PROTONIX) VIAL IV SCH (07:35)
--- NOTE | 2020-04-20 08:18 | Progress Note - Hospitalist ---
Subjective HPI/CC On Admission Date Seen by Provider: Apr 20, 2020 Time Seen by Provider: 08:12 Pt is a 54yoCM with a PMH of TBI, t-cell lymphoma, seizure disorder, hepatitis C with cirrhosis who presented to the ER due to hypoxia. He was admitted here for cellulitis and sepsis in February. He also had a port removal and replacement on 03/20. He was tested for COVID on 04/09 and was positive. He tells me a somewhat contradicting history by answer yes to most questions (even contradicting questions). He states he is both constipated and having diarrhea. He both denies and endorses complaints of a headache. He was able to answer non yes and no questions better and stated that he has been unwell for a few days with fever and cough. He was found to bilateral pneumonia left worse than right on CXR with possible small pneumothorax. He is being admitted to the ICU for further care. Subjective/Events-last exam Pt was intubated since my last visit. Had expansion of pneumothorax and chest tube placement per surgery yesterday. No ROS possible. RN reports pt very sensitive to dopamine but stable on it overnight. Focused Exam Lactate Level 04/18/20 09:58: Lactic Acid Level 3.62*H 04/18/20 12:35: Lactic Acid Level 1.85 Objective Exam Vital Signs Vital Signs Date Time Temp Pulse Resp B/P (MAP) Pulse Ox O2 Delivery O2 Flow Rate FiO2 04/20/20 07:36 63 103/60 04/20/20 07:22 26 91 35 04/20/20 06:00 Mechanical Ventilator 35.00 04/20/20 04:00 37.2 Capillary Refill : Less Than 3 Seconds General Appearance: Chronically ill, Other (intubated and sedated) Respiratory: Decreased Breath Sounds; No Rhonci; Other (chest tube in place, on vent) Cardiovascular: No Murmur, Bradycardia Gastrointestinal: Normal Bowel Sounds, Non Tender, Soft Genital/Rectal: Other (petty in place) Extremity: No Calf Tenderness, No Pedal Edema Neurologic/Psychiatric: Other (sedated, appears comfortable) Results/Procedures Lab Laboratory Tests 04/19/20 08:19 04/19/20 16:14 04/20/20 02:25 Patient resulted labs reviewed. Imaging: Reviewed Imaging Report Assessment/Plan Assessment and Plan Assess & Plan/Chief Complaint Acute hypoxic respiratory failure, multifactorial COVID19 Severe Sepsis from bilateral pna Pneumothorax Continue on IV abx Intubated and chest tube placed on 04/19- management per eICU Pulm consulted, appreciate recs Decadron, remdesivir Lovenox MAT protocol Very poor prognosis TBI Seizure disorder Continue home meds via OGT Hepatitis C Transaminitis, improved PATRICIA, resolved DVT ppx: Lovenox Critical Care Critically Ill Patient Diagnosis/Problems Diagnosis/Problems (1) COVID-19 (2) Metabolic alkalosis (3) Peripheral T-cell lymphoma Status: Chronic Qualifiers: Lymphoma site: unspecified region Qualified Codes: C84.40 - Peripheral T- cell lymphoma, not classified, unspecified site (4) Seizure disorder Status: Chronic (5) History of traumatic brain injury Status: Chronic (6) Severe sepsis Status: Acute (7) Chronic hepatitis Status: Chronic (8) Hypokalemia Status: Chronic (9) Pneumonia Status: Acute Qualifiers: Pneumonia type: due to unspecified organism Laterality: bilateral Lung location: lower lobe of lung Qualified Codes: J18.9 - Pneumonia, unspecified organism Clinical Quality Measures DVT/VTE Risk/Contraindication: Risk Factor Score Per Nursin RFS Level Per Nursing on Admit: 4+=Very High LOLIS GRACE MD Apr 20, 2020 08:18
[2020-04-20] MEDS ORDERED: DIVALPROEX 500 MG DELAYED RELEASE (DEPAKOTE) TAB PO SCH (08:28)
[2020-04-20 08:35] LABS: ALBUMIN 2.3 GM/DL (3.2-4.5); CHLORIDE 99 MMOL/L (98-107); POTASSIUM 3.4 MMOL/L (3.6-5.0); SODIUM 140 MMOL/L (135-145)
[2020-04-20 08:36] LABS: CALCIUM 7.3 MG/DL (8.5-10.1)
[2020-04-20 08:37] LABS: GLUCOSE 138 MG/DL (70-105); TOTAL PROTEIN 5.9 GM/DL (6.4-8.2)
[2020-04-20 08:38] LABS: CARBON DIOXIDE 28 MMOL/L (21-32)
[2020-04-20 08:39] LABS: BILIRUBIN,TOTAL 0.4 MG/DL (0.1-1.0)
[2020-04-20 08:41] LABS: ALKALINE PHOSPHATASE 65 U/L (40-136); CREATININE SERUM 0.72 MG/DL (0.60-1.30); GFR ESTIMATED > 60
[2020-04-20 08:42] LABS: BUN/CREATININE RATIO 26
[2020-04-20 08:44] LABS: ALANINE AMINOTRANSFERASE 41 U/L (0-55)
[2020-04-20] MEDS ORDERED: VILAZODONE 40 MG (VIIBRYD) TABLET (NON-FORMULARY) PO SCH (09:00)
[2020-04-20] MEDS: REMDESIVIR INJ 100 MG in NS (IVPB) 230 ML IV SCH (09:48)
[2020-04-20] MEDS: ENOXAPARIN 100 MG/1 ML (LOVENOX) SYR SC SCH ×2 (11:19→23:28)
[2020-04-20] MEDS: DIVALPROX SPRINKLE 125 MG (DEPAKOTE) CAP GT SCH ×2 (11:20→18:16)
[2020-04-20] MEDS: CISATRACURIUM INJECTION 100 MG in NS (IVPB) 200 ML IV SCH ×2 (11:29→23:32)
[2020-04-20 15:27] VITALS: BP 130/69
--- NOTE | 2020-04-20 16:27 | Progress Note - Surgery ---
Subjective Time Seen by a Provider: 11:06 Subjective/Events-last exam Pt seen and examined, sedated on vent. Does not appear to be in respiratory distress. Review of Systems Unable to obtain, pt intubated and sedated. Focused Exam Lactate Level 04/18/20 09:58: Lactic Acid Level 3.62*H 04/18/20 12:35: Lactic Acid Level 1.85 Objective Exam Vital Signs Date Time Temp Pulse Resp B/P (MAP) Pulse Ox O2 Delivery O2 Flow Rate FiO2 04/20/20 15:27 43 26 93 40 04/20/20 15:00 37.4 43 25 117/59 93 Mechanical Ventilator 35.00 04/20/20 14:10 46 122/66 04/20/20 14:00 37.5 44 25 115/60 90 Mechanical Ventilator 35.00 04/20/20 13:00 37.5 46 25 118/67 91 Mechanical Ventilator 35.00 04/20/20 13:00 48 04/20/20 12:00 37.5 47 25 117/64 93 Mechanical Ventilator 35.00 04/20/20 11:25 58 26 93 40 04/20/20 11:00 37.4 47 26 116/61 91 Mechanical Ventilator 35.00 04/20/20 10:00 37.5 56 35 122/66 89 Mechanical Ventilator 35.00 04/20/20 09:00 90 Mechanical Ventilator 40 04/20/20 09:00 37.4 54 26 117/62 90 Mechanical Ventilator 35.00 04/20/20 08:00 37.2 52 25 115/67 92 Mechanical Ventilator 35.00 04/20/20 07:36 63 103/60 04/20/20 07:22 60 26 91 35 04/20/20 07:00 37.1 40 25 104/64 92 Mechanical Ventilator 35.00 04/20/20 07:00 68 04/20/20 06:00 54 25 102/61 90 Mechanical Ventilator 35.00 04/20/20 05:00 61 25 111/63 91 Mechanical Ventilator 35.00 04/20/20 04:00 48 125/69 04/20/20 04:00 37.2 67 25 186/100 91 Mechanical Ventilator 35.00 04/20/20 03:00 49 25 90/54 91 Mechanical Ventilator 35.00 04/20/20 02:31 42 26 91 35 04/20/20 02:28 79 90/54 04/20/20 02:27 87 90/54 04/20/20 02:00 52 25 153/82 91 Mechanical Ventilator 35.00 04/20/20 01:00 53 04/20/20 01:00 54 25 153/81 90 Mechanical Ventilator 35.00 04/20/20 00:00 36.8 53 25 158/81 90 Mechanical Ventilator 35.00 04/19/20 23:50 Mechanical Ventilator 35.00 04/19/20 23:12 46 26 94 40 04/19/20 23:00 46 25 154/82 94 Mechanical Ventilator 40.00 04/19/20 22:02 42 157/83 04/19/20 22:00 42 25 162/78 94 Mechanical Ventilator 40.00 04/19/20 21:45 36.4 42 26 135/74 94 Mechanical Ventilator 40.00 04/19/20 21:00 43 26 94/60 94 Mechanical Ventilator 45.00 04/19/20 21:00 94 Mechanical Ventilator 45 04/19/20 20:00 36.3 44 26 155/77 94 Mechanical Ventilator 45.00 04/19/20 19:00 40 04/19/20 19:00 36.3 40 25 137/69 94 Mechanical Ventilator 60.00 04/19/20 18:44 41 26 94 60 04/19/20 18:08 49 108/71 04/19/20 18:00 36.2 49 26 116/64 93 Mechanical Ventilator 60.00 04/19/20 17:00 36.2 41 26 137/72 91 Mechanical Ventilator 60.00 I & O 04/20/20 07:00 Intake Total 4970 ml Output Total 3175 ml Balance 1795 ml Capillary Refill : Less Than 3 Seconds General Appearance: Chronically ill, Other (intubated and sedated) HEENT: PERRL/EOMI, Other (ET tube in place, Dry oral mucosa) Respiratory: Decreased Breath Sounds; No Rhonci; Other (chest tube in place, on vent) Cardiovascular: No Murmur, Bradycardia Gastrointestinal: soft, no organomegaly Neurologic/Psychiatric: Other (sedated, appears comfortable) Results Lab Laboratory Tests 04/19/20 17:18: Glucometer 151H 04/19/20 22:35: Glucometer 158H 04/20/20 02:17: Blood Gas Puncture Site RIGHT RADIAL, Blood Gas Patient Temperature 37.1, Arterial Blood pH 7.32*L, Arterial Blood Partial Pressure CO2 62H, Arterial Blood Partial Pressure O2 46L, Arterial Blood HCO3 31H, Arterial Blood Total CO2 33.4H, Arterial Blood Oxygen Saturation 67L, Arterial Blood Base Excess 5.4H, Mt Test POSITIVE, Blood Gas Ventilator Setting YES, Blood Gas Inspired Oxygen 35 04/20/20 02:25: White Blood Count 9.2, Red Blood Count 3.65L, Hemoglobin 10.3L, Hematocrit 34L, Mean Corpuscular Volume 92, Mean Corpuscular Hemoglobin 28, Mean Corpuscular Hemoglobin Concent 31L, Red Cell Distribution Width 15.5H, Platelet Count 337, Mean Platelet Volume 9.5, Immature Granulocyte % (Auto) 2, Neutrophils (%) (Auto) 82H, Lymphocytes (%) (Auto) 10L, Monocytes (%) (Auto) 5, Eosinophils (%) (Auto) 0, Basophils (%) (Auto) 0, Neutrophils # (Auto) 7.6, Lymphocytes # (Auto) 1.0, Monocytes # (Auto) 0.4, Eosinophils # (Auto) 0.0, Basophils # (Auto) 0.0, Immature Granulocyte # (Auto) 0.2H, Sodium Level 140, Potassium Level 3.4L, Chloride Level 99, Carbon Dioxide Level 28, Anion Gap 13, Blood Urea Nitrogen 19H, Creatinine 0.72, Estimat Glomerular Filtration Rate > 60, BUN/Creatinine Ratio 26, Glucose Level 138H, Calcium Level 7.3L, Corrected Calcium 8.7, Phosphorus Level 3.3, Magnesium Level 2.0, Total Bilirubin 0.4, Aspartate Amino Transf (AST/SGOT) 25, Alanine Aminotransferase (ALT/SGPT) 41, Alkaline Phosphatase 65, Total Protein 5.9L, Albumin 2.3L 04/20/20 11:15: Glucometer 121H Microbiology 04/18/20 MRSA Screen - Final, Complete MRSA not isolated 04/18/20 Blood Culture - Preliminary, Resulted No growth Assessment/Plan Assessment/Plan Assessment/Plan Covid-19 Respiratory Failure Pneumothorax The chest tube is functioning well, no air leak seen and is draining serous fluid in the lung. Output has been appx 800ml since it was placed. Continue chest tube to suction. Clinical Quality Measures DVT/VTE Risk/Contraindication: Risk Factor Score Per Nursin RFS Level Per Nursing on Admit: 4+=Very High GONSALO RANDLE DO Apr 20, 2020 16:27
[2020-04-20 23:35] VITALS: BP 165/79
[2020-04-21] MEDS: PIPERACILLIN/TAZO 4.5 GM/NS 100 ML IV SCH ×6 (01:40→17:14)
[2020-04-21] MEDS: PROPOFOL DRIP (ICU) 100 ML IV SCH ×5 (01:41→20:08)
[2020-04-21 02:46] VITALS: BP 126/65
[2020-04-21] MEDS: RT-ALBUTEROL INHALER HFA (VENTOLIN HFA) 18 GM IH SCH ×5 (02:46→21:13)
[2020-04-21 03:03] LABS: BASOPHILS % (AUTO) 0 % (0-10); EOSINOPHILS % (AUTO) 0 % (0-10); HEMATOCRIT 30 % (40-54); HEMOGLOBIN 9.3 g/dL (13.3-17.7); LYMPHOCYTES # (AUTO) 1.3 10^3/uL (1.0-4.0); LYMPHOCYTES % (AUTO) 18 % (12-44); MEAN CORPUSCULAR HEMOGLOBIN 28 pg (25-34); MEAN CORPUSCULAR HGB CONC 31 g/dL (32-36); MEAN CORPUSCULAR VOLUME 93 fL (80-99); MEAN PLATELET VOLUME 9.6 fL (9.0-12.2); MONOCYTES # (AUTO) 0.4 10^3/uL (0.0-1.0); MONOCYTES % (AUTO) 6 % (0-12); NEUTROPHILS # (AUTO) 5.2 10^3/uL (1.8-7.8); NEUTROPHILS % (AUTO) 71 % (42-75); PLATELET COUNT 317 10^3/uL (130-400); WHITE BLOOD COUNT 7.3 10^3/uL (4.3-11.0)
[2020-04-21 03:10] LABS: ABG BASE EXCESS 6.1 MMOL/L (-2.5-2.5); ABG OXYGEN SATURATION 92 % (94-100); ABG PCO2 54 MMHG (35-45); ABG PH 7.38 (7.37-7.43); ABG PO2 71 MMHG (79-93); ABG TCO2 32.7 MMOL/L (21.0-31.0)
[2020-04-21 03:13] LABS: INSPIRED O2 35; PATIENT TEMP 37.2; VENTILATOR YES
[2020-04-21 03:14] LABS: ALBUMIN 2.2 GM/DL (3.2-4.5); CHLORIDE 104 MMOL/L (98-107); POTASSIUM 3.2 MMOL/L (3.6-5.0); SODIUM 144 MMOL/L (135-145)
[2020-04-21 03:15] LABS: CALCIUM 7.4 MG/DL (8.5-10.1)
[2020-04-21 03:16] LABS: GLUCOSE 89 MG/DL (70-105); TRIGLYCERIDES 174 MG/DL (<150)
[2020-04-21 03:17] LABS: TOTAL PROTEIN 5.5 GM/DL (6.4-8.2)
[2020-04-21 03:18] LABS: BILIRUBIN,TOTAL 0.3 MG/DL (0.1-1.0); CARBON DIOXIDE 30 MMOL/L (21-32)
[2020-04-21 03:20] LABS: ALKALINE PHOSPHATASE 60 U/L (40-136); CREATININE SERUM 0.64 MG/DL (0.60-1.30); GFR ESTIMATED > 60; PHOSPHORUS 1.9 MG/DL (2.3-4.7)
[2020-04-21 03:21] LABS: BUN/CREATININE RATIO 23
[2020-04-21 03:23] LABS: ALANINE AMINOTRANSFERASE 26 U/L (0-55); MAGNESIUM 1.8 MG/DL (1.6-2.4)
[2020-04-21] MEDS: ARTIFICIAL TEARS OINT (LACRI-LUBE) 3.5 GM TUBE OU SCH ×6 (04:07→23:29)
[2020-04-21] MEDS: VANCOMYCIN 1500 MG/NS 500 ML IVPB IV SCH ×2 (04:08)
[2020-04-21] MEDS: POTASSIUM CL 10MEQ/50ML IVPB 50 ML IV SCH ×3 (04:48→07:57)
[2020-04-21] MEDS: KCL 20 MEQ TAB (K-DUR) PO SCH (04:49)
[2020-04-21] MEDS: inSUlin ASPART (NovoLOG) 1 UNIT/0.01 ML (CHARGE PER UNIT) SQ SCH ×3 (04:49→19:17)
[2020-04-21] MEDS: MAGNESIUM 1 GM/100 ML IVPB 100 ML IV SCH (04:49)
[2020-04-21] MEDS: DIVALPROX SPRINKLE 125 MG (DEPAKOTE) CAP GT SCH ×2 (07:58→17:14)
[2020-04-21] MEDS: PANTOPRAZOLE 40 MG (PROTONIX) VIAL IV SCH (07:58)
[2020-04-21] MEDS: REMDESIVIR INJ 100 MG in NS (IVPB) 230 ML IV SCH (08:50)
[2020-04-21] MEDS: fentaNYL DRIP PRE-MIX 250 ML IV SCH ×2 (08:52→17:24)
[2020-04-21 09:00] VITALS: BP 102/59
--- NOTE | 2020-04-21 09:49 | Progress Note - Hospitalist ---
Subjective HPI/CC On Admission Date Seen by Provider: Apr 21, 2020 Time Seen by Provider: 09:46 Pt is a 54yoCM with a PMH of TBI, t-cell lymphoma, seizure disorder, hepatitis C with cirrhosis who presented to the ER due to hypoxia. He was admitted here for cellulitis and sepsis in February. He also had a port removal and replacement on 03/20. He was tested for COVID on 04/09 and was positive. He tells me a somewhat contradicting history by answer yes to most questions (even contradicting questions). He states he is both constipated and having diarrhea. He both denies and endorses complaints of a headache. He was able to answer non yes and no questions better and stated that he has been unwell for a few days with fever and cough. He was found to bilateral pneumonia left worse than right on CXR with possible small pneumothorax. He is being admitted to the ICU for further care. Subjective/Events-last exam Pt remains intubated and sedated. Became bradycardiac and hypertension with position change. Discussed this with eICU. Focused Exam Lactate Level 04/18/20 09:58: Lactic Acid Level 3.62*H 04/18/20 12:35: Lactic Acid Level 1.85 Objective Exam Vital Signs Vital Signs Date Time Temp Pulse Resp B/P (MAP) Pulse Ox O2 Delivery O2 Flow Rate FiO2 04/21/20 09:00 57 26 94 45 04/21/20 09:00 37.6 102/59 Mechanical Ventilator 35.00 Capillary Refill : Less Than 3 Seconds General Appearance: Chronically ill, Other (sedated, on vent) Respiratory: Lungs Clear, No Respiratory Distress Cardiovascular: Regular Rate, Rhythm, No Murmur Gastrointestinal: Normal Bowel Sounds, Non Tender, Soft Neurologic/Psychiatric: Other (sedated, appears comfortable) Results/Procedures Lab Laboratory Tests 04/21/20 02:50 Patient resulted labs reviewed. Imaging: Reviewed Imaging Report Assessment/Plan Assessment and Plan Assess & Plan/Chief Complaint Acute hypoxic respiratory failure, multifactorial COVID19 Severe Sepsis from bilateral pna Pneumothorax Continue on IV abx Intubated and chest tube placed on 04/19- management per eICU/surgery Pulm consulted, appreciate recs Decadron, remdesivir Lovenox MAT protocol Very poor prognosis prison Continue dopamine TBI Seizure disorder Continue home meds via OGT Hepatitis C Transaminitis, improved PATRICIA, resolved DVT ppx: Lovenox Critical Care Critically Ill Patient Diagnosis/Problems Diagnosis/Problems (1) COVID-19 (2) Metabolic alkalosis (3) Peripheral T-cell lymphoma Status: Chronic Qualifiers: Lymphoma site: unspecified region Qualified Codes: C84.40 - Peripheral T- cell lymphoma, not classified, unspecified site (4) Seizure disorder Status: Chronic (5) History of traumatic brain injury Status: Chronic (6) Severe sepsis Status: Acute (7) Chronic hepatitis Status: Chronic (8) Hypokalemia Status: Chronic (9) Pneumonia Status: Acute Qualifiers: Pneumonia type: due to unspecified organism Laterality: bilateral Lung location: lower lobe of lung Qualified Codes: J18.9 - Pneumonia, unspecified organism Clinical Quality Measures DVT/VTE Risk/Contraindication: Risk Factor Score Per Nursin RFS Level Per Nursing on Admit: 4+=Very High LOLIS GRACE MD Apr 21, 2020 09:49
--- NOTE | 2020-04-21 09:57 | Diagnostic Imaging Report ---
CHEST 1 VIEW, AP/PA ONLY Indication: OG tube placement. Intubation. Comparison: 04/19/2020 Findings: Stable left subclavian Port-A-Cath. Stable ET and enteric tubes. Small right-sided pneumothorax is unchanged. Bilateral pulmonary opacities have not substantially changed. Stable cardiomediastinal silhouette. Impression: 1. Stable support devices. 2. No change in small right-sided pneumothorax. Dictated by: Dictated on workstation # [id number]
[2020-04-21] MEDS ORDERED: LACTATED RINGERS 1,000 ML IV ONE (10:55)
[2020-04-21] MEDS: ENOXAPARIN 100 MG/1 ML (LOVENOX) SYR SC SCH ×2 (11:15→22:40)
[2020-04-21] MEDS: NS IV 1000 ML 1,000 ML IV SCH (11:17)
[2020-04-21] MEDS: CISATRACURIUM INJECTION 100 MG in NS (IVPB) 200 ML IV SCH ×2 (11:32→19:16)
[2020-04-21 15:51] VITALS: BP 118/66
[2020-04-21 18:51] VITALS: BP 121/74
[2020-04-21] MEDS ORDERED: DEXTROSE 50% 50 ML (IMS) SYR ONE ×2 (19:05→23:01)
--- NOTE | 2020-04-21 19:42 | Progress Note - Surgery ---
Subjective Time Seen by a Provider: 18:41 Subjective/Events-last exam Pt seen and examined, sedated on vent. Review of Systems Unable to obtain, pt intubated and sedated. Objective Exam Vital Signs Date Time Temp Pulse Resp B/P (MAP) Pulse Ox O2 Delivery O2 Flow Rate FiO2 04/21/20 18:51 63 26 90 50 04/21/20 18:00 38.2 61 26 117/64 92 Mechanical Ventilator 35.00 04/21/20 17:00 38.1 53 26 132/68 93 Mechanical Ventilator 35.00 04/21/20 16:00 37.9 58 26 106/59 97 Mechanical Ventilator 35.00 04/21/20 15:51 66 26 93 45 04/21/20 15:18 71 113/62 04/21/20 15:00 37.9 71 25 113/62 93 Mechanical Ventilator 35.00 04/21/20 14:00 37.9 80 26 115/66 95 Mechanical Ventilator 35.00 04/21/20 13:00 37.8 68 25 122/64 94 Mechanical Ventilator 35.00 04/21/20 12:38 70 04/21/20 12:00 37.7 67 25 117/63 92 Mechanical Ventilator 35.00 04/21/20 11:15 64 109/57 04/21/20 11:00 37.7 52 25 128/88 92 Mechanical Ventilator 35.00 04/21/20 10:00 37.6 64 26 109/57 96 Mechanical Ventilator 35.00 04/21/20 09:00 57 26 94 45 04/21/20 09:00 37.6 55 25 102/59 95 Mechanical Ventilator 35.00 04/21/20 08:03 92 Mechanical Ventilator 45 04/21/20 08:00 37.5 51 21 114/65 93 Mechanical Ventilator 35.00 04/21/20 07:00 37.5 63 26 108/62 92 Mechanical Ventilator 35.00 04/21/20 07:00 63 04/21/20 06:34 73 118/75 04/21/20 06:00 37.4 45 24 95/51 93 Mechanical Ventilator 35.00 04/21/20 05:30 Mechanical Ventilator 45.00 04/21/20 05:00 37.2 58 25 109/59 88 Mechanical Ventilator 35.00 04/21/20 04:00 37.3 41 26 116/64 91 Mechanical Ventilator 35.00 04/21/20 03:00 37.3 43 25 111/57 93 Mechanical Ventilator 35.00 04/21/20 02:56 45 04/21/20 02:46 67 26 90 35 04/21/20 02:00 37.2 41 26 120/60 91 Mechanical Ventilator 35.00 04/21/20 01:41 43 116/58 04/21/20 01:00 37.1 40 25 122/60 91 Mechanical Ventilator 35.00 04/21/20 00:26 41 04/21/20 00:00 37.2 41 25 130/64 92 Mechanical Ventilator 35.00 04/20/20 23:35 41 26 93 35 04/20/20 23:00 37.2 39 25 129/65 93 Mechanical Ventilator 35.00 04/20/20 22:00 37.2 39 26 128/64 93 Mechanical Ventilator 35.00 04/20/20 21:29 47 130/65 04/20/20 21:00 37.3 42 26 129/63 94 Mechanical Ventilator 35.00 04/20/20 20:30 90 Mechanical Ventilator 35 04/20/20 20:00 37.3 49 25 133/71 92 Mechanical Ventilator 35.00 I & O 04/21/20 07:00 Intake Total 800 ml Output Total 2325 ml Balance -1525 ml Capillary Refill : Less Than 3 Seconds General Appearance: Chronically ill, Other (sedated, on vent) HEENT: PERRL/EOMI, Other (ET tube in place, Dry oral mucosa) Respiratory: Lungs Clear, No Respiratory Distress, Other (CT in place, no air leak) Cardiovascular: Regular Rate, Rhythm, No Murmur Gastrointestinal: soft, no organomegaly Neurologic/Psychiatric: Other (sedated, appears comfortable) Results Lab Laboratory Tests 04/20/20 23:31: Glucometer 94 04/21/20 02:50: White Blood Count 7.3, Red Blood Count 3.28L, Hemoglobin 9.3L, Hematocrit 30L, Mean Corpuscular Volume 93, Mean Corpuscular Hemoglobin 28, Mean Corpuscular Hemoglobin Concent 31L, Red Cell Distribution Width 15.8H, Platelet Count 317, Mean Platelet Volume 9.6, Immature Granulocyte % (Auto) 5, Neutrophils (%) (Auto) 71, Lymphocytes (%) (Auto) 18, Monocytes (%) (Auto) 6, Eosinophils (%) (Auto) 0, Basophils (%) (Auto) 0, Neutrophils # (Auto) 5.2, Lymphocytes # (Auto) 1.3, Monocytes # (Auto) 0.4, Eosinophils # (Auto) 0.0, Basophils # (Auto) 0.0, Immature Granulocyte # (Auto) 0.4H, Blood Gas Puncture Site RIGHT RADIAL, Blood Gas Patient Temperature 37.2, Arterial Blood pH 7.38, Arterial Blood Partial Pressure CO2 54H, Arterial Blood Partial Pressure O2 71L, Arterial Blood HCO3 31H, Arterial Blood Total CO2 32.7H, Arterial Blood Oxygen Saturation 92L, Arterial Blood Base Excess 6.1H, Mt Test UNKNOWN, Blood Gas Ventilator Setting YES, Blood Gas Inspired Oxygen 35, Sodium Level 144, Potassium Level 3.2L, Chloride Level 104, Carbon Dioxide Level 30, Anion Gap 10, Blood Urea Nitrogen 15, Creatinine 0.64, Estimat Glomerular Filtration Rate > 60, BUN/Creatinine Ratio 23, Glucose Level 89, Calcium Level 7.4L, Corrected Calcium 8.8, Phosphorus Level 1.9L, Magnesium Level 1.8, Total Bilirubin 0.3, Aspartate Amino Transf (AST/SGOT) 16, Alanine Aminotransferase (ALT/SGPT) 26, Alkaline Phosphatase 60, Total Protein 5.5L, Albumin 2.2L, Triglycerides Level 174H 04/21/20 11:44: Glucometer 62L 04/21/20 18:00: Glucometer 61L Microbiology 04/19/20 Gram Stain - Final, Complete 04/19/20 Sputum Culture - Final, Complete Usual upper respiratory kari YEAST Strep agalactiae Group B Staphylococcus aureus 04/18/20 Blood Culture - Preliminary, Resulted No growth Assessment/Plan Assessment/Plan Assessment/Plan Covid-19 Respiratory Failure Pneumothorax The chest tube is functioning well, no air leak seen and is draining serous fluid in the lung. Output has been appx 100ml today. Continue chest tube to suction. Clinical Quality Measures DVT/VTE Risk/Contraindication: Risk Factor Score Per Nursin RFS Level Per Nursing on Admit: 4+=Very High GONSALO RANDLE DO Apr 21, 2020 19:42
[2020-04-21] MEDS ORDERED: ACETAMINOPHEN 325 MG TABLET ONE (20:03)
[2020-04-21] MEDS: ACETAMINOPHEN 325 MG TABLET PO PRN (20:17)
[2020-04-21 21:13] VITALS: BP 114/71
[2020-04-21] MEDS ORDERED: DEXTROSE 10% IV SOLUTION 1,000 ML IV ONE (23:14)
[2020-04-21] MEDS: DEXTROSE 10% IV SOLUTION 1,000 ML IV SCH (23:28)
[2020-04-21] MEDS ORDERED: DEXTROSE 50% 50 ML (IMS) SYR IV ONE (23:30)
[2020-04-22] MEDS: PROPOFOL DRIP (ICU) 100 ML IV SCH ×5 (00:48→19:40)
[2020-04-22] MEDS: inSUlin ASPART (NovoLOG) 1 UNIT/0.01 ML (CHARGE PER UNIT) SQ SCH ×5 (00:49→23:45)
[2020-04-22] MEDS: fentaNYL DRIP PRE-MIX 250 ML IV SCH ×3 (01:38→22:25)
[2020-04-22] MEDS: PIPERACILLIN/TAZO 4.5 GM/NS 100 ML IV SCH ×6 (01:39→17:44)
[2020-04-22 02:14] VITALS: BP 159/82
[2020-04-22] MEDS: RT-ALBUTEROL INHALER HFA (VENTOLIN HFA) 18 GM IH SCH ×6 (02:14→21:50)
[2020-04-22] MEDS ORDERED: DEXTROSE 50% 50 ML (IMS) SYR IV ONE (02:15)
[2020-04-22 02:32] LABS: BASOPHILS % (AUTO) 0 % (0-10); EOSINOPHILS % (AUTO) 0 % (0-10); HEMATOCRIT 31 % (40-54); HEMOGLOBIN 9.3 g/dL (13.3-17.7); LYMPHOCYTES # (AUTO) 1.3 10^3/uL (1.0-4.0); LYMPHOCYTES % (AUTO) 12 % (12-44); MEAN CORPUSCULAR HEMOGLOBIN 28 pg (25-34); MEAN CORPUSCULAR HGB CONC 30 g/dL (32-36); MEAN CORPUSCULAR VOLUME 93 fL (80-99); MEAN PLATELET VOLUME 9.7 fL (9.0-12.2); MONOCYTES # (AUTO) 0.5 10^3/uL (0.0-1.0); MONOCYTES % (AUTO) 5 % (0-12); NEUTROPHILS # (AUTO) 8.8 10^3/uL (1.8-7.8); NEUTROPHILS % (AUTO) 81 % (42-75); PLATELET COUNT 303 10^3/uL (130-400); WHITE BLOOD COUNT 10.8 10^3/uL (4.3-11.0)
[2020-04-22 02:41] LABS: ALBUMIN 2.1 GM/DL (3.2-4.5); CHLORIDE 106 MMOL/L (98-107); SODIUM 143 MMOL/L (135-145)
[2020-04-22 02:42] LABS: CALCIUM 7.2 MG/DL (8.5-10.1)
[2020-04-22 02:44] LABS: GLUCOSE 198 MG/DL (70-105); TOTAL PROTEIN 5.4 GM/DL (6.4-8.2)
[2020-04-22 02:45] LABS: BILIRUBIN,TOTAL 0.6 MG/DL (0.1-1.0); CARBON DIOXIDE 26 MMOL/L (21-32)
[2020-04-22 02:47] LABS: ALKALINE PHOSPHATASE 59 U/L (40-136); CREATININE SERUM 0.64 MG/DL (0.60-1.30); GFR ESTIMATED > 60
[2020-04-22 02:48] LABS: BUN/CREATININE RATIO 19
[2020-04-22 02:50] LABS: ALANINE AMINOTRANSFERASE 21 U/L (0-55); MAGNESIUM 1.7 MG/DL (1.6-2.4)
[2020-04-22] MEDS: CISATRACURIUM INJECTION 100 MG in NS (IVPB) 200 ML IV SCH (03:09)
[2020-04-22] MEDS ORDERED: POTASSIUM CL 10MEQ/50ML IVPB 50 ML IV ONE (04:00)
--- NOTE | 2020-04-22 04:24 | Pulmonary Progress Note ---
Subjective Time Seen by a Provider: 04:18 Subjective/Events-last exam Pt is sedated and paralyzed on vent. Sepsis Event Evaluation Height, Weight, BMI Height: '" Weight: lbs. oz. kg; 31.00 BMI Method: Exam Exam Vital Signs Date Time Temp Pulse Resp B/P (MAP) Pulse Ox O2 Delivery O2 Flow Rate FiO2 04/22/20 02:14 101 26 96 50 04/22/20 00:48 72 106/60 04/21/20 23:00 38.5 6 25 109/58 97 Mechanical Ventilator 50.00 04/21/20 22:00 38.6 62 26 110/63 96 Mechanical Ventilator 50.00 04/21/20 21:45 38.6 04/21/20 21:13 69 26 95 50 04/21/20 21:00 93 Mechanical Ventilator 45 04/21/20 21:00 38.7 68 26 101/63 95 Mechanical Ventilator 50.00 04/21/20 20:17 38.6 04/21/20 20:08 74 109/67 04/21/20 20:00 38.5 68 25 109/67 92 Mechanical Ventilator 50.00 04/21/20 20:00 38.5 04/21/20 19:00 38.4 68 26 121/70 94 Mechanical Ventilator 50.00 04/21/20 19:00 68 04/21/20 18:51 63 26 90 50 04/21/20 18:00 38.2 61 26 117/64 92 Mechanical Ventilator 35.00 04/21/20 17:00 38.1 53 26 132/68 93 Mechanical Ventilator 35.00 04/21/20 16:00 37.9 58 26 106/59 97 Mechanical Ventilator 35.00 04/21/20 15:51 66 26 93 45 04/21/20 15:18 71 113/62 04/21/20 15:00 37.9 71 25 113/62 93 Mechanical Ventilator 35.00 04/21/20 14:00 37.9 80 26 115/66 95 Mechanical Ventilator 35.00 04/21/20 13:00 37.8 68 25 122/64 94 Mechanical Ventilator 35.00 04/21/20 12:38 70 04/21/20 12:00 37.7 67 25 117/63 92 Mechanical Ventilator 35.00 04/21/20 11:15 64 109/57 04/21/20 11:00 37.7 52 25 128/88 92 Mechanical Ventilator 35.00 04/21/20 10:00 37.6 64 26 109/57 96 Mechanical Ventilator 35.00 04/21/20 09:00 57 26 94 45 04/21/20 09:00 37.6 55 25 102/59 95 Mechanical Ventilator 35.00 04/21/20 08:03 92 Mechanical Ventilator 45 04/21/20 08:00 37.5 51 21 114/65 93 Mechanical Ventilator 35.00 04/21/20 07:00 37.5 63 26 108/62 92 Mechanical Ventilator 35.00 04/21/20 07:00 63 04/21/20 06:34 73 118/75 04/21/20 06:00 37.4 45 24 95/51 93 Mechanical Ventilator 35.00 04/21/20 05:30 Mechanical Ventilator 45.00 04/21/20 05:00 37.2 58 25 109/59 88 Mechanical Ventilator 35.00 I & O 04/22/20 07:00 Intake Total 2890 ml Output Total 1225 ml Balance 1665 ml Height & Weight Height: '" Weight: lbs. oz. kg; 31.00 BMI Method: General Appearance: Chronically ill, Other (sedated, on vent) HEENT: PERRL/EOMI, Other (ET tube in place, Dry oral mucosa) Respiratory: Lungs Clear, No Respiratory Distress, Other (CT in place, no air leak) Cardiovascular: Regular Rate, Rhythm, No Murmur Capillary Refill: Less Than 3 Seconds Gastrointestinal: soft, no organomegaly Neurologic/Psychiatric: Other (sedated, appears comfortable) Results Lab Laboratory Tests 04/21/20 02:50 04/22/20 02:10 Assessment/Plan Assessment/Plan Acute respiratory failure with ARDS -Continue ventilator care -Decrease PEEP to 8 -D/C Nimbex -Currently on Propofol at 40 and Fentanyl at 150mcg/hr -Start TF COVID 19 PNA - tm 38.7 last night -Start Vancomycin -Repeat levin cultures including culture plural fluid -Dx 04/09 -Remdesivir -Decadron -CVP Small stable right PTX - prior to intubation -Continue Chest tube until after intubation -Chest tube out put is about 100cc / shift -will analyze pleural fluid PNA -Vanco, and Zosyn -Levin cultures pending -MRSA pending TBI Hepatitis C Transaminitis noted, trend with remdesivir PATRICIA baseline creatinine around 0.75m up to 1.30 Continue IVF COLEMAN MARTINEZ DO Apr 22, 2020 04:24
[2020-04-22] MEDS ORDERED: PHARMACY TO DOSE IV SCH (04:30)
[2020-04-22] MEDS ORDERED: VANCOMYCIN INJECTION 1,000 MG in NS (IVPB) 250 ML IV SCH (04:30)
[2020-04-22] MEDS ORDERED: POTASSIUM PHOSPHATE INJ 30 MM in NS (IVPB) 250 ML IV ONE (04:30)
[2020-04-22] MEDS: MAGNESIUM 1 GM/100 ML IVPB 100 ML IV SCH ×3 (04:50→06:51)
[2020-04-22] MEDS: ARTIFICIAL TEARS OINT (LACRI-LUBE) 3.5 GM TUBE OU SCH ×6 (04:50→23:26)
[2020-04-22] MEDS ORDERED: VANCOMYCIN 1500 MG/NS 500 ML IVPB IV SCH ×2 (05:00)
[2020-04-22] MEDS: ACETAMINOPHEN 325 MG TABLET PO PRN (05:10)
[2020-04-22] MEDS ORDERED: LORazepam INJ 2 MG/ML (ATIVAN) VIAL IVP ONE (05:30)
[2020-04-22] MEDS ORDERED: MIDAZOLAM DRIP PRE-MIX 100 ML IV ONE (05:32)
[2020-04-22 06:06] VITALS: BP 120/78
[2020-04-22] MEDS: POTASSIUM CL 10MEQ/50ML IVPB 50 ML IV SCH ×4 (06:45→07:53)
[2020-04-22] MEDS: KCL 20 MEQ TAB (K-DUR) PO SCH (06:46)
[2020-04-22] MEDS: MIDAZOLAM DRIP PRE-MIX 100 ML IV SCH ×2 (07:16→22:25)
--- NOTE | 2020-04-22 07:23 | NUR ---
DR MARTINEZ DECREASED PEEP TO 5 AT THIS TIME.
[2020-04-22] MEDS: DIVALPROX SPRINKLE 125 MG (DEPAKOTE) CAP GT SCH ×2 (07:55→16:21)
[2020-04-22] MEDS: PANTOPRAZOLE 40 MG (PROTONIX) VIAL IV SCH (07:55)
[2020-04-22] MEDS: ENOXAPARIN 100 MG/1 ML (LOVENOX) SYR SC SCH ×2 (07:55→23:26)
[2020-04-22 08:07] LABS: BILIRUBIN,URINE NEGATIVE (NEGATIVE); CLARITY,URINE CLEAR; COLOR,URINE YELLOW; GLUCOSE, URINE (UA) NEGATIVE (NEGATIVE); KETONES,URINE NEGATIVE (NEGATIVE); LEUKOCYTE ESTERASE ,URINE NEGATIVE (NEGATIVE); NITRITE,URINE NEGATIVE (NEGATIVE); PROTEIN,URINE NEGATIVE (NEGATIVE)
[2020-04-22 08:15] LABS: BACTERIA,URINE TRACE /HPF; RBC,URINE 25-50 /HPF; SQUAMOUS EPITHELIAL CELL,UR 0-2 /HPF; WBC,URINE 0-2 /HPF
[2020-04-22] MEDS: VANCOMYCIN 1500 MG/NS 500 ML IVPB IV SCH ×4 (09:35→19:40)
[2020-04-22 09:43] LABS: GLUCOSE,BODY FLUID 50 MG/DL; LDH,BODY FLUID 1906 U/L
[2020-04-22 10:16] VITALS: BP 105/63
[2020-04-22 10:30] LABS: BODY FLUID APPEARENCE SLT CLDY; BODY FLUID COLOR AMBER; BODY FLUID SOURCE THORACENTESIS
[2020-04-22 10:31] LABS: BODY FLUID RBC COUNT 12300 /uL; BODY FLUID WBC TOTAL COUNT 98 /uL
[2020-04-22 10:33] LABS: BODY FLUID PH 7.3
[2020-04-22 10:39] LABS: LYMPHOCYTES,BODY FLUID 37 %
[2020-04-22] MEDS: REMDESIVIR INJ 100 MG in NS (IVPB) 230 ML IV SCH (10:59)
--- NOTE | 2020-04-22 11:25 | Progress Note - Surgery ---
Subjective Time Seen by a Provider: 11:15 Subjective/Events-last exam Pt seen and examined, sedated on vent. No significant changes. Nurse states 150ml from chest tube over past 24 hours. Review of Systems Unable to obtain, pt intubated and sedated. Focused Exam Lactate Level 04/22/20 05:10: Lactic Acid Level 1.12 Objective Exam Vital Signs Date Time Temp Pulse Resp B/P (MAP) Pulse Ox O2 Delivery O2 Flow Rate FiO2 04/22/20 10:16 58 26 94 50 04/22/20 09:36 78 120/78 04/22/20 09:00 Mechanical Ventilator 50 04/22/20 08:17 Mechanical Ventilator 50.00 04/22/20 07:16 78 04/22/20 06:56 69 04/22/20 06:47 71 04/22/20 06:45 37.8 04/22/20 06:06 87 31 97 50 04/22/20 06:00 38.0 90 12 91/56 95 Mechanical Ventilator 40.00 04/22/20 05:10 37.9 04/22/20 05:00 38.0 84 25 136/97 96 Mechanical Ventilator 40.00 04/22/20 04:00 38.1 94 25 160/78 95 Mechanical Ventilator 40.00 04/22/20 03:00 38.1 91 25 142/79 93 Mechanical Ventilator 40.00 04/22/20 02:14 101 26 96 50 04/22/20 02:00 38.2 96 25 160/87 96 Mechanical Ventilator 50.00 04/22/20 01:00 75 04/22/20 01:00 38.4 75 25 162/90 97 Mechanical Ventilator 50.00 04/22/20 00:48 72 106/60 04/22/20 00:00 38.5 69 26 117/66 98 Mechanical Ventilator 50.00 04/21/20 23:00 38.5 6 25 109/58 97 Mechanical Ventilator 50.00 04/21/20 22:00 38.6 62 26 110/63 96 Mechanical Ventilator 50.00 04/21/20 21:45 38.6 04/21/20 21:13 69 26 95 50 04/21/20 21:00 93 Mechanical Ventilator 45 04/21/20 21:00 38.7 68 26 101/63 95 Mechanical Ventilator 50.00 04/21/20 20:17 38.6 04/21/20 20:08 74 109/67 04/21/20 20:00 38.5 68 25 109/67 92 Mechanical Ventilator 50.00 04/21/20 20:00 38.5 04/21/20 19:00 38.4 68 26 121/70 94 Mechanical Ventilator 50.00 04/21/20 19:00 68 04/21/20 18:51 63 26 90 50 04/21/20 18:00 38.2 61 26 117/64 92 Mechanical Ventilator 35.00 04/21/20 17:00 38.1 53 26 132/68 93 Mechanical Ventilator 35.00 04/21/20 16:00 37.9 58 26 106/59 97 Mechanical Ventilator 35.00 04/21/20 15:51 66 26 93 45 04/21/20 15:18 71 113/62 04/21/20 15:00 37.9 71 25 113/62 93 Mechanical Ventilator 35.00 04/21/20 14:00 37.9 80 26 115/66 95 Mechanical Ventilator 35.00 04/21/20 13:00 37.8 68 25 122/64 94 Mechanical Ventilator 35.00 04/21/20 12:38 70 04/21/20 12:00 37.7 67 25 117/63 92 Mechanical Ventilator 35.00 I & O 04/22/20 07:00 Intake Total 2890 ml Output Total 1825 ml Balance 1065 ml Capillary Refill : Less Than 3 Seconds General Appearance: Chronically ill, Other (sedated, on vent) HEENT: PERRL/EOMI, Other (ET tube in place, Dry oral mucosa) Respiratory: Lungs Clear, No Respiratory Distress, Other (CT in place, no air leak) Cardiovascular: Regular Rate, Rhythm, No Murmur Gastrointestinal: soft, no organomegaly Neurologic/Psychiatric: Other (sedated, appears comfortable) Results Lab Laboratory Tests 04/21/20 11:44: Glucometer 62L 04/21/20 18:00: Glucometer 61L 04/21/20 21:08: Glucometer 83 04/21/20 22:51: Glucometer 58*L 04/22/20 00:43: Glucometer 86 04/22/20 01:32: Glucometer 68L 04/22/20 02:10: White Blood Count 10.8, Red Blood Count 3.31L, Hemoglobin 9.3L, Hematocrit 31L, Mean Corpuscular Volume 93, Mean Corpuscular Hemoglobin 28, Mean Corpuscular Hemoglobin Concent 30L, Red Cell Distribution Width 15.9H, Platelet Count 303, Mean Platelet Volume 9.7, Immature Granulocyte % (Auto) 3, Neutrophils (%) (Auto) 81H, Lymphocytes (%) (Auto) 12, Monocytes (%) (Auto) 5, Eosinophils (%) (Auto) 0, Basophils (%) (Auto) 0, Neutrophils # (Auto) 8.8H, Lymphocytes # (Auto) 1.3, Monocytes # (Auto) 0.5, Eosinophils # (Auto) 0.0, Basophils # (Auto) 0.0, Immature Granulocyte # (Auto) 0.3H, Sodium Level 143, Potassium Level 3.0L, Chloride Level 106, Carbon Dioxide Level 26, Anion Gap 11, Blood Urea Nitrogen 12, Creatinine 0.64, Estimat Glomerular Filtration Rate > 60, BUN/Creatinine Ratio 19, Glucose Level 198H, Calcium Level 7.2L, Corrected Calcium 8.7, Phosphorus Level 2.0L, Magnesium Level 1.7, Total Bilirubin 0.6, Aspartate Amino Transf (AST/SGOT) 14, Alanine Aminotransferase (ALT/SGPT) 21, Alkaline Phosphatase 59, Total Protein 5.4L, Albumin 2.1L 04/22/20 03:04: Glucometer 105 04/22/20 04:54: Glucometer 118H 04/22/20 05:10: Lactic Acid Level 1.12, B-Type Natriuretic Peptide 31.3, Procalcitonin 0.20H 04/22/20 07:50: Urine Color YELLOW, Urine Clarity CLEAR, Urine pH 6.0, Urine Specific [place] 1.015L, Urine Protein NEGATIVE, Urine Glucose (UA) NEGATIVE, Urine Ketones NEGATIVE, Urine Nitrite NEGATIVE, Urine Bilirubin NEGATIVE, Urine Urobilinogen 2.0, Urine Leukocyte Esterase NEGATIVE, Urine RBC (Auto) 1+H, Urine RBC 25-50H, Urine WBC 0-2, Urine Squamous Epithelial Cells 0-2, Urine Crystals NONE, Urine Bacteria TRACE, Urine Casts NONE, Urine Mucus NEGATIVE, Urine Culture Indicated NO 04/22/20 08:30: Body Fluid Source THORACENTESIS, Body Fluid Color CONSTANTINO, Body Fluid Appearance SLT CLDY, Body Fluid pH 7.3, Body Fluid WBC 98, Body Fluid RBC [id number], Body Fluid Polynuclear WBCs 59, Body Fluid Mononuclear WBCs 4, Body Fluid Lymphocytes 37, Body Fluid Other Cells , Body Fluid Glucose 50, Body Fluid Total Protein 4.0, Body Fluid Lactate Dehydrogenase 1906 04/22/20 10:53: Glucometer 156H Microbiology 04/19/20 Gram Stain - Final, Complete 04/19/20 Sputum Culture - Final, Complete Usual upper respiratory kari YEAST Strep agalactiae Group B Staphylococcus aureus 04/18/20 Blood Culture - Preliminary, Resulted No growth Assessment/Plan Assessment/Plan Assessment/Plan Covid-19 Respiratory Failure Pneumothorax The chest tube is functioning well, no air leak seen and is draining serous fluid in the lung. CXR shows small sliver of PTX. Continue chest tube to suction, will try on just water seal. Clinical Quality Measures DVT/VTE Risk/Contraindication: Risk Factor Score Per Nursin RFS Level Per Nursing on Admit: 4+=Very High GONSALO RANDLE DO Apr 22, 2020 11:25
--- NOTE | 2020-04-22 12:10 | NUR ---
chest tube placed to water seal per dr wakefield.
[2020-04-22 14:29] VITALS: BP 92/59
[2020-04-22] MEDS: DEXTROSE 10% IV SOLUTION 1,000 ML IV SCH (15:16)
--- NOTE | 2020-04-22 15:49 | NUR ---
Note kangaroo pump tubing shortage, and note pt is getting 60ml bolus TF throughout the day, per Milagros. Would recommend continuation of bolus feeds until tubing is available. Would recommend flushing with 60ml free water before and after each bolus. Will continue to follow and reassess as pt needs, intake, and status change. Harjinder Artis, MS RD LD [phone] cell
[2020-04-22 18:22] VITALS: BP 89/49
[2020-04-22 21:50] VITALS: BP 106/56
[2020-04-23] MEDS: PROPOFOL DRIP (ICU) 100 ML IV SCH ×5 (00:28→15:25)
[2020-04-23] MEDS: KCL 20 MEQ TAB (K-DUR) PO SCH (01:51)
[2020-04-23] MEDS: MAGNESIUM 1 GM/100 ML IVPB 100 ML IV SCH (01:51)
[2020-04-23] MEDS: POTASSIUM CL 10MEQ/50ML IVPB 50 ML IV SCH (01:51)
[2020-04-23 02:12] VITALS: BP 106/56
[2020-04-23] MEDS: RT-ALBUTEROL INHALER HFA (VENTOLIN HFA) 18 GM IH SCH ×6 (02:12→21:23)
[2020-04-23] MEDS: PIPERACILLIN/TAZO 4.5 GM/NS 100 ML IV SCH ×2 (03:21)
[2020-04-23 03:29] LABS: ABG BASE EXCESS 3.7 MMOL/L (-2.5-2.5); ABG OXYGEN SATURATION 92 % (94-100); ABG PCO2 48 MMHG (35-45); ABG PH 7.39 (7.37-7.43); ABG PO2 77 MMHG (79-93); ABG TCO2 29.6 MMOL/L (21.0-31.0)
[2020-04-23 03:32] LABS: INSPIRED O2 85%; PATIENT TEMP 37.7; VENTILATOR YES
[2020-04-23] MEDS: ARTIFICIAL TEARS OINT (LACRI-LUBE) 3.5 GM TUBE OU SCH ×5 (04:06→20:59)
[2020-04-23 05:06] LABS: BASOPHILS % (AUTO) 0 % (0-10); EOSINOPHILS % (AUTO) 0 % (0-10); HEMATOCRIT 26 % (40-54); HEMOGLOBIN 8.1 g/dL (13.3-17.7); LYMPHOCYTES # (AUTO) 1.6 10^3/uL (1.0-4.0); LYMPHOCYTES % (AUTO) 14 % (12-44); MEAN CORPUSCULAR HEMOGLOBIN 28 pg (25-34); MEAN CORPUSCULAR HGB CONC 31 g/dL (32-36); MEAN CORPUSCULAR VOLUME 92 fL (80-99); MEAN PLATELET VOLUME 9.7 fL (9.0-12.2); MONOCYTES # (AUTO) 0.5 10^3/uL (0.0-1.0); MONOCYTES % (AUTO) 4 % (0-12); NEUTROPHILS # (AUTO) 8.9 10^3/uL (1.8-7.8); NEUTROPHILS % (AUTO) 79 % (42-75); PLATELET COUNT 261 10^3/uL (130-400); WHITE BLOOD COUNT 11.3 10^3/uL (4.3-11.0)
--- NOTE | 2020-04-23 05:14 | Pulmonary Progress Note ---
Subjective Time Seen by a Provider: 05:09 Sepsis Event Evaluation Height, Weight, BMI Height: '" Weight: lbs. oz. kg; 31.00 BMI Method: Focused Exam Lactate Level 04/22/20 05:10: Lactic Acid Level 1.12 Exam Exam Vital Signs Date Time Temp Pulse Resp B/P (MAP) Pulse Ox O2 Delivery O2 Flow Rate FiO2 04/23/20 04:21 50 106/56 04/23/20 02:12 50 26 98 45 04/23/20 01:00 54 04/23/20 00:28 50 106/56 04/22/20 22:25 50 26 106/56 04/22/20 21:50 50 26 98 40 04/22/20 21:00 Mechanical Ventilator 40 04/22/20 19:53 37.1 54 26 94/49 96 Mechanical Ventilator 40.00 04/22/20 19:40 54 89/49 04/22/20 19:00 57 04/22/20 18:22 54 26 97 55 04/22/20 18:00 37.1 56 25 91/48 97 Mechanical Ventilator 55.00 04/22/20 17:00 37.2 58 25 102/56 96 Mechanical Ventilator 55.00 04/22/20 16:00 37.1 78 23 100/57 95 Mechanical Ventilator 55.00 04/22/20 15:19 35.4 Mechanical Ventilator 55.00 04/22/20 15:00 36.9 56 25 101/58 94 Mechanical Ventilator 50.00 04/22/20 14:29 61 30 92 55 04/22/20 14:17 51 93/57 04/22/20 14:00 36.9 48 26 85/51 95 Mechanical Ventilator 50.00 04/22/20 13:00 36.9 53 25 94/55 95 Mechanical Ventilator 50.00 04/22/20 12:43 52 04/22/20 12:16 36.9 Mechanical Ventilator 50.00 04/22/20 12:00 36.9 51 26 93/57 95 Mechanical Ventilator 50.00 04/22/20 11:00 37.1 56 25 106/61 93 Mechanical Ventilator 50.00 04/22/20 10:16 58 26 94 50 04/22/20 10:00 37.4 59 25 105/63 91 Mechanical Ventilator 50.00 04/22/20 09:36 78 120/78 04/22/20 09:00 Mechanical Ventilator 50 04/22/20 09:00 37.5 57 25 101/56 97 Mechanical Ventilator 50.00 04/22/20 08:17 Mechanical Ventilator 50.00 04/22/20 08:00 37.4 61 26 113/65 98 Mechanical Ventilator 40.00 04/22/20 07:16 78 04/22/20 07:00 37.7 67 29 100/54 98 Mechanical Ventilator 40.00 04/22/20 06:56 69 04/22/20 06:47 71 04/22/20 06:45 37.8 04/22/20 06:06 87 31 97 50 04/22/20 06:00 38.0 90 12 91/56 95 Mechanical Ventilator 40.00 04/22/20 05:10 37.9 I & O 04/23/20 06:59 Intake Total 3705 ml Output Total 1098 ml Balance 2607 ml Height & Weight Height: '" Weight: lbs. oz. kg; 31.00 BMI Method: General Appearance: Chronically ill, Other (sedated, on vent) HEENT: PERRL/EOMI, Other (ET tube in place, Dry oral mucosa) Respiratory: Lungs Clear, No Respiratory Distress, Other (CT in place, no air leak) Cardiovascular: Regular Rate, Rhythm, No Murmur Capillary Refill: Less Than 3 Seconds Gastrointestinal: soft, no organomegaly Neurologic/Psychiatric: Other (sedated, appears comfortable) Skin: Normal Color Results Lab Laboratory Tests 04/22/20 02:10 Assessment/Plan Assessment/Plan Acute respiratory failure with ARDS -Continue ventilator care -PEEP to 10 -Currently on Propofol at 40 and Fentanyl at 150mcg/hr , Versed -Start TF COVID 19 PNA - tm 38.7 last night - Vancomycin and Zosyn -Start Diflucan -Repeat levin cultures including culture plural fluid -Dx 04/09 -Remdesivir -Decadron -CVP Small stable right PTX - prior to intubation -Continue Chest tube until after Extubation -Repeat CXR secondary to worsening respiratory status. -Reconnnect Chest tube to suction secondary to worsening respiratory status after placement is confirmed. -No chest tube drainage over last 12 hours. Yesterday there was approx 100ml per shift. PNA -Vanco, and Zosyn -Levin cultures pending -MRSA pending TBI Hepatitis C Transaminitis noted, trend with remdesivir PATRICIA baseline creatinine around 0.75m up to 1.30 Continue IVF COLEMAN MARTINEZ DO Apr 23, 2020 05:14
[2020-04-23] MEDS ORDERED: FLUCONAZOLE 200 MG/100 ML 100 ML IV ONE (05:15)
[2020-04-23 05:42] LABS: ALBUMIN 1.9 GM/DL (3.2-4.5); CHLORIDE 107 MMOL/L (98-107); POTASSIUM 3.1 MMOL/L (3.6-5.0); SODIUM 141 MMOL/L (135-145)
[2020-04-23 05:43] LABS: CALCIUM 6.9 MG/DL (8.5-10.1)
[2020-04-23 05:44] LABS: TRIGLYCERIDES 157 MG/DL (<150)
[2020-04-23 05:45] LABS: GLUCOSE 97 MG/DL (70-105); TOTAL PROTEIN 4.9 GM/DL (6.4-8.2)
[2020-04-23 05:46] LABS: BILIRUBIN,TOTAL 0.4 MG/DL (0.1-1.0); CARBON DIOXIDE 26 MMOL/L (21-32)
[2020-04-23 05:48] LABS: CREATININE SERUM 0.55 MG/DL (0.60-1.30); GFR ESTIMATED > 60; PHOSPHORUS 2.1 MG/DL (2.3-4.7)
[2020-04-23 05:49] LABS: ALKALINE PHOSPHATASE 44 U/L (40-136)
[2020-04-23 05:51] LABS: BUN/CREATININE RATIO 16
[2020-04-23 05:52] LABS: ALANINE AMINOTRANSFERASE 12 U/L (0-55)
[2020-04-23] MEDS: inSUlin ASPART (NovoLOG) 1 UNIT/0.01 ML (CHARGE PER UNIT) SQ SCH ×4 (05:58→22:42)
[2020-04-23] MEDS: DEXTROSE 10% IV SOLUTION 1,000 ML IV SCH ×2 (05:58→11:41)
[2020-04-23] MEDS: fentaNYL DRIP PRE-MIX 250 ML IV SCH ×3 (06:23→22:36)
[2020-04-23 06:43] VITALS: BP 106/65
--- NOTE | 2020-04-23 07:13 | Diagnostic Imaging Report ---
EXAMINATION: Chest 1 view HISTORY: COVID positive. Follow-up. COMPARISON: 04/21/2020. FINDINGS: Stable configuration of the endotracheal tube and enteric tube. Increased patchy opacities are seen throughout both lungs, greatest in the mid and lower right lung. No large pleural effusion or pneumothorax. Stable cardiac silhouette. IMPRESSION: 1. Worsening opacities throughout the lungs, greatest in the right mid and lower lung. 2. Stable support devices. Report was faxed to [facility] by hilda at 7:12am. Dictated by: Dictated on workstation # [id number]
[2020-04-23] MEDS: VANCOMYCIN 1500 MG/NS 500 ML IVPB IV SCH ×2 (07:51)
[2020-04-23] MEDS: DIVALPROX SPRINKLE 125 MG (DEPAKOTE) CAP GT SCH ×2 (07:51→18:03)
[2020-04-23] MEDS: PANTOPRAZOLE 40 MG (PROTONIX) VIAL IV SCH (08:08)
[2020-04-23] MEDS: MEROPENEM 500 MG/SWFI 10 ML IV PUSH IV SCH ×6 (10:59→20:59)
[2020-04-23] MEDS: REMDESIVIR INJ 100 MG in NS (IVPB) 230 ML IV SCH (10:59)
[2020-04-23] MEDS: ENOXAPARIN 100 MG/1 ML (LOVENOX) SYR SC SCH ×2 (10:59→22:36)
[2020-04-23 11:29] VITALS: BP 106/65
--- NOTE | 2020-04-23 12:15 | Progress Note - Surgery ---
Subjective Time Seen by a Provider: 11:21 Subjective/Events-last exam Pt seen and examined, intubated and sedated. Review of Systems Unable to obtain, pt intubated and sedated. Focused Exam Lactate Level 04/22/20 05:10: Lactic Acid Level 1.12 Objective Exam Vital Signs Date Time Temp Pulse Resp B/P (MAP) Pulse Ox O2 Delivery O2 Flow Rate FiO2 04/23/20 11:29 56 26 96 65 04/23/20 11:00 37.7 04/23/20 09:00 Mechanical Ventilator 40 04/23/20 07:50 63 106/65 04/23/20 07:49 63 106/65 04/23/20 07:00 37.8 68 16 107/58 95 Mechanical Ventilator 65.00 04/23/20 06:43 63 26 97 75 04/23/20 06:00 37.7 62 26 113/60 97 Mechanical Ventilator 85.00 04/23/20 05:00 37.6 67 26 108/57 96 Mechanical Ventilator 85.00 04/23/20 04:21 50 106/56 04/23/20 04:00 37.7 74 25 97/56 95 Mechanical Ventilator 85.00 04/23/20 03:00 37.7 96 32 101/56 91 Mechanical Ventilator 85.00 04/23/20 02:12 50 26 98 45 04/23/20 02:00 37.3 52 25 95/50 92 Mechanical Ventilator 40.00 04/23/20 01:00 37.2 52 25 94/51 92 Mechanical Ventilator 40.00 04/23/20 01:00 54 04/23/20 00:28 50 106/56 04/23/20 00:00 37.2 53 25 96/50 92 Mechanical Ventilator 40.00 04/22/20 23:00 37.1 55 25 96/50 93 Mechanical Ventilator 40.00 04/22/20 22:25 50 26 106/56 04/22/20 22:00 37.1 56 25 93/49 91 Mechanical Ventilator 40.00 04/22/20 21:50 50 26 98 40 04/22/20 21:00 37.1 55 25 97/51 93 Mechanical Ventilator 40.00 04/22/20 21:00 Mechanical Ventilator 40 04/22/20 20:00 37.1 53 25 94/50 93 Mechanical Ventilator 40.00 04/22/20 19:53 37.1 54 26 94/49 96 Mechanical Ventilator 40.00 04/22/20 19:40 54 89/49 04/22/20 19:00 37.1 57 26 90/49 93 Mechanical Ventilator 55.00 04/22/20 19:00 57 04/22/20 18:22 54 26 97 55 04/22/20 18:00 37.1 56 25 91/48 97 Mechanical Ventilator 55.00 04/22/20 17:00 37.2 58 25 102/56 96 Mechanical Ventilator 55.00 04/22/20 16:00 37.1 78 23 100/57 95 Mechanical Ventilator 55.00 04/22/20 15:19 35.4 Mechanical Ventilator 55.00 04/22/20 15:00 36.9 56 25 101/58 94 Mechanical Ventilator 50.00 04/22/20 14:29 61 30 92 55 04/22/20 14:17 51 93/57 04/22/20 14:00 36.9 48 26 85/51 95 Mechanical Ventilator 50.00 04/22/20 13:00 36.9 53 25 94/55 95 Mechanical Ventilator 50.00 04/22/20 12:43 52 04/22/20 12:16 36.9 Mechanical Ventilator 50.00 I & O 04/23/20 07:00 Intake Total 3815 ml Output Total 1198 ml Balance 2617 ml Capillary Refill : Less Than 3 Seconds General Appearance: Chronically ill, Other (sedated, on vent) HEENT: PERRL/EOMI, Other (ET tube in place, Dry oral mucosa) Respiratory: No Respiratory Distress, Crackles, Decreased Breath Sounds, Other (CT in place, no air leak) Cardiovascular: Regular Rate, Rhythm, No Murmur Gastrointestinal: soft, no organomegaly Neurologic/Psychiatric: Other (sedated, appears comfortable) Skin: Normal Color Results Lab Laboratory Tests 04/22/20 17:45: Glucometer 172H 04/22/20 23:37: Glucometer 123H 04/23/20 03:15: Blood Gas Puncture Site NO SITE, Blood Gas Patient Temperature 37.7, Arterial Blood pH 7.39, Arterial Blood Partial Pressure CO2 48H, Arterial Blood Partial Pressure O2 77L, Arterial Blood HCO3 28H, Arterial Blood Total CO2 29.6, Arterial Blood Oxygen Saturation 92L, Arterial Blood Base Excess 3.7H, Mt Test NA, Blood Gas Ventilator Setting YES, Blood Gas Inspired Oxygen 85% 04/23/20 04:45: White Blood Count 11.3H, Red Blood Count 2.87L, Hemoglobin 8.1L, Hematocrit 26L, Mean Corpuscular Volume 92, Mean Corpuscular Hemoglobin 28, Mean Corpuscular Hemoglobin Concent 31L, Red Cell Distribution Width 16.0H, Platelet Count 261, Mean Platelet Volume 9.7, Immature Granulocyte % (Auto) 3, Neutrophils (%) (Auto) 79H, Lymphocytes (%) (Auto) 14, Monocytes (%) (Auto) 4, Eosinophils (%) (Auto) 0, Basophils (%) (Auto) 0, Neutrophils # (Auto) 8.9H, Lymphocytes # (Auto) 1.6, Monocytes # (Auto) 0.5, Eosinophils # (Auto) 0.0, Basophils # (Auto) 0.0, Immature Granulocyte # (Auto) 0.3H, Sodium Level 141, Potassium Level 3.1L, Chloride Level 107, Carbon Dioxide Level 26, Anion Gap 8, Blood Urea Nitrogen 9, Creatinine 0.55L, Estimat Glomerular Filtration Rate > 60, BUN/Creatinine Ratio 16, Glucose Level 97, Calcium Level 6.9L, Corrected Calcium 8.6, Phosphorus Level 2.1L, Magnesium Level 2.0, Total Bilirubin 0.4, Aspartate Amino Transf (AST/SGOT) 9, Alanine Aminotransferase (ALT/SGPT) 12, Alkaline Phosphatase 44, Total Protein 4.9L, Albumin 1.9L, Triglycerides Level 157H 04/23/20 11:03: Glucometer 127H Microbiology 04/22/20 Gram Stain - Final, Resulted 04/22/20 Body Fluid Culture - Preliminary, Resulted 04/22/20 Gram Stain - Final, Resulted 04/22/20 Sputum Culture - Preliminary, Resulted Gram Negative Alan See Comments 04/18/20 Blood Culture - Preliminary, Resulted No growth Assessment/Plan Assessment/Plan Assessment/Plan Covid-19 Respiratory Failure Pneumothorax The chest tube is functioning well, no air leak seen and is draining scant serous fluid. CXR today looks like no signs of PTX. Continue chest tube; will try and clamp tube. Clinical Quality Measures DVT/VTE Risk/Contraindication: Risk Factor Score Per Nursin RFS Level Per Nursing on Admit: 4+=Very High GONSALO RANDLE DO Apr 23, 2020 12:15
[2020-04-23] MEDS: MIDAZOLAM DRIP PRE-MIX 100 ML IV SCH (12:31)
[2020-04-23 14:29] VITALS: BP 106/65
--- NOTE | 2020-04-23 14:54 | NUR ---
CM/SS follow up. CM/SS contacted Maggie from [facility] to give an update. She verbalized understanding. CM/SS will continue to follow.
--- NOTE | 2020-04-23 15:16 | NUR ---
Note pt is currently receiving [facility] via bolus feeds of 60ml q4h with 30ml free water flushes before and after bolus. Would recommend continuation of bolus feeds at this time. Will continue to follow and reassess as pt needs, intake, and status change. Daisy MANDUJANO, MS RD LD [phone] cell
[2020-04-23 18:46] VITALS: BP 120/64
[2020-04-23] MEDS ORDERED: TROUGH ORDER-PHARMACY XX NR (19:00)
[2020-04-23 21:24] VITALS: BP 115/62
[2020-04-24] MEDS: PROPOFOL DRIP (ICU) 100 ML IV SCH ×3 (00:29→22:57)
[2020-04-24] MEDS: ARTIFICIAL TEARS OINT (LACRI-LUBE) 3.5 GM TUBE OU SCH ×6 (00:29→20:01)
[2020-04-24 02:14] VITALS: BP 119/65
[2020-04-24] MEDS: RT-ALBUTEROL INHALER HFA (VENTOLIN HFA) 18 GM IH SCH ×6 (02:14→21:49)
[2020-04-24] MEDS: DEXTROSE 10% IV SOLUTION 1,000 ML IV SCH ×2 (02:19→17:30)
[2020-04-24] MEDS: MEROPENEM 500 MG/SWFI 10 ML IV PUSH IV SCH ×8 (02:19→20:02)
[2020-04-24 02:54] LABS: ABG BASE EXCESS 4.3 MMOL/L (-2.5-2.5); ABG OXYGEN SATURATION 96 % (94-100); ABG PCO2 45 MMHG (35-45); ABG PH 7.42 (7.37-7.43); ABG PO2 72 MMHG (79-93); ABG TCO2 30.3 MMOL/L (21.0-31.0)
[2020-04-24 02:56] LABS: ALLENS TEST YES-POS; INSPIRED O2 45%; PATIENT TEMP 35.8; VENTILATOR YES
[2020-04-24] MEDS: MIDAZOLAM DRIP PRE-MIX 100 ML IV SCH ×2 (03:15→17:28)
--- NOTE | 2020-04-24 04:13 | Pulmonary Progress Note ---
Subjective Time Seen by a Provider: 04:10 Subjective/Events-last exam Pt is sedated on vent. Sepsis Event Evaluation Height, Weight, BMI Height: '" Weight: lbs. oz. kg; 31.00 BMI Method: Focused Exam Lactate Level 04/22/20 05:10: Lactic Acid Level 1.12 Exam Exam Vital Signs Date Time Temp Pulse Resp B/P (MAP) Pulse Ox O2 Delivery O2 Flow Rate FiO2 04/24/20 03:15 48 26 120/64 04/24/20 02:14 50 26 98 50 04/24/20 00:29 43 124/67 04/23/20 23:00 Mechanical Ventilator 45.00 04/23/20 21:24 45 26 95 50 04/23/20 21:00 Mechanical Ventilator 45 04/23/20 21:00 Mechanical Ventilator 50.00 04/23/20 18:46 54 27 98 65 04/23/20 18:00 36.9 55 25 117/63 (81) 96 Mechanical Ventilator 65.00 04/23/20 17:00 36.9 56 20 114/63 (80) 97 Mechanical Ventilator 65.00 04/23/20 16:00 37.1 60 21 118/63 (81) 97 Mechanical Ventilator 65.00 04/23/20 15:25 51 106/65 04/23/20 15:00 37.1 52 16 108/58 (75) 98 Mechanical Ventilator 65.00 04/23/20 14:29 51 28 99 65 04/23/20 14:00 37.4 51 26 107/57 (74) 97 Mechanical Ventilator 65.00 04/23/20 13:00 37.4 53 16 105/60 (75) 97 Mechanical Ventilator 65.00 04/23/20 12:43 61 04/23/20 12:31 56 26 106/65 04/23/20 12:00 37.5 60 16 112/61 (78) 97 Mechanical Ventilator 65.00 04/23/20 11:29 56 26 96 65 04/23/20 11:00 37.7 56 25 111/59 (76) 95 Mechanical Ventilator 65.00 04/23/20 11:00 37.7 04/23/20 10:00 37.9 58 26 115/72 (86) 95 Mechanical Ventilator 65.00 04/23/20 09:00 37.9 60 26 104/58 (73) 95 Mechanical Ventilator 65.00 04/23/20 09:00 Mechanical Ventilator 40 04/23/20 08:00 37.8 60 25 104/55 (71) 95 Mechanical Ventilator 65.00 04/23/20 07:50 63 106/65 04/23/20 07:49 63 106/65 04/23/20 07:00 37.8 68 16 107/58 95 Mechanical Ventilator 65.00 04/23/20 06:43 63 26 97 75 04/23/20 06:35 64 04/23/20 06:00 37.7 62 26 113/60 97 Mechanical Ventilator 85.00 04/23/20 05:00 37.6 67 26 108/57 96 Mechanical Ventilator 85.00 04/23/20 04:21 50 106/56 I & O 04/24/20 07:00 Intake Total 730 ml Output Total 1079 ml Balance -349 ml Height & Weight Height: '" Weight: lbs. oz. kg; 31.00 BMI Method: General Appearance: Chronically ill, Other HEENT: PERRL/EOMI, Other Respiratory: No Respiratory Distress, Crackles, Decreased Breath Sounds, Other Cardiovascular: Regular Rate, Rhythm, No Murmur Capillary Refill: Less Than 3 Seconds Gastrointestinal: soft, no organomegaly Neurologic/Psychiatric: Other Skin: Normal Color Results Lab Laboratory Tests 04/23/20 04:45 Assessment/Plan Assessment/Plan Acute respiratory failure with ARDS -Continue ventilator care -PEEP to 10-- decrease to 8 -Currently on Propofol at 30 and Fentanyl at 150mcg/hr , Versed -Start TF COVID 19 PNA - tm 38.7 last night - Vancomycin and Zosyn -Start Diflucan -Repeat levin cultures including culture plural fluid -Dx 04/09 -Remdesivir -Decadron -CVP Small stable right PTX - prior to intubation -Continue Chest tube until after Extubation -Currently to suction -minimal chest tube output. -Repeat CXR - PNA -Vanco, and Zosyn -Levin cultures pending -MRSA pending TBI Hepatitis C Transaminitis noted, trend with remdesivir PATRICIA baseline creatinine around 0.75m up to 1.30 Continue IVF COLEMAN MARTINEZ DO Apr 24, 2020 04:13
[2020-04-24 04:50] LABS: BASOPHILS % (AUTO) 0 % (0-10); EOSINOPHILS % (AUTO) 0 % (0-10); HEMATOCRIT 28 % (40-54); HEMOGLOBIN 8.6 g/dL (13.3-17.7); LYMPHOCYTES # (AUTO) 1.6 10^3/uL (1.0-4.0); LYMPHOCYTES % (AUTO) 17 % (12-44); MEAN CORPUSCULAR HEMOGLOBIN 28 pg (25-34); MEAN CORPUSCULAR HGB CONC 31 g/dL (32-36); MEAN CORPUSCULAR VOLUME 93 fL (80-99); MEAN PLATELET VOLUME 10.2 fL (9.0-12.2); MONOCYTES # (AUTO) 0.4 10^3/uL (0.0-1.0); MONOCYTES % (AUTO) 4 % (0-12); NEUTROPHILS # (AUTO) 7.1 10^3/uL (1.8-7.8); NEUTROPHILS % (AUTO) 76 % (42-75); PLATELET COUNT 276 10^3/uL (130-400); WHITE BLOOD COUNT 9.4 10^3/uL (4.3-11.0)
[2020-04-24 04:51] LABS: CHLORIDE 104 MMOL/L (98-107); POTASSIUM 3.7 MMOL/L (3.6-5.0); SODIUM 138 MMOL/L (135-145)
[2020-04-24 04:52] LABS: CALCIUM 7.5 MG/DL (8.5-10.1)
[2020-04-24 04:53] LABS: GLUCOSE 129 MG/DL (70-105); TOTAL PROTEIN 5.8 GM/DL (6.4-8.2)
[2020-04-24 04:55] LABS: BILIRUBIN,TOTAL 0.3 MG/DL (0.1-1.0); CARBON DIOXIDE 25 MMOL/L (21-32)
[2020-04-24 04:57] LABS: ALKALINE PHOSPHATASE 55 U/L (40-136); CREATININE SERUM 0.53 MG/DL (0.60-1.30); GFR ESTIMATED > 60
[2020-04-24 04:58] LABS: BUN/CREATININE RATIO 17
[2020-04-24 05:00] LABS: ALANINE AMINOTRANSFERASE 11 U/L (0-55); MAGNESIUM 2.2 MG/DL (1.6-2.4)
[2020-04-24] MEDS: POTASSIUM CL 10MEQ/50ML IVPB 50 ML IV SCH ×4 (05:44→13:18)
[2020-04-24] MEDS: MAGNESIUM 1 GM/100 ML IVPB 100 ML IV SCH (05:50)
[2020-04-24] MEDS: inSUlin ASPART (NovoLOG) 1 UNIT/0.01 ML (CHARGE PER UNIT) SQ SCH ×3 (05:50→19:06)
[2020-04-24] MEDS: KCL 20 MEQ TAB (K-DUR) PO SCH (05:50)
[2020-04-24] MEDS: fentaNYL DRIP PRE-MIX 250 ML IV SCH ×3 (05:51→21:09)
[2020-04-24 07:00] VITALS: BP 135/70
[2020-04-24] MEDS: FUROSEMIDE 40 MG/4 ML INJ (LASIX) IVP SCH (08:20)
[2020-04-24] MEDS: PANTOPRAZOLE 40 MG (PROTONIX) VIAL IV SCH (08:21)
[2020-04-24] MEDS: FLUCONAZOLE 200 MG/100 ML 50 ML, EMPTY IV BAG (PVC) 1 EA IV SCH ×2 (08:21)
[2020-04-24] MEDS: DIVALPROX SPRINKLE 125 MG (DEPAKOTE) CAP GT SCH ×2 (08:21→17:29)
--- NOTE | 2020-04-24 09:00 | NUR ---
received call from Dr. Child, regarding patient chest tube. Patient is currently set to wall suction on chest tube. Dr. Child questioned when this happened. Dr. Child would like patient to be back to water seal on chest tube at this time.
[2020-04-24] MEDS: ENOXAPARIN 100 MG/1 ML (LOVENOX) SYR SC SCH ×2 (10:58→22:57)
[2020-04-24 11:42] VITALS: BP 122/67
--- NOTE | 2020-04-24 14:51 | NUR ---
Note pt is currently receiving [facility] via 60ml bolus feeds q4h, with 30ml water flushes before and after each bolus. Recommended to Maria D VALENZUELA to increase to 75ml q4h and monitor for tolerance. Will continue to follow and reassess as pt needs, intake, and status change. Daisy MANDUJANO, MS RD LD [phone] CELL
[2020-04-24 15:03] VITALS: BP 126/66
--- NOTE | 2020-04-24 15:49 | Progress Note - Surgery ---
Subjective Time Seen by a Provider: 14:16 Subjective/Events-last exam Pt seen and examined, sedated on vent. Review of Systems Unable to obtain, pt intubated and sedated. Focused Exam Lactate Level 04/22/20 05:10: Lactic Acid Level 1.12 Time of Focused Exam: 11:35 Objective Exam Vital Signs Date Time Temp Pulse Resp B/P (MAP) Pulse Ox O2 Delivery O2 Flow Rate FiO2 04/24/20 15:44 36.4 04/24/20 15:03 42 26 97 60 04/24/20 14:38 Mechanical Ventilator 60.00 04/24/20 12:00 37.6 41 26 123/64 (83) 94 Mechanical Ventilator 45.00 04/24/20 11:59 43 122/67 04/24/20 11:59 43 122/67 04/24/20 11:42 43 26 95 45 04/24/20 11:00 37.5 40 25 129/71 (90) 92 Mechanical Ventilator 45.00 04/24/20 10:00 37.3 41 25 122/64 (83) 88 Mechanical Ventilator 45.00 04/24/20 09:00 37.2 40 25 129/71 (90) 91 Mechanical Ventilator 45.00 04/24/20 09:00 Mechanical Ventilator 45 04/24/20 08:00 37.1 41 25 126/69 (88) 91 Mechanical Ventilator 45.00 04/24/20 07:00 37.0 41 25 121/65 (83) 93 Mechanical Ventilator 45.00 04/24/20 07:00 41 26 92 45 04/24/20 06:46 41 04/24/20 06:00 36.9 41 25 136/72 (93) 92 Mechanical Ventilator 45.00 04/24/20 05:00 36.9 41 25 130/68 (88) 93 Mechanical Ventilator 45.00 04/24/20 04:00 36.9 42 26 121/65 (83) 91 Mechanical Ventilator 45.00 04/24/20 03:15 48 26 120/64 04/24/20 03:00 37.0 49 25 129/67 (87) 91 Mechanical Ventilator 45.00 04/24/20 02:14 50 26 98 50 04/24/20 02:00 37.0 43 25 127/65 (85) 91 Mechanical Ventilator 45.00 12/9/20 01:00 45 04/24/20 01:00 36.9 45 25 133/68 (89) 92 Mechanical Ventilator 45.00 04/24/20 00:29 43 124/67 04/24/20 00:00 36.8 43 25 125/66 (85) 94 Mechanical Ventilator 45.00 04/23/20 23:00 36.8 44 25 110/62 (78) 94 Mechanical Ventilator 45.00 04/23/20 23:00 Mechanical Ventilator 45.00 04/23/20 22:00 36.8 43 25 118/64 (82) 95 Mechanical Ventilator 50.00 04/23/20 21:24 45 26 95 50 04/23/20 21:00 Mechanical Ventilator 45 04/23/20 21:00 Mechanical Ventilator 50.00 04/23/20 21:00 36.9 44 25 117/64 (81) 99 Mechanical Ventilator 50.00 04/23/20 20:00 36.9 45 25 122/66 (84) 99 Mechanical Ventilator 65.00 04/23/20 19:00 50 04/23/20 19:00 36.9 50 25 114/64 (81) 98 Mechanical Ventilator 65.00 04/23/20 18:46 54 27 98 65 04/23/20 18:00 36.9 55 25 117/63 (81) 96 Mechanical Ventilator 65.00 04/23/20 17:00 36.9 56 20 114/63 (80) 97 Mechanical Ventilator 65.00 04/23/20 16:00 37.1 60 21 118/63 (81) 97 Mechanical Ventilator 65.00 I & O 04/24/20 07:00 Intake Total 970 ml Output Total 1954 ml Balance -984 ml Capillary Refill : Less Than 3 Seconds General Appearance: No Apparent Distress HEENT: PERRL/EOMI, Other (Dry oral mucosa) Respiratory: Lungs Clear, No Accessory Muscle Use, Decreased Breath Sounds (right compared to left) Cardiovascular: No Murmur, Bradycardia Peripheral Pulses: 1+ Radial Pulses (R), 1+ Radial Pulses (L) Gastrointestinal: soft, no organomegaly Neurologic/Psychiatric: Other (Anxious, repeatedly yelling) Skin: Normal Color Results Lab Laboratory Tests 04/23/20 17:08: Glucometer 150H 04/23/20 18:55: Vancomycin Level Trough 14.5 04/23/20 22:42: Glucometer 148H 04/24/20 02:45: Blood Gas Puncture Site RIGHT RADIAL, Blood Gas Patient Temperature 35.8, Arterial Blood pH 7.42, Arterial Blood Partial Pressure CO2 45, Arterial Blood Partial Pressure O2 72L, Arterial Blood HCO3 29H, Arterial Blood Total CO2 30.3, Arterial Blood Oxygen Saturation 96, Arterial Blood Base Excess 4.3H, Mt Test YES-POS, Blood Gas Ventilator Setting YES, Blood Gas Inspired Oxygen 45% 04/24/20 04:15: White Blood Count 9.4, Red Blood Count 3.03L, Hemoglobin 8.6L, Hematocrit 28L, Mean Corpuscular Volume 93, Mean Corpuscular Hemoglobin 28, Mean Corpuscular Hemoglobin Concent 31L, Red Cell Distribution Width 16.3H, Platelet Count 276, Mean Platelet Volume 10.2, Immature Granulocyte % (Auto) 4, Neutrophils (%) (Auto) 76H, Lymphocytes (%) (Auto) 17, Monocytes (%) (Auto) 4, Eosinophils (%) (Auto) 0, Basophils (%) (Auto) 0, Neutrophils # (Auto) 7.1, Lymphocytes # (Auto) 1.6, Monocytes # (Auto) 0.4, Eosinophils # (Auto) 0.0, Basophils # (Auto) 0.0, Immature Granulocyte # (Auto) 0.4H, Sodium Level 138, Potassium Level 3.7, Chloride Level 104, Carbon Dioxide Level 25, Anion Gap 9, Blood Urea Nitrogen 9, Creatinine 0.53L, Estimat Glomerular Filtration Rate > 60, BUN/Creatinine Ratio 17, Glucose Level 129H, Calcium Level 7.5L, Corrected Calcium 9.1, Phosphorus Level 2.0L, Magnesium Level 2.2, Total Bilirubin 0.3, Aspartate Amino Transf (AST/SGOT) 13, Alanine Aminotransferase (ALT/SGPT) 11, Alkaline Phosphatase 55, Total Protein 5.8L, Albumin 2.0L, Procalcitonin 0.06 04/24/20 11:21: Glucometer 137H Microbiology 04/22/20 Gram Stain - Final, Resulted 04/22/20 Body Fluid Culture - Preliminary, Resulted No growth 04/22/20 Gram Stain - Final, Complete 04/22/20 Sputum Culture - Final, Complete Klebsiella pneumoniae See Comments 04/22/20 Blood Culture - Preliminary, Resulted No growth Assessment/Plan Assessment/Plan Assessment/Plan Covid-19 Respiratory Failure Pneumothorax The chest tube is functioning well, no air leak seen and is draining scant sero us fluid. Continue chest tube; someone had hooked it back up to suction, will clamp tube and check CXR in am. Clinical Quality Measures DVT/VTE Risk/Contraindication: Risk Factor Score Per Nursin RFS Level Per Nursing on Admit: 4+=Very High GONSALO RANDLE DO Apr 24, 2020 15:49
[2020-04-24 18:42] VITALS: BP 130/70
[2020-04-24] MEDS: FAMOTIDINE 20MG/2ML IV (PEPCID) IV SCH (20:02)
[2020-04-24 21:49] VITALS: BP 130/70
[2020-04-25 01:45] VITALS: BP 130/70
[2020-04-25] MEDS: RT-ALBUTEROL INHALER HFA (VENTOLIN HFA) 18 GM IH SCH ×5 (01:45→21:52)
[2020-04-25] MEDS: ARTIFICIAL TEARS OINT (LACRI-LUBE) 3.5 GM TUBE OU SCH ×5 (03:02→19:53)
[2020-04-25] MEDS: inSUlin ASPART (NovoLOG) 1 UNIT/0.01 ML (CHARGE PER UNIT) SQ SCH ×5 (03:02→23:39)
[2020-04-25] MEDS: MEROPENEM 500 MG/SWFI 10 ML IV PUSH IV SCH ×8 (03:03→19:51)
[2020-04-25 03:08] LABS: ABG BASE EXCESS 6.5 MMOL/L (-2.5-2.5); ABG OXYGEN SATURATION 94 % (94-100); ABG PCO2 42 MMHG (35-45); ABG PH 7.47 (7.37-7.43); ABG PO2 70 MMHG (79-93); ABG TCO2 31.6 MMOL/L (21.0-31.0)
[2020-04-25 03:27] LABS: ALLENS TEST POS
[2020-04-25 03:28] LABS: INSPIRED O2 45%; PATIENT TEMP 37; VENTILATOR YES
[2020-04-25] MEDS: fentaNYL DRIP PRE-MIX 250 ML IV SCH ×4 (04:51→19:52)
--- NOTE | 2020-04-25 05:48 | Pulmonary Progress Note ---
Subjective Time Seen by a Provider: 05:42 Subjective/Events-last exam Pt is sedated on vent. Sepsis Event Evaluation Height, Weight, BMI Height: '" Weight: lbs. oz. kg; 31.00 BMI Method: Focused Exam Time of Focused Exam: 11:35 Exam Exam Vital Signs Date Time Temp Pulse Resp B/P (MAP) Pulse Ox O2 Delivery O2 Flow Rate FiO2 04/25/20 03:00 37 25 124/63 (83) 92 Mechanical Ventilator 45.00 04/25/20 02:00 37 26 117/63 (81) 92 Mechanical Ventilator 45.00 04/25/20 01:45 39 26 92 45 04/25/20 01:00 37 25 143/78 (99) 92 Mechanical Ventilator 45.00 04/25/20 00:00 37 40 93 Mechanical Ventilator 45.00 04/24/20 23:00 41 25 89 Mechanical Ventilator 45.00 04/24/20 22:57 40 138/86 04/24/20 22:00 40 26 138/86 (103) 91 Mechanical Ventilator 45.00 04/24/20 21:49 39 26 94 50 04/24/20 21:00 43 25 138/86 (103) 92 Mechanical Ventilator 45.00 04/24/20 21:00 Mechanical Ventilator 40 04/24/20 20:00 48 26 98 Mechanical Ventilator 45.00 04/24/20 19:15 36.7 04/24/20 19:00 32 32 150/75 (100) 93 Mechanical Ventilator 45.00 04/24/20 18:42 40 26 92 50 04/24/20 18:42 40 04/24/20 18:00 37.1 42 26 139/75 (96) 93 Mechanical Ventilator 45.00 04/24/20 17:28 41 04/24/20 17:00 37.1 42 25 110/58 (75) 92 Mechanical Ventilator 45.00 04/24/20 16:00 37.1 42 25 110/58 (75) 92 Mechanical Ventilator 45.00 04/24/20 15:44 36.4 04/24/20 15:03 42 26 97 60 04/24/20 15:00 37.2 40 26 120/64 (82) 97 Mechanical Ventilator 45.00 04/24/20 14:38 Mechanical Ventilator 60.00 04/24/20 14:00 37.3 41 25 132/69 (90) 97 Mechanical Ventilator 45.00 04/24/20 13:00 37.5 40 25 121/64 (83) 95 Mechanical Ventilator 45.00 04/24/20 13:00 41 04/24/20 12:00 37.6 41 26 123/64 (83) 94 Mechanical Ventilator 45.00 04/24/20 11:59 43 122/67 04/24/20 11:59 43 122/67 04/24/20 11:42 43 26 95 45 04/24/20 11:00 37.5 40 25 129/71 (90) 92 Mechanical Ventilator 45.00 04/24/20 10:00 37.3 41 25 122/64 (83) 88 Mechanical Ventilator 45.00 04/24/20 09:00 37.2 40 25 129/71 (90) 91 Mechanical Ventilator 45.00 04/24/20 09:00 Mechanical Ventilator 45 04/24/20 08:00 37.1 41 25 126/69 (88) 91 Mechanical Ventilator 45.00 04/24/20 07:00 37.0 41 25 121/65 (83) 93 Mechanical Ventilator 45.00 04/24/20 07:00 41 26 92 45 04/24/20 06:46 41 04/24/20 06:00 36.9 41 25 136/72 (93) 92 Mechanical Ventilator 45.00 I & O 04/25/20 07:00 Intake Total 540 ml Output Total 5025 ml Balance -4485 ml Height & Weight Height: '" Weight: lbs. oz. kg; 31.00 BMI Method: General Appearance: No Apparent Distress HEENT: PERRL/EOMI, Other (Dry oral mucosa) Respiratory: Lungs Clear, No Accessory Muscle Use, Decreased Breath Sounds (right compared to left) Cardiovascular: No Murmur, Bradycardia Capillary Refill: Less Than 3 Seconds Peripheral Pulses: 1+ Radial Pulses (R), 1+ Radial Pulses (L) Gastrointestinal: soft, no organomegaly Neurologic/Psychiatric: Other (Anxious, repeatedly yelling) Skin: Normal Color Results Lab Laboratory Tests 04/24/20 04:15 Assessment/Plan Assessment/Plan Acute respiratory failure with ARDS -Continue ventilator care -PEEP 8 -Currently on Propofol at 30 and Fentanyl at 150mcg/hr , Versed - TF COVID 19 PNA -with Klebsiella - Merrem -Start Diflucan -Repeat levin cultures including culture plural fluid -Dx 04/09 -Remdesivir -Decadron -CVP Small stable right PTX - prior to intubation -Continue Chest tube until after Extubation -Currently to water seal -50cc/hr tube output. -Repeat CXR - Bradycardia -D/C Propofol -continue to monitor close. PNA -Vanco, and Zosyn -Levin cultures pending -MRSA pending TBI Hepatitis C Transaminitis noted, trend with remdesivir PATRICIA baseline creatinine around 0.75m up to 1.30 Continue IVF COLEMAN MARTINEZ DO Apr 25, 2020 05:48
[2020-04-25] MEDS: MAGNESIUM 1 GM/100 ML IVPB 100 ML IV SCH (06:18)
[2020-04-25] MEDS: POTASSIUM CL 10MEQ/50ML IVPB 50 ML IV SCH (06:18)
[2020-04-25] MEDS: KCL 20 MEQ TAB (K-DUR) PO SCH (06:18)
[2020-04-25] MEDS ORDERED: proPOfol 500 MG/50 ML (DIPRIVAN) VIAL IV ONE (07:00)
[2020-04-25 07:02] VITALS: BP 139/72
[2020-04-25] MEDS ORDERED: proPOfol 200 MG/20 ML (DIPRIVAN) VIAL IV ONE (07:13)
--- NOTE | 2020-04-25 07:53 | Diagnostic Imaging Report ---
Indication: COVID pneumonia. Comparison made with prior examination from 04/23/2020 FINDINGS: There are diffuse bilateral groundglass infiltrates right greater than left. There is a right pleural effusion. Heart size is normal. There is no pneumothorax. An NG tube is in satisfactory position. There also appears to be some central pulmonary venous congestion. IMPRESSION: Bilateral groundglass infiltrates right greater than left essentially unchanged with a right pleural effusion. This is suspect for COVID pneumonia. Mild central pulmonary venous congestion. Report was faxed to [facility] by hilda at 7:53am. Dictated by: Dictated on workstation # [id number]
[2020-04-25] MEDS ORDERED: proPOfol (DIPRIVAN) 1000 MG/100 ML VIAL (ICU) IV NR (08:00)
[2020-04-25] MEDS: MIDAZOLAM DRIP PRE-MIX 100 ML IV SCH ×2 (08:48→16:36)
[2020-04-25] MEDS: FLUCONAZOLE 200 MG/100 ML 50 ML, EMPTY IV BAG (PVC) 1 EA IV SCH ×2 (08:49)
[2020-04-25] MEDS: FUROSEMIDE 40 MG/4 ML INJ (LASIX) IVP SCH (08:49)
[2020-04-25] MEDS: FAMOTIDINE 20MG/2ML IV (PEPCID) IV SCH ×2 (08:49→19:51)
[2020-04-25] MEDS: DIVALPROX SPRINKLE 125 MG (DEPAKOTE) CAP GT SCH ×2 (08:49→16:39)
[2020-04-25] MEDS: DEXTROSE 10% IV SOLUTION 1,000 ML IV SCH ×2 (09:27→23:17)
[2020-04-25] MEDS: PROPOFOL DRIP (ICU) 100 ML IV SCH ×3 (09:57→23:39)
[2020-04-25] MEDS: ENOXAPARIN 100 MG/1 ML (LOVENOX) SYR SC SCH ×2 (10:06→23:39)
[2020-04-25] MEDS: ACETAMINOPHEN 325 MG TABLET PO PRN (12:44)
--- NOTE | 2020-04-25 12:53 | Diagnostic Imaging Report ---
INDICATION: PICC line placement. Frontal chest obtained at 12:32 p.m. and compared to 6:00 a.m. the same day FINDINGS: ET tube and NG tube are unchanged. There is a new right-sided PICC line with tip overlying the low SVC. Extensive bilateral infiltrates remain present with some right pleural fluid appearing similar to the prior study. IMPRESSION: No change in bilateral infiltrates and right pleural effusion. ET tube and NG tube stable. New right-sided PICC line tip overlies low SVC. Dictated by: Dictated on workstation # [id number]
[2020-04-25 13:19] LABS: BASOPHILS % (AUTO) 0 % (0-10); EOSINOPHILS % (AUTO) 0 % (0-10); HEMATOCRIT 30 % (40-54); HEMOGLOBIN 9.6 g/dL (13.3-17.7); LYMPHOCYTES # (AUTO) 1.4 10^3/uL (1.0-4.0); LYMPHOCYTES % (AUTO) 12 % (12-44); MEAN CORPUSCULAR HEMOGLOBIN 28 pg (25-34); MEAN CORPUSCULAR HGB CONC 32 g/dL (32-36); MEAN CORPUSCULAR VOLUME 89 fL (80-99); MEAN PLATELET VOLUME 9.4 fL (9.0-12.2); MONOCYTES # (AUTO) 0.4 10^3/uL (0.0-1.0); MONOCYTES % (AUTO) 3 % (0-12); NEUTROPHILS % (AUTO) 82 % (42-75); PLATELET COUNT 377 10^3/uL (130-400); WHITE BLOOD COUNT 12.2 10^3/uL (4.3-11.0)
[2020-04-25 13:30] LABS: ALBUMIN 2.2 GM/DL (3.2-4.5); CHLORIDE 98 MMOL/L (98-107); POTASSIUM 3.6 MMOL/L (3.6-5.0); SODIUM 138 MMOL/L (135-145)
[2020-04-25 13:31] LABS: CALCIUM 8.1 MG/DL (8.5-10.1)
[2020-04-25 13:32] LABS: GLUCOSE 137 MG/DL (70-105); TRIGLYCERIDES 177 MG/DL (<150)
[2020-04-25 13:33] LABS: TOTAL PROTEIN 6.5 GM/DL (6.4-8.2)
[2020-04-25 13:34] LABS: BILIRUBIN,TOTAL 0.5 MG/DL (0.1-1.0); CARBON DIOXIDE 30 MMOL/L (21-32)
[2020-04-25 13:36] LABS: ALKALINE PHOSPHATASE 73 U/L (40-136); CREATININE SERUM 0.63 MG/DL (0.60-1.30); GFR ESTIMATED > 60; PHOSPHORUS 2.2 MG/DL (2.3-4.7)
[2020-04-25 13:37] LABS: BUN/CREATININE RATIO 19
[2020-04-25 13:39] LABS: ALANINE AMINOTRANSFERASE 31 U/L (0-55); MAGNESIUM 1.7 MG/DL (1.6-2.4)
--- NOTE | 2020-04-25 14:11 | Progress Note - Surgery ---
Subjective Time Seen by a Provider: 12:39 Subjective/Events-last exam Pt seen and examined, sedated on vent. Review of Systems Unable to obtain, pt intubated and sedated. Focused Exam Time of Focused Exam: 11:35 Objective Exam Vital Signs Date Time Temp Pulse Resp B/P (MAP) Pulse Ox O2 Delivery O2 Flow Rate FiO2 04/25/20 12:44 38.1 04/25/20 12:41 86 171/91 04/25/20 11:52 43 04/25/20 11:00 49 23 92 Mechanical Ventilator 50.00 04/25/20 10:00 89 25 114/66 (82) 92 Mechanical Ventilator 50.00 04/25/20 09:58 Mechanical Ventilator 50.00 04/25/20 09:57 101 148/92 04/25/20 09:13 91 Mechanical Ventilator 45 04/25/20 09:00 60 26 148/92 (110) 91 Mechanical Ventilator 45.00 04/25/20 08:48 67 19 150/94 04/25/20 08:00 47 25 150/94 (112) 91 Mechanical Ventilator 45.00 04/25/20 07:02 41 26 94 45 04/25/20 07:00 41 25 157/88 (111) 94 Mechanical Ventilator 45.00 04/25/20 06:00 35 25 150/75 (100) 93 Mechanical Ventilator 45.00 04/25/20 05:00 35 25 114/61 (78) 94 Mechanical Ventilator 45.00 04/25/20 04:00 37 26 123/65 (84) 93 Mechanical Ventilator 45.00 04/25/20 03:00 37 25 124/63 (83) 92 Mechanical Ventilator 45.00 04/25/20 02:00 37 26 117/63 (81) 92 Mechanical Ventilator 45.00 04/25/20 01:45 39 26 92 45 04/25/20 01:00 37 25 143/78 (99) 92 Mechanical Ventilator 45.00 04/25/20 00:00 37 40 93 Mechanical Ventilator 45.00 04/24/20 23:00 41 25 89 Mechanical Ventilator 45.00 04/24/20 22:57 40 138/86 04/24/20 22:00 40 26 138/86 (103) 91 Mechanical Ventilator 45.00 04/24/20 21:49 39 26 94 50 04/24/20 21:00 43 25 138/86 (103) 92 Mechanical Ventilator 45.00 04/24/20 21:00 Mechanical Ventilator 40 04/24/20 20:00 48 26 98 Mechanical Ventilator 45.00 04/24/20 19:15 36.7 04/24/20 19:00 32 32 150/75 (100) 93 Mechanical Ventilator 45.00 04/24/20 18:42 40 26 92 50 04/24/20 18:42 40 04/24/20 18:00 37.1 42 26 139/75 (96) 93 Mechanical Ventilator 45.00 04/24/20 17:28 41 04/24/20 17:00 37.1 42 25 110/58 (75) 92 Mechanical Ventilator 45.00 04/24/20 16:00 37.1 42 25 110/58 (75) 92 Mechanical Ventilator 45.00 04/24/20 15:44 36.4 04/24/20 15:03 42 26 97 60 04/24/20 15:00 37.2 40 26 120/64 (82) 97 Mechanical Ventilator 45.00 04/24/20 14:38 Mechanical Ventilator 60.00 I & O 04/25/20 07:00 Intake Total 780 ml Output Total 5675 ml Balance -4895 ml Capillary Refill : Less Than 3 Seconds General Appearance: No Apparent Distress HEENT: PERRL/EOMI, Other (Dry oral mucosa) Respiratory: Lungs Clear, No Accessory Muscle Use, Decreased Breath Sounds (right compared to left), Other (CT with minimal serous drainage, unfortunately not clamped) Cardiovascular: No Murmur, Bradycardia Peripheral Pulses: 1+ Radial Pulses (R), 1+ Radial Pulses (L) Gastrointestinal: soft, no organomegaly Neurologic/Psychiatric: Other (Anxious, repeatedly yelling) Skin: Normal Color Results Lab Laboratory Tests 04/24/20 17:30: Glucometer 132H 04/25/20 02:50: Blood Gas Puncture Site RGHT RAD, Blood Gas Patient Temperature 37, Arterial Blood pH 7.47H, Arterial Blood Partial Pressure CO2 42, Arterial Blood Partial Pressure O2 70L, Arterial Blood HCO3 30H, Arterial Blood Total CO2 31.6H, Arterial Blood Oxygen Saturation 94, Arterial Blood Base Excess 6.5H, Mt Test POS, Blood Gas Ventilator Setting YES, Blood Gas Inspired Oxygen 45% 04/25/20 07:16: Glucometer 83 04/25/20 11:57: Glucometer 108 04/25/20 13:10: White Blood Count 12.2H, Red Blood Count 3.40L, Hemoglobin 9.6L, Hematocrit 30L, Mean Corpuscular Volume 89, Mean Corpuscular Hemoglobin 28, Mean Corpuscular Hemoglobin Concent 32, Red Cell Distribution Width 16.1H, Platelet Count 377, Mean Platelet Volume 9.4, Immature Granulocyte % (Auto) 3, Neutrophils (%) (Auto) 82H, Lymphocytes (%) (Auto) 12, Monocytes (%) (Auto) 3, Eosinophils (%) (Auto) 0, Basophils (%) (Auto) 0, Neutrophils # (Auto) 10.0H, Lymphocytes # (Auto) 1.4, Monocytes # (Auto) 0.4, Eosinophils # (Auto) 0.0, Basophils # (Auto) 0.0, Immature Granulocyte # (Auto) 0.3H, Sodium Level 138, Potassium Level 3.6, Chloride Level 98, Carbon Dioxide Level 30, Anion Gap 10, Blood Urea Nitrogen 12, Creatinine 0.63, Estimat Glomerular Filtration Rate > 60, BUN/Creatinine Ratio 19, Glucose Level 137H, Calcium Level 8.1L, Corrected Calcium 9.5, Phosphorus Level 2.2L, Magnesium Level 1.7, Total Bilirubin 0.5, Aspartate Amino Transf (AST/SGOT) 40H, Alanine Aminotransferase (ALT/SGPT) 31, Alkaline Phosphatase 73, Total Protein 6.5, Albumin 2.2L, Triglycerides Level 177H Microbiology 04/22/20 Gram Stain - Final, Resulted 04/22/20 Body Fluid Culture - Preliminary, Resulted No growth 04/22/20 Gram Stain - Final, Complete 04/22/20 Sputum Culture - Final, Complete Klebsiella pneumoniae See Comments 04/22/20 Blood Culture - Preliminary, Resulted No growth Assessment/Plan Assessment/Plan Assessment/Plan Covid-19 Respiratory Failure Pneumothorax The chest tube is functioning well, no air leak seen and is draining scant serous fluid. Again chest tube had been hooked back up to suctio. This time I clamped the tube myself and spoke to ICU nurse demand manager; asking nicely to please talk to me before changing anything with the chest tube. I am trying to determine if it can be pulled; will check CXR in am. Clinical Quality Measures DVT/VTE Risk/Contraindication: Risk Factor Score Per Nursin RFS Level Per Nursing on Admit: 4+=Very High GONSALO RANDLE DO Apr 25, 2020 14:10
[2020-04-25 14:35] VITALS: BP 171/91
--- NOTE | 2020-04-25 15:06 | NUR ---
Note pt is currently receiving Pulmocare via 60ml bolus feeds q4h with 30ml water flushes before and after each bolus. Recommended to Meri RN to increase to 75ml bolus feeds q4h and monitor for tolerance. Will continue to follow and reassess as pt needs, intake, and status change. Daisy MANDUJANO, MS RD LD
[2020-04-25 19:59] VITALS: BP 157/78
[2020-04-25 21:52] VITALS: BP 140/75
[2020-04-26] MEDS: fentaNYL DRIP PRE-MIX 250 ML IV SCH ×4 (00:30→20:21)
[2020-04-26 02:13] VITALS: BP 120/61
[2020-04-26] MEDS: RT-ALBUTEROL INHALER HFA (VENTOLIN HFA) 18 GM IH SCH ×6 (02:13→22:39)
[2020-04-26] MEDS: MEROPENEM 500 MG/SWFI 10 ML IV PUSH IV SCH ×8 (03:38→20:20)
[2020-04-26] MEDS: MIDAZOLAM DRIP PRE-MIX 100 ML IV SCH ×3 (03:39→20:21)
[2020-04-26 04:12] LABS: ABG BASE EXCESS 7.9 MMOL/L (-2.5-2.5); ABG OXYGEN SATURATION 95 % (94-100); ABG PCO2 43 MMHG (35-45); ABG PH 7.48 (7.37-7.43); ABG PO2 76 MMHG (79-93); ABG TCO2 33.1 MMOL/L (21.0-31.0)
[2020-04-26 04:13] LABS: INSPIRED O2 45; PATIENT TEMP 37.1; VENTILATOR YES
[2020-04-26 04:14] LABS: BASOPHILS % (AUTO) 0 % (0-10); EOSINOPHILS % (AUTO) 0 % (0-10); HEMATOCRIT 29 % (40-54); HEMOGLOBIN 8.9 g/dL (13.3-17.7); LYMPHOCYTES # (AUTO) 2.4 10^3/uL (1.0-4.0); LYMPHOCYTES % (AUTO) 25 % (12-44); MEAN CORPUSCULAR HEMOGLOBIN 28 pg (25-34); MEAN CORPUSCULAR HGB CONC 31 g/dL (32-36); MEAN CORPUSCULAR VOLUME 89 fL (80-99); MEAN PLATELET VOLUME 9.3 fL (9.0-12.2); MONOCYTES # (AUTO) 0.5 10^3/uL (0.0-1.0); MONOCYTES % (AUTO) 5 % (0-12); NEUTROPHILS # (AUTO) 6.7 10^3/uL (1.8-7.8); NEUTROPHILS % (AUTO) 68 % (42-75); PLATELET COUNT 334 10^3/uL (130-400); WHITE BLOOD COUNT 9.8 10^3/uL (4.3-11.0)
[2020-04-26 04:29] LABS: CHLORIDE 100 MMOL/L (98-107); POTASSIUM 3.3 MMOL/L (3.6-5.0); SODIUM 138 MMOL/L (135-145)
[2020-04-26 04:30] LABS: CALCIUM 7.9 MG/DL (8.5-10.1)
[2020-04-26 04:31] LABS: GLUCOSE 102 MG/DL (70-105); TRIGLYCERIDES 170 MG/DL (<150)
[2020-04-26 04:32] LABS: TOTAL PROTEIN 5.9 GM/DL (6.4-8.2)
[2020-04-26 04:33] LABS: BILIRUBIN,TOTAL 0.4 MG/DL (0.1-1.0); CARBON DIOXIDE 29 MMOL/L (21-32)
[2020-04-26 04:35] LABS: ALKALINE PHOSPHATASE 67 U/L (40-136); CREATININE SERUM 0.57 MG/DL (0.60-1.30); GFR ESTIMATED > 60; PHOSPHORUS 2.9 MG/DL (2.3-4.7)
[2020-04-26 04:36] LABS: BUN/CREATININE RATIO 19
[2020-04-26 04:38] LABS: ALANINE AMINOTRANSFERASE 24 U/L (0-55); MAGNESIUM 1.7 MG/DL (1.6-2.4)
[2020-04-26] MEDS ORDERED: HALOPERIDOL 5 MG/ML (HALDOL) VIAL IM PRN (05:00)
--- NOTE | 2020-04-26 05:01 | Pulmonary Progress Note ---
Subjective Time Seen by a Provider: 05:37 Subjective/Events-last exam Sedated on vent. Sepsis Event Evaluation Height, Weight, BMI Height: '" Weight: lbs. oz. kg; 31.00 BMI Method: Focused Exam Time of Focused Exam: 11:35 Exam Exam Vital Signs Date Time Temp Pulse Resp B/P (MAP) Pulse Ox O2 Delivery O2 Flow Rate FiO2 04/26/20 03:39 39 26 123/74 04/26/20 02:13 40 26 92 45 04/25/20 23:39 44 169/89 04/25/20 21:52 41 26 94 45 04/25/20 21:00 Mechanical Ventilator 45.00 04/25/20 21:00 Mechanical Ventilator 45 04/25/20 19:59 58 25 97 40 04/25/20 19:00 56 04/25/20 18:00 46 26 157/78 (104) 95 Mechanical Ventilator 50.00 04/25/20 17:00 47 26 169/92 (117) 96 Mechanical Ventilator 50.00 04/25/20 16:36 47 04/25/20 16:36 49 26 138/76 04/25/20 16:00 54 25 147/89 (108) 95 Mechanical Ventilator 50.00 04/25/20 15:00 67 23 134/71 (92) 94 Mechanical Ventilator 50.00 04/25/20 14:35 56 26 94 50 04/25/20 13:14 38.1 04/25/20 12:44 38.1 04/25/20 12:41 86 171/91 04/25/20 12:38 83 04/25/20 12:00 47 21 171/91 (117) 92 Mechanical Ventilator 50.00 04/25/20 11:52 43 04/25/20 11:00 49 23 92 Mechanical Ventilator 50.00 04/25/20 10:00 89 25 114/66 (82) 92 Mechanical Ventilator 50.00 04/25/20 09:58 Mechanical Ventilator 50.00 04/25/20 09:57 101 148/92 04/25/20 09:13 91 Mechanical Ventilator 45 04/25/20 09:00 60 26 148/92 (110) 91 Mechanical Ventilator 45.00 04/25/20 08:48 67 19 150/94 04/25/20 08:00 47 25 150/94 (112) 91 Mechanical Ventilator 45.00 04/25/20 07:02 41 26 94 45 04/25/20 07:00 41 25 157/88 (111) 94 Mechanical Ventilator 45.00 04/25/20 06:43 41 04/25/20 06:00 35 25 150/75 (100) 93 Mechanical Ventilator 45.00 04/25/20 05:00 35 25 114/61 (78) 94 Mechanical Ventilator 45.00 I & O 04/26/20 07:00 Intake Total 3040 ml Output Total 5115 ml Balance -2075 ml Height & Weight Height: '" Weight: lbs. oz. kg; 31.00 BMI Method: General Appearance: No Apparent Distress HEENT: PERRL/EOMI, Other Respiratory: Lungs Clear, No Accessory Muscle Use, Decreased Breath Sounds, Other Cardiovascular: No Murmur, Bradycardia Capillary Refill: Less Than 3 Seconds Peripheral Pulses: 1+ Radial Pulses (R), 1+ Radial Pulses (L) Gastrointestinal: soft, no organomegaly Neurologic/Psychiatric: Other Skin: Normal Color Results Lab Laboratory Tests 04/25/20 13:10 04/26/20 04:00 Assessment/Plan Assessment/Plan Acute respiratory failure with ARDS -Continue ventilator care -PEEP 5 and 45% Fio2 -Currently on Propofol at 30 and Fentanyl at 150mcg/hr , Versed - TF COVID 19 PNA -with Klebsiella - Merrem -Start Diflucan -Repeat levin cultures including culture plural fluid -Dx 04/09 -Remdesivir -Decadron -CVP Small stable right PTX - prior to intubation -Continue Chest tube until after Extubation -Currently to water seal -50cc/hr tube output. -Repeat CXR - Bradycardia -D/C Propofol -continue to monitor close. PNA -Vanco, and Zosyn -Levin cultures pending -MRSA pending TBI Hepatitis C Transaminitis noted, trend with remdesivir PATRICIA baseline creatinine around 0.75m up to 1.30 Continue IVF COLEMAN MARTINEZ DO Apr 26, 2020 05:01
[2020-04-26 06:30] VITALS: BP 148/74
[2020-04-26] MEDS: MAGNESIUM 1 GM/100 ML IVPB 100 ML IV SCH (06:44)
[2020-04-26] MEDS: POTASSIUM CL 10MEQ/50ML IVPB 50 ML IV SCH ×6 (06:44→11:20)
[2020-04-26] MEDS: KCL 20 MEQ TAB (K-DUR) PO SCH (06:44)
[2020-04-26] MEDS: inSUlin ASPART (NovoLOG) 1 UNIT/0.01 ML (CHARGE PER UNIT) SQ SCH ×4 (06:44→23:53)
--- NOTE | 2020-04-26 08:00 | Diagnostic Imaging Report ---
EXAMINATION: Chest radiograph, portable AP view. DATE: 04/26/2020 1:09 AM INDICATION: 54-year-old male, shortness of breath. COMPARISON: April 25, 2020. FINDINGS: The endotracheal tube is approximately 1.7 cm above the stacey. The nasogastric tube tip is at the level of the proximal stomach. Stable overall appearance of the cardiomediastinal silhouette. There is a right-sided PICC line with tip near the level of the cavoatrial junction. There is no identified pneumothorax. There is material overlying the patient which does limit the exam. There is multifocal bilateral lung consolidation which is similar to the prior study. IMPRESSION: 1. Multifocal bilateral lung consolidation which is similar to the comparison exam. 2. Support lines and tubes as above. Dictated by: Dictated on workstation # [id number]
[2020-04-26] MEDS: VALPROIC ACID SYRUP 250 MG/5 ML UDC PO SCH ×2 (08:26→16:48)
[2020-04-26] MEDS: FAMOTIDINE 20MG/2ML IV (PEPCID) IV SCH ×2 (08:27→20:20)
[2020-04-26] MEDS: FLUCONAZOLE 200 MG/100 ML 50 ML, EMPTY IV BAG (PVC) 1 EA IV SCH ×2 (08:27)
[2020-04-26] MEDS: FUROSEMIDE 40 MG/4 ML INJ (LASIX) IVP SCH (08:28)
[2020-04-26] MEDS: risperiDONE 0.25 MG (RisperDAL) TAB PO SCH ×2 (08:28→20:20)
[2020-04-26] MEDS: PROPOFOL DRIP (ICU) 100 ML IV SCH ×3 (08:29→20:21)
[2020-04-26] MEDS: ARTIFICIAL TEARS OINT (LACRI-LUBE) 3.5 GM TUBE OU SCH ×2 (08:33→20:20)
[2020-04-26] MEDS: ENOXAPARIN 100 MG/1 ML (LOVENOX) SYR SC SCH ×2 (10:00→21:52)
[2020-04-26 10:25] VITALS: BP 145/87
--- NOTE | 2020-04-26 12:25 | Progress Note - Surgery ---
Subjective Time Seen by a Provider: 11:34 Subjective/Events-last exam Pt seen and examined, sedated on vent. CT was clamped all day yesterday, CXR today did not show any PTX or increase in pleural fluid. Review of Systems Unable to obtain, pt intubated and sedated. Focused Exam Time of Focused Exam: 11:35 Objective Exam Vital Signs Date Time Temp Pulse Resp B/P (MAP) Pulse Ox O2 Delivery O2 Flow Rate FiO2 04/26/20 11:20 63 19 136/83 04/26/20 11:00 37.7 68 22 137/84 (101) 94 Mechanical Ventilator 45.00 04/26/20 10:25 64 22 92 50 04/26/20 10:00 37.5 57 22 152/84 (106) 92 Mechanical Ventilator 45.00 04/26/20 09:00 37.5 47 21 105/65 (78) 93 Mechanical Ventilator 45.00 04/26/20 08:49 Mechanical Ventilator 50 04/26/20 08:29 60 138/75 04/26/20 08:00 37.5 53 21 141/67 (91) 93 Mechanical Ventilator 45.00 04/26/20 07:00 37.5 53 21 147/70 (95) 92 Mechanical Ventilator 45.00 04/26/20 07:00 53 04/26/20 06:30 61 22 92 50 04/26/20 06:00 64 25 154/73 (100) 84 Mechanical Ventilator 45.00 04/26/20 05:00 59 25 128/69 (88) 90 Mechanical Ventilator 45.00 04/26/20 04:00 46 25 107/58 (74) 91 Mechanical Ventilator 45.00 04/26/20 03:39 39 26 123/74 04/26/20 03:00 39 25 122/65 (84) 90 Mechanical Ventilator 45.00 04/26/20 02:13 40 26 92 45 04/26/20 02:00 39 25 120/61 (80) 92 Mechanical Ventilator 45.00 04/26/20 01:00 40 25 116/60 (78) 92 Mechanical Ventilator 45.00 04/26/20 01:00 40 04/26/20 00:00 45 25 113/58 (76) 91 Mechanical Ventilator 45.00 04/25/20 23:39 44 169/89 04/25/20 23:00 45 25 164/82 (109) 91 Mechanical Ventilator 45.00 04/25/20 22:00 43 26 155/106 (122) 93 Mechanical Ventilator 45.00 04/25/20 21:52 41 26 94 45 04/25/20 21:00 40 26 137/66 (89) 93 Mechanical Ventilator 45.00 04/25/20 21:00 Mechanical Ventilator 45.00 04/25/20 21:00 Mechanical Ventilator 45 04/25/20 20:00 53 26 168/81 (110) 98 Mechanical Ventilator 50.00 04/25/20 19:59 58 25 97 40 04/25/20 19:00 56 04/25/20 19:00 63 26 162/79 (106) 94 Mechanical Ventilator 50.00 04/25/20 18:00 46 26 157/78 (104) 95 Mechanical Ventilator 50.00 04/25/20 17:00 47 26 169/92 (117) 96 Mechanical Ventilator 50.00 04/25/20 16:36 47 04/25/20 16:36 49 26 138/76 04/25/20 16:00 54 25 147/89 (108) 95 Mechanical Ventilator 50.00 04/25/20 15:00 67 23 134/71 (92) 94 Mechanical Ventilator 50.00 04/25/20 14:35 56 26 94 50 04/25/20 13:14 38.1 04/25/20 12:44 38.1 04/25/20 12:41 86 171/91 04/25/20 12:38 83 I & O 04/26/20 07:00 Intake Total 3040 ml Output Total 6365 ml Balance -3325 ml Capillary Refill : Less Than 3 Seconds General Appearance: No Apparent Distress HEENT: PERRL/EOMI, Other Respiratory: Lungs Clear, No Accessory Muscle Use, Decreased Breath Sounds, Other Cardiovascular: No Murmur, Bradycardia Peripheral Pulses: 1+ Radial Pulses (R), 1+ Radial Pulses (L) Gastrointestinal: soft, no organomegaly Neurologic/Psychiatric: Other Skin: Normal Color Results Lab Laboratory Tests 04/25/20 13:10: White Blood Count 12.2H, Red Blood Count 3.40L, Hemoglobin 9.6L, Hematocrit 30L, Mean Corpuscular Volume 89, Mean Corpuscular Hemoglobin 28, Mean Corpuscular Hemoglobin Concent 32, Red Cell Distribution Width 16.1H, Platelet Count 377, Mean Platelet Volume 9.4, Immature Granulocyte % (Auto) 3, Neutrophils (%) (Auto) 82H, Lymphocytes (%) (Auto) 12, Monocytes (%) (Auto) 3, Eosinophils (%) (Auto) 0, Basophils (%) (Auto) 0, Neutrophils # (Auto) 10.0H, Lymphocytes # (Auto) 1.4, Monocytes # (Auto) 0.4, Eosinophils # (Auto) 0.0, Basophils # (Auto) 0.0, Immature Granulocyte # (Auto) 0.3H, Sodium Level 138, Potassium Level 3.6, Chloride Level 98, Carbon Dioxide Level 30, Anion Gap 10, Blood Urea Nitrogen 12, Creatinine 0.63, Estimat Glomerular Filtration Rate > 60, BUN/Creatinine Ra liz 19, Glucose Level 137H, Calcium Level 8.1L, Corrected Calcium 9.5, Phos phorus Level 2.2L, Magnesium Level 1.7, Total Bilirubin 0.5, Aspartate Amino Transf (AST/SGOT) 40H, Alanine Aminotransferase (ALT/SGPT) 31, Alkaline Phosphatase 73, Total Protein 6.5, Albumin 2.2L, Triglycerides Level 177H 04/25/20 17:27: Glucometer 121H 04/25/20 22:31: Glucometer 103 04/26/20 04:00: White Blood Count 9.8, Red Blood Count 3.21L, Hemoglobin 8.9L, Hematocrit 29L, Mean Corpuscular Volume 89, Mean Corpuscular Hemoglobin 28, Mean Corpuscular Hemoglobin Concent 31L, Red Cell Distribution Width 15.9H, Platelet Count 334, Mean Platelet Volume 9.3, Immature Granulocyte % (Auto) 2, Neutrophils (%) (Auto) 68, Lymphocytes (%) (Auto) 25, Monocytes (%) (Auto) 5, Eosinophils (%) (Auto) 0, Basophils (%) (Auto) 0, Neutrophils # (Auto) 6.7, Lymphocytes # (Auto) 2.4, Monocytes # (Auto) 0.5, Eosinophils # (Auto) 0.0, Basophils # (Auto) 0.0, Immature Granulocyte # (Auto) 0.2H, Sodium Level 138, Potassium Level 3.3L, Chloride Level 100, Carbon Dioxide Level 29, Anion Gap 9, Blood Urea Nitrogen 11, Creatinine 0.57L, Estimat Glomerular Filtration Rate > 60, BUN/Creatinine Ratio 19, Glucose Level 102, Calcium Level 7.9L, Corrected Calcium 9.5, Phosphorus Level 2.9, Magnesium Level 1.7, Total Bilirubin 0.4, Aspartate Amino Transf (AST/SGOT) 22, Alanine Aminotransferase (ALT/SGPT) 24, Alkaline Phosphatase 67, Total Protein 5.9L, Albumin 2.0L, Triglycerides Level 170H, Blood Gas Puncture Site LEFT RADIAL, Blood Gas Patient Temperature 37.1, Arterial Blood pH 7.48H, Arterial Blood Partial Pressure CO2 43, Arterial Blood Partial Pressure O2 76L, Arterial Blood HCO3 32H, Arterial Blood Total CO2 33.1H , Arterial Blood Oxygen Saturation 95, Arterial Blood Base Excess 7.9H, Mt Test UNKNOWN, Blood Gas Ventilator Setting YES, Blood Gas Inspired Oxygen 45 04/26/20 11:48: Glucometer 110 Microbiology 04/22/20 Gram Stain - Final, Complete 04/22/20 Body Fluid Culture - Final, Complete No growth 04/22/20 Gram Stain - Final, Complete 04/22/20 Sputum Culture - Final, Complete Klebsiella pneumoniae See Comments 04/22/20 Blood Culture - Preliminary, Resulted No growth Assessment/Plan Assessment/Plan Assessment/Plan Covid-19 Respiratory Failure Pneumothorax The chest tube was clamped and CXR showed no PTX; will unclamp and see how much fluid comes out over next 4 hours. If it is more than 40cc then it might be best to leave chest tube so fluid doesn't build up in pleural cavity, body can only absorb about 30 per day. Clinical Quality Measures DVT/VTE Risk/Contraindication: Risk Factor Score Per Nursin RFS Level Per Nursing on Admit: 4+=Very High GONSALO RANDLE DO Apr 26, 2020 12:25
[2020-04-26] MEDS: DEXTROSE 10% IV SOLUTION 1,000 ML IV SCH (12:56)
--- NOTE | 2020-04-26 13:37 | NUR ---
Note pt is currently intubated/sedated. Note pt currently receiving Pulmocare via 60ml bolus feeds q4h, with 30ml water flushes before and after each bolus. Recommend increasing TF 30ml q8h as tolerated, toward goal rate of 175ml bolus q4h. Will continue to follow and reassess as pt needs, intake, and status change. Harjinder Artis, MS RD [phone] cell
[2020-04-26 14:56] VITALS: BP 99/53
[2020-04-26 22:40] VITALS: BP 110/62
[2020-04-27] MEDS: MEROPENEM 500 MG/SWFI 10 ML IV PUSH IV SCH ×8 (02:10→19:38)
[2020-04-27] MEDS: DEXTROSE 10% IV SOLUTION 1,000 ML IV SCH (02:29)
[2020-04-27 02:38] LABS: BASOPHILS % (AUTO) 0 % (0-10); EOSINOPHILS % (AUTO) 1 % (0-10); HEMATOCRIT 27 % (40-54); HEMOGLOBIN 8.3 g/dL (13.3-17.7); LYMPHOCYTES # (AUTO) 1.8 10^3/uL (1.0-4.0); LYMPHOCYTES % (AUTO) 22 % (12-44); MEAN CORPUSCULAR HEMOGLOBIN 28 pg (25-34); MEAN CORPUSCULAR HGB CONC 31 g/dL (32-36); MEAN CORPUSCULAR VOLUME 91 fL (80-99); MEAN PLATELET VOLUME 9.7 fL (9.0-12.2); MONOCYTES # (AUTO) 0.5 10^3/uL (0.0-1.0); MONOCYTES % (AUTO) 6 % (0-12); NEUTROPHILS # (AUTO) 5.9 10^3/uL (1.8-7.8); NEUTROPHILS % (AUTO) 71 % (42-75); PLATELET COUNT 319 10^3/uL (130-400); WHITE BLOOD COUNT 8.3 10^3/uL (4.3-11.0)
[2020-04-27 02:42] LABS: ABG BASE EXCESS 9.1 MMOL/L (-2.5-2.5); ABG OXYGEN SATURATION 96 % (94-100); ABG PCO2 56 MMHG (35-45); ABG PH 7.41 (7.37-7.43); ABG PO2 88 MMHG (79-93); ABG TCO2 35.8 MMOL/L (21.0-31.0)
[2020-04-27] MEDS: RT-ALBUTEROL INHALER HFA (VENTOLIN HFA) 18 GM IH SCH ×6 (02:43→22:04)
[2020-04-27 02:44] VITALS: BP 145/80
[2020-04-27 02:44] LABS: ALLENS TEST POSITIVE; INSPIRED O2 45; PATIENT TEMP 37; VENTILATOR YES
[2020-04-27 02:52] LABS: ALBUMIN 1.9 GM/DL (3.2-4.5); CHLORIDE 92 MMOL/L (98-107); POTASSIUM 3.3 MMOL/L (3.6-5.0); SODIUM 129 MMOL/L (135-145)
[2020-04-27 02:54] LABS: CALCIUM 7.3 MG/DL (8.5-10.1)
[2020-04-27 02:55] LABS: TOTAL PROTEIN 5.4 GM/DL (6.4-8.2); TRIGLYCERIDES 182 MG/DL (<150)
[2020-04-27 02:56] LABS: CARBON DIOXIDE 28 MMOL/L (21-32)
[2020-04-27 02:57] LABS: BILIRUBIN,TOTAL 0.3 MG/DL (0.1-1.0)
[2020-04-27 02:58] LABS: ALKALINE PHOSPHATASE 64 U/L (40-136); PHOSPHORUS 3.6 MG/DL (2.3-4.7)
[2020-04-27 02:59] LABS: CREATININE SERUM 0.69 MG/DL (0.60-1.30); GFR ESTIMATED > 60
[2020-04-27 03:00] LABS: BUN/CREATININE RATIO 17
[2020-04-27 03:02] LABS: ALANINE AMINOTRANSFERASE 43 U/L (0-55); MAGNESIUM 1.7 MG/DL (1.6-2.4)
[2020-04-27] MEDS: KCL 20 MEQ TAB (K-DUR) PO SCH (03:04)
[2020-04-27] MEDS: POTASSIUM CL 10MEQ/50ML IVPB 50 ML IV SCH ×4 (03:04→05:14)
[2020-04-27] MEDS: MAGNESIUM 1 GM/100 ML IVPB 100 ML IV SCH (03:11)
[2020-04-27 03:15] LABS: GLUCOSE 627 MG/DL (70-105)
[2020-04-27] MEDS: fentaNYL DRIP PRE-MIX 250 ML IV SCH ×2 (03:32→23:31)
[2020-04-27 04:00] LABS: ALANINE AMINOTRANSFERASE 51 U/L (0-55); ALBUMIN 2.2 GM/DL (3.2-4.5); ALKALINE PHOSPHATASE 73 U/L (40-136); BILIRUBIN,TOTAL 0.4 MG/DL (0.1-1.0); CARBON DIOXIDE 29 MMOL/L (21-32); CHLORIDE 96 MMOL/L (98-107); GLUCOSE 113 MG/DL (70-105); MAGNESIUM 1.8 MG/DL (1.6-2.4); PHOSPHORUS 3.3 MG/DL (2.3-4.7); POTASSIUM 3.6 MMOL/L (3.6-5.0); SODIUM 135 MMOL/L (135-145); TOTAL PROTEIN 6.2 GM/DL (6.4-8.2); TRIGLYCERIDES 162 MG/DL (<150)
--- NOTE | 2020-04-27 04:00 | NUR ---
AM LABS CAME BACK WITH CRITICALLY HIGH GLUCOSE OF 627. LABS HAD BEEN DRAWN OUT OF PICC LINE WHERE D10 HAD BEEN INFUSING PRIOR TO LAB DRAW. THIS RN DID FINGER STICK BLOOD GLUCOSE WITH RESULTS OF 111. AM BMP DRAWN AGAIN AT THIS TIME. GLUCOSE RESULTED AT 113 ON REDRAW.
[2020-04-27 04:01] LABS: BUN/CREATININE RATIO 21; CREATININE SERUM 0.57 MG/DL (0.60-1.30); GFR ESTIMATED > 60
[2020-04-27] MEDS: inSUlin ASPART (NovoLOG) 1 UNIT/0.01 ML (CHARGE PER UNIT) SQ SCH ×5 (04:49→23:37)
[2020-04-27] MEDS: PROPOFOL DRIP (ICU) 100 ML IV SCH ×4 (05:14→23:26)
--- NOTE | 2020-04-27 06:56 | Diagnostic Imaging Report ---
INDICATION: Shortness of breath. Comparison is made with prior examination from 04/26/2020. FINDINGS: There is bilateral airspace disease, right greater than left. There is right pleural effusion. There is no pneumothorax. ET and NG tubes are in satisfactory position. There may be some venous congestion. IMPRESSION: Bilateral pulmonary infiltrates and right pleural effusion. Likely underlying central pulmonary venous congestion Dictated by: Dictated on workstation # [id number]
[2020-04-27 07:11] VITALS: BP 136/78
[2020-04-27] MEDS: VALPROIC ACID SYRUP 250 MG/5 ML UDC PO SCH ×2 (08:06→17:00)
[2020-04-27] MEDS: FAMOTIDINE 20MG/2ML IV (PEPCID) IV SCH ×2 (08:06→19:45)
[2020-04-27] MEDS: risperiDONE 0.25 MG (RisperDAL) TAB PO SCH ×2 (08:07→19:45)
[2020-04-27] MEDS: FUROSEMIDE 40 MG/4 ML INJ (LASIX) IVP SCH (08:07)
[2020-04-27] MEDS: ARTIFICIAL TEARS OINT (LACRI-LUBE) 3.5 GM TUBE OU SCH ×2 (08:07→19:45)
[2020-04-27] MEDS: FLUCONAZOLE 200 MG/100 ML 50 ML, EMPTY IV BAG (PVC) 1 EA IV SCH ×2 (08:07)
[2020-04-27] MEDS: MIDAZOLAM DRIP PRE-MIX 100 ML IV SCH (08:14)
[2020-04-27 10:56] VITALS: BP 149/69
[2020-04-27] MEDS: ENOXAPARIN 100 MG/1 ML (LOVENOX) SYR SC SCH ×2 (11:01→22:27)
--- NOTE | 2020-04-27 11:46 | Progress Note - Hospitalist ---
Subjective HPI/CC On Admission Date Seen by Provider: Apr 27, 2020 Time Seen by Provider: 11:00 Pt is a 54yoCM with a PMH of TBI, t-cell lymphoma, seizure disorder, hepatitis C with cirrhosis who presented to the ER due to hypoxia. He was admitted here for cellulitis and sepsis in February. He also had a port removal and replacement on 03/20. He was tested for COVID on 04/09 and was positive. He tells me a somewhat contradicting history by answer yes to most questions (even contradicting questions). He states he is both constipated and having diarrhea. He both denies and endorses complaints of a headache. He was able to answer non yes and no questions better and stated that he has been unwell for a few days with fever and cough. He was found to bilateral pneumonia left worse than right on CXR with possible small pneumothorax. He is being admitted to the ICU for further care. Subjective/Events-last exam Patient likely will be extubated this afternoon Patient very debilitated and chronically ill Checked meds and labs and images No concerns per RN Focused Exam Time of Focused Exam: 11:35 Objective Exam Vital Signs Vital Signs Date Time Temp Pulse Resp B/P (MAP) Pulse Ox O2 Delivery O2 Flow Rate FiO2 04/28/20 06:00 38.0 74 20 97/53 (68) 95 Mechanical Ventilator 70.00 04/28/20 02:35 60 Capillary Refill : Less Than 3 Seconds General Appearance: No Apparent Distress, WD/WN, Chronically ill, Other (sedated) Respiratory: No Accessory Muscle Use, No Respiratory Distress, Decreased Breath Sounds Cardiovascular: Regular Rate, Rhythm Neurologic/Psychiatric: Other (sedated) Results/Procedures Lab Laboratory Tests 04/28/20 02:27 Patient resulted labs reviewed. Imaging: Reviewed Imaging Report Assessment/Plan Assessment and Plan Assess & Plan/Chief Complaint Assessment per Dr Johnson with my modifications in bold italic: Acute respiratory failure with ARDS -Continue ventilator care -PEEP 5 and 45% Fio2 -Currently on Propofol at 30 and Fentanyl at 150mcg/hr , Versed - TF -Extubate today? COVID 19 PNA -with Klebsiella - Merrem -Start Diflucan -Repeat levin cultures including culture plural fluid -Dx 04/09 -Remdesivir -Decadron -CVP -Reviewed cultures and meds 04/27/20 Small stable right PTX - prior to intubation -Continue Chest tube until after Extubation -Currently to water seal -50cc/hr tube output. -Repeat CXR Bradycardia -D/C Propofol -continue to monitor close. PNA -Vanco, and Zosyn -Levin cultures pending -MRSA pending TBI Hepatitis C Transaminitis noted, trend with remdesivir PATRICIA baseline creatinine around 0.75m up to 1.30 Continue IVF Critical Care Critically Ill Patient Clinical Quality Measures DVT/VTE Risk/Contraindication: Risk Factor Score Per Nursin RFS Level Per Nursing on Admit: 4+=Very High HALIMA SHEPARD DO Apr 27, 2020 11:46
[2020-04-27 14:35] VITALS: BP 151/117
[2020-04-27 15:39] LABS: ABG BASE EXCESS 8.4 MMOL/L (-2.5-2.5); ABG OXYGEN SATURATION 96 % (94-100); ABG PCO2 42 MMHG (35-45); ABG PO2 78 MMHG (79-93); ABG TCO2 33.1 MMOL/L (21.0-31.0)
[2020-04-27 15:45] LABS: ALLENS TEST YES-POS; PATIENT TEMP 37.9; VENTILATOR YES
[2020-04-27 16:17] VITALS: BP 146/93
[2020-04-27] MEDS ORDERED: ACETAMINOPHEN 650 MG SUPP (TYLENOL) ONE (16:29)
[2020-04-27] MEDS: ACETAMINOPHEN 650 MG SUPP (TYLENOL) PR PRN ×2 (16:32→22:27)
--- NOTE | 2020-04-27 16:41 | NUR ---
TIMELINE NOTE BELOW: 04/27/2020 AT 1435: PT AWAKE AND FOLLOWING COMMANDS: TRACKING THIS RN'S MOVEMENTS, WIGGLING TOES ON COMMAND, AND SQUEEZING THIS RN'S FINGERS ON COMMAND. PT'S VENTILATOR PLACED IN SPONTANEOUS MODE BY RT KHANH. PT SATURATING AT 95%. 04/27/2020 AT 1530: ABG COLLECTED BY THIS RN. 04/27/2020 AT 1450: THIS RN CALLED TELE-ICU TO NOTIFY DR. WOLF. DR. WOLF INQUIRED IF PT WAS APPROPRIATELY ANSWERING YES/NO QUESTIONS - THIS RN STATED PT WAS NOT. DR. WOLF INSTRUCTED THIS RN TO TRY AND EXTUBATE IF PT SEEMED APPROPRIATE. 04/27/2020 AT 1605: PT EXTUBATED BY RT KHANH. ORAL SUCTION PROVIDED BY THIS RN AND PT PLACED ON BIPAP AT 15/8 100%BY RT KHANH. PT SATURATING 100%. ABG TO BE COLLECTED ONE HOUR FROM NOW. 04/27/2020 AT 1607: RESTRAINTS REMOVED FROM BILATERAL WRISTS, NO INJURIES NOTED.
[2020-04-27] MEDS ORDERED: PHARMACY TO DOSE IM SCH (17:00)
[2020-04-27 17:23] LABS: ABG OXYGEN SATURATION 95 % (94-100); ABG PCO2 45 MMHG (35-45); ABG PH 7.47 (7.37-7.43); ABG PO2 78 MMHG (79-93); ABG TCO2 33.2 MMOL/L (21.0-31.0); ALLENS TEST YES-POS; INSPIRED O2 50%; PATIENT TEMP 37.9; VENTILATOR NO
[2020-04-27] MEDS ORDERED: LABETALOL HCL 20 MG/4 ML VIAL ONE (17:32)
[2020-04-27] MEDS: LABETALOL HCL 20 MG/4 ML VIAL IV PRN (17:43)
--- NOTE | 2020-04-27 19:30 | NUR ---
pt pulling off bipap and becoming increasingly agitated. pt refused to keep bipap on. pt pulling at iv lines, catheter and chest tube. mittens applied. rt put pt on vapotherm at this time. o2 sats remained high 90s. this rn unable to leave bedside d/t pt agitation and attempting to get out of bed. sitter placed at bedside. e-icu called and informed of situation. orders given for precedex gtt. see emar.
[2020-04-27] MEDS: LEVETIRACETAM INJECTION 500 MG in NS (IVPB) 100 ML IV SCH (19:37)
[2020-04-27] MEDS: LORazepam INJ 2 MG/ML (ATIVAN) VIAL IV PRN (20:28)
[2020-04-27] MEDS: HALOPERIDOL 5 MG/ML (HALDOL) VIAL IM PRN (20:28)
[2020-04-27] MEDS ORDERED: DexMEDEtomidine PRE MIX 100 ML IV ONE (20:44)
[2020-04-27] MEDS: DexMEDEtomidine PRE MIX 100 ML IV SCH (20:54)
--- NOTE | 2020-04-27 22:50 | NUR ---
TIMELINE NOTE 2250- E-ICU CALLED D/T PT INCREASED WORK OF BREATHING WHILE ON BIPAP AND CONCERNS OF PT NEEDING TO BE INTUBATED AGAIN. E-ICU CAMERA INTO ROOM AND GAVE ORDERS TO INTUBATE. 2257- 20 MG ETOMODATE GIVEN PER DR GARCIA 225- 50 MG ROCURONIUM GIVEN PER DR GARCIA. 2258-SIZE 8 ETT PLACED 25 CM AT THE LIP. COLOR CHANGE AND BREATH SOUNDS NOTED. 2299- RESTRAINTS APPLIED. 2303- OG TUBE PLACED, 2309- E-ICU CONFIRMED PLACEMENT OF ETT W CHEST XRAY.
[2020-04-27 22:57] VITALS: BP_DIAS 117
[2020-04-28 00:11] LABS: ABG BASE EXCESS 7.5 MMOL/L (-2.5-2.5); ABG OXYGEN SATURATION 96 % (94-100); ABG PCO2 56 MMHG (35-45); ABG PH 7.39 (7.37-7.43); ABG PO2 93 MMHG (79-93); ABG TCO2 33.9 MMOL/L (21.0-31.0); INSPIRED O2 45; PATIENT TEMP 37.9; VENTILATOR NO
--- NOTE | 2020-04-28 00:21 | NUR ---
Spoke with QAMAR ferguson to clarify ventilator orders. Orders were as follows Service Date/Time: 04/27/2020 2248 - Queries - PLEASE PAGE RT FOR ALL ORDERS! RN/PCCT MUST CALL OR PAGE RT CERTIFIED LEGAL SECRETARY SPECIALIST FOR TREATMENT RN/PCCT MUST CALL [facility] FOR CONSULTS Ventilator Mode <PS, Volume Control, AC> Ventilator Tidal Volume Setting <450> Fraction of Inspired Oxygen (FIO2) <100> Titrate to keep SpO2 Sat greater than <90> Ventilator Respiratory Rate Setting <20> Positive End Expiratory Pressure <5.0> Ventilator Positive Pressure Support Setting <10> Advised . I could not place patient on PS in a VC mode. stated it was to be AC mode. Advised her again that she had put in PS setting and I could not do that. She stated, AC 450, Rate 18. Patient placed on VC/AC 450, Rate 18, PEEP 5 with no PS because I can not do PS in AC mode.
[2020-04-28] MEDS: MEROPENEM 500 MG/SWFI 10 ML IV PUSH IV SCH ×8 (02:18→21:03)
[2020-04-28] MEDS: PROPOFOL DRIP (ICU) 100 ML IV SCH ×7 (02:20→23:48)
[2020-04-28] MEDS: ACETAMINOPHEN 650 MG SUPP (TYLENOL) PR PRN (02:25)
[2020-04-28] MEDS: RT-ALBUTEROL INHALER HFA (VENTOLIN HFA) 18 GM IH SCH ×6 (02:34→22:51)
[2020-04-28 02:35] VITALS: BP 116/73
[2020-04-28 02:49] LABS: BASOPHILS % (AUTO) 0 % (0-10); EOSINOPHILS # (AUTO) 0.1 10^3/uL (0.0-0.3); EOSINOPHILS % (AUTO) 0 % (0-10); HEMATOCRIT 28 % (40-54); HEMOGLOBIN 9.1 g/dL (13.3-17.7); LYMPHOCYTES # (AUTO) 1.5 10^3/uL (1.0-4.0); LYMPHOCYTES % (AUTO) 11 % (12-44); MEAN CORPUSCULAR HEMOGLOBIN 29 pg (25-34); MEAN CORPUSCULAR HGB CONC 32 g/dL (32-36); MEAN CORPUSCULAR VOLUME 91 fL (80-99); MEAN PLATELET VOLUME 9.6 fL (9.0-12.2); MONOCYTES # (AUTO) 0.5 10^3/uL (0.0-1.0); MONOCYTES % (AUTO) 3 % (0-12); NEUTROPHILS # (AUTO) 12.1 10^3/uL (1.8-7.8); NEUTROPHILS % (AUTO) 85 % (42-75); PLATELET COUNT 308 10^3/uL (130-400); WHITE BLOOD COUNT 14.2 10^3/uL (4.3-11.0)
[2020-04-28 02:54] LABS: ALBUMIN 2.1 GM/DL (3.2-4.5); CHLORIDE 97 MMOL/L (98-107); POTASSIUM 3.5 MMOL/L (3.6-5.0); SODIUM 131 MMOL/L (135-145)
[2020-04-28 02:56] LABS: CALCIUM 7.8 MG/DL (8.5-10.1)
[2020-04-28 02:57] LABS: GLUCOSE 77 MG/DL (70-105)
[2020-04-28 02:58] LABS: CARBON DIOXIDE 25 MMOL/L (21-32)
[2020-04-28 02:59] LABS: BILIRUBIN,TOTAL 0.5 MG/DL (0.1-1.0)
[2020-04-28 03:00] LABS: ALKALINE PHOSPHATASE 60 U/L (40-136)
[2020-04-28 03:01] LABS: GFR ESTIMATED > 60
[2020-04-28 03:02] LABS: BUN/CREATININE RATIO 24
[2020-04-28 03:03] LABS: MAGNESIUM 1.6 MG/DL (1.6-2.4)
[2020-04-28 03:04] LABS: ALANINE AMINOTRANSFERASE 36 U/L (0-55)
[2020-04-28] MEDS: inSUlin ASPART (NovoLOG) 1 UNIT/0.01 ML (CHARGE PER UNIT) SQ SCH ×6 (03:09→23:38)
[2020-04-28] MEDS: KCL 20 MEQ TAB (K-DUR) PO SCH (03:10)
[2020-04-28] MEDS: POTASSIUM CL 10MEQ/50ML IVPB 50 ML IV SCH ×3 (03:10→03:55)
[2020-04-28] MEDS: MAGNESIUM 1 GM/100 ML IVPB 100 ML IV SCH ×3 (03:10→03:56)
--- NOTE | 2020-04-28 03:25 | NUR ---
PT 0400 BLOOD GLUCOSE WAS 77 ON LAB DRAW. E-ICU CALLED BECAUSE PT HAD BEEN HYPOGLYCEMIC DURING FIRST INTUBATION. BLOOD GLUCOSE HAS BEEN TRENDING DOWN THROUGHOUT THE SHIFT. E-ICU GAVE ORDERS TO START D10 AT 40ML/HR
[2020-04-28 03:37] LABS: TRIGLYCERIDES 150 MG/DL (<150)
[2020-04-28] MEDS: DEXTROSE 10% IV SOLUTION 1,000 ML IV SCH ×2 (03:50→10:35)
[2020-04-28] MEDS: fentaNYL DRIP PRE-MIX 250 ML IV SCH ×5 (03:54→21:02)
[2020-04-28] MEDS ORDERED: DexMEDEtomidine PRE MIX 100 ML IV SCH (05:30)
[2020-04-28 05:36] LABS: ABG BASE EXCESS 7.9 MMOL/L (-2.5-2.5); ABG OXYGEN SATURATION 86 % (94-100); ABG PCO2 50 MMHG (35-45); ABG PH 7.43 (7.37-7.43); ABG PO2 63 MMHG (79-93); ABG TCO2 33.7 MMOL/L (21.0-31.0)
[2020-04-28 05:44] LABS: ALLENS TEST POSITIVE; INSPIRED O2 60; PATIENT TEMP 38; VENTILATOR YES
--- NOTE | 2020-04-28 06:53 | Diagnostic Imaging Report ---
EXAMINATION: Chest radiograph, portable AP view. DATE: 04/27/2020 11:50 PM INDICATION: 54-year-old male, intubation. COMPARISON: April 27, 2020. FINDINGS: The endotracheal tube is approximately 2.9 cm above the stacey. The nasogastric tube overlies the stomach. There is a right-sided PICC line with tip at the level of the cavoatrial junction. There is a left-sided Port-A-Cath with tip not particularly well seen. Stable overall appearance of the cardiomediastinal silhouette. There is no identified pneumothorax. There is multifocal bilateral lung consolidation. There is increasing airspace consolidation in the lateral aspect of the left midlung. IMPRESSION: 1. Redemonstrated multifocal bilateral lung consolidation which is nonspecific with interval increase in degree of consolidation in the lateral aspect of the left midlung. 2. Support lines and tubes as described above. Dictated by: Dictated on workstation # [id number]
[2020-04-28] MEDS: VALPROIC ACID SYRUP 250 MG/5 ML UDC PO SCH ×2 (07:28→15:11)
[2020-04-28 07:44] VITALS: BP 97/59
[2020-04-28] MEDS: FLUCONAZOLE 200 MG/100 ML 50 ML, EMPTY IV BAG (PVC) 1 EA IV SCH ×2 (07:53)
[2020-04-28] MEDS: risperiDONE 0.25 MG (RisperDAL) TAB PO SCH ×2 (07:53→21:03)
[2020-04-28] MEDS: FAMOTIDINE 20MG/2ML IV (PEPCID) IV SCH ×2 (07:53→21:03)
[2020-04-28] MEDS: LEVETIRACETAM INJECTION 500 MG in NS (IVPB) 100 ML IV SCH ×2 (07:54→21:02)
[2020-04-28] MEDS: FUROSEMIDE 40 MG/4 ML INJ (LASIX) IVP SCH (07:56)
[2020-04-28] MEDS: ARTIFICIAL TEARS OINT (LACRI-LUBE) 3.5 GM TUBE OU SCH ×2 (07:56→21:04)
[2020-04-28] MEDS ORDERED: ROCURONIUM 10 MG/ML 5 ML SYRINGE IV ONE (08:35)
[2020-04-28] MEDS ORDERED: ETOMIDATE IV SOLN 20 MG/10 ML VIAL IV ONE (08:35)
[2020-04-28] MEDS: LORazepam INJ 2 MG/ML (ATIVAN) VIAL IV PRN ×3 (10:35→22:10)
[2020-04-28] MEDS: ENOXAPARIN 100 MG/1 ML (LOVENOX) SYR SC SCH ×2 (10:35→22:09)
[2020-04-28 10:47] VITALS: BP 180/109
[2020-04-28] MEDS: DexMEDEtomidine PRE MIX 100 ML IV SCH (10:52)
[2020-04-28] MEDS: LABETALOL HCL 20 MG/4 ML VIAL IV PRN (10:52)
--- NOTE | 2020-04-28 11:49 | Progress Note - Hospitalist ---
Subjective HPI/CC On Admission Date Seen by Provider: Apr 28, 2020 Time Seen by Provider: 11:00 Pt is a 54yoCM with a PMH of TBI, t-cell lymphoma, seizure disorder, hepatitis C with cirrhosis who presented to the ER due to hypoxia. He was admitted here for cellulitis and sepsis in February. He also had a port removal and replacement on 03/20. He was tested for COVID on 04/09 and was positive. He tells me a somewhat contradicting history by answer yes to most questions (even contradicting questions). He states he is both constipated and having diarrhea. He both denies and endorses complaints of a headache. He was able to answer non yes and no questions better and stated that he has been unwell for a few days with fever and cough. He was found to bilateral pneumonia left worse than right on CXR with possible small pneumothorax. He is being admitted to the ICU for further care. Subjective/Events-last exam Extubated yesterday for 7 hours before re-intubated Versed currently used for sedation Reviewed meds and labs and CXR Focused Exam Time of Focused Exam: 11:35 Objective Exam Vital Signs Vital Signs Date Time Temp Pulse Resp B/P (MAP) Pulse Ox O2 Delivery O2 Flow Rate FiO2 04/28/20 19:00 37.8 64 18 116/74 (88) 94 Mechanical Ventilator 70.00 04/28/20 18:23 45 Capillary Refill : Less Than 3 Seconds General Appearance: No Apparent Distress, WD/WN, Chronically ill Respiratory: Lungs Clear Cardiovascular: Regular Rate, Rhythm Results/Procedures Lab Laboratory Tests 04/28/20 02:27 Patient resulted labs reviewed. Imaging: Reviewed Imaging Report Assessment/Plan Assessment and Plan Assess & Plan/Chief Complaint Assessment per Dr Johnson with my modifications in bold italic: Acute respiratory failure with ARDS -Continue ventilator care -PEEP 5 and 45% Fio2 -Currently on Propofol at 30 and Fentanyl at 150mcg/hr , Versed - TF -Extubate today? -Extubation unsuccessful yesterday COVID 19 PNA -with Klebsiella - Merrem -Start Diflucan -Repeat levin cultures including culture plural fluid -Dx 04/09 -Remdesivir -Decadron -CVP -Reviewed cultures and meds 04/27/20 Small stable right PTX - prior to intubation -Continue Chest tube until after Extubation -Currently to water seal -50cc/hr tube output. -Repeat CXR Bradycardia -D/C Propofol -continue to monitor close. PNA -Vanco, and Zosyn -Levin cultures pending -MRSA pending TBI Hepatitis C Transaminitis noted, trend with remdesivir PATRICIA baseline creatinine around 0.75m up to 1.30 Continue IVF Critical Care Critically Ill Patient Clinical Quality Measures DVT/VTE Risk/Contraindication: Risk Factor Score Per Nursin RFS Level Per Nursing on Admit: 4+=Very High HALIMA SHEPARD DO Apr 28, 2020 11:49
[2020-04-28 14:19] VITALS: BP 107/65
[2020-04-28 18:23] VITALS: BP 146/31
[2020-04-28] MEDS: ACETAMINOPHEN 325 MG TABLET PO PRN (21:03)
[2020-04-28 22:51] VITALS: BP 92/63
[2020-04-29] MEDS: PROPOFOL DRIP (ICU) 100 ML IV SCH ×8 (00:52→23:52)
[2020-04-29] MEDS: fentaNYL DRIP PRE-MIX 250 ML IV SCH ×6 (01:25→23:16)
[2020-04-29 02:24] VITALS: BP 115/67
[2020-04-29] MEDS: RT-ALBUTEROL INHALER HFA (VENTOLIN HFA) 18 GM IH SCH ×6 (02:24→21:19)
[2020-04-29 02:45] LABS: ABG BASE EXCESS 7.3 MMOL/L (-2.5-2.5); ABG OXYGEN SATURATION 91 % (94-100); ABG PCO2 46 MMHG (35-45); ABG PH 7.45 (7.37-7.43); ABG PO2 67 MMHG (79-93); ABG TCO2 32.6 MMOL/L (21.0-31.0)
[2020-04-29 02:46] LABS: BASOPHILS % (AUTO) 0 % (0-10); EOSINOPHILS # (AUTO) 0.1 10^3/uL (0.0-0.3); EOSINOPHILS % (AUTO) 1 % (0-10); HEMATOCRIT 30 % (40-54); LYMPHOCYTES # (AUTO) 1.6 10^3/uL (1.0-4.0); LYMPHOCYTES % (AUTO) 14 % (12-44); MEAN CORPUSCULAR HEMOGLOBIN 28 pg (25-34); MEAN CORPUSCULAR HGB CONC 31 g/dL (32-36); MEAN CORPUSCULAR VOLUME 92 fL (80-99); MEAN PLATELET VOLUME 9.5 fL (9.0-12.2); MONOCYTES # (AUTO) 0.5 10^3/uL (0.0-1.0); MONOCYTES % (AUTO) 4 % (0-12); NEUTROPHILS # (AUTO) 8.7 10^3/uL (1.8-7.8); NEUTROPHILS % (AUTO) 80 % (42-75); PLATELET COUNT 270 10^3/uL (130-400)
[2020-04-29 02:50] LABS: ALLENS TEST POSITIVE; INSPIRED O2 50; PATIENT TEMP 37.6; VENTILATOR YES
[2020-04-29 02:58] LABS: ALBUMIN 2.2 GM/DL (3.2-4.5); CHLORIDE 101 MMOL/L (98-107); POTASSIUM 3.9 MMOL/L (3.6-5.0); SODIUM 137 MMOL/L (135-145)
[2020-04-29 02:59] LABS: CALCIUM 8.2 MG/DL (8.5-10.1)
[2020-04-29 03:00] LABS: TRIGLYCERIDES 188 MG/DL (<150)
[2020-04-29 03:01] LABS: GLUCOSE 99 MG/DL (70-105); TOTAL PROTEIN 6.1 GM/DL (6.4-8.2)
[2020-04-29 03:02] LABS: BILIRUBIN,TOTAL 0.4 MG/DL (0.1-1.0); CARBON DIOXIDE 27 MMOL/L (21-32)
[2020-04-29 03:04] LABS: ALKALINE PHOSPHATASE 60 U/L (40-136); CREATININE SERUM 0.52 MG/DL (0.60-1.30); GFR ESTIMATED > 60; PHOSPHORUS 3.1 MG/DL (2.3-4.7)
[2020-04-29 03:05] LABS: BUN/CREATININE RATIO 23
[2020-04-29] MEDS: inSUlin ASPART (NovoLOG) 1 UNIT/0.01 ML (CHARGE PER UNIT) SQ SCH ×5 (03:06→20:57)
[2020-04-29 03:07] LABS: ALANINE AMINOTRANSFERASE 29 U/L (0-55); MAGNESIUM 1.9 MG/DL (1.6-2.4)
[2020-04-29] MEDS: POTASSIUM CL 10MEQ/50ML IVPB 50 ML IV SCH (03:07)
[2020-04-29] MEDS: KCL 20 MEQ TAB (K-DUR) PO SCH (03:07)
[2020-04-29] MEDS: MAGNESIUM 1 GM/100 ML IVPB 100 ML IV SCH (03:08)
[2020-04-29] MEDS: MEROPENEM 500 MG/SWFI 10 ML IV PUSH IV SCH ×8 (03:19→21:14)
[2020-04-29] MEDS: ACETAMINOPHEN 325 MG TABLET PO PRN (04:20)
--- NOTE | 2020-04-29 05:13 | Pulmonary Progress Note ---
Subjective Time Seen by a Provider: 05:08 Subjective/Events-last exam Pt is sedated on vent. Sepsis Event Evaluation Height, Weight, BMI Height: '" Weight: lbs. oz. kg; 31.00 BMI Method: Focused Exam Time of Focused Exam: 11:35 Exam Exam Vital Signs Date Time Temp Pulse Resp B/P (MAP) Pulse Ox O2 Delivery O2 Flow Rate FiO2 04/29/20 04:20 38.0 04/29/20 04:00 38.0 99 17 130/82 (98) 94 Mechanical Ventilator 50.00 04/29/20 03:00 37.7 100 17 125/76 (92) 95 Mechanical Ventilator 50.00 04/29/20 02:35 Mechanical Ventilator 50.00 04/29/20 02:24 108 23 96 60 04/29/20 02:00 37.6 69 20 109/69 (82) 99 Mechanical Ventilator 60.00 04/29/20 01:00 37.7 88 16 91/58 (69) 97 Mechanical Ventilator 60.00 04/29/20 01:00 88 04/29/20 00:52 91 96/58 04/29/20 00:00 37.7 93 38 98/63 (75) 98 Mechanical Ventilator 60.00 04/28/20 23:48 96 101/65 04/28/20 23:40 37.7 96 18 101/64 (76) 99 Mechanical Ventilator 60.00 04/28/20 23:00 38.1 105 17 91/65 (74) 97 Mechanical Ventilator 80.00 04/28/20 22:51 108 23 97 80 04/28/20 22:09 Mechanical Ventilator 80.00 04/28/20 22:00 38.2 118 20 161/113 (129) 88 Mechanical Ventilator 70.00 04/28/20 21:22 38.0 04/28/20 21:03 38.0 04/28/20 21:02 105 140/95 04/28/20 21:00 37.9 112 140/95 (110) 94 Mechanical Ventilator 70.00 04/28/20 20:25 96 Mechanical Ventilator 70 04/28/20 20:00 37.8 78 17 110/75 (87) 94 Mechanical Ventilator 70.00 04/28/20 19:00 90 04/28/20 19:00 37.8 64 18 116/74 (88) 94 Mechanical Ventilator 70.00 04/28/20 18:23 94 21 90 45 04/28/20 18:00 37.3 79 14 153/85 (107) 91 Mechanical Ventilator 50.00 04/28/20 17:45 37.3 75 16 147/85 (108) 92 04/28/20 17:30 37.2 60 17 130/77 (99) 90 04/28/20 17:15 37.1 55 18 116/72 (88) 91 04/28/20 17:00 37 51 18 121/68 (89) 91 Mechanical Ventilator 50.00 04/28/20 16:45 37 48 17 120/77 (95) 93 04/28/20 16:30 37.1 49 26 109/68 (81) 94 04/28/20 16:27 44 102/62 04/28/20 16:15 37.1 50 37 102/62 (78) 94 04/28/20 16:00 37.1 54 35 108/66 (79) 92 Mechanical Ventilator 50.00 04/28/20 15:52 Mechanical Ventilator 50.00 04/28/20 15:45 37 62 24 116/68 (79) 91 04/28/20 15:30 36.8 94 22 133/82 (98) 91 04/28/20 15:15 36.7 99 26 140/89 (95) 92 04/28/20 15:00 36.6 72 15 139/81 (108) 95 Mechanical Ventilator 70.00 04/28/20 14:45 36.5 58 11 137/77 (104) 94 04/28/20 14:30 36.4 48 16 125/79 (93) 95 04/28/20 14:19 43 19 97 60 04/28/20 14:15 36.4 42 34 107/65 (82) 96 04/28/20 14:00 36.5 42 7 104/59 (75) 96 Mechanical Ventilator 70.00 04/28/20 13:45 36.5 43 18 105/58 (76) 96 04/28/20 13:30 36.6 43 0 106/66 (74) 96 04/28/20 13:15 36.7 43 0 108/65 (83) 97 04/28/20 13:00 36.8 43 8 104/61 (73) 97 Mechanical Ventilator 70.00 04/28/20 12:48 Mechanical Ventilator 70.00 04/28/20 12:45 36.9 47 14 102/68 (77) 97 Mechanical Ventilator 90.00 04/28/20 12:40 64 04/28/20 12:30 37.1 47 18 105/62 (81) 97 Mechanical Ventilator 90.00 04/28/20 12:15 37.3 50 17 104/65 (79) 98 Mechanical Ventilator 90.00 04/28/20 12:00 37.5 65 18 104/72 (81) 98 Mechanical Ventilator 90.00 04/28/20 11:46 Mechanical Ventilator 90.00 04/28/20 11:00 37.9 87 11 119/70 (78) 95 Mechanical Ventilator 100.00 04/28/20 10:54 Mechanical Ventilator 100.00 04/28/20 10:52 108 180/109 04/28/20 10:47 117 23 90 100 04/28/20 10:45 37.7 111 17 180/109 (131) 88 04/28/20 10:32 111 185/117 04/28/20 10:31 111 185/117 04/28/20 10:30 37.4 112 18 185/117 (128) 89 04/28/20 10:15 37.3 112 15 191/135 (158) 83 04/28/20 10:00 37.3 32 130/75 (109) 93 Mechanical Ventilator 70.00 04/28/20 09:45 37.3 64 12 121/73 (87) 91 04/28/20 09:30 37.3 75 32 110/67 (77) 96 04/28/20 09:15 37.3 54 57 96/60 (72) 94 04/28/20 09:00 37.3 54 68 99/60 (75) 94 Mechanical Ventilator 70.00 04/28/20 08:45 37.3 55 17 103/64 (79) 94 04/28/20 08:30 37.3 53 13 98/60 (72) 95 04/28/20 08:15 37.3 59 16 104/61 (76) 94 04/28/20 08:04 Mechanical Ventilator 4.00 70 04/28/20 08:00 37.3 56 18 101/66 (78) 95 Mechanical Ventilator 70.00 04/28/20 07:45 37.3 74 22 97/59 (71) 96 Mechanical Ventilator 70.00 04/28/20 07:44 53 18 95 70 04/28/20 07:30 37.4 56 30 97/58 (70) 95 Mechanical Ventilator 70.00 04/28/20 07:15 37.5 62 33 94/57 (65) 95 Mechanical Ventilator 70.00 04/28/20 07:00 37.6 59 21 94/58 (67) 95 Mechanical Ventilator 70.00 04/28/20 07:00 63 04/28/20 06:45 37.7 62 20 97/59 (71) 96 Mechanical Ventilator 70.00 04/28/20 06:30 37.8 74 22 97/60 (72) 95 Mechanical Ventilator 70.00 04/28/20 06:15 37.9 70 71 97/53 (73) 95 Mechanical Ventilator 70.00 04/28/20 06:00 38.0 74 20 97/53 (68) 95 Mechanical Ventilator 70.00 I & O 04/29/20 06:59 Intake Total 3535 ml Output Total 2350 ml Balance 1185 ml Height & Weight Height: '" Weight: lbs. oz. kg; 31.00 BMI Method: General Appearance: No Apparent Distress, WD/WN, Chronically ill HEENT: PERRL/EOMI, Other Respiratory: Lungs Clear Cardiovascular: Regular Rate, Rhythm Capillary Refill: Less Than 3 Seconds Peripheral Pulses: 1+ Radial Pulses (R), 1+ Radial Pulses (L) Gastrointestinal: soft, no organomegaly Neurologic/Psychiatric: Other (sedated) Skin: Normal Color Results Lab Laboratory Tests 04/28/20 02:27 04/29/20 02:28 Assessment/Plan Assessment/Plan Acute respiratory failure with ARDS \\ -EICU managed through the weekend -Pt was extubated on 04/27 and then reintubated the same day. -Continue ventilator care -PEEP 5 and 50% Fio2 -Currently on Propofol at 30 and Fentanyl at 150mcg/hr , Versed - TF COVID 19 PNA -with Klebsiella - Merrem -Start Diflucan -Repeat levin cultures including culture plural fluid -Dx 04/09 -Remdesivir -Decadron -CVP Small stable right PTX - prior to intubation -Continue Chest tube until after Extubation -Currently to water seal -Repeat CXR - Bradycardia -D/C Propofol -continue to monitor close. PNA -Vanco, and Zosyn -Levin cultures pending -MRSA pending TBI Hepatitis C Transaminitis noted, trend with remdesivir PATRICIA baseline creatinine around 0.75m up to 1.30 Continue IVF COLEMAN MARTINEZ DO Apr 29, 2020 05:13
[2020-04-29] MEDS: LORazepam INJ 2 MG/ML (ATIVAN) VIAL IV PRN ×2 (06:14→23:16)
[2020-04-29 06:51] VITALS: BP 144/87
--- NOTE | 2020-04-29 08:03 | Diagnostic Imaging Report ---
INDICATION: Shortness of breath COMPARISON: 04/27/2020 TECHNIQUE: Single radiograph the chest dated 04/29/2020 FINDINGS: Endotracheal tube is again identified overlying the tracheal air column above the level the stacey by approximately 1.6 cm. Enteric catheter is present extending into the upper abdomen. Left-sided Port-A-Cath is again identified and stable. Right-sided PICC line is stable. The cardiac silhouette is unchanged. Pulmonary vasculature is predominantly obscured. Extensive bilateral pulmonary infiltrates are again identified. These have not significantly changed from the prior exam. Findings are concerning for interval development of a small right-sided pneumothorax. No significant mediastinal shift. No left-sided pneumothorax. Osseous structures are stable. IMPRESSION: Findings concerning for a interval development of a possible small right-sided pneumothorax without evidence of tension phenomenon. Recommend radiographic follow-up. Persistent extensive bilateral pulmonary infiltrates, not significantly changed from the prior exam. Unchanged lines and tubes. Report was called to Paloma[facility] by hilda at 8:00AM. Dictated by: Dictated on workstation # [id number]
[2020-04-29] MEDS: FUROSEMIDE 40 MG/4 ML INJ (LASIX) IVP SCH (08:25)
[2020-04-29] MEDS: FAMOTIDINE 20MG/2ML IV (PEPCID) IV SCH ×2 (08:27→21:14)
[2020-04-29] MEDS: risperiDONE 0.25 MG (RisperDAL) TAB PO SCH ×2 (08:27→21:33)
[2020-04-29] MEDS: ARTIFICIAL TEARS OINT (LACRI-LUBE) 3.5 GM TUBE OU SCH ×2 (08:27→21:14)
[2020-04-29] MEDS: VALPROIC ACID SYRUP 250 MG/5 ML UDC PO SCH ×2 (08:27→16:23)
[2020-04-29] MEDS: LEVETIRACETAM INJECTION 500 MG in NS (IVPB) 100 ML IV SCH ×2 (08:28→21:14)
[2020-04-29] MEDS: FLUCONAZOLE 200 MG/100 ML 50 ML, EMPTY IV BAG (PVC) 1 EA IV SCH ×2 (08:28)
[2020-04-29] MEDS: DEXTROSE 10% IV SOLUTION 1,000 ML IV SCH (08:29)
[2020-04-29 09:38] VITALS: BP 107/70
[2020-04-29] MEDS: ENOXAPARIN 100 MG/1 ML (LOVENOX) SYR SC SCH ×2 (10:48→23:15)
--- NOTE | 2020-04-29 13:54 | NUR ---
CM/SS follow up. CM/SS received a referral for an LTAC transfer. The patient would not qualify for [facility] due to having Medicaid. CM/SS reached out to [facility] in [place] to find out if they accept Medicaid. No answer but a voice mail was left with Jillian with contact information. Awaiting a call back. CM/SS gave [facility] an update. CM/SS verified that patient does not have a DPOA or next of kin. Maggie stated she just showed a friend Scarlet julien. CM/SS will continue to follow.
[2020-04-29 14:59] VITALS: BP 107/70
--- NOTE | 2020-04-29 17:09 | NUR ---
Note pt currently receiving Pulmocare via 55ml bolus feeds q4h with 30ml water flushes before/after each bolus. Would recommend increase TF by 30ml q8h as tolerated toward goal of 175ml q4h. Will continue to follow and reassess as pt needs, intake, and status change. Harjinder Artis, MS RD LD [phone] cell
[2020-04-29 18:35] VITALS: BP 125/76
[2020-04-29] MEDS: DexMEDEtomidine PRE MIX 100 ML IV SCH (20:57)
[2020-04-29 21:20] VITALS: BP 103/65
[2020-04-30] MEDS: inSUlin ASPART (NovoLOG) 1 UNIT/0.01 ML (CHARGE PER UNIT) SQ SCH ×6 (00:10→20:42)
[2020-04-30] MEDS: MIDAZOLAM DRIP PRE-MIX 100 ML IV SCH (00:11)
[2020-04-30] MEDS: RT-ALBUTEROL INHALER HFA (VENTOLIN HFA) 18 GM IH SCH ×6 (01:25→22:39)
[2020-04-30 01:26] VITALS: BP 93/65
[2020-04-30] MEDS: MEROPENEM 500 MG/SWFI 10 ML IV PUSH IV SCH ×8 (03:09→21:29)
[2020-04-30] MEDS: fentaNYL DRIP PRE-MIX 250 ML IV SCH ×6 (03:10→21:06)
[2020-04-30 03:41] LABS: BASOPHILS % (AUTO) 0 % (0-10); EOSINOPHILS # (AUTO) 0.1 10^3/uL (0.0-0.3); EOSINOPHILS % (AUTO) 1 % (0-10); HEMATOCRIT 27 % (40-54); HEMOGLOBIN 8.1 g/dL (13.3-17.7); LYMPHOCYTES # (AUTO) 1.4 10^3/uL (1.0-4.0); LYMPHOCYTES % (AUTO) 17 % (12-44); MEAN CORPUSCULAR HEMOGLOBIN 28 pg (25-34); MEAN CORPUSCULAR HGB CONC 30 g/dL (32-36); MEAN CORPUSCULAR VOLUME 92 fL (80-99); MEAN PLATELET VOLUME 9.6 fL (9.0-12.2); MONOCYTES # (AUTO) 0.3 10^3/uL (0.0-1.0); MONOCYTES % (AUTO) 4 % (0-12); NEUTROPHILS # (AUTO) 6.3 10^3/uL (1.8-7.8); NEUTROPHILS % (AUTO) 77 % (42-75); PLATELET COUNT 225 10^3/uL (130-400); WHITE BLOOD COUNT 8.2 10^3/uL (4.3-11.0)
[2020-04-30 03:53] LABS: ABG BASE EXCESS 8.8 MMOL/L (-2.5-2.5); ABG OXYGEN SATURATION 94 % (94-100); ABG PCO2 47 MMHG (35-45); ABG PH 7.46 (7.37-7.43); ABG PO2 79 MMHG (79-93); ABG TCO2 34.3 MMOL/L (21.0-31.0)
[2020-04-30 03:55] LABS: ALBUMIN 2.1 GM/DL (3.2-4.5); ALLENS TEST YES-POS; CHLORIDE 99 MMOL/L (98-107); POTASSIUM 3.6 MMOL/L (3.6-5.0); SODIUM 136 MMOL/L (135-145)
[2020-04-30 03:56] LABS: INSPIRED O2 50%; PATIENT TEMP 37.7; VENTILATOR YES
[2020-04-30 03:58] LABS: GLUCOSE 94 MG/DL (70-105); TOTAL PROTEIN 5.8 GM/DL (6.4-8.2); TRIGLYCERIDES 151 MG/DL (<150)
[2020-04-30 03:59] LABS: CARBON DIOXIDE 30 MMOL/L (21-32)
[2020-04-30 04:00] LABS: BILIRUBIN,TOTAL 0.4 MG/DL (0.1-1.0)
[2020-04-30 04:01] LABS: ALKALINE PHOSPHATASE 61 U/L (40-136)
[2020-04-30 04:02] LABS: GFR ESTIMATED > 60
[2020-04-30 04:03] LABS: BUN/CREATININE RATIO 22
[2020-04-30 04:05] LABS: ALANINE AMINOTRANSFERASE 19 U/L (0-55)
[2020-04-30 04:30] LABS: PHOSPHORUS 2.9 MG/DL (2.3-4.7)
[2020-04-30 04:31] LABS: MAGNESIUM 1.8 MG/DL (1.6-2.4)
--- NOTE | 2020-04-30 04:31 | Pulmonary Progress Note ---
Subjective Time Seen by a Provider: 04:26 Subjective/Events-last exam Pt is sedated on vent. Sepsis Event Evaluation Height, Weight, BMI Height: '" Weight: lbs. oz. kg; 31.00 BMI Method: Focused Exam Time of Focused Exam: 11:35 Exam Exam Vital Signs Date Time Temp Pulse Resp B/P (MAP) Pulse Ox O2 Delivery O2 Flow Rate FiO2 04/30/20 02:30 98 Mechanical Ventilator 50.00 04/30/20 02:00 37.7 64 18 98/61 (73) 97 Mechanical Ventilator 60.00 04/30/20 01:27 100 Mechanical Ventilator 60.00 04/30/20 01:26 72 21 98 60 04/30/20 01:00 37.9 83 16 98/65 (76) 98 Mechanical Ventilator 70.00 04/30/20 01:00 83 04/30/20 00:12 96 Mechanical Ventilator 70.00 04/30/20 00:11 128/97 04/30/20 00:00 37.6 103 39 128/97 (107) 94 Mechanical Ventilator 45.00 04/29/20 23:52 174/111 04/29/20 23:18 146/81 04/29/20 23:00 37.2 56 16 103/63 (76) 98 Mechanical Ventilator 45.00 04/29/20 22:00 37.4 65 16 99/60 (73) 97 Mechanical Ventilator 45.00 04/29/20 21:48 96 Mechanical Ventilator 45.00 04/29/20 21:20 62 18 98 50 04/29/20 21:09 37.5 63 98/62 (74) 100 Mechanical Ventilator 50.00 04/29/20 21:00 100 Mechanical Ventilator 50 04/29/20 20:00 37.6 68 107/70 (80) 98 Mechanical Ventilator 50.00 04/29/20 19:45 37.6 63 109/65 (79) 98 Mechanical Ventilator 50.00 04/29/20 19:30 37.5 75 109/66 (81) 97 Mechanical Ventilator 50.00 04/29/20 19:15 37.4 73 120/84 (95) 97 Mechanical Ventilator 50.00 04/29/20 19:00 63 04/29/20 19:00 37.2 63 124/73 (92) 97 Mechanical Ventilator 50.00 12/14/20 18:35 72 21 95 50 04/29/20 18:17 38.1 93 131/83 (99) 95 Mechanical Ventilator 70.00 04/29/20 17:36 66 117/67 04/29/20 17:35 66 117/67 04/29/20 17:27 38.1 66 117/67 (84) 98 Mechanical Ventilator 70.00 04/29/20 16:00 38.1 62 19 108/61 (77) 98 Mechanical Ventilator 70.00 04/29/20 15:00 38.1 70 32 115/71 (86) 98 Mechanical Ventilator 70.00 04/29/20 14:59 75 25 97 50 04/29/20 14:00 38.1 80 40 111/66 (81) 100 Mechanical Ventilator 70.00 04/29/20 13:00 38.1 65 16 96/56 (69) 100 Mechanical Ventilator 70.00 04/29/20 12:42 67 04/29/20 12:35 70 96/54 04/29/20 12:34 70 96/54 04/29/20 12:23 38.1 70 26 96/54 (68) 100 Mechanical Ventilator 70.00 04/29/20 12:00 37.6 64 21 94/56 (69) 100 Mechanical Ventilator 70.00 04/29/20 11:00 38.1 81 21 99/57 (71) 97 Mechanical Ventilator 70.00 04/29/20 09:38 95 22 93 70 04/29/20 09:00 38.7 99 23 124/78 (93) 95 Mechanical Ventilator 70.00 04/29/20 09:00 96 Mechanical Ventilator 70 04/29/20 08:00 38.7 108 24 113/67 (82) 92 Mechanical Ventilator 70.00 04/29/20 07:31 122 163/104 04/29/20 07:31 122 163/104 04/29/20 07:00 38.7 101 24 128/68 (88) 96 Mechanical Ventilator 70.00 04/29/20 06:51 106 25 93 70 04/29/20 06:40 86 04/29/20 06:22 Mechanical Ventilator 70.00 04/29/20 06:00 38.4 112 26 177/79 (111) 89 Mechanical Ventilator 50.00 04/29/20 05:00 38.2 97 27 130/82 (98) 93 Mechanical Ventilator 50.00 I & O 04/30/20 07:00 Intake Total 1225 ml Output Total 3660 ml Balance -2435 ml Height & Weight Height: '" Weight: lbs. oz. kg; 31.00 BMI Method: General Appearance: No Apparent Distress, WD/WN, Chronically ill HEENT: PERRL/EOMI, Other Respiratory: Lungs Clear Cardiovascular: Regular Rate, Rhythm Capillary Refill: Less Than 3 Seconds Peripheral Pulses: 1+ Radial Pulses (R), 1+ Radial Pulses (L) Gastrointestinal: soft, no organomegaly Neurologic/Psychiatric: Other (sedated) Skin: Normal Color Results Lab Laboratory Tests 04/29/20 02:28 04/30/20 03:04 Assessment/Plan Assessment/Plan Acute respiratory failure with ARDS \\ -EICU managed through the weekend -Pt was extubated on 04/27 and then reintubated the same day. -Pt would benefit from tracheostomy however. Pt has no family to obtain consent. -Continue ventilator care -PEEP 5 and 45%% Fio2 -Hold propofol and attempt to wake pt up for vent weaning. -Currently on Propofol at 30 and Fentanyl at 150mcg/hr , Versed - TF COVID 19 PNA -with Klebsiella - Merrem -Start Diflucan -Repeat levin cultures including culture plural fluid -Dx 04/09 -Remdesivir -Decadron -CVP Small stable right PTX - prior to intubation -Continue Chest tube until after Extubation -Currently to water seal -Reconnect chest tube back to suction -Repeat CXR - Bradycardia -D/C Propofol -continue to monitor close. PNA -Vanco, and Zosyn -Levin cultures pending -MRSA pending TBI Hepatitis C Transaminitis noted, trend with remdesivir PATRICIA baseline creatinine around 0.75m up to 1.30 Continue IVF COLEMAN MARTINEZ DO Apr 30, 2020 04:31
[2020-04-30] MEDS: POTASSIUM CL 10MEQ/50ML IVPB 50 ML IV SCH ×3 (04:36→05:28)
[2020-04-30] MEDS: MAGNESIUM 1 GM/100 ML IVPB 100 ML IV SCH (04:36)
[2020-04-30] MEDS: KCL 20 MEQ TAB (K-DUR) PO SCH (04:36)
[2020-04-30] MEDS: PROPOFOL DRIP (ICU) 100 ML IV SCH ×8 (05:39→21:06)
[2020-04-30] MEDS: ACETAMINOPHEN 325 MG TABLET PO PRN (06:26)
--- NOTE | 2020-04-30 06:56 | NUR ---
This RN attempted to wean off sedation. Patient's heart rate increased to 120s and blood pressure 170/100. Oxygen needs increased to 100% on vent from 45%. Patient can only squeeze hand, does not look when talked to and appears uncomfortable and belly breathing. Dr. Johnson aware and sedation restarted and increased. Will continue to monitor.
[2020-04-30] MEDS: DEXTROSE 10% IV SOLUTION 1,000 ML IV SCH (07:02)
[2020-04-30] MEDS: LEVETIRACETAM INJECTION 500 MG in NS (IVPB) 100 ML IV SCH ×2 (08:01→20:42)
[2020-04-30] MEDS: risperiDONE 0.25 MG (RisperDAL) TAB PO SCH ×2 (08:01→20:46)
[2020-04-30] MEDS: VALPROIC ACID SYRUP 250 MG/5 ML UDC PO SCH ×2 (08:01→17:26)
[2020-04-30] MEDS: ARTIFICIAL TEARS OINT (LACRI-LUBE) 3.5 GM TUBE OU SCH ×2 (08:01→20:46)
[2020-04-30] MEDS: FAMOTIDINE 20MG/2ML IV (PEPCID) IV SCH ×2 (08:01→20:44)
[2020-04-30] MEDS: FLUCONAZOLE 200 MG/100 ML 50 ML, EMPTY IV BAG (PVC) 1 EA IV SCH ×2 (08:02)
[2020-04-30] MEDS: FUROSEMIDE 40 MG/4 ML INJ (LASIX) IVP SCH (08:02)
--- NOTE | 2020-04-30 08:35 | NUR ---
THIS RN CALLED [facility] TO CONFIRM PT'S EMERGENCY CONTACT PHONE NUMBER. THIS RN CALLED [phone], WHICH IS THE PHONE NUMBER PROVIDED BY [facility] FOR PT'S EMERGENCY CONTACT, ANATOLIY, AND THIS RN NOTED THE NUMBER TO NO LONGER BE "A WORKING NUMBER."
--- NOTE | 2020-04-30 08:44 | Diagnostic Imaging Report ---
INDICATION: Shortness of breath Portable chest 2:41 AM Comparison made with the previous day. There is an ET tube projecting over the trachea. There is an NG tube projecting over the stomach. Right upper extremity PICC line tip projects over the SVC. There is left subclavian Port-A-Cath with tip projecting over the SVC. There continues to be diffuse pulmonary infiltrates in the lungs. There is a loculated right apical pneumothorax measuring approximately 2 cm in thickness. IMPRESSION: Small right pneumothorax appears stable. Bilateral pulmonary infiltrates have shown slight interval improvement compared to the previous day. Dictated by: Dictated on workstation # [id number]
[2020-04-30 09:38] VITALS: BP 122/71
[2020-04-30] MEDS: ENOXAPARIN 100 MG/1 ML (LOVENOX) SYR SC SCH (10:14)
[2020-04-30 10:18] LABS: ABG BASE EXCESS 6.1 MMOL/L (-2.5-2.5); ABG OXYGEN SATURATION 90 % (94-100); ABG PCO2 59 MMHG (35-45); ABG PH 7.35 (7.37-7.43); ABG PO2 68 MMHG (79-93); ABG TCO2 33.1 MMOL/L (21.0-31.0); ALLENS TEST YES-POS
[2020-04-30 10:19] LABS: INSPIRED O2 90%; PATIENT TEMP 37.7; VENTILATOR YES
--- NOTE | 2020-04-30 10:28 | Physical Therapy Progress Note ---
Therapy Progress Note Hold ROM on this date MACARIO PIKE PT Apr 30, 2020 10:28
[2020-04-30] MEDS: HALOPERIDOL 5 MG/ML (HALDOL) VIAL IM PRN ×2 (11:34→18:24)
--- NOTE | 2020-04-30 11:52 | NUR ---
KARAN/HANNAH follow up. KARAN/HANNAH received a message from the patient's primary care nurse regarding DPOA/Emergency contact, the need for a tracheostomy, and possible Ethics consult. KARAN/HANNAH reached out to nurse to verify that the patient does not have a DPOA or next of Kin. KARAN/HANNAH verified this from Maggie PELAEZ) at [facility]. KARAN/HANNAH reported to nurse that an Ethics consult will be made due to a recent change in code status and the need for further medical care/treatment. KARAN/HANNAH notified Primary Care Physician. KARAN/HANNAH contacted [facility] to initiate ethics consult. At this time, [facility] is attempting to get a meeting organized to discuss case. KARAN/HANNAH suggested Domenic and Maggie (SHANNA) to be involved with the meeting. KARAN/HANNAH printed off notes from the patient's prior admission and current stay regarding code status. Awaiting a meeting time. KARAN/HANNAH contacted Maggie to discuss if the patient's wishes were ever discussed at the facility. She reports the nurse and her were just discussing how the patient "would not want the tracheostomy". She states that every few months they reassess code status with the residents. He continued to stay a DNR. The patient has cancer as well and has always said "If I , I ". KARAN/HANNAH will continue to follow. Addendum: 04/30/20 at 1624 by GREGORIO JARRETT KARAN/SS update: Received call from [facility] with update. She spoke with Dr. Johnson who feels the tracheostomy is medically indicated. [facility] spoke with Legal and at the time they are going forward with the tracheostomy. This sw is unsure if there will still be a meeting. Addendum: 04/30/20 at 1710 by GREGORIO YOUNG Update: KARAN/HANNAH contacted the [facility] to discuss the Ethics consult further for clarification. She reported there is not a need for a formal gathering at this time. She is writing a report on the case to summarize. No further needs.
[2020-04-30] MEDS ORDERED: LORazepam INJ 2 MG/ML (ATIVAN) VIAL ONE (11:57)
[2020-04-30] MEDS ORDERED: PHARMACY TO DOSE IV SCH (12:30)
[2020-04-30] MEDS: LORazepam INJ 2 MG/ML (ATIVAN) VIAL IVP PRN ×2 (12:38→18:17)
[2020-04-30 12:47] LABS: BILIRUBIN,URINE NEGATIVE (NEGATIVE); CLARITY,URINE CLEAR; COLOR,URINE YELLOW; GLUCOSE, URINE (UA) NEGATIVE (NEGATIVE); KETONES,URINE NEGATIVE (NEGATIVE); LEUKOCYTE ESTERASE ,URINE NEGATIVE (NEGATIVE); NITRITE,URINE NEGATIVE (NEGATIVE); PH,URINE 6.5 (5-9); PROTEIN,URINE NEGATIVE (NEGATIVE)
[2020-04-30 12:59] LABS: BACTERIA,URINE NEGATIVE /HPF
[2020-04-30] MEDS ORDERED: VANCOMYCIN 1,750 MG/NS 500 ML IVPB IV NR ×2 (13:30)
[2020-04-30 15:31] VITALS: BP 119/66
--- NOTE | 2020-04-30 15:32 | NUR ---
Note pt is currently receiving Pulmocare via 115ml bolus feeds q4h with 30ml water flushes before/after each bolus. Recommend continue to increase TF by 30ml q8h as tolerated toward goal of 175ml bolus feeds q4h. Will continue to follow and reassess as pt needs, intake, and status change. Harjinder Artis, MS RD LD [phone] cell
[2020-04-30 18:44] VITALS: BP_DIAS 66
--- NOTE | 2020-04-30 19:01 | ED CPR ---
HPI-CPR General Chief Complaint: Respiratory Problems Stated Complaint: PNEUMONIA,SEPSIS,HYPOXEMIA Nursing Triage Note: PT PRESENTS TO ED VIA EMS FROM [facility] FOR INCREASED SOA AND COUGH, HYPOXIA Sepsis Screen: Severe Sepsis Risk History of Present Illness Date Seen by Provider: Apr 27, 2020 Time Seen by Provider: 23:00 Allergies and Home Medications Allergies Coded Allergies: No Known Drug Allergies (Unverified , 09/22/19) Home Medications Acetaminophen 325 Mg Capsule, 650 MG PO Q6H PRN for PAIN-MILD (1-4), (Reported) Alprazolam 0.5 Mg Tablet, 0.5 MG PO 1200, (Reported) Alprazolam 1 Mg Tablet, 1 MG PO BID, (Reported) Ascorbic Acid 500 Mg Tablet, 500 MG PO DAILY, (Reported) Cholecalciferol (Vitamin D3) 25 Mcg Tablet, 25 MCG PO DAILY, (Reported) Dexamethasone 6 Mg Tablet, 6 MG PO DAILY, (Reported) START DATE 04-10-2020 #02/23 DAY SUPPLY Diclofenac Sodium 75 Mg Tablet.dr, 75 MG PO BID, (Reported) Divalproex Sodium 500 Mg Tablet.dr, 500 MG PO 0800,1700, (Reported) Docusate Sodium 100 Mg Capsule, 100 MG PO BID, (Reported) Ergocalciferol (Vitamin D2) 1,250 Mcg Capsule, 1,250 MCG PO MON, (Reported) Famotidine 20 Mg Tablet, 20 MG PO BID, (Reported) Fluticasone Propionate 9.9 Ml Raymond.susp, 2 SPRAY NSEACH DAILY, (Reported) Furosemide 40 Mg Tablet, 40 MG PO 1200,1700, (Reported) Furosemide 80 Mg Tablet, 80 MG PO DAILY, (Reported) Gabapentin 300 Mg Capsule, 300 MG PO TID, (Reported) Hydrocodone/Acetaminophen 1 Each Tablet, 1 EACH PO Q12H PRN for PAIN-MODERATE (5-7), (Reported) Lactobacillus Acidophilus/Pect 1 Each Capsule, 2 EACH PO TIDPC, (Reported) Lactulose 10 Gm/15 Ml Solution, 15 ML PO Q12H PRN for CONSTIPATION-3RD LINE, (Reported) Magnesium Hydroxide 400 Mg/5 Ml Oral.susp, 30 MG PO DAILY PRN for CONSTIPATION- 2ND LINE, (Reported) Methocarbamol 500 Mg Tablet, 500 MG PO TID, (Reported) Metolazone 5 Mg Tablet, 5 MG PO MoWeFr, (Reported) Ondansetron HCl 8 Mg Tablet, 8 MG PO Q8H PRN for NAUSEA/VOMITING-1ST LINE, (Reported) Phenazopyridine HCl 200 Mg Tablet, 1 TAB PO Q8H PRN for BLADDER PAIN/DYSURIA, (Reported) Potassium Chloride 20 Meq Tab.er.prt, 80 MEQ PO DAILY, (Reported) TAKES 4 (20MEQ) TABS Simvastatin 10 Mg Tablet, 10 MG PO HS, (Reported) Sorbitol Solution 1 Ml Solution, 15 ML PO DAILY, (Reported) Sorbitol Solution 1 Ml Solution, 15 ML PO HS PRN for CONSTIPATION, (Reported) Temazepam 7.5 Mg Capsule, 7.5 MG PO HS, (Reported) Trazodone HCl 100 Mg Tablet, 100 MG PO HS, (Reported) Vilazodone Hydrochloride 40 Mg Tablet, 40 MG PO DAILY, (Reported) Zinc 50 Mg Tablet, 50 MG PO DAILY, (Reported) Patient Home Medication List Home Medication List Reviewed: Yes Review of Systems Review of Systems Constitutional: see HPI, fever, malaise Musculoskeletal: no symptoms reported Skin: no symptoms reported Past Zkjxxid-Ulxela-Btqxgd Hx Past Med/Social Hx: Reviewed Nursing Past Med/Soc Hx Patient Social History Alcohol Use: Denies Use Recreational Drug Use: No Smoking Status: Former Smoker Type Used: Cigarettes Former Smoker, Quit: Feb 15, 2020 2nd Hand Smoke Exposure: No Recent Foreign Travel: No Contact w/Someone Who Travel: No Recent Infectious Disease Expo: Yes Recent Hopitalizations: No Physical Abuse: No Sexual Abuse: No Mistreated: No Fear: No Immunizations Up To Date Date of Influenza Vaccine: Feb 15, 2020 Seasonal Allergies Seasonal Allergies: No Past Medical History Surgeries: Yes (port) Thyroidectomy Respiratory: No Currently Using CPAP: No Currently Using BIPAP: No Cardiac: Yes High Cholesterol Neurological: Yes Seizure Disorder, Traumatic Brain Injury Genitourinary: Yes Prostate Problems Gastrointestinal: Yes Gastroesophageal Reflux, Chronic Constipation, Hepatitis Musculoskeletal: Yes Arthritis, Chronic Back Pain Endocrine: No HEENT: No Cancer: Yes Skin, Lymphoma Did You Recieve Any Treatments: Yes Psychosocial: Yes Sleep Difficulties, Bipolar, Depression Integumentary: Yes (skin cancer- lymphoma) Blood Disorders: Yes (hep c) Family Medical History Reviewed Nursing Family Hx Patient reports no known family medical history. Cancer Physical Exam Vital Signs Capillary Refill : Less Than 3 Seconds Height, Weight, BMI Height: '" Weight: lbs. oz. kg; 31.00 BMI Method: General Appearance: Severe Distress Respiratory: No Accessory Muscle Use, No Respiratory Distress Focused Exam Lactate Level 04/18/20 09:58: Lactic Acid Level 3.62*H Time of Focused Exam: 11:35 Lactic Acid Level Laboratory Tests Test 04/18/20 09:58 Lactic Acid Level 3.62 MMOL/L (0.50-2.00) *H Procedures/Interventions Reason for Intubation: Acute respiratory failure Date of ETT Placement: Apr 27, 2020 Time of ETT Placement: 2256 Intubation Method: orotracheal Tube Size: 8.00 Medications: Fentanyl, Propofol, Rocuronium, Versed Positive End Tide CO2: Yes Breath Sounds after Intubation: bilateral-equal Intubation Complications: no complications Post Intubation Xray: Yes I was called to the ICU for this patient in respiratory distress on Bipap. Patient had been extubated and the need was for re-intubation. After Identifying this was the appropriate patient, all my equipment was gathered including glidescope, suction at the bedside and ET CO2 detector. Patient was preoxygenated on the Bipap and then with BVM, 20mg of etomidate was given followed by 50mg of Rocuronium. I identified the vocal cords and passed an 8-0 ETT through them. Co2 detector showed positive color change, BS heard bilaterally (less on the right secondary to chest tube in place). This was a successful first-pass intubation by me. Progress/Results/Core Measures Results/Orders Lab Results Laboratory Tests Test 04/18/20 09:58 04/18/20 10:59 04/18/20 12:03 Range/Units White Blood Count 12.9 H 4.3-11.0 10^3/uL Red Blood Count 4.47 4.30-5.52 10^6/uL Hemoglobin 12.7 L 13.3-17.7 g/dL Hematocrit 40 40-54 % Mean Corpuscular Volume 90 80-99 fL Mean Corpuscular Hemoglobin 28 25-34 pg Mean Corpuscular Hemoglobin Concent 32 32-36 g/dL Red Cell Distribution Width 15.6 H 10.0-14.5 % Platelet Count 421 H 130-400 10^3/uL Mean Platelet Volume 9.5 9.0-12.2 fL Immature Granulocyte % (Auto) 1 % Neutrophils (%) (Auto) 85 H 42-75 % Lymphocytes (%) (Auto) 9 L 12-44 % Monocytes (%) (Auto) 5 0-12 % Eosinophils (%) (Auto) 0 0-10 % Basophils (%) (Auto) 0 0-10 % Neutrophils # (Auto) 10.9 H 1.8-7.8 10^3/uL Lymphocytes # (Auto) 1.1 1.0-4.0 10^3/uL Monocytes # (Auto) 0.7 0.0-1.0 10^3/uL Eosinophils # (Auto) 0.0 0.0-0.3 10^3/uL Basophils # (Auto) 0.0 0.0-0.1 10^3/uL Immature Granulocyte # (Auto) 0.2 H 0.0-0.1 10^3/uL Sodium Level 136 135-145 MMOL/L Potassium Level 3.2 L 3.6-5.0 MMOL/L Chloride Level 83 L 98-107 MMOL/L Carbon Dioxide Level 35 H 21-32 MMOL/L Anion Gap 18 H 5-14 MMOL/L Blood Urea Nitrogen 34 H 7-18 MG/DL Creatinine 1.30 0.60-1.30 MG/DL Estimat Glomerular Filtration Rate 58 BUN/Creatinine Ratio 26 Glucose Level 125 H 70-105 MG/DL Lactic Acid Level 3.62 *H 0.50-2.00 MMOL/L Calcium Level 9.6 8.5-10.1 MG/DL Corrected Calcium 10.2 H 8.5-10.1 MG/DL Total Bilirubin 0.3 0.1-1.0 MG/DL Aspartate Amino Transf (AST/SGOT) 82 H 5-34 U/L Alanine Aminotransferase (ALT/SGPT) 73 H 0-55 U/L Alkaline Phosphatase 78 40-136 U/L C-Reactive Protein High Sensitivity 25.00 H 0.00-0.50 MG/DL Total Protein 8.9 H 6.4-8.2 GM/DL Albumin 3.2 3.2-4.5 GM/DL Procalcitonin 0.38 H <0.10 NG/ML Urine Color YELLOW Urine Clarity CLEAR Urine pH 6.5 5-9 Urine Specific [place] 1.010 L 1.016-1.022 Urine Protein NEGATIVE NEGATIVE Urine Glucose (UA) NEGATIVE NEGATIVE Urine Ketones NEGATIVE NEGATIVE Urine Nitrite NEGATIVE NEGATIVE Urine Bilirubin NEGATIVE NEGATIVE Urine Urobilinogen 0.2 < = 1.0 MG/DL Urine Leukocyte Esterase NEGATIVE NEGATIVE Urine RBC (Auto) NEGATIVE NEGATIVE Urine RBC NONE /HPF Urine WBC NONE /HPF Urine Squamous Epithelial Cells RARE /HPF Urine Crystals NONE /LPF Urine Bacteria NEGATIVE /HPF Urine Casts NONE /LPF Urine Mucus NEGATIVE /LPF Urine Culture Indicated NO Lab Scanned Report Referred Lab Report [id number] Micro Results Microbiology 04/18/20 Blood Culture - Final, Complete No growth 04/18/20 Blood Culture - Final, Complete No growth My Orders Orders - QIAN IRBY MD Cbc With Automated Diff (04/18/20 09:54) Comprehensive Metabolic Panel (04/18/20 09:54) Hs C Reactive Protein (04/18/20 09:54) Procalcitonin (Pct) (04/18/20 09:54) Chest 1 View, Ap/Pa Only (04/18/20 09:54) Blood Culture (04/18/20 09:54) Lactic Acid Analyzer (04/18/20 09:54) Ed Iv/Invasive Line Start (04/18/20 09:54) Ns Iv 1000 Ml (Sodium Chloride 0.9%) (04/18/20 10:00) Ua Culture If Indicated (04/18/20 10:51) Vancomycin Injection (Vancomycin Injecti (04/18/20 11:00) Piperacillin/Tazobactam (Bulk) (Zosyn In (04/18/20 11:00) Ns Iv 1000 Ml (Sodium Chloride 0.9%) (04/18/20 12:00) Blood Culture (04/18/20 11:30) Fentanyl Injection (Sublimaze Injection (04/18/20 12:15) Blood Pressure Mean: 106 FSBG Bedside Testing Finger Stick Blood Glucose: 151 Blood Glucose Action Taken: NOVOLOG NON-ADMINISTERED Diagnostic Imaging Diagonstic Imaging: Xray Plain Films/CT/US/NM/MRI: chest Time of Consult: 11:35 Critical Care Note Critical Care Start Time: 10:00 Stop Time: 11:35 Departure Impression Primary Impression: Pneumothorax on right Additional Impressions: Sepsis Qualified Codes: A41.9 - Sepsis, unspecified organism; R65.20 - Severe sepsis without septic shock; J96.01 - Acute respiratory failure with hypoxia Pneumonia Qualified Codes: J18.9 - Pneumonia, unspecified organism Disposition: ADMITTED INPATIENT Condition: Critical Admissions Decision to Admit Reason: Admit from ER (General) Decision to Admit/Date: Apr 18, 2020 Time/Decision to Admit Time: 11:53 Departure-Patient Inst. Referrals: AC KC DO (PCP) Primary Care Physician QIAN IRBY MD Apr 30, 2020 19:01
[2020-04-30] MEDS ORDERED: WATER (STERILE) FOR INJECTION 10 ML ONE (21:10)
[2020-04-30] MEDS ORDERED: MEROPENEM 500 MG VIAL (MERREM) IV ONE (21:10)
[2020-04-30 22:40] VITALS: BP 121/73
[2020-05-01] MEDS: ENOXAPARIN 100 MG/1 ML (LOVENOX) SYR SC SCH ×3 (00:14→23:19)
[2020-05-01] MEDS: fentaNYL DRIP PRE-MIX 250 ML IV SCH ×8 (00:14→22:03)
[2020-05-01] MEDS: inSUlin ASPART (NovoLOG) 1 UNIT/0.01 ML (CHARGE PER UNIT) SQ SCH ×6 (00:15→19:06)
[2020-05-01 02:51] VITALS: BP 122/67
[2020-05-01] MEDS: RT-ALBUTEROL INHALER HFA (VENTOLIN HFA) 18 GM IH SCH ×6 (02:51→22:41)
[2020-05-01] MEDS: PROPOFOL DRIP (ICU) 100 ML IV SCH ×9 (03:06→20:53)
[2020-05-01] MEDS: MEROPENEM 500 MG/SWFI 10 ML IV PUSH IV SCH ×8 (03:06→19:55)
[2020-05-01] MEDS: VANCOMYCIN 1500 MG/NS 500 ML IVPB IV SCH ×4 (03:08→14:31)
[2020-05-01 03:12] LABS: ABG BASE EXCESS 6.3 MMOL/L (-2.5-2.5); ABG OXYGEN SATURATION 98 % (94-100); ABG PCO2 52 MMHG (35-45); ABG PO2 96 MMHG (79-93); ABG TCO2 32.6 MMOL/L (21.0-31.0)
[2020-05-01 03:15] LABS: ALLENS TEST YES-POS; INSPIRED O2 50%
[2020-05-01 03:16] LABS: PATIENT TEMP 37.2; VENTILATOR YES
[2020-05-01] MEDS: LORazepam INJ 2 MG/ML (ATIVAN) VIAL IVP PRN ×2 (03:16→08:56)
[2020-05-01 03:23] LABS: BASOPHILS % (AUTO) 0 % (0-10); EOSINOPHILS # (AUTO) 0.1 10^3/uL (0.0-0.3); EOSINOPHILS % (AUTO) 1 % (0-10); HEMATOCRIT 27 % (40-54); LYMPHOCYTES # (AUTO) 1.1 10^3/uL (1.0-4.0); LYMPHOCYTES % (AUTO) 18 % (12-44); MEAN CORPUSCULAR HEMOGLOBIN 27 pg (25-34); MEAN CORPUSCULAR HGB CONC 30 g/dL (32-36); MEAN CORPUSCULAR VOLUME 92 fL (80-99); MEAN PLATELET VOLUME 10.2 fL (9.0-12.2); MONOCYTES # (AUTO) 0.3 10^3/uL (0.0-1.0); MONOCYTES % (AUTO) 4 % (0-12); NEUTROPHILS # (AUTO) 4.6 10^3/uL (1.8-7.8); NEUTROPHILS % (AUTO) 76 % (42-75); PLATELET COUNT 179 10^3/uL (130-400)
[2020-05-01 03:25] LABS: ALBUMIN 2.1 GM/DL (3.2-4.5); CHLORIDE 102 MMOL/L (98-107); POTASSIUM 4.1 MMOL/L (3.6-5.0); SODIUM 137 MMOL/L (135-145)
[2020-05-01 03:26] LABS: CALCIUM 7.9 MG/DL (8.5-10.1)
[2020-05-01 03:27] LABS: GLUCOSE 120 MG/DL (70-105); TOTAL PROTEIN 5.9 GM/DL (6.4-8.2)
[2020-05-01 03:28] LABS: CARBON DIOXIDE 29 MMOL/L (21-32)
[2020-05-01 03:29] LABS: BILIRUBIN,TOTAL 0.3 MG/DL (0.1-1.0)
[2020-05-01 03:30] LABS: PHOSPHORUS 2.2 MG/DL (2.3-4.7)
[2020-05-01 03:31] LABS: ALKALINE PHOSPHATASE 89 U/L (40-136); CREATININE SERUM 0.46 MG/DL (0.60-1.30); GFR ESTIMATED > 60
[2020-05-01 03:32] LABS: BUN/CREATININE RATIO 22
[2020-05-01 03:34] LABS: ALANINE AMINOTRANSFERASE 18 U/L (0-55); MAGNESIUM 1.9 MG/DL (1.6-2.4)
[2020-05-01] MEDS: HALOPERIDOL 5 MG/ML (HALDOL) VIAL IM PRN ×2 (03:40→08:56)
[2020-05-01] MEDS: POTASSIUM CL 10MEQ/50ML IVPB 50 ML IV SCH (03:47)
[2020-05-01] MEDS: KCL 20 MEQ TAB (K-DUR) PO SCH (03:48)
[2020-05-01] MEDS: MAGNESIUM 1 GM/100 ML IVPB 100 ML IV SCH (03:48)
--- NOTE | 2020-05-01 04:02 | Pulmonary Progress Note ---
Subjective Time Seen by a Provider: 04:00 Subjective/Events-last exam Pt is sedated on vent. Sepsis Event Evaluation Height, Weight, BMI Height: '" Weight: lbs. oz. kg; 31.00 BMI Method: Focused Exam Time of Focused Exam: 11:35 Exam Exam Vital Signs Date Time Temp Pulse Resp B/P (MAP) Pulse Ox O2 Delivery O2 Flow Rate FiO2 05/01/20 03:15 Mechanical Ventilator 100.00 05/01/20 03:09 63 189/89 05/01/20 03:06 189/89 05/01/20 03:00 37.2 79 15 189/89 (122) 91 Mechanical Ventilator 50.00 05/01/20 02:51 63 26 97 60 05/01/20 02:00 37.0 56 15 122/72 (89) 91 Mechanical Ventilator 50.00 05/01/20 01:00 36.9 57 14 113/59 (77) 91 Mechanical Ventilator 50.00 05/01/20 00:30 Mechanical Ventilator 50.00 05/01/20 00:00 36.8 54 12 121/70 (87) 94 Mechanical Ventilator 60.00 04/30/20 23:00 36.8 51 12 114/65 (81) 95 Mechanical Ventilator 60.00 04/30/20 22:40 51 23 97 60 04/30/20 22:00 36.9 54 13 120/78 (92) 99 Mechanical Ventilator 60.00 04/30/20 21:06 51 119/68 04/30/20 21:05 51 119/68 04/30/20 21:00 37.1 52 14 107/70 (85) 97 Mechanical Ventilator 60.00 04/30/20 21:00 98 Mechanical Ventilator 60 04/30/20 20:59 51 13 119/68 (85) 04/30/20 20:59 97 Mechanical Ventilator 60.00 04/30/20 20:15 100 Mechanical Ventilator 90.00 04/30/20 20:02 37.3 04/30/20 20:00 37.3 45 14 120/72 (85) 100 Mechanical Ventilator 90.00 04/30/20 19:00 37.4 60 13 123/73 (90) 100 Mechanical Ventilator 90.00 04/30/20 19:00 60 04/30/20 18:47 Mechanical Ventilator 90.00 04/30/20 18:44 65 21 100 100 04/30/20 18:26 Mechanical Ventilator 100.00 04/30/20 18:00 37.0 95 13 155/82 (106) 90 Mechanical Ventilator 40.00 04/30/20 17:00 36.7 51 15 156/83 (107) 92 Mechanical Ventilator 40.00 04/30/20 16:00 36.5 65 14 121/61 (81) 91 Mechanical Ventilator 40.00 04/30/20 15:31 48 23 93 40 04/30/20 15:00 36.5 61 16 118/74 (89) 93 Mechanical Ventilator 40.00 04/30/20 14:00 36.9 64 16 121/76 (91) 94 Mechanical Ventilator 40.00 04/30/20 14:00 63 120/67 04/30/20 13:59 62 120/67 04/30/20 13:00 37.3 53 18 120/67 (84) 92 Mechanical Ventilator 40.00 04/30/20 12:44 Mechanical Ventilator 40.00 04/30/20 12:14 65 04/30/20 12:08 Mechanical Ventilator 50.00 04/30/20 12:00 38.0 75 12 98 Mechanical Ventilator 100.00 04/30/20 11:00 38.0 105 25 113/75 (88) 95 Mechanical Ventilator 100.00 04/30/20 10:00 37.7 98 35 116/68 (84) 87 Mechanical Ventilator 100.00 04/30/20 09:38 81 24 93 70 04/30/20 09:01 65 123/73 04/30/20 09:00 37.8 74 14 180/106 (130) 96 Mechanical Ventilator 100.00 04/30/20 09:00 68 123/73 04/30/20 08:40 96 Mechanical Ventilator 80 04/30/20 08:00 38.6 96 12 109/69 (82) 95 Mechanical Ventilator 100.00 04/30/20 07:55 96 Mechanical Ventilator 80 04/30/20 07:45 103 04/30/20 07:00 39.0 128 17 107/69 (82) 90 Mechanical Ventilator 100.00 04/30/20 06:56 39.0 04/30/20 06:27 205/103 04/30/20 06:26 38.7 04/30/20 06:00 38.3 117 42 173/117 (135) 89 Mechanical Ventilator 100.00 04/30/20 05:39 178/94 04/30/20 05:30 90 Mechanical Ventilator 100.00 04/30/20 05:00 88 Mechanical Ventilator 70.00 04/30/20 05:00 37.8 64 35 115/64 (81) 96 Mechanical Ventilator 70.00 I & O 05/01/20 07:00 Intake Total 3857.5 ml Output Total 1895 ml Balance 1962.5 ml Height & Weight Height: '" Weight: lbs. oz. kg; 31.00 BMI Method: General Appearance: Severe Distress HEENT: PERRL/EOMI, Other Respiratory: No Accessory Muscle Use, No Respiratory Distress Cardiovascular: Regular Rate, Rhythm Capillary Refill: Less Than 3 Seconds Peripheral Pulses: 1+ Radial Pulses (R), 1+ Radial Pulses (L) Gastrointestinal: soft, no organomegaly Neurologic/Psychiatric: Other (sedated) Skin: Normal Color Results Lab Laboratory Tests 04/30/20 03:04 05/01/20 02:58 Assessment/Plan Assessment/Plan Acute respiratory failure with ARDS \\ -EICU managed through the weekend -propofol and Fentanyl -Pt will need trach and peg tube if we are continuing aggressive measures. Pt has no family. Ethics was consulted 04/30. -Surgery is already following. -Pt was extubated on 04/27 and then reintubated the same day. -Pt would benefit from tracheostomy however. Pt has no family to obtain consent. -Continue ventilator care -PEEP 5 and 50% Fio2 -increase PEEP to 10. -Currently on Propofol at 30 and Fentanyl at 150mcg/hr , Versed - TF -Lovenox 100mg BID COVID 19 PNA -with Klebsiella - Merrem Vanco ( Vanco started 04/30 secondary to persistent fevers. Repeat levin cultures pending.) - Diflucan started 04/30 -Repeat levin cultures including culture plural fluid -Dx 04/09 -Remdesivir -Decadron -CVP Small stable right PTX - prior to intubation -Continue Chest tube until after Extubation -Currently to water seal -Reconnect chest tube back to suction -Repeat CXR - Bradycardia -continue to monitor close. PNA -Vanco, and Zosyn -Levin cultures pending -MRSA pending TBI Hepatitis C Transaminitis noted, trend with remdesivir PATRICIA baseline creatinine around 0.75m up to 1.30 Continue IVF COLEMAN MARTINEZ DO May 01, 2020 04:02
[2020-05-01] MEDS: DEXTROSE 10% IV SOLUTION 1,000 ML IV SCH (07:19)
[2020-05-01 07:36] VITALS: BP 129/81
[2020-05-01] MEDS ORDERED: MIDAZOLAM DRIP PRE-MIX 100 ML IV ONE (07:59)
[2020-05-01] MEDS: risperiDONE 0.25 MG (RisperDAL) TAB PO SCH ×2 (08:10→19:56)
[2020-05-01] MEDS: VALPROIC ACID SYRUP 250 MG/5 ML UDC PO SCH ×2 (08:10→16:18)
[2020-05-01] MEDS: LEVETIRACETAM INJECTION 500 MG in NS (IVPB) 100 ML IV SCH ×2 (08:11→19:55)
[2020-05-01] MEDS: FLUCONAZOLE 200 MG/100 ML 50 ML, EMPTY IV BAG (PVC) 1 EA IV SCH ×2 (08:11)
[2020-05-01] MEDS: ARTIFICIAL TEARS OINT (LACRI-LUBE) 3.5 GM TUBE OU SCH ×2 (08:11→19:56)
[2020-05-01] MEDS: FUROSEMIDE 40 MG/4 ML INJ (LASIX) IVP SCH (08:11)
[2020-05-01] MEDS: FAMOTIDINE 20MG/2ML IV (PEPCID) IV SCH ×2 (08:11→19:55)
[2020-05-01] MEDS: MIDAZOLAM DRIP PRE-MIX 100 ML IV SCH (08:31)
--- NOTE | 2020-05-01 08:40 | Diagnostic Imaging Report ---
Portable erect AP chest at 2:47. Indication: Shortness of breath The apical pneumothorax on the right seen on the prior exam of 04/30/2020 has diminished. On the prior exam the distance from the bony thorax to the lung edge was 1.9 cm. On this exam the distance is only 1 cm. The diffuse alveolar/interstitial pulmonary infiltrates involving both lungs seen previously are again evident. The density in the right upper lung is somewhat greater than on the prior exam but the overall appearance of the lungs has not changed significantly. The heart is stable in size. The mediastinum is not widened. The osseous structures are intact. The supportive tubes and lines seem similar in position to the prior study. IMPRESSION:. There are mixed results. The apical pneumothorax on the right seen previously has diminished. However there is somewhat greater involvement of the right upper lobe by pneumonia/atelectasis. A followup study would be recommended for continued evaluation. Dictated by: Dictated on workstation # [id number]
[2020-05-01] MEDS: ACETAMINOPHEN 325 MG TABLET PO PRN (08:55)
[2020-05-01 10:07] VITALS: BP 92/57
[2020-05-01] MEDS ORDERED: LORazepam INJ 2 MG/ML (ATIVAN) VIAL ONE (10:36)
[2020-05-01] MEDS ORDERED: LORazepam INJ 2 MG/ML (ATIVAN) VIAL IVP PRN (10:45)
--- NOTE | 2020-05-01 12:23 | Diagnostic Imaging Report ---
CHEST 1 VIEW, AP/PA ONLY Indication: Increased work of breathing. Comparison: Earlier same day at 2:47 AM Findings: The right-sided pneumothorax has not substantially changed with approximately 1 cm of apical pleural separation. Diffuse bilateral pulmonary opacities are unchanged. No pleural effusion. Stable cardiomediastinal silhouette. Stable ET and enteric tubes. Stable left subclavian central venous catheter. Impression: 1. No change in small right apical pneumothorax. 2. Diffuse bilateral pulmonary opacities are also unchanged. Dictated by: Dictated on workstation # [id number]
--- NOTE | 2020-05-01 13:31 | NUR ---
Note pt currently receiving TF of Pulmoc[facility] via 180ml bolus feeds q4h with 30ml free water flushes q8h. Note pt is currently at goal for feeds. Will continue to follow and reassess as pt needs, intake, and status change. Daisy MANDUJANO, MS RD LD [phone] cell
[2020-05-01 14:39] VITALS: BP 194/101
--- NOTE | 2020-05-01 15:58 | NUR ---
Ethics committee and additional staff members will have a ethics meeting tomorrow at 12:00 p.m. KARAN/HANNAH gave an update to Maggie today. KARAN/HANNAH will continue to follow.
[2020-05-01 19:15] VITALS: BP 137/76
[2020-05-01] MEDS ORDERED: ATRACURIUM INJECTION 250 MG in NS (IVPB) 225 ML IV SCH (21:00)
--- NOTE | 2020-05-01 21:12 | Diagnostic Imaging Report ---
INDICATION: Pneumothorax. COMPARISON: Earlier the same day. EXAMINATION: Single frontal radiographic view of the chest was obtained. FINDINGS: Indwelling endotracheal tube with tip below the clavicular heads and above the stacey. Gastric tube is seen with tip and side-port in the stomach. Left subclavian central venous catheter and right upper extremity PICC line are also again identified and are stable. Lungs continue to show diffuse patchy and confluent infiltrates, bilaterally. There is also stable small right apical pneumothorax. Overall, aeration is stable when compared to earlier the same day. There is no pneumothorax on the left. Small effusions may be obscured. Chronic silhouette is stable. IMPRESSION: 1. Stable exam of the chest showing bilateral diffuse infiltrates and small right-sided pneumothorax. 2. Lines and tubes as above. Dictated by: Dictated on workstation # [id number]
[2020-05-01 21:42] LABS: ABG BASE EXCESS 5.5 MMOL/L (-2.5-2.5); ABG OXYGEN SATURATION 93 % (94-100); ABG PCO2 61 MMHG (35-45); ABG PO2 68 MMHG (79-93); ABG TCO2 33.2 MMOL/L (21.0-31.0)
[2020-05-01 21:45] LABS: ABG PH 7.33 (7.37-7.43); ALLENS TEST ART LINE
[2020-05-01 21:46] LABS: INSPIRED O2 75%; PATIENT TEMP 36.7; VENTILATOR YES
[2020-05-01] MEDS ORDERED: PROPOFOL DRIP (ICU) 100 ML IV SCH (22:30)
[2020-05-01] MEDS: CISATRACURIUM INJECTION 100 MG in NS (IVPB) 200 ML IV SCH (23:20)
[2020-05-02] MEDS ORDERED: ARTIFICIAL TEARS OINT (LACRI-LUBE) 3.5 GM TUBE OU SCH
[2020-05-02] MEDS: ARTIFICIAL TEARS OINT (LACRI-LUBE) 3.5 GM TUBE OU SCH ×7 (00:25→23:36)
[2020-05-02] MEDS: inSUlin ASPART (NovoLOG) 1 UNIT/0.01 ML (CHARGE PER UNIT) SQ SCH ×8 (00:25→23:38)
[2020-05-02] MEDS: PROPOFOL DRIP (ICU) 100 ML IV SCH ×3 (01:08→20:30)
[2020-05-02] MEDS: fentaNYL DRIP PRE-MIX 250 ML IV SCH ×3 (01:43→14:42)
[2020-05-02] MEDS: RT-ALBUTEROL INHALER HFA (VENTOLIN HFA) 18 GM IH SCH ×6 (02:14→22:54)
[2020-05-02] MEDS: VANCOMYCIN 1500 MG/NS 500 ML IVPB IV SCH ×4 (03:03→14:26)
[2020-05-02] MEDS: MEROPENEM 500 MG/SWFI 10 ML IV PUSH IV SCH ×8 (03:03→20:23)
[2020-05-02 03:26] LABS: ABG BASE EXCESS 0.3 MMOL/L (-2.5-2.5); ABG OXYGEN SATURATION 92 % (94-100); ABG PO2 84 MMHG (79-93); ABG TCO2 30.8 MMOL/L (21.0-31.0)
[2020-05-02 03:27] LABS: BASOPHILS % (AUTO) 0 % (0-10); EOSINOPHILS % (AUTO) 0 % (0-10); HEMATOCRIT 32 % (40-54); HEMOGLOBIN 9.3 g/dL (13.3-17.7); LYMPHOCYTES # (AUTO) 1.3 10^3/uL (1.0-4.0); LYMPHOCYTES % (AUTO) 18 % (12-44); MEAN CORPUSCULAR HEMOGLOBIN 28 pg (25-34); MEAN CORPUSCULAR HGB CONC 29 g/dL (32-36); MEAN CORPUSCULAR VOLUME 94 fL (80-99); MEAN PLATELET VOLUME 10.6 fL (9.0-12.2); MONOCYTES # (AUTO) 0.4 10^3/uL (0.0-1.0); MONOCYTES % (AUTO) 5 % (0-12); NEUTROPHILS # (AUTO) 5.5 10^3/uL (1.8-7.8); NEUTROPHILS % (AUTO) 77 % (42-75); PLATELET COUNT 149 10^3/uL (130-400); WHITE BLOOD COUNT 7.3 10^3/uL (4.3-11.0)
[2020-05-02 03:33] LABS: ABG PCO2 84 MMHG (35-45); ABG PH 7.15 (7.37-7.43)
[2020-05-02 03:34] LABS: ALLENS TEST ART LINE; INSPIRED O2 75%; PATIENT TEMP 37.1; VENTILATOR YES
[2020-05-02 03:42] LABS: MAGNESIUM 2.5 MG/DL (1.6-2.4); PHOSPHORUS 4.7 MG/DL (2.3-4.7)
[2020-05-02 03:49] LABS: BUN/CREATININE RATIO 16; CALCIUM 8.4 MG/DL (8.5-10.1); CARBON DIOXIDE 25 MMOL/L (21-32); CHLORIDE 102 MMOL/L (98-107); CREATININE SERUM 0.61 MG/DL (0.60-1.30); GFR ESTIMATED > 60; GLUCOSE 170 MG/DL (70-105); POTASSIUM 5.2 MMOL/L (3.6-5.0); SODIUM 138 MMOL/L (135-145)
[2020-05-02] MEDS: POTASSIUM CL 10MEQ/50ML IVPB 50 ML IV SCH (03:52)
[2020-05-02] MEDS: KCL 20 MEQ TAB (K-DUR) PO SCH (03:53)
[2020-05-02] MEDS: MAGNESIUM 1 GM/100 ML IVPB 100 ML IV SCH (03:53)
[2020-05-02] MEDS ORDERED: LACTATED RINGERS 1,000 ML IV SCH (05:00)
--- NOTE | 2020-05-02 05:00 | Pulmonary Progress Note ---
Subjective Time Seen by a Provider: 04:55 Subjective/Events-last exam Sedated on vent. Sepsis Event Evaluation Height, Weight, BMI Height: '" Weight: lbs. oz. kg; 31.00 BMI Method: Focused Exam Time of Focused Exam: 11:35 Exam Exam Vital Signs Date Time Temp Pulse Resp B/P (MAP) Pulse Ox O2 Delivery O2 Flow Rate FiO2 05/02/20 03:48 126 137/76 05/02/20 02:15 126 24 91 75 05/02/20 01:08 54 137/76 05/02/20 01:00 109 05/01/20 23:00 36.4 60 16 120/73 (89) 95 Mechanical Ventilator 75.00 05/01/20 22:41 59 27 95 75 05/01/20 22:00 36.6 62 21 123/69 (87) 96 Mechanical Ventilator 75.00 05/01/20 21:00 36.8 64 19 118/68 (85) 96 Mechanical Ventilator 75.00 05/01/20 21:00 93 Mechanical Ventilator 85 05/01/20 20:53 54 137/76 05/01/20 20:52 54 137/76 05/01/20 20:00 36.9 60 15 141/76 (97) 97 Mechanical Ventilator 75.00 05/01/20 19:22 Mechanical Ventilator 75.00 05/01/20 19:15 54 22 99 85 05/01/20 19:00 36.9 54 12 138/79 (98) 99 Mechanical Ventilator 75.00 05/01/20 19:00 57 05/01/20 18:00 36.9 60 10 142/78 (99) 98 Mechanical Ventilator 80.00 05/01/20 17:00 36.9 60 61 130/77 (94) 98 Mechanical Ventilator 80.00 05/01/20 16:00 37.0 75 51 123/78 (93) 95 Mechanical Ventilator 80.00 05/01/20 16:00 37.0 71 26 123/78 (93) 97 Mechanical Ventilator 80.00 05/01/20 15:00 37.3 48 48 117/64 (81) 97 Mechanical Ventilator 75.00 05/01/20 14:43 59 120/73 05/01/20 14:39 84 22 95 85 05/01/20 14:00 37.3 58 24 116/67 (83) 97 Mechanical Ventilator 75.00 05/01/20 13:00 37.3 65 37 115/70 (85) 95 Mechanical Ventilator 75.00 05/01/20 12:37 67 05/01/20 12:02 Mechanical Ventilator 75.00 05/01/20 12:00 37.3 59 19 100/67 (78) 99 Mechanical Ventilator 75.00 05/01/20 11:00 37.3 71 18 94/62 (73) 96 Mechanical Ventilator 85.00 05/01/20 10:43 68 98/67 05/01/20 10:42 73 98/67 05/01/20 10:07 78 24 95 90 05/01/20 10:00 37.3 80 14 92/57 (69) 94 Mechanical Ventilator 85.00 05/01/20 09:25 38.1 05/01/20 09:03 Mechanical Ventilator 85.00 05/01/20 09:00 37.3 85 14 116/77 (90) 95 Mechanical Ventilator 70.00 05/01/20 08:55 38.0 05/01/20 08:31 92 26 117/69 05/01/20 08:29 92 Mechanical Ventilator 80 05/01/20 08:00 37.3 94 14 120/84 (96) 96 Mechanical Ventilator 70.00 05/01/20 07:36 85 32 97 100 05/01/20 07:19 92 05/01/20 07:18 89 138/84 05/01/20 07:00 37.3 78 16 125/70 (88) 87 Mechanical Ventilator 70.00 05/01/20 06:41 61 05/01/20 06:09 94 Mechanical Ventilator 70.00 05/01/20 06:00 37.3 64 14 111/64 (80) 98 Mechanical Ventilator 90.00 05/01/20 05:08 95 90.00 05/01/20 05:00 37.4 71 13 107/80 (89) 95 Mechanical Ventilator 100.00 I & O 05/02/20 07:00 Intake Total 2715 ml Output Total 3325 ml Balance -610 ml Height & Weight Height: '" Weight: lbs. oz. kg; 31.00 BMI Method: General Appearance: Severe Distress HEENT: PERRL/EOMI, Other Respiratory: No Accessory Muscle Use, No Respiratory Distress Cardiovascular: Regular Rate, Rhythm Capillary Refill: Less Than 3 Seconds Peripheral Pulses: 1+ Radial Pulses (R), 1+ Radial Pulses (L) Gastrointestinal: soft, no organomegaly Neurologic/Psychiatric: Other Skin: Normal Color Results Lab Laboratory Tests 05/01/20 02:58 05/02/20 03:00 Assessment/Plan Assessment/Plan Acute respiratory failure with ARDS \\ -EICU managed through the weekend -propofol and Fentanyl -Pt will need trach and peg tube if we are continuing aggressive measures. Pt has no family. Ethics was consulted 04/30. -Surgery is already following. -Ethics consult today. Pt has no family to contact. I discussed pt and plan of care in detail with TEACHING ASSISTANT. -Pt was extubated on 04/27 and then reintubated the same day. -Pt would benefit from tracheostomy however. Pt has no family to obtain consent. -Continue ventilator care -PEEP 8 and 75% Fio2 VT 350 RR 28 - TF -Lovenox 100mg BID COVID 19 PNA -with Klebsiella - Merrem Vanco ( Vanco started 04/30 secondary to persistent fevers. Repeat levin cultures pending.) - Diflucan started 04/30 -Repeat levin cultures including culture plural fluid -Dx 04/09 -Remdesivir -Decadron -CVP Hypotension -Start Levophed Small stable right PTX - prior to intubation -Continue Chest tube until after Extubation -Currently to water seal -Reconnect chest tube back to suction -Repeat CXR - Sinus tachycardia PNA -Vanco, and Zosyn -Levin cultures pending -MRSA pending TBI Hepatitis C Transaminitis noted, trend with remdesivir PATRICIA baseline creatinine around 0.75m up to 1.30 Continue IVF Discussed with Dr. Moore and she agrees pt should be a "No Code" It would be futile to code pt in the event of a cardiac arrest. Will proceed with DNR status. Critical Care: Critically Ill Patient Time spent with patient (mins): 90 COLEMAN MARTINEZ DO May 02, 2020 05:00
[2020-05-02] MEDS ORDERED: LACTATED RINGERS 1,000 ML IV ONE (05:06)
[2020-05-02] MEDS ORDERED: NOREPINEPHRINE 4 MG/250 ML 250 ML IV ONE (05:06)
[2020-05-02] MEDS ORDERED: D5 LR IV SOLUTION 1,000 ML IV ONE (05:07)
[2020-05-02] MEDS: D5 LR IV SOLUTION 1,000 ML IV SCH ×3 (05:28→20:11)
[2020-05-02] MEDS: MIDAZOLAM DRIP PRE-MIX 100 ML IV SCH (05:33)
[2020-05-02 05:51] LABS: ABG BASE EXCESS 0.5 MMOL/L (-2.5-2.5); ABG OXYGEN SATURATION 96 % (94-100); ABG PCO2 64 MMHG (35-45); ABG PO2 92 MMHG (79-93); ABG TCO2 28.7 MMOL/L (21.0-31.0)
[2020-05-02 05:53] LABS: ABG PH 7.25 (7.37-7.43)
[2020-05-02 05:54] LABS: INSPIRED O2 75%; PATIENT TEMP 37.4; VENTILATOR YES
[2020-05-02 07:22] VITALS: BP 109/97
--- NOTE | 2020-05-02 07:35 | Diagnostic Imaging Report ---
CHEST 1 VIEW, AP/PA ONLY INDICATION: Pneumothorax. COMPARISON: 05/01/2020 FINDINGS: Stable ET and enteric tubes. Stable right PICC. Small right-sided pneumothorax has not substantially changed with approximately 1.3 cm of apical pleural separation. Bilateral pulmonary consolidations are unchanged. Small right pleural effusion is noted. Stable cardiomediastinal silhouette. IMPRESSION: 1. Stable support devices. 2. Unchanged small right apical pneumothorax. 3. Unchanged bilateral pulmonary consolidations. Dictated by: Dictated on workstation # [id number]
[2020-05-02] MEDS: risperiDONE 0.25 MG (RisperDAL) TAB PO SCH ×2 (08:48→20:24)
[2020-05-02] MEDS: VALPROIC ACID SYRUP 250 MG/5 ML UDC PO SCH ×2 (08:49→16:43)
[2020-05-02] MEDS: FAMOTIDINE 20MG/2ML IV (PEPCID) IV SCH ×2 (08:49→20:24)
[2020-05-02] MEDS: FUROSEMIDE 40 MG/4 ML INJ (LASIX) IVP SCH (08:49)
[2020-05-02] MEDS: FLUCONAZOLE 200 MG/100 ML 50 ML, EMPTY IV BAG (PVC) 1 EA IV SCH ×2 (08:50)
[2020-05-02] MEDS: LEVETIRACETAM INJECTION 500 MG in NS (IVPB) 100 ML IV SCH ×2 (08:53→20:34)
[2020-05-02] MEDS: NOREPINEPHRINE 4 MG/250 ML 250 ML IV SCH ×3 (09:05→20:10)
--- NOTE | 2020-05-02 09:35 | Physical Therapy Progress Note ---
Therapy Progress Note Hold PROM per RN due to current status. MACARIO PIKE PT May 02, 2020 09:35
[2020-05-02 10:27] VITALS: BP 126/81
[2020-05-02] MEDS: ENOXAPARIN 100 MG/1 ML (LOVENOX) SYR SC SCH ×2 (12:16→20:23)
[2020-05-02] MEDS ORDERED: TROUGH ORDER-PHARMACY XX NR (13:00)
--- NOTE | 2020-05-02 14:00 | NUR ---
Note pt currently receiving TF of [facility] via 180ml bolus feeds q4h with 30ml free water flushes before/after each bolus. Note pt is currently at goal for feeding. Will continue to follow and reassess as pt needs, intake, and status change. Harjinder Artis, MS RD LD [phone] cell
--- NOTE | 2020-05-02 14:13 | NUR ---
VANCOMYCIN DOSING TROUGH LEVEL 16.9 - CONTINUE CURRENT DOSE OF VANC 1500 MG Q12H
--- NOTE | 2020-05-02 14:23 | NUR ---
CM/SS update. The ethics team met and discussed case. At this time, it was decided to make the patient a DNR. The two physicians signing are Dr. Moore and Dr. Johnson. The next steps in care are still in question; therefore, a second meeting will be held tomorrow at 05/02 with additional members including [facility] social sciences research scientist and [facility] and Legal. CM/SS will continue to follow.
[2020-05-02 15:00] VITALS: BP 94/73
[2020-05-02] MEDS: ACETAMINOPHEN 325 MG TABLET PO PRN (16:43)
--- NOTE | 2020-05-02 19:27 | Progress Note - Hospitalist ---
Progress Note Progress Notes/Assess & Plan Date Seen 05/02/20 Time Seen by Provider: 19:20 Assessment & Plan I did not personally examine patient today. I participated in ethic consult regarding patient and his previously stated wishes. According to the facility where he resided he has always been at peace with his own and had historically been a DNR. They have informed us that he would not want ferry terminal agent aggressive measures done to prolong his life and up until this admission he had not even wanted short term interventions. When I discussed the situation with him on admission he was on max Vapotherm settings and he agreed to intubation if needed then. We did not discuss ferry terminal agent measures. Question today at ethics consult regards whether or not a trach/peg is in patient's best interest and in accordance with his wishes. We are set to discuss further with the NH representatives and legal consult tomorrow. The question of Full Code vs DNR came up and after reviewing chart I agree with Dr Johnson that should Mr Colon's heart stop CODE BLUE (CPR, ACLS, etc) would be futile care given his severe ARDS. Focused Exam Time of Focused Exam: 11:35 Diagnosis/Problems Diagnosis/Problems (1) COVID-19 (2) Metabolic alkalosis (3) Peripheral T-cell lymphoma Status: Chronic Qualifiers: Qualified Codes: C84.40 - Peripheral T-cell lymphoma, not classified, unspecified site (4) Seizure disorder Status: Chronic (5) History of traumatic brain injury Status: Chronic (6) Severe sepsis Status: Acute (7) Chronic hepatitis Status: Chronic (8) Hypokalemia Status: Chronic (9) Pneumonia Status: Acute Qualifiers: Qualified Codes: J18.9 - Pneumonia, unspecified organism LOLIS GRACE MD May 02, 2020 19:27
[2020-05-02 19:34] VITALS: BP 94/73
[2020-05-02 22:54] VITALS: BP 107/77
[2020-05-03] MEDS: D5 LR IV SOLUTION 1,000 ML IV SCH ×2 (00:15→09:20)
[2020-05-03] MEDS: ACETAMINOPHEN 325 MG TABLET PO PRN ×2 (00:18→09:18)
[2020-05-03] MEDS: fentaNYL DRIP PRE-MIX 250 ML IV SCH ×2 (00:20→09:20)
[2020-05-03] MEDS: MIDAZOLAM DRIP PRE-MIX 100 ML IV SCH (00:21)
[2020-05-03] MEDS: NOREPINEPHRINE 4 MG/250 ML 250 ML IV SCH ×2 (02:09→09:19)
[2020-05-03] MEDS: MEROPENEM 500 MG/SWFI 10 ML IV PUSH IV SCH ×2 (02:10)
[2020-05-03] MEDS: VANCOMYCIN 1500 MG/NS 500 ML IVPB IV SCH ×2 (02:10)
[2020-05-03 02:35] LABS: BASOPHILS % (AUTO) 0 % (0-10); EOSINOPHILS % (AUTO) 0 % (0-10); HEMOGLOBIN 8.1 g/dL (13.3-17.7)
[2020-05-03 02:37] VITALS: BP 90/60
[2020-05-03 02:37] LABS: HEMATOCRIT 25 % (40-54); LYMPHOCYTES # (AUTO) 0.9 10^3/uL (1.0-4.0); LYMPHOCYTES % (AUTO) 11 % (12-44); MEAN CORPUSCULAR HEMOGLOBIN 29 pg (25-34); MEAN CORPUSCULAR HGB CONC 32 g/dL (32-36); MEAN CORPUSCULAR VOLUME 91 fL (80-99); MEAN PLATELET VOLUME 10.8 fL (9.0-12.2); MONOCYTES # (AUTO) 0.4 10^3/uL (0.0-1.0); MONOCYTES % (AUTO) 4 % (0-12); NEUTROPHILS # (AUTO) 6.6 10^3/uL (1.8-7.8); NEUTROPHILS % (AUTO) 84 % (42-75); WHITE BLOOD COUNT 7.9 10^3/uL (4.3-11.0)
[2020-05-03] MEDS: RT-ALBUTEROL INHALER HFA (VENTOLIN HFA) 18 GM IH SCH ×3 (02:37→10:48)
[2020-05-03 02:40] LABS: PLATELET COUNT 130 10^3/uL (130-400)
[2020-05-03 02:42] LABS: ABG BASE EXCESS -0.3 MMOL/L (-2.5-2.5); ABG OXYGEN SATURATION 96 % (94-100); ABG PCO2 45 MMHG (35-45); ABG PH 7.36 (7.37-7.43); ABG PO2 97 MMHG (79-93); ABG TCO2 25.6 MMOL/L (21.0-31.0)
[2020-05-03 02:46] LABS: ALLENS TEST POS; INSPIRED O2 65%; PATIENT TEMP 37.8; VENTILATOR YES
[2020-05-03 02:54] LABS: CHLORIDE 102 MMOL/L (98-107); POTASSIUM 4.8 MMOL/L (3.6-5.0); SODIUM 132 MMOL/L (135-145)
[2020-05-03 02:55] LABS: CALCIUM 7.3 MG/DL (8.5-10.1)
[2020-05-03 02:56] LABS: GLUCOSE 139 MG/DL (70-105)
[2020-05-03 02:57] LABS: CARBON DIOXIDE 20 MMOL/L (21-32)
[2020-05-03 02:59] LABS: PHOSPHORUS 3.4 MG/DL (2.3-4.7)
[2020-05-03 03:00] LABS: CREATININE SERUM 0.68 MG/DL (0.60-1.30); GFR ESTIMATED > 60
[2020-05-03 03:01] LABS: BUN/CREATININE RATIO 31
[2020-05-03 03:02] LABS: MAGNESIUM 1.9 MG/DL (1.6-2.4)
[2020-05-03] MEDS: POTASSIUM CL 10MEQ/50ML IVPB 50 ML IV SCH (03:03)
[2020-05-03] MEDS: inSUlin ASPART (NovoLOG) 1 UNIT/0.01 ML (CHARGE PER UNIT) SQ SCH ×3 (03:04→11:57)
[2020-05-03] MEDS: MAGNESIUM 1 GM/100 ML IVPB 100 ML IV SCH (03:04)
[2020-05-03] MEDS: KCL 20 MEQ TAB (K-DUR) PO SCH (03:04)
[2020-05-03] MEDS: ARTIFICIAL TEARS OINT (LACRI-LUBE) 3.5 GM TUBE OU SCH ×3 (03:51→11:34)
--- NOTE | 2020-05-03 05:03 | Pulmonary Progress Note ---
Subjective Time Seen by a Provider: 05:03 Subjective/Events-last exam Pt is sedated on vent. Sepsis Event Evaluation Height, Weight, BMI Height: '" Weight: lbs. oz. kg; 31.00 BMI Method: Focused Exam Time of Focused Exam: 11:35 Exam Exam Vital Signs Date Time Temp Pulse Resp B/P (MAP) Pulse Ox O2 Delivery O2 Flow Rate FiO2 05/03/20 04:00 37.8 96 23 95/67 (76) 93 Mechanical Ventilator 65.00 05/03/20 03:00 37.8 98 20 101/64 (76) 92 Mechanical Ventilator 65.00 05/03/20 02:37 95 31 92 65 05/03/20 02:00 37.8 95 21 86/72 (77) 92 Mechanical Ventilator 65.00 05/03/20 01:00 37.8 98 21 99/61 (74) 93 Mechanical Ventilator 65.00 05/03/20 01:00 98 05/03/20 00:48 37.8 05/03/20 00:24 Mechanical Ventilator 65.00 05/03/20 00:21 99 28 107/77 05/03/20 00:18 37.8 05/03/20 00:00 37.7 98 23 107/77 (87) 94 Mechanical Ventilator 55.00 05/02/20 23:35 37.6 Mechanical Ventilator 55.00 05/02/20 23:00 37.5 92 20 107/69 (82) 100 Mechanical Ventilator 55.00 05/02/20 22:54 95 33 92 55 05/02/20 22:00 37.4 90 21 105/69 (81) 93 Mechanical Ventilator 55.00 05/02/20 21:00 37.4 89 18 95/75 (82) 99 Mechanical Ventilator 55.00 05/02/20 20:30 97 Mechanical Ventilator 55 05/02/20 20:30 88 84/65 05/02/20 20:30 88 84/65 05/02/20 20:05 37.5 87 28 95/67 (76) 99 Mechanical Ventilator 55.00 05/02/20 20:00 37.4 89 17 84/65 (71) 98 Mechanical Ventilator 55.00 05/02/20 19:34 91 30 93 55 05/02/20 19:00 90 05/02/20 19:00 37.5 90 16 93/62 (72) 97 Mechanical Ventilator 55.00 05/02/20 18:14 37.6 05/02/20 18:00 37.6 93 22 89/64 (72) 96 Mechanical Ventilator 75.00 05/02/20 17:00 37.6 93 26 94/63 (73) 96 Mechanical Ventilator 75.00 05/02/20 16:43 37.6 05/02/20 16:00 37.6 97 27 93/77 (82) 94 Mechanical Ventilator 75.00 05/02/20 15:00 37.6 98 29 94/73 (80) 98 Mechanical Ventilator 75.00 05/02/20 15:00 96 33 97 75 05/02/20 14:00 37.6 98 28 92/76 (81) 95 Mechanical Ventilator 75.00 05/02/20 13:00 97 05/02/20 13:00 37.6 99 34 92/75 (81) 94 Mechanical Ventilator 75.00 05/02/20 12:25 103/87 05/02/20 12:00 37.6 102 17 116/86 (96) 98 Mechanical Ventilator 75.00 05/02/20 11:00 37.6 107 17 115/87 (96) 96 Mechanical Ventilator 75.00 05/02/20 10:27 108 33 91 75 05/02/20 10:00 37.6 108 17 118/90 (99) 95 Mechanical Ventilator 75.00 05/02/20 09:05 105/94 05/02/20 09:00 37.6 99 15 105/94 (98) 99 Mechanical Ventilator 75.00 05/02/20 09:00 100 Mechanical Ventilator 65 05/02/20 08:00 37.4 104 18 103/94 (97) 100 Mechanical Ventilator 75.00 05/02/20 07:22 105 31 97 75 05/02/20 07:00 100 05/02/20 07:00 37.3 101 17 112/67 (82) 100 Mechanical Ventilator 75.00 05/02/20 06:00 37.3 101 16 105/83 (90) 99 Mechanical Ventilator 75.00 05/02/20 05:33 126 24 137/76 I & O 05/03/20 06:59 Intake Total 2590 ml Output Total 1000 ml Balance 1590 ml Height & Weight Height: '" Weight: lbs. oz. kg; 31.00 BMI Method: General Appearance: Severe Distress HEENT: PERRL/EOMI, Other Respiratory: No Accessory Muscle Use, No Respiratory Distress Cardiovascular: Regular Rate, Rhythm Capillary Refill: Less Than 3 Seconds Peripheral Pulses: 1+ Radial Pulses (R), 1+ Radial Pulses (L) Gastrointestinal: soft, no organomegaly Neurologic/Psychiatric: Other Skin: Normal Color Results Lab Laboratory Tests 05/02/20 03:00 05/03/20 02:20 Assessment/Plan Assessment/Plan Acute respiratory failure with ARDS \\ -EICU managed through the weekend -propofol and Fentanyl -Pt will need trach and peg tube if we are continuing aggressive measures. Pt has no family. Ethics was consulted 04/30. -Surgery is already following. -Ethics consult today. Pt has no family to contact. I discussed pt and plan of care in detail with CULLET TRUCKER. -Pt was extubated on 04/27 and then reintubated the same day. -Pt would benefit from tracheostomy however. Pt has no family to obtain consent. -Continue ventilator care -PEEP 8 and 65% Fio2 VT 350 RR 28 - TF -Lovenox 100mg BID COVID 19 PNA -with Klebsiella - Merrem Vanco ( Vanco started 04/30 secondary to persistent fevers. Repeat levin cultures pending.) - Diflucan started 04/30 -Repeat levin cultures including culture plural fluid -Dx 04/09 -Remdesivir -Decadron -CVP Hypotension -monitor -Levophed is currently off Small stable right PTX - prior to intubation -Continue Chest tube until after Extubation -Currently to water seal -Reconnect chest tube back to suction -Repeat CXR - Sinus tachycardia PNA -Vanco, and Zosyn -Levin cultures pending -MRSA pending TBI Hepatitis C Transaminitis noted, trend with remdesivir PATRICIA baseline creatinine around 0.75m up to 1.30 Continue IVF COLEMAN MARTINEZ DO May 03, 2020 05:03
--- NOTE | 2020-05-03 05:48 | Diagnostic Imaging Report ---
Indication: Shortness of breath Portable chest 1:45 AM There is ET tube projects over the trachea. NG tube projects over the stomach. Right upper extremity PICC line tip projects over the SVC. Left subclavian Port-A-Cath tip projects over the SVC. There are diffuse interstitial infiltrates in the lungs and some patchy areas of alveolar consolidation. There are no effusions. IMPRESSION: Multifocal pulmonary infiltrates in both lungs has shown slight improvement compared to the previous day. Dictated by: Dictated on workstation # [id number]
[2020-05-03] MEDS: PROPOFOL DRIP (ICU) 100 ML IV SCH ×3 (05:54→09:20)
[2020-05-03 07:09] VITALS: BP 95/69
[2020-05-03] MEDS: FLUCONAZOLE 200 MG/100 ML 50 ML, EMPTY IV BAG (PVC) 1 EA IV SCH ×2 (09:14)
[2020-05-03] MEDS: FAMOTIDINE 20MG/2ML IV (PEPCID) IV SCH (09:17)
[2020-05-03] MEDS: risperiDONE 0.25 MG (RisperDAL) TAB PO SCH (09:17)
[2020-05-03] MEDS: VALPROIC ACID SYRUP 250 MG/5 ML UDC PO SCH (09:17)
[2020-05-03] MEDS: FUROSEMIDE 40 MG/4 ML INJ (LASIX) IVP SCH (09:18)
[2020-05-03] MEDS: LEVETIRACETAM INJECTION 500 MG in NS (IVPB) 100 ML IV SCH (09:18)
--- NOTE | 2020-05-03 09:25 | Physical Therapy Progress Note ---
Therapy Progress Note PROM bilateral extremities in supine. Restraints in place bilateral UE. MACARIO PIKE PT May 03, 2020 09:25
[2020-05-03 10:48] VITALS: BP 107/77
[2020-05-03] MEDS: CISATRACURIUM INJECTION 100 MG in NS (IVPB) 200 ML IV SCH (11:33)
[2020-05-03] MEDS: ENOXAPARIN 100 MG/1 ML (LOVENOX) SYR SC SCH (11:33)
--- NOTE | 2020-05-03 13:00 | NUR ---
The Ethics Committee convened virtually at [address] Miguel Moore; Dr. Dipti Johnson; Cherelle OTERO; Mrayuri Mccormack, spindle carver; Domenic Gamboa, Palliative RN; Maggie Greer, [facility] Phot[employer]position Keyboard Operator; Allen Ghosh, Vp Global Marketing [employer]; Agustín Mosher, Tetryl Blender Operator; and Dre Godinez, Ethics Chair. Purpose: to clarify a range of ethically appropriate options. Recommendation: If multiple providers chart that a resuscitation is not medically indicated because it would be futile, it is ethically appropriate to make this patient a DNR, in alignment with AMA's Principles of Medical Ethics 5.5. It is ethically appropriate to continue current treatment in alignment with his verbalized wishes in accordance to the patient's autonomy. If 1) the patient's condition declines so that more aggressive interventions are required and 2) it is clinically documented by multiple providers that it is not within the best interest as indicated by those who know him best, it is ethical to withhold aggressive interventions in in accordance with Ethical and Baptism Directive 25, & 57. In all things we must remember that, "The [facility] health care ministry faces the reality of with the confidence of lilibeth. In the face of deathfor many, a time when hope seems lostthe Sikhism witnesses to her belief that God has created each person for eternal life." - The Ethical and Baptism Directives
--- NOTE | 2020-05-03 13:11 | NUR ---
WA notified this RN of pt HR 26 at this time. This RN donned PPE and entered room. HR 26 with Pulse noted. BP unable to take at this time. 1313 Britney RN placed phone call to DR. Johnson. Orders received to give 0.5mg Atropine at this time. 1315 Atropine given by this RN. HR increased to 73 at this time. Unable to obtain BP at this time. Pulse palpable in right carotid. 1316 HR decreased to 20s, multifocal PVCs. P waves noted on monitor at this time. Ventricular standstill noted. No pulse detected at this time. 1317 Dr. Johnson on phone at this time notified of lack of pulse on pt. Pt verified as DNR at this time. 1320 TOD called. This RN and BIANCA Rodas at bedside at this time. Orders received from Dr. Johnson to remove ventilator at this time. 1322 keymodule assembly supervisor notified of at this time.
[2020-05-03] MEDS ORDERED: ATROPINE INJECTION 1 MG/10 ML SYR (ABBOTT) ONE (13:12)
--- NOTE | 2020-05-03 13:39 | NUR ---
[facility] Ethics Meeting with Legal. The meeting was held at 12:00 p.m. today 05/03 to follow up on the previous ethics meeting (see note). After hearing all parties and discussing thoroughly, it was decided that the physicians will reevaluate the patient on Wednesday. If the patient did not show improvement he would transition into comfort care. SUSU was notified while entering note that the patient's heart stopped. SUSU contacting Maggie at the facility to notify them of patient's passing. She verbalized understanding.
--- NOTE | 2020-05-03 13:40 | NUR ---
Note pt currently receiving TF of [facility] via 180ml bolus feeds q4h with 30ml free water flushes before/after each bolus. Note pt is currently at goal for feeding. Will continue to follow and reassess as pt needs, intake, and status change. Harjinder Artis, MS RD LD [phone] cell
--- NOTE | 2020-05-03 14:26 | NUR ---
[facility] called at this time to determine if pt had home plans. This RN notified that pt did not have any plans on file at this time. Will contact [facility] at this time for services per, Paving Stone Installer.
--- NOTE | 2020-05-03 14:48 | NUR ---
[facility] notified of pt TOD at this time. Referal Number [id number]. Pt is not a candidate for donation at this time due to COVID.
--- NOTE | 2020-05-03 15:00 | NUR ---
[facility] contacted at this time for arrangements and body lemon picker. Will await home arrival.
== END 2020-05-04 15:00 | disposition expired | DRG 870 ==
LOC: EDUNIT# 09:51 → ER 09:53 → ICU 12:03
PROVIDERS: ADMIT Family Medicine; ATTEND Internal Medicine
PROC: XW033E5 Introduction of Remdesivir Anti-infective into Peripheral Vein, Percutaneous Approach, New Technology Group 5 (ICD-10-PCS; principal; 2020-04-19)
PROC: 0W9930Z Drainage of Right Pleural Cavity with Drainage Device, Percutaneous Approach (ICD-10-PCS; 2020-04-19)
PROC: 5A1955Z Respiratory Ventilation, Greater than 96 Consecutive Hours (ICD-10-PCS; 2020-04-28)
PROC: 0BH17EZ Insertion of Endotracheal Airway into Trachea, Via Natural or Artificial Opening (ICD-10-PCS; 2020-04-28)
DX: A41.9 Sepsis, unspecified organism (principal); U07.1 COVID-19; J80 Acute respiratory distress syndrome; J12.89 Other viral pneumonia; J15.0 Pneumonia due to Klebsiella pneumoniae; J93.9 Pneumothorax, unspecified; N17.9 Acute kidney failure, unspecified; E87.2 Acidosis; C84.40 Peripheral T-cell lymphoma, not elsewhere classified, unspecified site; E78.00 Pure hypercholesterolemia, unspecified; G40.909 Epilepsy, unspecified, not intractable, without status epilepticus; Z87.820 Personal history of traumatic brain injury; Z66 Do not resuscitate; K21.9 Gastro-esophageal reflux disease without esophagitis; G89.29 Other chronic pain; M54.9 Dorsalgia, unspecified; F31.9 Bipolar disorder, unspecified; G47.9 Sleep disorder, unspecified; K74.60 Unspecified cirrhosis of liver; R65.20 Severe sepsis without septic shock; E87.6 Hypokalemia; K73.9 Chronic hepatitis, unspecified; M19.90 Unspecified osteoarthritis, unspecified site; Z87.891 Personal history of nicotine dependence; R00.1 Bradycardia, unspecified; I95.9 Hypotension, unspecified; Z73.0 Burn-out
CPT/HCPCS: 36415; 36569; 51702; 71045; 71260; 76937; 80048; 80053; 80202; 81000; 82805; 82945; 82962; 83605; 83615; 83735; 83880; 83986; 84100; 84132; 84145; 84157; 84478; 85025; 85379; 86141; 86900; 86901; 87040; 87070; 87077; 87081; 87186; 87205; 89051; 93005; 94002; 94003; 94640; 94799; 96361; 96365; 96367; 96375